=== PATIENT | male | born 1945 | race Caucasian/White ===

== ENCOUNTER → 2016-03-19 | Outpatient (CLI) | payer MEDICARE, OTHER ==
--- NOTE | 2016-03-19 15:35 | CT ---
"EXAMINATION TYPE: CT abdomen pelvis w con DATE OF EXAM: 03/19/2016 2:54 PM REFERENCE: NONE HISTORY: R10.32 abdominal pain HISTORY: Abdominal pain REFERENCE: NONE CT DLP: 1432.40 mGy Automated exposure control for dose reduction was used. TECHNIQUE: Helical acquisition through the abdomen and pelvis was obtained following the oral ingesti on of with Oral Contrast and following intravenous administration of 80 ml mL of Visipaque 320. The d feli was reformatted in axial, coronal and sagittal projections. FINDINGS: There is mild atelectatic change at the lung bases bilaterally. There is no pleural or per icardial fluid. Heart size is upper limits of normal. There is coronary artery calcification as well as other vascular calcifications. Within the abdomen, there is mild hepatomegaly with the liver measuring 18.6 cm. There is mild fatty infiltration of the liver. The gallbladder is not identified. Both adrenal glands appear normal. There is mild atrophy of the pancreas. Both kidneys demonstrate function. There is an 8.9 mm calculus in the midportion of the left ureter c ausing moderate hydronephrosis and hydroureter to this level. The right kidney is unremarkable. There is no significant retroperitoneal, iliac or inguinal adenopathy. There is mild thickening of the bladder wall. There is mild prosthetic enlargement. There is no significant diverticular change and there is no radiographic evidence of diverticulitis. There is annular narrowing of the mid ascending colon extending over a 3.2 cm distance. This is suspi cious for neoplasm. The appendix is not visualized. Small bowel loops are normal. There is no free fluid and no free air. There is been interpedicular fusion extending from L1 through L4. There is hypertrophic spondylosis a nd spondylosis deformans present at L4-5 and L5-S1. There is pain stimulator projecting over the left buttock. IMPRESSION: ANNULAR NARROWING OF THE MID ASCENDING COLON. 2. BORDERLINE CARDIOMEGALY. 3. VASCULAR CALCIFICATIONS INCLUDING THE CORONARY ARTERIES. 4. HEPATOMEGALY AND MILD FATTY INFILTRATION OF THE LIVER. 5. LEFT-SIDED HYDRONEPHROSIS AND HYDROURETER. THERE IS A 0.9 MM CALCULUS IN THE MIDPORTION OF THE LEF T URETER. 6. MILD THICKENING OF BLADDER WALL. 7. POSTSURGICAL CHANGE AND DEGENERATIVE CHANGE WITHIN THE LUMBAR SPINE. A Day message has been communicated to Cuong Rebolledo MD via the [employer] | Critical Result sy stem on 03/19/2016 3:31 PM, Message ID [id number]."
== END | disposition home or self-care (01) ==
LOC: RADCTMAIN 12:43
PROVIDERS: ATTEND Internal Medicine
DX: K56.69 Other intestinal obstruction (principal); R16.0 Hepatomegaly, not elsewhere classified; K76.0 Fatty (change of) liver, not elsewhere classified; N13.30 Unspecified hydronephrosis; N13.4 Hydroureter; N20.1 Calculus of ureter; N32.89 Other specified disorders of bladder
CPT/HCPCS: 74177; Q9967

== ENCOUNTER → 2016-04-28 | Outpatient (CLI) | payer MEDICARE, OTHER ==
--- NOTE | 2016-04-28 16:20 | US ---
EXAMINATION TYPE: US kidneys/renal and bladder DATE OF EXAM: 04/28/2016 2:13 PM COMPARISON: prior ct in pacs CLINICAL HISTORY: Abd Pain R10.9. pt had a left stone surgically removed 4 wks ago and had improved pain, new onset of left flank pain EXAM MEASUREMENTS: Right Kidney: 11.0 x 5.6 x 6.2 cm Left Kidney: 13.0 x 6.5 x 5.8 cm Right Kidney: wnl Left Kidney: heterogeneous sinus, no stone seen, pt is tender over this area Bladder: wnl Bilateral Jets seen: yes There is no evidence for hydronephrosis at this point in time. No nephrolithiasis is seen. No cholo s are identified. The urinary bladder is anechoic. Bilateral ureteral jets are seen. IMPRESSION: Left renal sinus is somewhat heterogenous and this may be related to prior surgical intervention.
== END | disposition home or self-care (01) ==
LOC: RADUSWWP 13:55
PROVIDERS: ATTEND Urology
DX: R10.9 Unspecified abdominal pain (principal)
CPT/HCPCS: 76770

== ENCOUNTER → 2016-10-25 | Outpatient (CLI) | payer MEDICARE, OTHER ==
[2016-10-25 10:55] LABS: Blood Urea Nitrogen 19 mg/dL (9-20); Non-African American GFR(MDRD) >60 (>60 ml/min/1.73 sqM)
--- NOTE | 2016-10-26 07:32 | CT ---
EXAMINATION TYPE: CT abdomen pelvis w con DATE OF EXAM: 10/25/2016 REFERENCE: Previous study dated 03/19/2016. HISTORY: R10.84 generalized abdominal pain HISTORY: Abdominal pain, Pre-MRI CT DLP: 2053 mGy Automated exposure control for dose reduction was used. TECHNIQUE: Helical acquisition through the abdomen and pelvis was obtained following the oral ingesti on of with Oral Contrast and following intravenous administration of 100 ml mL of Omnipaque 300. The data was reformatted in axial, coronal and sagittal projections. FINDINGS: There is mild airspace disease in the right lower lobe and right middle lobe. This may rep resent atelectasis. Early consolidation is not excluded. There is no pleural or pericardial fluid. Th e heart is mildly enlarged. There are coronary artery calcifications as well as other vascular calcif ications throughout the study. Within the abdomen, the liver is mildly prominent measuring 18 cm. The gallbladder is not identified. The spleen is unremarkable. Both adrenal glands are normal. Both kidneys demonstrate function and appear morphologically normal. The pancreas is unremarkable. There is no significant retroperitoneal, iliac or inguinal adenopathy. The prostate is mildly prominent. There is minimal thickening of the bladder wall. There is mucosal thickening within the transverse colon. There is no significant diverticular change. The appendix is not visualized. Small bowel loops appear normal. There is no free fluid and no free air identified. There is been a previous transpedicular fusion extending from L1 through L4. This is unchanged in esperanza earance from previous. There is also some minimal hypertrophic spondylosis in the lower dorsal spine. No bony destructive lesion is seen. There is a pain stimulator in place with the generator overlying the left buttock. IMPRESSION: 1. MILD ATELECTASIS OR EARLY AIRSPACE DISEASE IN THE RIGHT LOWER MIDDLE LOBES. 2. CORONARY ARTERY AND OTHER VASCULAR CALCIFICATIONS. 3. MILD HEPATOMEGALY. 4. DIFFUSE THICKENING OF THE TRANSVERSE COLON. PLEASE CORRELATE FOR COLITIS. 5. POSTSURGICAL AND DEGENERATIVE CHANGE WITHIN THE LUMBAR SPINE.
== END | disposition home or self-care (01) ==
LOC: RADCTMAIN 09:33
PROVIDERS: ATTEND Internal Medicine
DX: K63.89 Other specified diseases of intestine (principal); R16.0 Hepatomegaly, not elsewhere classified; Z01.818 Encounter for other preprocedural examination; Z98.890 Other specified postprocedural states
CPT/HCPCS: 82565; 84520; 74177; 36415; Q9967

== ENCOUNTER 2016-11-17 08:01 | Day surgery (SDC) | payer MEDICARE, OTHER ==
[2016-11-16 09:17] VITALS: BMI 34.2
[~2016-11-17 08:01] MED LIST: LACTATED RINGERS 1,000 ML IV SCH
[2016-11-17 08:31] VITALS: RESP 18; TEMP 97.9
[2016-11-17] MEDS ORDERED: LIDOCAINE 1% 20 ML VIAL (10MG/ML) FOR IV START INTRADERMA ONE (08:31)
[2016-11-17 08:34] LABS: Glucose,Whole Blood 130 mg/dL (75-99)
[2016-11-17] MEDS ORDERED: PROPOFOL 10 MG/ML 20 ML VIAL IV ONE (08:44)
--- NOTE | 2016-11-17 09:10 | P.PCN ---
Date of Procedure: 11/17/16 Procedure(s) Performed: BRIEF HISTORY: Patient is a 70-year-old pleasant white male, scheduled for an elective colonoscopy as a part of abdominal pain, nausea on and off for the last few months duration. Pain is mostly in the lower abdominal area but no significant change in his bowel habits. He denies any rectal bleeding. He had a CT of the abdomen and pelvis done that showed thickening of the transverse colon suspicious for colitis and hence he scheduled for colonoscopy to evaluate further. PROCEDURE PERFORMED: Colonoscopy with snare polypectomy. PREOPERATIVE DIAGNOSIS: Lower abdominal pain and abdominal CAT scan of the abdomen showing thickening of the transverse colon. IV sedation per Anesthesia. PROCEDURE: After informed consent was obtained, the patient, was brought into the endoscopy unit. IV sedation was administered by Anesthesia under continuous monitoring. Digital rectal examination was normal. Initially the Olympus CF- 160 flexible video colonoscope was then inserted in the rectum, gradually advanced into the cecum without any difficulty. Careful examination was performed as the scope was gradually being withdrawn. Ileocecal valve and the appendiceal orifice were visualized and appeared normal. Prep was excellent. In the ascending colon there was a 7-8 mm polyp that was removed by snare polypectomy. Mucosa of the cecum, ascending colon, transverse colon, descending colon, sigmoid colon, and rectum appeared normal. Retroflexion was performed in the rectum and no lesions were seen. The patient tolerated the procedure well. IMPRESSION: 7-8 mm ascending colon polyp status post polypectomy Rest of the colon appeared normal RECOMMENDATIONS: Findings of this examination were discussed with the patient as well as her family. He was advised to follow with the biopsy results. If the biopsy shows a tubular adenoma, he can have a repeat colonoscopy in 5 years.
[2016-11-17 09:11] VITALS: PULSE 56
[2016-11-17 09:30] VITALS: BP 168/68
== END 2016-11-17 09:59 | disposition home or self-care (01) ==
LOC: ORWHC2ENDO 08:01
PROVIDERS: ATTEND Internal Medicine Gastroenterology
DX: R10.30 Lower abdominal pain, unspecified (principal); K63.5 Polyp of colon; Z79.899 Other long term (current) drug therapy; Z88.5 Allergy status to narcotic agent; I25.2 Old myocardial infarction; I10 Essential (primary) hypertension; E78.5 Hyperlipidemia, unspecified; G47.33 Obstructive sleep apnea (adult) (pediatric); E11.9 Type 2 diabetes mellitus without complications; N40.0 Benign prostatic hyperplasia without lower urinary tract symptoms; G20 Parkinson's disease; K21.9 Gastro-esophageal reflux disease without esophagitis; Z95.5 Presence of coronary angioplasty implant and graft; Z79.82 Long term (current) use of aspirin
CPT/HCPCS: 88305; 45385; J2704

== ENCOUNTER 2016-12-11 11:06 | Inpatient (IN) | payer MEDICARE, OTHER ==
[2016-12-11 12:02] LABS: Basophils % (A) 0 %; CH 29.5; CHCM 33.5; Eosinophils # (A) 0.2 k/uL (0-0.7); Eosinophils % (A) 3 %; HCT 46.9 % (39.0-53.0); HDW 2.74; Luc # (Auto) 0.19; Luc % (Auto) 3; Lymphocytes % (A) 29 %; MCH 28.3 pg (25.0-35.0); MCV 88.6 fL (80.0-100.0); Mean Platelet Volume 7.3; Monocytes # (A) 0.5 k/uL (0-1.0); Monocytes % (A) 7 %; Neutrophils # (A) 4.2 k/uL (1.3-7.7); Neutrophils % (A) 59 %; RBC 5.29 m/uL (4.30-5.90); RDW 15.2 % (11.5-15.5); WBC 7.1 k/uL (3.8-10.6); WBC (Perox) 7.11
[2016-12-11 12:12] LABS: ALT 39 U/L (21-72); AST 31 U/L (17-59); Alkaline Phosphatase 94 U/L (38-126); Anion Gap 12 mmol/L; Blood Urea Nitrogen 20 mg/dL (9-20); Calcium 9.5 mg/dL (8.4-10.2); Carbon Dioxide 24 mmol/L (22-30); Chloride 105 mmol/L (98-107); Glucose 153 mg/dL (74-99); Magnesium 1.6 mg/dL (1.6-2.3); Non-African American GFR(MDRD) >60 (>60 ml/min/1.73 sqM); Potassium 4.9 mmol/L (3.5-5.1); Sodium 141 mmol/L (137-145); Total Bilirubin 0.7 mg/dL (0.2-1.3)
[2016-12-11 12:15] LABS: INR 1.1 (<1.2); Partial Thromboplastin Time 23.3 sec (22.0-30.0); Prothrombin Time 11.3 sec (9.0-12.0)
[2016-12-11 12:49] LABS: Troponin I <0.012 ng/mL (0.000-0.034)
[2016-12-11 12:55] LABS: Creatine Kinase MB 2.9 ng/mL (0.0-2.4)
--- NOTE | 2016-12-11 13:08 | ED ---
General Adult HPI - General Chief complaint: Recheck/Abnormal Lab/Rx Stated complaint: HEART MONITOR WENT OFF Time Seen by Provider: 12/11/16 11:54 Source: patient, family, RN notes reviewed Mode of arrival: wheelchair Limitations: no limitations - History of Present Illness Initial comments: Patient is a pleasant 71-year-old male presenting to the emergency department after being called by cardiology. Patient did have a monitor placed yesterday. Patient received a call stating heart rate was in the 30s. Patient has had several episodes of near-syncope over the past several weeks. Patient has lightheadedness and odd sensation associated with this. Currently patient is symptom-free. No chest pains other than his chronic occasional sharp discomfort , none at this time. No dyspnea. - Related Data Home Medications Medication Instructions Recorded Confirmed Aspirin 81 mg PO DAILY 05/21/14 12/11/16 Atorvastatin [Lipitor] 40 mg PO DAILY 05/21/14 12/11/16 Citalopram Hydrobromide 20 mg PO BID 05/21/14 12/11/16 [Citalopram HBr] Esomeprazole Magnesium [NexIUM] 40 mg PO QAM 05/21/14 12/11/16 Losartan Potassium 25 mg PO QAM 05/21/14 12/11/16 Metoprolol Succinate [Toprol XL] 25 mg PO QAM 05/21/14 12/11/16 metFORMIN HCL 1,000 mg PO BID 05/21/14 12/11/16 Cyanocobalamin [Vitamin B-12] 1,000 mcg PO DAILY 09/15/15 12/11/16 HYDROcodone/APAP 5-325MG [[place] 1 tab PO TID PRN 09/15/15 12/11/16 5-325] Carbidopa-Levodopa 25-100 mg 1 each PO TID 09/19/15 12/11/16 [Sinemet 25-100 mg] Folic Acid 0.4 mg PO DAILY 11/16/16 12/11/16 rOPINIRole HCL [Requip] 3 mg PO TID 11/16/16 12/11/16 Allergies Allergy/AdvReac Type Severity Reaction Status Date / Time adhesive AdvReac Itching Verified 12/11/16 12:51 morphine AdvReac Excessive Verified 12/11/16 12:51 Sweating Review of Systems ROS Statement: Those systems with pertinent positive or pertinent negative responses have been documented in the HPI. ROS Other: All systems not noted in ROS Statement are negative. Constitutional: Denies: fever Eyes: Denies: eye pain ENT: Denies: ear pain Respiratory: Denies: cough, dyspnea Cardiovascular: Denies: chest pain Endocrine: Reports: fatigue Gastrointestinal: Denies: abdominal pain Genitourinary: Denies: dysuria Musculoskeletal: Denies: back pain Skin: Denies: rash Neurological: Denies: weakness Past Medical History Past Medical History: Chest Pain / Angina, Diabetes Mellitus, GERD/Reflux, Hyperlipidemia, Hypertension, Myocardial Infarction (PR), Neurologic Disorder, Osteoarthritis (OA), Prostate Disorder, Sleep Apnea/CPAP/BIPAP Additional Past Medical History / Comment(s): PARKINSON'S,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 cystoscopy Past Anesthesia/Blood Transfusion Reactions: Previous Problems w/ Anesthesia Additional Past Anesthesia/Blood Transfusion Reaction / Comment(s): STATES "COULDN'T BREATHE WHEN COMING OUT OF SHOULDER SX AND WAS PUT BACK UNDER", SLIGHT CLAUSTROHOBIA Date of Last Stent Placement:: 2007 Past Psychological History: Depression Smoking Status: Never smoker Past Alcohol Use History: None Reported Past Drug Use History: None Reported - Past Family History Sister(s) Family Medical History: Cancer Father Sister(s) Additional Family Medical History / Comment(s): FATHER, 2 SISTERS AND 1 BROTHER , LUIS ALBERTO'S DX Mother Family Medical History: Deep Vein Thrombosis (DVT) General Exam Limitations: no limitations General appearance: alert, in no apparent distress Head exam: Present: atraumatic, normocephalic Eye exam: Present: normal appearance, PERRL, EOMI. Absent: nystagmus ENT exam: Present: normal oropharynx Neck exam: Present: normal inspection Respiratory exam: Present: normal lung sounds bilaterally Cardiovascular Exam: Present: bradycardia Expanded Peripheral pulses: 2+: Radial (R), Radial (L), Dorsalis Pedis (R), Dorsalis Pedis (L) GI/Abdominal exam: Present: soft. Absent: tenderness Extremities exam: Present: normal inspection Neurological exam: Present: alert Psychiatric exam: Present: normal affect, normal mood Skin exam: Present: normal color Course Vital Signs 12/11/16 12/11/16 11:23 12:57 Temperature 97.5 F L Pulse Rate 44 L 47 L Respiratory 20 18 Rate Blood Pressure 106/58 117/70 O2 Sat by Pulse 97 97 Oximetry EKG Findings - EKG Comments: EKG Findings:: Sinus bradycardia 41. MT 168. QRS 80. QT 528. QTC 435. Normal axis. Normal QRS. No acute ST change. Medical Decision Making - Medical Decision Making Case discussed in detail with Dr. Giles who states patient did have pulses up to 8 seconds. He does recommend admission and hold Toprol. Patient and family have been updated. Dr. Amaury toro. - Lab Data Result diagrams: 12/11/16 11:35 12/11/16 11:35 Lab Results 12/11/16 12/11/16 12/11/16 Range/Units 11:35 11:35 11:35 WBC (3.8-10.6) k/uL RBC (4.30-5.90) m/uL Hgb (13.0-17.5) gm/dL Hct (39.0-53.0) % MCV (80.0-100.0) fL MCH (25.0-35.0) pg MCHC (31.0-37.0) g/dL RDW (11.5-15.5) % Plt Count (150-450) k/uL Neutrophils % % Lymphocytes % % Monocytes % % Eosinophils % % Basophils % % Neutrophils # (1.3-7.7) k/uL Lymphocytes # (1.0-4.8) k/uL Monocytes # (0-1.0) k/uL Eosinophils # (0-0.7) k/uL Basophils # (0-0.2) k/uL PT 11.3 (9.0-12.0) sec INR 1.1 (<1.2) APTT 23.3 (22.0-30.0) sec Sodium 141 (137-145) mmol/L Potassium 4.9 (3.5-5.1) mmol/L Chloride 105 (98-107) mmol/L Carbon Dioxide 24 (22-30) mmol/L Anion Gap 12 mmol/L BUN 20 (9-20) mg/dL Creatinine 1.02 (0.66-1.25) mg/dL Est GFR (MDRD) Af Amer >60 (>60 ml/min/1.73 sqM) Est GFR (MDRD) Non-Af >60 (>60 ml/min/1.73 sqM) Glucose 153 H (74-99) mg/dL Calcium 9.5 (8.4-10.2) mg/dL Magnesium 1.6 (1.6-2.3) mg/dL Total Bilirubin 0.7 (0.2-1.3) mg/dL AST 31 (17-59) U/L ALT 39 (21-72) U/L Alkaline Phosphatase 94 (38-126) U/L CK-MB (CK-2) 2.9 H* (0.0-2.4) ng/mL Troponin I <0.012 (0.000-0.034) ng/mL Total Protein 7.0 (6.3-8.2) g/dL Albumin 4.3 (3.5-5.0) g/dL TSH 1.120 (0.465-4.680) mIU/L 12/11/16 Range/Units 11:35 WBC 7.1 (3.8-10.6) k/uL RBC 5.29 (4.30-5.90) m/uL Hgb 15.0 (13.0-17.5) gm/dL Hct 46.9 (39.0-53.0) % MCV 88.6 (80.0-100.0) fL MCH 28.3 (25.0-35.0) pg MCHC 32.0 (31.0-37.0) g/dL RDW 15.2 (11.5-15.5) % Plt Count 238 (150-450) k/uL Neutrophils % 59 % Lymphocytes % 29 % Monocytes % 7 % Eosinophils % 3 % Basophils % 0 % Neutrophils # 4.2 (1.3-7.7) k/uL Lymphocytes # 2.0 (1.0-4.8) k/uL Monocytes # 0.5 (0-1.0) k/uL Eosinophils # 0.2 (0-0.7) k/uL Basophils # 0.0 (0-0.2) k/uL PT (9.0-12.0) sec INR (<1.2) APTT (22.0-30.0) sec Sodium (137-145) mmol/L Potassium (3.5-5.1) mmol/L Chloride (98-107) mmol/L Carbon Dioxide (22-30) mmol/L Anion Gap mmol/L BUN (9-20) mg/dL Creatinine (0.66-1.25) mg/dL Est GFR (MDRD) Af Amer (>60 ml/min/1.73 sqM) Est GFR (MDRD) Non-Af (>60 ml/min/1.73 sqM) Glucose (74-99) mg/dL Calcium (8.4-10.2) mg/dL Magnesium (1.6-2.3) mg/dL Total Bilirubin (0.2-1.3) mg/dL AST (17-59) U/L ALT (21-72) U/L Alkaline Phosphatase (38-126) U/L CK-MB (CK-2) (0.0-2.4) ng/mL Troponin I (0.000-0.034) ng/mL Total Protein (6.3-8.2) g/dL Albumin (3.5-5.0) g/dL TSH (0.465-4.680) mIU/L Disposition Clinical Impression: Bradycardia, Near syncope Disposition: ADMITTED IP TO THIS [facility] Referrals: Cuong Rebolledo MD [Primary Care Provider] - 1-2 days Decision Time: 14:07
[2016-12-11] MEDS ORDERED: NALOXONE 0.4 MG/ML 1 ML VIAL IV PRN (14:08)
[2016-12-11] MEDS ORDERED: SODIUM CHLORIDE 0.9% 1,000 ML IV SCH (14:15)
[2016-12-11 16:34] VITALS: BMI 33.5
[2016-12-11] MEDS ORDERED: HYDROcodone/APAP 5-325MG 1 EACH TAB PO PRN (16:45)
[2016-12-11] MEDS: metFORMIN 500 MG TAB PO SCH (18:42)
--- NOTE | 2016-12-11 19:39 | HP ---
HISTORY AND PHYSICAL ATTENDING PHYSICIAN: Dr. Rebolledo. CHIEF COMPLAINT: Near fainting. HISTORY OF PRESENT ILLNESS: This is a 71-year-old gentleman who was admitted to the hospital after evaluation on outpatient. The patient has had some bradycardia, some dizzy spells. The patient had been referred to Cardiology for the bradycardia. The patient has a known history of coronary artery disease. He had initial 24 hour Holter monitor scheduled and subsequently a 2 week monitoring manager was placed. Event monitor was placed yesterday. Today he had an episode where he felt near faint. At that time, he had pressed the button and the service called him saying that he was having 8 second pauses and was recommended to come to the emergency room by the equip maint eng. The patient otherwise has no other symptoms. No associated chest pain, shortness of breath. He has spells periodically, very brief. The patient otherwise denies any symptoms as mentioned above. The patient is not taking his metoprolol, which had been discontinued actually because of his bradycardia. PAST MEDICAL HISTORY: Significant for coronary artery disease with a stent placed about 20 years ago. He has had a history of diabetes mellitus, adequately controlled with oral medications, history of gastroesophageal reflux. He has had some chronic a.m. nausea and recent upper endoscopy, colonoscopy was unremarkable except for mild reflux. CT scan of the abdomen was unremarkable. 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 He does have a history of myocardial infarction back in 1996 when he had a stent placed. Previous history of pneumonia with total resolution of symptoms. History of Parkinson's. The patient does follow with a neurologist and has some moderate symptoms off bradykinesia and stiffness. He also has a history of degenerative arthritis especially affecting the lumbosacral spine with major surgeries. History of poliomyelitis as a child with no residual sequelae. PAST SURGICAL HISTORY: Significant for: 1. Tonsillectomy and adenectomy. 2. Appendectomy. 3. Cholecystectomy. 4. Left total knee arthroplasty. 5. Left shoulder surgery x2. 6. Lumbar surgery x2. 7. Right total shoulder arthroplasty. SOCIAL HISTORY: Patient is a retired cardiology nurse practitioner. He is , lives with spouse. Vaccination history, Pneumovax in 2009. ALLERGIES: Sensitive to MORPHINE, which causes him to sweat. MEDICATIONS: At present include Requip 3 mg t.i.d., metformin 1000 mg b.i.d., losartan 25 mg daily, [place] 5/325 one t.i.d., folic acid 0.4 mg daily, Nexium 40 mg daily, vitamin B12 a 1000 mcg daily, Celexa 20 mg daily, Carbidopa levodopa 2500 1 t.i.d., Lipitor 40 mg daily, aspirin 81 mg daily. FAMILY MEDICAL HISTORY: Mother at the age of 56 from [place]'s chorea. Mother at the age of 78 with a history of CHF, diabetes mellitus, and peripheral arterial disease. He had 2 brothers , 1 at the age of 61 of leukemia, a brother at age 66 of [place]'s chorea. Has 1 brother living, age 68, history of diabetes mellitus and splenic carcinoma. Three sisters all . Two sisters aged 63 and 71 had [place]'s chorea. One sister at age of 70. She had CHF, hypertension, diabetes mellitus. The patient has 2 sons and 1 daughter in good health. REVIEW OF SYSTEMS: NEURO: Headaches, some dizziness and near fainting symptoms. No double vision, blurred vision. No symptoms of TIA, syncope, seizures. PSYCH: No anxiety. Chronic depression. CARDIAC: Denies chest pain, angina, palpitations. No shortness of breath, cough, hemoptysis. GI: Every morning nausea. No vomiting. No diarrhea. No heartburn. : No symptoms, dysuria, hematuria. Does have some frequency, nocturia. EXTREMITIES: Denies edema. Does have some chronic back pain and arthritic joint pains. SKIN: No rashes. CONSTITUTIONAL: No fever, chills. No weight gain, weight loss. PHYSICAL EXAMINATION: Pleasant gentleman in no distress. Vital signs reveals temperature 97.1, pulse 51, respirations 16, blood pressure 176/84, pulse ox 99 on 2 L. The patient's blood pressure was 106/58 at the time of admission. The patient blood pressure 176/84 is usual. HEENT: Normocephalic. Neck is decreased range of motion with stiffness. Pupils reactive. Nostrils are clear. Left facial VII nerve weakness. No carotid bruits. CHEST: Examination is clear to auscultation and percussion. CARDIAC: Distant heart sounds S1, S2 with no gallops, murmurs, bradycardic. ABDOMEN: Soft. No palpable masses. Bowel sounds normal. No organomegaly. No abdominal bruits. EXTREMITIES: Reveal good pulses both upper lower extremities. NEUROLOGIC: Awake, alert, oriented, does have generalized bradykinesia and generalized increased muscle tone. No tremors noted at this time. LABORATORY ASSESSMENT: Normal CBC, PT, PTT. Electrolytes, BUN, creatinine are normal. Glucose is 153 random. Normal hepatic function. CPK is normal. Troponin less than 0.12. TSH was normal. Albumin 4.3. ASSESSMENT: 1. Bradycardia with sinus pauses of more than 8 seconds. 2. Near syncope. 3. Diabetes mellitus. 4. History of coronary artery disease, stable. 5. Parkinson's. 6. Previous history of Fontaine's palsy. PLAN: The patient is stable. Continue present medical regimen. Patient is being seen by Cardiology. The patient is going to require a pacemaker. The patient meanwhile is to continue on his medications. Of note the patient has not been taking any beta blockers at home. MMODL / IJN: [id number] /
[2016-12-11] MEDS: CARBIDOPA-LEVODOPA 25-100 MG 1 EACH TAB PO SCH (20:02)
[2016-12-11] MEDS: CITALOPRAM HYDROBROMIDE 20 MG TAB PO SCH (21:13)
[2016-12-12] MEDS: CARBIDOPA-LEVODOPA 25-100 MG 1 EACH TAB PO SCH ×4 (06:44→21:13)
[2016-12-12] MEDS: metFORMIN 500 MG TAB PO SCH ×2 (07:00→17:37)
[2016-12-12] MEDS: PANTOPRAZOLE 40 MG TABLET PO SCH (07:00)
[2016-12-12 07:11] LABS: Glucose,Whole Blood 141 mg/dL (75-99)
--- NOTE | 2016-12-12 08:44 | P.PN ---
Subjective Progress Note Date: 12/12/16 Principal diagnosis: Bradycardia This 71-year-old gentleman was admitted to the hospital yesterday because of bradycardia and sinus pauses of 8 seconds note. There was associated symptoms of near syncope. Patient does have underlying history of coronary artery disease with no symptoms of angina. He has chronic nausea especially in the mornings and subsequently no further problems. Patient denies any other associated symptoms of chest pain shortness of breath cough. Since being admitted he has had no other major symptoms. He still has his laboratory monitor on. He is scheduled for a pacemaker REVIEW OF SYSTEMS: Neuro: Denies any headaches dizziness. Psych: Denies anxiety depression feels oriented. Cardiac: Denies chest pain and angina palpitations. Respiratory: Denies shortness of breath cough. GI: Does have some nausea no vomiting or abdominal pain. No diarrhea or constipation : Denies dysuria hematuria. Extremities: Denies pain. No edema. Skin: Intact. Constitutional: No fever, chills. Objective - Vital Signs Vital signs: Vital Signs Temp 97.3 F L 12/12/16 04:00 Pulse 50 L 12/12/16 04:00 Resp 16 12/12/16 04:00 BP 132/64 12/12/16 04:00 Pulse Ox 92 L 12/12/16 04:00 Intake & Output 12/11/16 12/12/16 12/12/16 18:59 06:59 18:59 Intake Total 400 120 Output Total 300 400 Balance 100 -280 Weight 115.5 kg 117.5 kg Intake: Oral 400 120 Output: Urine 300 400 Other: Voiding Method Urinal Urinal # Voids 1 0 PHYSICAL EXAMINATION: Cooperative, at present in no acute distress. HEENT: Neck supple. No JVD. Chest: Clear to auscultation Cardiac: Normal S1-S2 no gallops no murmur . Abdomen: Soft bowel sounds present. Extremities: No edema no tenderness Neurologically: Awake and alert and oriented. Patient does have some coarse tremors of the right upper extremity. He does have generalized weak and is here and generalized increased muscle tone. Old left seventh peripheral palsy - Labs CBC & Chem 7: 12/11/16 11:35 12/11/16 11:35 Labs: Abnormal Lab Results - Last 24 Hours (Table) 12/11/16 12/11/16 12/12/16 Range/Units 11:35 11:35 06:59 Glucose 153 H (74-99) mg/dL POC Glucose (mg/dL) 141 H (75-99) mg/dL CK-MB (CK-2) 2.9 H* (0.0-2.4) ng/mL Assessment and Plan Plan: ASSESSMENT: 1. Sinus pauses greater than 8 seconds. 2. Bradycardia. 3. Stable coronary artery disease. 4. Parkinson's. 5. Diabetes mellitus with no complications. 6. Chronic back pain. 7. Chronic am nausea. 8. History of left Fontaine's palsy. PLAN: Continue present medical regimen. Awaiting further cardiac evaluation and possible pacemaker today. Patient condition and status discussed with him..
--- NOTE | 2016-12-12 08:49 | P.CRDCN ---
History of Present Illness Consult date: 12/12/16 Requesting physician: Cuong Rebolledo Reason for Consult (text): Pauses Chief complaint: Dizziness and near syncope History of present illness: This is a pleasant 71-year-old gentleman who follows regularly with Dr. Trujillo in the office. He has a known history of coronary artery disease with prior stent placement, hypertension, diabetes, hyperlipidemia, sleep apnea , Parkinson's, who presents to the hospital following a near syncopal episode. According to the patient he's been having episodes of dizziness with near- syncope for quite some time, he initially had a 24-hour Holter monitor put in place which did not reveal any significant findings, subsequent to that patient followed up with Dr. Trujillo in the office and was advised to have an event monitor placed. Yesterday a call was made to Dr. VC Anaya, there was evidence of an 8 second. He did speak with the patient on the phone at home who stated that he had a near syncopal episode. According to the patient he was going to the bathroom on this occasion when this episode happened, he does state that it was similar to his near syncopal episodes in the past. Patient also complains of some mild nausea and left upper quadrant discomfort this morning. EKG on arrival here shows a sinus bradycardia with a heart rate of 40. CBC is normal, sodium 141, potassium 4.9, BUN 20, creatinine 1.0. Magnesium level I.6, troponin 0.012, TSH level is normal. The patient was taking metoprolol tartrate 25 mg 1 tablet daily at home, however he has not been on that for quite some time because Dr. Rebolledo at discontinued in the office secondary to bradycardia. This morning patient continues to be in a sinus bradycardia with a heart rate in the 40s. Blood pressure 132/60, heart rate in the 40s, 92% on room air, patient is afebrile. 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 cystoscopy holter monitor placed 12/10/16 for 30 days Past Anesthesia/Blood Transfusion Reactions: Previous Problems w/ Anesthesia Additional Past Anesthesia/Blood Transfusion Reaction / Comment(s): STATES "COULDN'T BREATHE WHEN COMING OUT OF SHOULDER SX AND WAS PUT BACK UNDER", SLIGHT CLAUSTROHOBIA Date of Last Stent Placement:: 2007 Past Psychological History: Depression Smoking Status: Never smoker Past Alcohol Use History: None Reported Past Drug Use History: None Reported - Past Family History Sister(s) Family Medical History: Cancer Father Sister(s) Additional Family Medical History / Comment(s): FATHER, 2 SISTERS AND 1 BROTHER , LUIS ALBERTO'S DX Mother Family Medical History: Deep Vein Thrombosis (DVT) Medications and Allergies Home Medications Medication Instructions Recorded Confirmed Type Aspirin 81 mg PO DAILY 05/21/14 12/11/16 History Atorvastatin [Lipitor] 40 mg PO DAILY 05/21/14 12/11/16 History Citalopram Hydrobromide 20 mg PO BID 05/21/14 12/11/16 History [Citalopram HBr] Esomeprazole Magnesium [NexIUM] 40 mg PO QAM 05/21/14 12/11/16 History Losartan Potassium 25 mg PO QAM 05/21/14 12/11/16 History Metoprolol Succinate [Toprol XL] 25 mg PO QAM 05/21/14 12/11/16 History metFORMIN HCL 1,000 mg PO BID 05/21/14 12/11/16 History Cyanocobalamin [Vitamin B-12] 1,000 mcg PO DAILY 09/15/15 12/11/16 History HYDROcodone/APAP 5-325MG [[place] 1 tab PO TID PRN 09/15/15 12/11/16 History 5-325] Carbidopa-Levodopa 25-100 mg 1 each PO TID 09/19/15 12/11/16 History [Sinemet 25-100 mg] Folic Acid 0.4 mg PO DAILY 11/16/16 12/11/16 History rOPINIRole HCL [Requip] 3 mg PO TID 11/16/16 12/11/16 History Allergies Allergy/AdvReac Type Severity Reaction Status Date / Time adhesive AdvReac Itching Verified 12/11/16 12:51 morphine AdvReac Excessive Verified 12/11/16 12:51 Sweating Physical Exam Vitals: Vital Signs Temp Pulse Pulse Pulse Resp BP BP 12/12/16 04:00 97.3 F L 50 L 16 132/64 12/12/16 00:00 97.8 F 52 L 16 140/81 12/11/16 20:00 97.1 F L 41 L 18 147/84 12/11/16 16:30 51 L 16 12/11/16 16:09 97.1 F L 51 L 16 176/84 12/11/16 15:15 97.5 F L 50 L 12 149/83 12/11/16 12:57 47 L 18 117/70 12/11/16 11:23 97.5 F L 44 L 20 106/58 Pulse Ox 12/12/16 04:00 92 L 12/12/16 00:00 94 L 12/11/16 20:00 96 12/11/16 16:30 12/11/16 16:09 99 12/11/16 15:15 95 12/11/16 12:57 97 12/11/16 11:23 97 Intake and Output 12/11/16 12/12/16 12/12/16 22:59 06:59 14:59 Intake Total 520 Output Total 400 300 Balance 120 -300 Intake: Oral 520 Output: Urine 400 300 Other: Voiding Method Urinal Urinal # Voids 1 0 Weight 115.5 kg 117.5 kg PHYSICAL EXAMINATION: HEENT: Head is atraumatic, normocephalic. Pupils equal, round. Neck is supple. There is no elevated jugular venous pressure. HEART EXAMINATION: Heart S1, S2 normal. No murmur or gallop heard. CHEST EXAMINATION: Lungs are clear to auscultation and precussion. No chest wall tenderness is noted on palpation or with deep breathing. ABDOMEN: Soft, nontender. Bowel sounds are heard. No organomegaly noted. EXTREMITIES: 2+ peripheral pulses with no evidence of peripheral edema and no calf tenderness noted. NEUROLOGIC patient is awake, alert and oriented -3. . Results 12/11/16 11:35 12/11/16 11:35 Cardiac Enzymes 12/11/16 12/11/16 Range/Units 11:35 11:35 AST 31 (17-59) U/L CK-MB (CK-2) 2.9 H* (0.0-2.4) ng/mL Troponin I <0.012 (0.000-0.034) ng/mL Coagulation 12/11/16 Range/Units 11:35 PT 11.3 (9.0-12.0) sec APTT 23.3 (22.0-30.0) sec CBC 12/11/16 Range/Units 11:35 WBC 7.1 (3.8-10.6) k/uL RBC 5.29 (4.30-5.90) m/uL Hgb 15.0 (13.0-17.5) gm/dL Hct 46.9 (39.0-53.0) % Plt Count 238 (150-450) k/uL Comprehensive Metabolic Panel 12/11/16 Range/Units 11:35 Sodium 141 (137-145) mmol/L Potassium 4.9 (3.5-5.1) mmol/L Chloride 105 (98-107) mmol/L Carbon Dioxide 24 (22-30) mmol/L BUN 20 (9-20) mg/dL Creatinine 1.02 (0.66-1.25) mg/dL Glucose 153 H (74-99) mg/dL Calcium 9.5 (8.4-10.2) mg/dL AST 31 (17-59) U/L ALT 39 (21-72) U/L Alkaline Phosphatase 94 (38-126) U/L Total Protein 7.0 (6.3-8.2) g/dL Albumin 4.3 (3.5-5.0) g/dL Current Medications Generic Name Dose Route Start Last Admin Trade Name Freq PRN Reason Stop Dose Admin Hydrocodone Bitart/Acetaminophen 1 each 12/11/16 16:45 [place] 5-325 PO TID PRN Pain Aspirin 81 mg 12/12/16 09:00 Aspirin PO DAILY NEDRA Atorvastatin Calcium 40 mg 12/12/16 09:00 Lipitor PO DAILY NEDRA Carbidopa/Levodopa 1 each 12/11/16 17:30 12/12/16 06:44 Sinemet 25-100 PO Not Given AC-TID NEDRA Citalopram Hydrobromide 20 mg 12/11/16 21:00 12/11/16 21:13 Celexa PO 20 mg BID NEDRA Administration Cyanocobalamin 1,000 mcg 12/12/16 12:00 Vitamin B-12 PO DAILY@1200 NEDRA Folic Acid 0.5 mg 12/12/16 09:00 Folic Acid PO DAILY NEDRA Sodium Chloride 1,000 mls @ 20 mls/hr 12/11/16 14:15 12/12/16 06:43 Saline 0.9% IV Not Given .Q24H NEDRA Losartan Potassium 25 mg 12/12/16 09:00 Cozaar PO QAM NEDRA Metformin HCl 1,000 mg 12/11/16 17:30 12/12/16 07:00 Glucophage PO 1,000 mg AC-BID NEDRA Administration Naloxone HCl 0.2 mg 12/11/16 14:08 Narcan IV Q2M PRN Opioid Reversal Pantoprazole Sodium 40 mg 12/12/16 06:30 12/12/16 07:00 Protonix PO 40 mg QAM@0630 NEDRA Administration Ropinirole HCl 3 mg 12/11/16 22:00 12/11/16 21:13 Requip PO Not Given TID NEDRA Intake and Output 12/11/16 12/12/16 12/12/16 22:59 06:59 14:59 Intake Total 520 Output Total 400 300 Balance 120 -300 Intake: Oral 520 Output: Urine 400 300 Other: Voiding Method Urinal Urinal # Voids 1 0 Weight 115.5 kg 117.5 kg 12/11/16 11:35 12/11/16 11:35 EKG Interpretations (text) EKG shows a sinus bradycardia Assessment and Plan Plan: Assessment and plan #1 Recurrent symptoms of dizziness with near syncope, evidence of an 8 second pause on an event monitor. Patient continues to be in a sinus bradycardia this morning with a heart rate in the 40s. TSH normal. #2 known history of coronary artery disease with prior stent placement multiple years #3 diabetes #4 hypertension #5 hyperlipidemia #6 Parkinson's #7 history of Fontaine's palsy Plan We will obtain an echocardiogram with Doppler study, patient has been kept nothing by mouth for possible implantation of a permanent pacemaker today. I did speak with Dr. Rebolledo this morning who is inquiring as to whether or not the pacemaker can be implanted today. The risks and the benefits were explained to the patient in detail. Further recommendations to follow. DNP note has been reviewed, I agree with a documented findings and plan of care. Patient was seen and examined.
[2016-12-12] MEDS ORDERED: ceFAZolin 2 GM in SODIUM CHLORIDE 0.9% 100 ML IVPB ONE (09:13)
[2016-12-12] MEDS ORDERED: ceFAZolin 1,000 MG in SODIUM CHLORIDE 0.9% IRRIGATIO 250 ML IRRIGATION ONE (09:13)
[2016-12-12] MEDS ORDERED: SODIUM CHLORIDE 0.9% 1,000 ML IV SCH (09:15)
[2016-12-12] MEDS: ATORVASTATIN 40 MG TAB PO SCH (10:11)
[2016-12-12] MEDS: CITALOPRAM HYDROBROMIDE 20 MG TAB PO SCH ×2 (10:11→21:16)
[2016-12-12] MEDS: LOSARTAN 25 MG TAB PO SCH (10:12)
[2016-12-12] MEDS: FOLIC ACID 1 MG TAB PO SCH (10:13)
[2016-12-12] MEDS ORDERED: IV FLUID CONTINUATION 975 ML IV ONE (10:50)
[2016-12-12] MEDS ORDERED: IODIXANOL 320 MG/ML 100 ML IV ONE (10:54)
[2016-12-12] MEDS ORDERED: fentaNYL (PF) 50 MCG/ML 2 ML AMP ONE (11:10)
[2016-12-12] MEDS ORDERED: MIDAZOLAM 2 MG/2 ML VIAL ONE (11:10)
[2016-12-12] MEDS ORDERED: MIDAZOLAM 2 MG/2 ML VIAL IV ONE (11:14)
[2016-12-12] MEDS ORDERED: fentaNYL (PF) 50 MCG/ML 2 ML AMP IV ONE (11:14)
[2016-12-12] MEDS ORDERED: LIDOCAINE 1% INJ 10MG/ML (20 ML MDV) SQ ONE (11:17)
[2016-12-12] MEDS ORDERED: ACETAMINOPHEN TAB 325 MG TAB PO PRN (12:36)
--- NOTE | 2016-12-12 12:44 | P.PCN ---
Preoperative Diagnosis: Patient underwent EP procedure under conscious sedation/moderate sedation, monitoring of the level of consciousness and physiologic parameters including but not limited to vital signs and oxygenation. Patient tolerated the procedure well without any acute complications. Start time: 1113 Stop time: 1235 82 minutes Anesthesia: local Condition: stable Disposition: floor
[2016-12-12] MEDS ORDERED: ACETAMINOPHEN IV (For NPO) 1,000 MG in EMPTY BAG 1 BAG IVPB ONE (12:45)
--- NOTE | 2016-12-12 13:40 | PCN ---
PROCEDURE NOTE Mr. Jordy Duran was admitted to the hospital with recurrent syncopal and presyncopal spells. His event monitor showed 8 second sinus pauses. He has severe sinus bradycardia. Dr. Rebolledo had stopped his metoprolol a week back and he received an event monitor for these episodes. His TSH is normal. He was brought in for dual-chamber pacemaker implantation in the EP Lab referred by Dr. Dutch Anaya and Dr. Rebolledo. DESCRIPTION OF PROCEDURE: The patient was brought to the EP lab in a fasting state. Written informed consent was obtained prior to the procedure. The left shoulder area was prepped and draped as per protocol. 1% lidocaine was used for local anesthesia. A 4 cm incision was made parallel to the deltopectoral groove, about 1.5 cm medial to it. The incision was carried down to the level of the pectoralis muscle. A subfascial pocket was made. Hemostasis was assured. The left axillary vein was accessed at 2 separate points under fluoroscopy via appropriately-sized introducer sheaths, two leads were positioned in the right heart. The atrial lead was a [employer] 46 cm, model #1944 serial number [id number]. The karla lead was placed and positioned in the right atrial appendage. Positioned in the right atrial appendage. P waves 1.8 mV. Pacing threshold 0.5 V at 0.5 milliseconds. Pacing impedance 530 ohms, 10 V test was negative. The RV lead was positioned in the RV apex. This is a 58 cm [employer], model #1948 serial number [id number]. R-waves greater than 12 mV. Pacing impedance 760 ohms. Pacing threshold 0.5 V at 0.5 milliseconds. 10 V test negative. Both leads were secured to the underlying pectoralis fascia using 2 nonabsorbable sutures. Pocket was irrigated with antibiotic solution. Leads were connected to the generator ([employer] model [id number], serial #[id number]. The leads and generator were then placed in the subfascial pocket. The wound was closed in 3 layers and dressed per protocol. RESULTS: Successful dual-chamber pacemaker implantation ([employer] MRI 2272) pacemaker generator. The patient tolerated the procedure well without any acute complications. PLAN: Resume beta blockers. The patient has history of coronary artery disease and possible history of angina. He will follow up in the Device Clinic in 5 days and follow up with Dr. Trujillo as before. MMODL / IJN: [id number] /
--- NOTE | 2016-12-12 13:40 | LTR ---
DATE OF SERVICE: 12/12/16 Dear Cuong: I had the pleasure of seeing Mr. Jordy Duran in electrophysiologic evaluation. He is brought to the EP lab for dual-chamber pacemaker implantation for severe symptomatic sick sinus syndrome with long sinus pauses without any triggering factors or offending medications. He underwent a successful dual chamber pacemaker implantation without any acute complications. Thank you for entrusting me in the care of your patient. Warm regards, Sincerely, MARY / FREDI: [id number] /
[2016-12-12] MEDS: ASPIRIN 81 MG PO SCH (14:22)
[2016-12-12] MEDS: CYANOCOBALAMIN 500 MCG TAB PO SCH (14:23)
[2016-12-12] MEDS: METOPROLOL SUCCINATE (ER) 50 MG TAB.ER.24H PO SCH (14:25)
[2016-12-12] MEDS: ceFAZolin 2 GM in SODIUM CHLORIDE 0.9% 100 ML IVPB SCH ×2 (17:51→23:33)
[2016-12-13] MEDS: ceFAZolin 2 GM in SODIUM CHLORIDE 0.9% 100 ML IVPB SCH ×2 (05:46→11:06)
[2016-12-13] MEDS: metFORMIN 500 MG TAB PO SCH ×2 (05:46→17:20)
[2016-12-13] MEDS: PANTOPRAZOLE 40 MG TABLET PO SCH (05:47)
--- NOTE | 2016-12-13 08:11 | XR ---
EXAMINATION TYPE: XR chest 2V DATE OF EXAM: 12/13/2016 COMPARISON: 09/15/2015 HISTORY: Lead check placement and chest pain. TECHNIQUE: Frontal and lateral views of the chest are obtained. FINDINGS: Multilead left-sided cardiac device has been placed in the interim with left ventricular a nd right atrial leads in place a new thoracic nerve stimulator also present. No postprocedural pneumo thorax. Heart is stable in size and upper limits of normal. There is no focal air space opacity, ple ural effusion, or pneumothorax seen. The cardiac silhouette size is within normal limits. The osse ous structures are intact. Partial visualization of bilateral humeral arthroplasties and postsurgical changes of the left distal clavicle with resultant acromioclavicular widening. IMPRESSION: No acute cardiopulmonary process. No postprocedural pneumothorax. New left-sided cardiac device appropriately placed.
[2016-12-13] MEDS: ATORVASTATIN 40 MG TAB PO SCH (10:58)
[2016-12-13] MEDS: ASPIRIN 81 MG PO SCH (10:58)
[2016-12-13] MEDS: CITALOPRAM HYDROBROMIDE 20 MG TAB PO SCH ×2 (10:58→22:48)
[2016-12-13] MEDS: FOLIC ACID 1 MG TAB PO SCH (10:58)
[2016-12-13] MEDS: LOSARTAN 25 MG TAB PO SCH (10:59)
[2016-12-13] MEDS: METOPROLOL SUCCINATE (ER) 50 MG TAB.ER.24H PO SCH (10:59)
[2016-12-13] MEDS: CYANOCOBALAMIN 500 MCG TAB PO SCH (11:00)
[2016-12-13] MEDS: CARBIDOPA-LEVODOPA 25-100 MG 1 EACH TAB PO SCH ×2 (11:01→17:20)
[2016-12-13] MEDS ORDERED: ONDANSETRON 4 MG/2 ML VIAL IVP PRN (12:20)
--- NOTE | 2016-12-13 14:09 | P.PN ---
Subjective Progress Note Date: 12/13/16 Principal diagnosis: Bradycardia with sinus pauses. This is a 71-year-old gentleman admitted to the hospital after being noted to have an 8 second pauses on his event monitor. He underwent implantation of a permanent pacemaker yesterday by Dr. Scott. Device was interrogated this morning and is functioning appropriately. Chest x-ray was reviewed and does not reveal any evidence of a pneumothorax. Patient was seen and examined this morning, complaining of persistent left abdominal discomfort, he also was nauseated today. Hemodynamically stable. Objective - Vital Signs Vital signs: Vital Signs Temp 97.8 F 12/13/16 08:00 Pulse 51 L 12/13/16 08:00 Resp 16 12/13/16 08:00 BP 131/73 12/13/16 08:00 Pulse Ox 91 L 12/13/16 08:00 Intake & Output 12/12/16 12/13/16 12/13/16 18:59 06:59 18:59 Intake Total 215 220 Output Total 1000 450 600 Balance -785 -450 -380 Weight 116.5 kg Intake: IV 215 Oral 0 220 Output: Urine 1000 450 600 Other: Voiding Method Urinal Urinal Urinal # Voids 0 1 0 # Bowel Movements 0 1 - Exam PHYSICAL EXAMINATION: HEENT: [Head is atraumatic, normocephalic. Pupils equal, round. Neck is supple. There is no elevated jugular venous pressure.] HEART EXAMINATION: [Heart S1, S2 normal. No murmur or gallop heard.] Site of pacemaker implantation, dressing is dry and intact. CHEST EXAMINATION:[ Lungs are clear to auscultation and precussion. No chest wall tenderness is noted on palpation or with deep breathing.] ABDOMEN: [ Soft, nontender. Bowel sounds are heard. No organomegaly noted]. EXTREMITIES:[ 2+ peripheral pulses with no evidence of peripheral edema and no calf tenderness noted]. NEUROLOGIC [patient is awake, alert and oriented -3.] . - Labs CBC & Chem 7: 12/11/16 11:35 12/11/16 11:35 Assessment and Plan Plan: Assessment and plan #1 Recurrent symptoms of dizziness with near syncope, evidence of an 8 second pause on an event monitor. Status post implantation of permanent pacemaker. #2 known history of coronary artery disease with prior stent placement multiple years #3 diabetes #4 hypertension #5 hyperlipidemia #6 Parkinson's #7 history of Fontaine's palsy Plan From cardiology's perspective, patient is stable for discharge once cleared by the primary. It appears that he will be kept overnight because of his nausea today. We will make him a follow-up appointment in the office with Dr. Trujillo as well as a device clinic. DNP note has been reviewed, I agree with a documented findings and plan of care. Patient was seen and examined.
[2016-12-13 14:11] VITALS: RESP 18
--- NOTE | 2016-12-13 23:38 | PN ---
PROGRESS NOTE CHIEF COMPLAINT: Re-evaluation. HISTORY OF PRESENT ILLNESS: This 71-year-old gentleman was admitted to the hospital with a near-syncopal episode and 8-second pauses. The patient had a home quality assurance monitor final when the symptoms were recorded. The patient was referred to the emergency room and admitted to the hospital. The patient underwent pacemaker placement yesterday. He is doing well regarding his pacemaker. His heart rate is set at 50 and is maintaining that. The patient however this morning complained of some significant nausea and combination of symptoms that occurred mostly when he got out of bed. He has been pretty much immobile for the past couple of days. He got up this morning and had a shower. The patient does have problems with recurrent nausea pretty much every morning. He has been looked at by the store promoter, with no clear etiology to his symptoms. The patient is suspected to have symptoms related to his Parkinson's medication. Today's symptoms may have been postural. The patient is otherwise feeling well. No abdominal pain. REVIEW OF SYSTEMS: NEURO: Denies any headaches, dizziness. PSYCH: No anxiety. CARDIAC: No chest pain, angina, palpitations. RESPIRATORY: Denies shortness of breath, cough. GI: Nausea. No vomiting. Denies any abdominal pain, diarrhea. : No symptoms of dysuria, hematuria. EXTREMITIES: No pain. CONSTITUTIONAL: No fever, chills. PHYSICAL EXAMINATION: Pleasant gentleman in no distress. VITAL SIGNS: Patient is afebrile. Pulse rate 50, respirations 18, blood pressure 139/75, pulse ox 95% on room air. HEENT: Normocephalic. NECK: Supple. No JVD. CHEST: Clear to auscultation. CARDIAC: Normal S1, S2 with no gallops. Regular rhythm. Systolic murmur 2/6, left sternal border. ABDOMEN: Soft. No palpable masses. Bowel sounds normal. No organomegaly. No abdominal bruits. Extremities reveal no edema. NEUROLOGIC: Awake, alert, oriented. Generalized bradykinesia and generalized increased muscle stiffness. LABORATORY ASSESSMENT: None new. ASSESSMENT: 1. Sick sinus syndrome, status post pacemaker. 2. Known coronary artery disease, stable. 3. Nausea, recurrent symptoms with no clear etiology. 4. Parkinson's. 5. Diabetes mellitus. 6. History of Fontaine's palsy, left side. PLAN: The patient is stable. Continue present medical regimen. Patient's condition discussed with the patient and spouse. The patient will be given some IV fluids and see if they will help any of his orthostatic symptoms of nausea and retching when he stood up. If the patient remains stable, the patient will be discharged home tomorrow. Patient's condition discussed with the patient. MARY / FREDI: [id number] /
[2016-12-14] MEDS: CARBIDOPA-LEVODOPA 25-100 MG 1 EACH TAB PO SCH ×2 (06:40→08:40)
[2016-12-14] MEDS: metFORMIN 500 MG TAB PO SCH (06:40)
[2016-12-14] MEDS: PANTOPRAZOLE 40 MG TABLET PO SCH (06:41)
[2016-12-14] MEDS: METOPROLOL SUCCINATE (ER) 50 MG TAB.ER.24H PO SCH (08:37)
[2016-12-14] MEDS: ASPIRIN 81 MG PO SCH (08:37)
[2016-12-14] MEDS: FOLIC ACID 1 MG TAB PO SCH (08:37)
[2016-12-14] MEDS: LOSARTAN 25 MG TAB PO SCH (08:37)
[2016-12-14] MEDS: ATORVASTATIN 40 MG TAB PO SCH (08:37)
[2016-12-14] MEDS: CITALOPRAM HYDROBROMIDE 20 MG TAB PO SCH (08:37)
[2016-12-14 09:08] VITALS: BP 144/82; PULSE 56; TEMP 97.8
--- NOTE | 2016-12-26 12:55 | P.DS ---
Providers Date of admission: 12/11/16 14:08 Attending physician: Cuong Rebolledo Consults: 12/11/16 14:09 Consult Physician Urgent Consulting Provider: Mandy Anaya Consult Reason/Comments: Symptomatically bradycardia, near syncope Do you want consulting provider notified?: Already Contacted Primary care physician: Cuong Rebolledo [place] Hospital Course: Hospital course: This 71-year-old gentleman was admitted to the hospital for a near-syncopal episode. The patient had a monitoring analyst on at the time. Interval evidence of was an 8 second of asystole. Patient also has associated bradycardia. The patient had no associated symptoms of chest pain, palpitations or shortness of breath. Complained of fatigue. Patient is admitted to the hospital in view of that. Patient was seen by cardiology and a permanent pacemaker was placed. Patient tolerated procedure well with no adverse effects. He does have history of Parkinson's. He does complain of chronic nausea in the morning suspected to be secondary to some of his parkinsonian medications. The patient had significant nausea vomiting dated post-pacemaker placement. In view of this discharge was held. Patient's general condition stabilized and patient is discharged home for outpatient. Patient's condition otherwise remains stable. 1. Sick sinus syndrome with bradycardia 2. Coronary artery disease stable 3. Diabetes mellitus with no complications 4. History of left Fontaine's palsy. 5. Parkinson's disease Surgical procedure: Dual-chamber pacemaker placement by Dr. Cohen Plan - Discharge Summary New Discharge Prescriptions: Continue metFORMIN HCL 1,000 mg PO BID Metoprolol Succinate [Toprol XL] 25 mg PO QAM Losartan Potassium 25 mg PO QAM Esomeprazole Magnesium [NexIUM] 40 mg PO QAM Citalopram Hydrobromide [Citalopram HBr] 20 mg PO BID Atorvastatin [Lipitor] 40 mg PO DAILY Aspirin 81 mg PO DAILY HYDROcodone/APAP 5-325MG [[place] 5-325] 1 tab PO TID PRN PRN Reason: Pain Cyanocobalamin [Vitamin B-12] 1,000 mcg PO DAILY Carbidopa-Levodopa 25-100 mg [Sinemet 25-100 mg] 1 each PO TID Folic Acid 0.4 mg PO DAILY rOPINIRole HCL [Requip] 3 mg PO TID Discharge Medication List Aspirin 81 mg PO DAILY 05/21/14 [History] Atorvastatin [Lipitor] 40 mg PO DAILY 05/21/14 [History] Citalopram Hydrobromide [Citalopram HBr] 20 mg PO BID 05/21/14 [History] Esomeprazole Magnesium [NexIUM] 40 mg PO QAM 05/21/14 [History] Losartan Potassium 25 mg PO QAM 05/21/14 [History] Metoprolol Succinate [Toprol XL] 25 mg PO QAM 05/21/14 [History] metFORMIN HCL 1,000 mg PO BID 05/21/14 [History] Cyanocobalamin [Vitamin B-12] 1,000 mcg PO DAILY 09/15/15 [History] HYDROcodone/APAP 5-325MG [[place] 5-325] 1 tab PO TID PRN 09/15/15 [History] Carbidopa-Levodopa 25-100 mg [Sinemet 25-100 mg] 1 each PO TID 09/19/15 [History ] Folic Acid 0.4 mg PO DAILY 11/16/16 [History] rOPINIRole HCL [Requip] 3 mg PO TID 11/16/16 [History] Follow up Appointment(s)/Referral(s): Cuong Rebolledo MD [Primary Care Provider] - 1 Week (OFFICE IS CLOSED. PLEASE CALL TO MAKE FOLLOW UP APPOINTMENT) Ham Trujillo MD [STAFF PHYSICIAN] - 12/20/16 3:30 pm ([facility]. Then follow up appointment with Dr. Trujillo on December 27 at 2:15 PM.) Patient Instructions/Handouts: Pacemaker (DC) Discharge Disposition: HOME SELF-CARE
== END 2016-12-14 10:29 | disposition home or self-care (01) | DRG 244 ==
LOC: EC 11:06 → 6SEL 14:08
PROVIDERS: ADMIT Internal Medicine; ATTEND Internal Medicine
PROC: 02H63JZ Insertion of Pacemaker Lead into Right Atrium, Percutaneous Approach (ICD-10-PCS; 2016-12-12)
PROC: 02HK3JZ Insertion of Pacemaker Lead into Right Ventricle, Percutaneous Approach (ICD-10-PCS; 2016-12-12)
PROC: 0JH606Z Insertion of Pacemaker, Dual Chamber into Chest Subcutaneous Tissue and Fascia, Open Approach (ICD-10-PCS; principal; 2016-12-12 10:30)
DX: I49.5 Sick sinus syndrome (principal); G20 Parkinson's disease; E11.9 Type 2 diabetes mellitus without complications; I10 Essential (primary) hypertension; E78.5 Hyperlipidemia, unspecified; G47.30 Sleep apnea, unspecified; I25.10 Atherosclerotic heart disease of native coronary artery without angina pectoris; K21.9 Gastro-esophageal reflux disease without esophagitis; I25.2 Old myocardial infarction; M19.91 Primary osteoarthritis, unspecified site; G89.29 Other chronic pain; M54.9 Dorsalgia, unspecified; N42.9 Disorder of prostate, unspecified; R11.0 Nausea; Z79.82 Long term (current) use of aspirin; Z79.84 Long term (current) use of oral hypoglycemic drugs; Z79.899 Other long term (current) drug therapy; Z96.652 Presence of left artificial knee joint; Z90.49 Acquired absence of other specified parts of digestive tract; Z87.01 Personal history of pneumonia (recurrent); Z95.5 Presence of coronary angioplasty implant and graft; Z86.69 Personal history of other diseases of the nervous system and sense organs; Z86.12 Personal history of poliomyelitis; Z96.612 Presence of left artificial shoulder joint; Z86.59 Personal history of other mental and behavioral disorders; Z88.5 Allergy status to narcotic agent; Z91.048 Other nonmedicinal substance allergy status; Z82.49 Family history of ischemic heart disease and other diseases of the circulatory system
CPT/HCPCS: 33208; 36415; 71020; 80053; 82553; 83735; 84443; 84484; 85025; 85610; 85730; 93005; 99284

== ENCOUNTER 2017-01-18 13:17 | Emergency (ER) | payer MEDICARE, OTHER ==
[2017-01-18 13:30] VITALS: RESP 18
[2017-01-18 13:57] LABS: Appearance,Urine Clear (Clear); Bilirubin,Urine Negative (Negative); Glucose,Urine (UA) Negative (Negative); Ketones,Urine Negative (Negative); Leukocyte Esterase,Urine Negative (Negative); Nitrite,Urine Negative (Negative); PH, Urine 6.5 (5.0-8.0); Protein,Urine Negative (Negative); Specific Gravity,Urine 1.008 (1.001-1.035); UA Billing (MACRO vs. MICRO) CHEM; Urobilinogen,Urine <2.0 mg/dL (<2.0)
--- NOTE | 2017-01-18 14:10 | ED ---
Abdominal Pain HPI - General Chief Complaint: Abdominal Pain Stated Complaint: male Time Seen by Provider: 01/18/17 13:30 Source: patient, RN notes reviewed Mode of arrival: wheelchair Limitations: no limitations - History of Present Illness Initial Comments: This is a 71-year-old male presents emergency Department chief complaint abdominal pain, constipation, urinary retention. Patient states that over the last few days he's been unable to have bowel movement states his tried stool softeners and laxatives with no relief. He states that he has not urinated since 7 AM this morning. Any states at that time he only urinate a small out. Patient has known enlarged prostate. Patient states that his never had urinary retention to this extent. Patient denies fever, chills, night sweats. Patient states that he's had a prior appendectomy, cholecystectomy and kidney stone removed. Patient denies chest pain, shortness breath, headache or dizziness. - Related Data Home Medications Medication Instructions Recorded Confirmed Aspirin 81 mg PO DAILY 05/21/14 01/18/17 Atorvastatin [Lipitor] 40 mg PO DAILY 05/21/14 01/18/17 Citalopram Hydrobromide 20 mg PO BID 05/21/14 01/18/17 [Citalopram HBr] Esomeprazole Magnesium [NexIUM] 40 mg PO DAILY 05/21/14 01/18/17 Losartan Potassium 25 mg PO DAILY 05/21/14 01/18/17 Metoprolol Succinate [Toprol XL] 25 mg PO DAILY 05/21/14 01/18/17 metFORMIN HCL 1,000 mg PO BID 05/21/14 01/18/17 Cyanocobalamin [Vitamin B-12] 1,000 mcg PO DAILY 09/15/15 01/18/17 HYDROcodone/APAP 5-325MG [[place] 1 tab PO TID PRN 09/15/15 01/18/17 5-325] Folic Acid 0.4 mg PO DAILY 11/16/16 01/18/17 rOPINIRole HCL [Requip] 3 mg PO TID 11/16/16 01/18/17 Allergies Allergy/AdvReac Type Severity Reaction Status Date / Time adhesive AdvReac Itching Verified 01/18/17 13:51 morphine AdvReac Excessive Verified 01/18/17 13:51 Sweating Review of Systems ROS Statement: Those systems with pertinent positive or pertinent negative responses have been documented in the HPI. ROS Other: All systems not noted in ROS Statement are negative. 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 cystoscopy holter monitor placed 12/10/16 for 30 days Past Anesthesia/Blood Transfusion Reactions: Previous Problems w/ Anesthesia Additional Past Anesthesia/Blood Transfusion Reaction / Comment(s): STATES "COULDN'T BREATHE WHEN COMING OUT OF SHOULDER SX AND WAS PUT BACK UNDER", SLIGHT CLAUSTROHOBIA Date of Last Stent Placement:: 2007 Past Psychological History: Depression Smoking Status: Never smoker Past Alcohol Use History: None Reported Past Drug Use History: None Reported - Past Family History Sister(s) Family Medical History: Cancer Father Sister(s) Additional Family Medical History / Comment(s): FATHER, 2 SISTERS AND 1 BROTHER , LUIS ALBERTO'S DX Mother Family Medical History: Deep Vein Thrombosis (DVT) General Exam Limitations: no limitations General appearance: alert, in no apparent distress Head exam: Present: atraumatic, normocephalic, normal inspection Neck exam: Present: normal inspection. Absent: tenderness, meningismus, lymphadenopathy Respiratory exam: Present: normal lung sounds bilaterally. Absent: respiratory distress, wheezes, rales, rhonchi, stridor Cardiovascular Exam: Present: regular rate, normal rhythm, normal heart sounds. Absent: systolic murmur, diastolic murmur, rubs, gallop, clicks GI/Abdominal exam: Present: soft, distended (Distended over the area of the bladder), tenderness (Moderate lower abdominal), normal bowel sounds. Absent: guarding, rebound, rigid Back exam: Absent: CVA tenderness (R), CVA tenderness (L) Neurological exam: Present: alert, oriented X3, CN II-XII intact Skin exam: Present: warm, dry, intact, normal color. Absent: rash Course Vital Signs 01/18/17 13:26 Temperature 98 F Pulse Rate 49 L Respiratory 18 Rate Blood Pressure 174/74 O2 Sat by Pulse 97 Oximetry - Reevaluation(s) Reevaluation #1: 01/18/17 17:04 Patient was updated on the results, patient had relief of the urinary symptoms with [place] had 700 mL of urine out. Patient had digital disimpaction directly by me alleviate some symptoms are still large ball of stool will attempt second enema Medical Decision Making - Medical Decision Making 71-year-old male presents emergency Department with chief complaint of constipation unable to urinate. Patient was retaining urine. Patient had a [place] placed urine came out patient felt better. Patient is requesting have full or removed. Patient had 2 and was in disimpaction by me. Patient had a large bowel movement and feels much better. Patient's labwork is unremarkable. Patient be discharged return parameters were discussed. - Lab Data Result diagrams: 01/18/17 15:10 01/18/17 14:05 Lab Results 01/18/17 01/18/17 01/18/17 Range/Units 13:45 14:05 15:10 WBC 10.0 (3.8-10.6) k/uL RBC 5.15 (4.30-5.90) m/uL Hgb 14.3 (13.0-17.5) gm/dL Hct 44.3 (39.0-53.0) % MCV 86.0 (80.0-100.0) fL MCH 27.8 (25.0-35.0) pg MCHC 32.3 (31.0-37.0) g/dL RDW 15.3 (11.5-15.5) % Plt Count 156 (150-450) k/uL Neutrophils % 74 % Lymphocytes % 17 % Monocytes % 6 % Eosinophils % 2 % Basophils % 0 % Neutrophils # 7.4 (1.3-7.7) k/uL Lymphocytes # 1.7 (1.0-4.8) k/uL Monocytes # 0.6 (0-1.0) k/uL Eosinophils # 0.2 (0-0.7) k/uL Basophils # 0.0 (0-0.2) k/uL Sodium 138 (137-145) mmol/L Potassium 4.8 (3.5-5.1) mmol/L Chloride 105 (98-107) mmol/L Carbon Dioxide 23 (22-30) mmol/L Anion Gap 10 mmol/L BUN 17 (9-20) mg/dL Creatinine 0.88 (0.66-1.25) mg/dL Est GFR (MDRD) Af Amer >60 (>60 ml/min/1.73 sqM) Est GFR (MDRD) Non-Af >60 (>60 ml/min/1.73 sqM) Glucose 141 H (74-99) mg/dL Calcium 10.0 (8.4-10.2) mg/dL Total Bilirubin 1.2 (0.2-1.3) mg/dL AST 34 (17-59) U/L ALT 31 (21-72) U/L Alkaline Phosphatase 88 (38-126) U/L Total Protein 8.1 (6.3-8.2) g/dL Albumin 4.8 (3.5-5.0) g/dL Amylase 67 (30-110) U/L Lipase 157 (23-300) U/L Urine Color Light Yellow Urine Appearance Clear (Clear) Urine pH 6.5 (5.0-8.0) Ur Specific Russell 1.008 (1.001-1.035) Urine Protein Negative (Negative) Urine Glucose (UA) Negative (Negative) Urine Ketones Negative (Negative) Urine Blood Negative (Negative) Urine Nitrite Negative (Negative) Urine Bilirubin Negative (Negative) Urine Urobilinogen <2.0 (<2.0) mg/dL Ur Leukocyte Esterase Negative (Negative) Disposition Clinical Impression: Urinary retention, Constipation Disposition: HOME SELF-CARE Condition: Stable Instructions: Constipation (ED) Additional Instructions: Please return to the Emergency Department if symptoms worsen or any other concerns. Referrals: Cuong Rebolledo MD [Primary Care Provider] - 1-2 days Time of Disposition: 18:19
[2017-01-18 14:25] LABS: ALT 31 U/L (21-72); AST 34 U/L (17-59); Alkaline Phosphatase 88 U/L (38-126); Amylase 67 U/L (30-110); Anion Gap 10 mmol/L; Blood Urea Nitrogen 17 mg/dL (9-20); Carbon Dioxide 23 mmol/L (22-30); Chloride 105 mmol/L (98-107); Glucose 141 mg/dL (74-99); Non-African American GFR(MDRD) >60 (>60 ml/min/1.73 sqM); Sodium 138 mmol/L (137-145); Total Bilirubin 1.2 mg/dL (0.2-1.3); Total Protein 8.1 g/dL (6.3-8.2)
[2017-01-18 14:53] LABS: Potassium 4.8 mmol/L (3.5-5.1)
--- NOTE | 2017-01-18 14:54 | XR ---
EXAMINATION TYPE: XR KUB DATE OF EXAM: 01/18/2017 2:39 PM CLINICAL HISTORY: Nephrolithiasis with inability to urinate. TECHNIQUE: Single supine KUB image of the abdomen is obtained. COMPARISON: 10/25/2016. FINDINGS: There are 5 left pelvic calculi and on the prior CT of 10/25/2016 there are also 5 phlebolit hs. Therefore no urinary bladder or distal ureteral calculi are suspected. No radiopaque calculi are seen overlying the renal shadows. Postsurgical changes of the lumbar spine demonstrated as interverte bral disc spacers, pedicular screws and fixation rods are seen. Additionally there is a nerve stimula tor of the thoracic spine present. Mild degenerative changes of the femoral acetabular joints are not ed. Scattered gas is seen in non-distended small bowel loops. Gas and fecal material is seen in non-d istended colon. IMPRESSION: 1. No radiopaque calculi overlying the renal shadows, along the course of the ureters or in the regio n of the urinary bladder. Five left hemipelvic phleboliths are unchanged from the prior CT of 10/26/19 17.
[2017-01-18 15:13] LABS: Basophils % (A) 0 %; CH 27.9; CHCM 32.6; Eosinophils # (A) 0.2 k/uL (0-0.7); Eosinophils % (A) 2 %; HCT 44.3 % (39.0-53.0); HDW 2.59; HGB 14.3 gm/dL (13.0-17.5); Luc # (Auto) 0.13; Luc % (Auto) 1; Lymphocytes # (A) 1.7 k/uL (1.0-4.8); Lymphocytes % (A) 17 %; MCH 27.8 pg (25.0-35.0); MCHC 32.3 g/dL (31.0-37.0); Mean Platelet Volume 7.1; Monocytes # (A) 0.6 k/uL (0-1.0); Monocytes % (A) 6 %; Neutrophils # (A) 7.4 k/uL (1.3-7.7); Neutrophils % (A) 74 %; RBC 5.15 m/uL (4.30-5.90); RDW 15.3 % (11.5-15.5); WBC (Perox) 10.22
[2017-01-18 18:29] VITALS: BP 135/66; PULSE 63; TEMP 96.9
== END 2017-01-18 18:32 | disposition home or self-care (01) ==
LOC: EC 13:17
DX: K59.00 Constipation, unspecified (principal); R33.9 Retention of urine, unspecified; E11.9 Type 2 diabetes mellitus without complications; K21.9 Gastro-esophageal reflux disease without esophagitis; E78.5 Hyperlipidemia, unspecified; I10 Essential (primary) hypertension; I25.2 Old myocardial infarction; F32.9 Major depressive disorder, single episode, unspecified; G47.30 Sleep apnea, unspecified; Z99.89 Dependence on other enabling machines and devices; Z95.5 Presence of coronary angioplasty implant and graft; Z90.49 Acquired absence of other specified parts of digestive tract; Z79.82 Long term (current) use of aspirin; Z79.84 Long term (current) use of oral hypoglycemic drugs; Z79.899 Other long term (current) drug therapy; Z91.040 Latex allergy status; Z88.5 Allergy status to narcotic agent
CPT/HCPCS: 36415; 51702; 51798; 74000; 80053; 81003; 82150; 83690; 85025; 99284

== ENCOUNTER → 2017-03-01 | Outpatient (CLI) | payer MEDICARE, OTHER ==
[2017-03-01 08:58] LABS: Basophils % (A) 0 %; Eosinophils # (A) 0.3 k/uL (0-0.7); Eosinophils % (A) 4 %; HGB 14.9 gm/dL (13.0-17.5); Lymphocytes # (A) 1.7 k/uL (1.0-4.8); Lymphocytes % (A) 27 %; MCHC 32.4 g/dL (31.0-37.0); MCV 86.2 fL (80.0-100.0); Monocytes # (A) 0.4 k/uL (0-1.0); Monocytes % (A) 6 %; Neutrophils % (A) 61 %; Platelet Count 178 k/uL (150-450); RBC 5.33 m/uL (4.30-5.90); RDW 15.6 % (11.5-15.5); WBC 6.5 k/uL (3.8-10.6)
[2017-03-01 09:27] LABS: Anion Gap 11 mmol/L; Blood Urea Nitrogen 18 mg/dL (9-20); Calcium 10.6 mg/dL (8.4-10.2); Carbon Dioxide 27 mmol/L (22-30); Chloride 102 mmol/L (98-107); Glucose 177 mg/dL (74-99); Potassium 4.7 mmol/L (3.5-5.1); Sodium 140 mmol/L (137-145)
== END | disposition home or self-care (01) ==
LOC: LABWHC1 08:18
PROVIDERS: ATTEND Internal Medicine Clinical Cardiac Electrophysiology
DX: I49.5 Sick sinus syndrome (principal); Z95.0 Presence of cardiac pacemaker
CPT/HCPCS: 36415; 80048; 85025

== ENCOUNTER 2017-03-08 14:08 | Day surgery (SDC) | payer MEDICARE, OTHER ==
[2017-02-25 15:09] VITALS: BMI 34.9
[~2017-03-08 14:08] MED LIST changes: -LACTATED RINGERS 1,000 ML IV SCH; +ceFAZolin 1,000 MG in SODIUM CHLORIDE 0.9% IRRIGATIO 250 ML IRRIGATION ONE; +ceFAZolin IN SWFI 2 GM/20 ML SYRINGE IVP ONE
[2017-03-08] MEDS: SODIUM CHLORIDE 0.9% 1,000 ML IV SCH (14:45)
[2017-03-08 14:50] LABS: Glucose,Whole Blood 129 mg/dL (75-99)
[2017-03-08] MEDS ORDERED: fentaNYL (PF) 50 MCG/ML 2 ML AMP ONE (16:37)
[2017-03-08] MEDS ORDERED: MIDAZOLAM 2 MG/2 ML VIAL ONE (16:37)
[2017-03-08] MEDS ORDERED: hydrALAZINE HCL 20 MG/ML 1 ML VIAL ONE (16:37)
[2017-03-08] MEDS ORDERED: LIDOCAINE 1% INJ 10MG/ML (20 ML MDV) SQ ONE (17:21)
[2017-03-08] MEDS ORDERED: HYDROcodone/APAP 5-325MG 1 EACH TAB PO PRN (18:14)
[2017-03-08] MEDS ORDERED: ACETAMINOPHEN TAB 325 MG TAB PO PRN (18:14)
[2017-03-08] MEDS ORDERED: ACETAMINOPHEN IV (For NPO) 1,000 MG in EMPTY BAG 1 BAG IVPB ONE (18:14)
[2017-03-08] MEDS ORDERED: NAPROXEN 250 MG TAB PO PRN (18:16)
--- NOTE | 2017-03-08 19:23 | CE ---
CARDIAC ELECTROPHYSIOLOGY REPORT Mr. Jordy Duran is an elderly gentleman who has a dual-chamber pacemaker. He has 2- karla passive leads that were implanted in the month of November 2016. At the initial visit in the office, his atrial and ventricular thresholds of sensing were excellent. However, on the followup visit after 3 months, the ventricular threshold was high, sensing was suboptimal. Atrial thresholds are excellent. Fluoroscopy of the leads was performed and it was noted that there was mild dislodgement of the ventricular lead when compared to the original implant images. Therefore, he was brought to the EP lab in the fasting state. Written informed consent was obtained prior to the procedure. Plan was made for either an RV lead revision or repositioning or implantation of a new RV lead, depending upon the intraoperative findings. An incision was made directly over the previous surgical site and carried down to the level of the generator. The generator was explanted. The atrial and ventricular leads were freed. The RV lead sleeve was freed from the pectoralis muscle and using a stylet, the RV lead was freed from its current position and then repositioned in the apex. It is noted that the both leads were well-secured to the pectoralis muscle and the reason for the dislodgement of the lead was an internal dislodgement because of tortuosity in the SVC-innominate junction that resulted in the lead being pulled back into this recess. Adequate heel was given so that this recess in the SVC and innominate junction was completely filled. The 2 pacing threshold in the ventricle was 0.4 V at 0.5 milliseconds. R-waves greater than 12 mV, pacing impedance 510 ohms. The atrial thresholds are excellent at 0.8 V at 0.5 milliseconds, P waves 1.6 mV and pacing impedance 430 ohms. The device was then reprogrammed to DDDR mode, from 50-130 ppm with VIP mode on to minimize RV pacing. The wound was then closed in 3 layers and dressed per protocol. PLAN: IV antibiotics overnight and then discharged home tomorrow after device interrogation. RESULT: Successful repositioning of the internally dislodged RV lead with excellent thresholds and excellent result. MMODL / IJN: [id number] /
--- NOTE | 2017-03-08 19:29 | LTR ---
DearOly Hutchins: I had the pleasure of seeing Mr. Jordy Duran in electrophysiology followup. Mr. Duran had undergone dual chamber pacemaker implantation about 3 months back and in the 1st week followup visit, his RV and atrial thresholds were excellent. However, at the 2-month followup visit, it was noted the ventricular thresholds were elevated and fluoroscopy revealed that it was a slight dislodgement of the RV lead. Today, I brought him in for a lead revision and it was noted that both the atrial and ventricular leads were very well secured to the pectoralis muscle and that the reason for the dislodgement was an internal dislodgement because of the large recess at the SVC-innominate junction resulting in falling back of the lead to fill that space. This ventricular lead was then repositioned in the apex and more than an adequate heel was given to allow for the lead to position itself within this recess to prevent further dislodgement. He tolerated the procedure well without any acute complications. After completion of IV antibiotics overnight, he will be discharged home tomorrow and he will follow up with Dr. Trujillo and yourself as before. Thank you for entrusting me with the care of your patient. Warm regards. Sincerely, [email or web address] / ALISSAN: [id number] /
[2017-03-08] MEDS: CITALOPRAM HYDROBROMIDE 20 MG TAB PO SCH (20:35)
[2017-03-08] MEDS: metFORMIN 500 MG TAB PO SCH (20:35)
[2017-03-08] MEDS ORDERED: ATORVASTATIN 40 MG TAB PO SCH (21:00)
[2017-03-08 21:21] LABS: Glucose,Whole Blood 192 mg/dL (75-99)
[2017-03-08] MEDS: ceFAZolin IN SWFI 2 GM/20 ML SYRINGE IVP SCH (22:15)
[2017-03-09] MEDS: ceFAZolin IN SWFI 2 GM/20 ML SYRINGE IVP SCH ×3 (04:39→15:18)
[2017-03-09] MEDS: SODIUM CHLORIDE 0.9% 1,000 ML IV SCH (04:40)
[2017-03-09 07:07] LABS: Glucose,Whole Blood 181 mg/dL (75-99)
[2017-03-09] MEDS ORDERED: PANTOPRAZOLE 40 MG TABLET PO SCH (07:30)
[2017-03-09 08:21] VITALS: PULSE 52; RESP 18
--- NOTE | 2017-03-09 08:29 | P.DS ---
Providers Attending physician: Ashwin Scott Primary care physician: [facility] Course: Patient is doing well. He sat up at the age of the bed and had breakfast. He denies any pain in the surgical site no chest discomfort no undue shortness of breath no dizziness lightheadedness. He is receiving his IV antibiotics. Semination his blood pressures 128/76 mmHg respirations 16-18 pulse rate in the 50s afebrile 97.5F Heart sounds S1 and S2 are normal Breath sounds are clear no rhonchi no crackles Abdomen soft nontender Extremity is warm no edema Impression Bradycardia says post permanent pacemaker implantation Status post ventricular lead revision yesterday successful Plan discharge home after completion of IV antibiotics and pacemaker interrogation. Patient Condition at Discharge: Stable Plan - Discharge Summary Discharge Rx Participant: Yes New Discharge Prescriptions: Continue RX: metFORMIN HCL 500 mg PO BID RX: Metoprolol Succinate [Toprol XL] 25 mg PO DAILY RX: Losartan Potassium 25 mg PO DAILY RX: Esomeprazole Magnesium [NexIUM] 40 mg PO DAILY RX: Citalopram Hydrobromide [Citalopram HBr] 20 mg PO BID RX: Atorvastatin [Lipitor] 40 mg PO HS RX: Aspirin 81 mg PO DAILY RX: Cyanocobalamin [Vitamin B-12] 1,000 mcg PO DAILY RX: Folic Acid 0.4 mg PO DAILY RX: Naproxen Sodium [Aleve] 440 mg PO DAILY PRN PRN Reason: Pain Fiber Tab 1 tab PO DAILY PRN PRN Reason: Constipation Discharge Medication List RX: Aspirin 81 mg PO DAILY 05/21/14 [History] RX: Atorvastatin [Lipitor] 40 mg PO HS 05/21/14 [History] RX: Citalopram Hydrobromide [Citalopram HBr] 20 mg PO BID 05/21/14 [History] RX: Esomeprazole Magnesium [NexIUM] 40 mg PO DAILY 05/21/14 [History] RX: Losartan Potassium 25 mg PO DAILY 05/21/14 [History] RX: Metoprolol Succinate [Toprol XL] 25 mg PO DAILY 05/21/14 [History] RX: metFORMIN HCL 500 mg PO BID 05/21/14 [History] RX: Cyanocobalamin [Vitamin B-12] 1,000 mcg PO DAILY 09/15/15 [History] RX: Folic Acid 0.4 mg PO DAILY 11/16/16 [History] Fiber Tab 1 tab PO DAILY PRN 01/27/17 [History] RX: Naproxen Sodium [Aleve] 440 mg PO DAILY PRN 01/27/17 [History] Activity/Diet/Wound Care/Special Instructions: PATIENT EDUCATION MATERIAL Instructions following a heart rhythm device implant. 1. Keep dressing DRY for 5 DAYS. You may cover the area with Saran or Cling Wrap, prior to a shower. 2. The dressing will be removed in the Device Clinic @ [facility]. Absorbable sutures were used to close the wound. 3. Avoid raising the [left] arm above the shoulder level. [4 week restriction] 4. Avoid arm movements, like backscratching, rubbing the head, or pulling on a cord. (4 weeks restriction) 5. Gentle range of motion movements of the shoulder, closest to the incision should be performed to avoid a frozen shoulder. (Pendulum exercises of the shoulder) 6. The opposite arm may be used freely. 7. Avoid driving for 7 days. 8. Avoid activities such as golfing, swimming, weed whacking, lifting more than 10 pounds weight, bowling, gymnastics and weight training/lifting. (6 weeks restriction) 9. Activities such as wood chopping with an axe, pull-ups in the gymnasium, power lifting, arc-welding, being close to home induction cooktops will always be a problem. 10. Arm sling is a mere reminder not to raise the arm above the head. However you do not need to keep the arm completely immobilized. Your free to move the arm and use it and for normal activities. In case of any problems, please call [facility], Elvin Hernandez, @ [phone], Attention: Device Clinic No change in home medications Follow-up in the device clinic in 5 days Discharge Disposition: HOME SELF-CARE
[2017-03-09] MEDS: metFORMIN 500 MG TAB PO SCH (08:33)
[2017-03-09] MEDS: CITALOPRAM HYDROBROMIDE 20 MG TAB PO SCH (08:34)
[2017-03-09] MEDS ORDERED: METOPROLOL SUCCINATE (ER) 25 MG TAB.ER.24H PO SCH (09:00)
[2017-03-09] MEDS ORDERED: LOSARTAN 25 MG TAB PO SCH (09:00)
[2017-03-09] MEDS ORDERED: ASPIRIN 81 MG PO SCH (09:00)
[2017-03-09 11:45] VITALS: BP 139/74; TEMP 97.8
[2017-03-09 12:10] LABS: Glucose,Whole Blood 167 mg/dL (75-99)
== END 2017-03-09 15:50 | disposition home or self-care (01) ==
LOC: CATHEP 14:08 → 3OBS 18:00 → CATHEP 03-09 15:50
PROVIDERS: ATTEND Internal Medicine Clinical Cardiac Electrophysiology
DX: I49.5 Sick sinus syndrome (principal); T82.110A Breakdown (mechanical) of cardiac electrode, initial encounter; I86.8 Varicose veins of other specified sites; I25.10 Atherosclerotic heart disease of native coronary artery without angina pectoris; Z95.5 Presence of coronary angioplasty implant and graft; I10 Essential (primary) hypertension; E78.2 Mixed hyperlipidemia; E11.9 Type 2 diabetes mellitus without complications; Z79.84 Long term (current) use of oral hypoglycemic drugs; G51.0 Bell's palsy; Z79.82 Long term (current) use of aspirin; Z79.899 Other long term (current) drug therapy; Z88.5 Allergy status to narcotic agent
CPT/HCPCS: 33215; C1769; J2250; J0360; J0690 ×3; J2001; J3010; J0131

== ENCOUNTER → 2017-05-27 | Outpatient (CLI) | payer MEDICARE, OTHER ==
--- NOTE | 2017-05-27 16:02 | NM ---
EXAMINATION TYPE: NM DatScan Brain SPECT DATE OF EXAM: 05/27/2017 COMPARISON: NONE HISTORY: Parkinson's disease per order. Resting tremor in right hand. TECHNIQUE: 10 drops of Lugol's solution was administered 1 hour prior to injection as a thyroid bloc rolanda agent. After the administration of 4.46 mCi I-123 Ioflupane DaTscan. Images obtained 3 hours p ost injection. SPECT images of the brain were acquired with axial and coronal reconstructions. FINDINGS: The DATscan demonstrates reduced uptake of tracer throughout the striata bilaterally as there is loss of normal comma shape appearance. This appearance is consistent with the bilateral loss of the pre-synaptic dopaminergic terminals. 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
== END | disposition home or self-care (01) ==
LOC: RADNMMAIN 10:53
PROVIDERS: ATTEND Neurological Surgery
DX: R94.02 Abnormal brain scan (principal)
CPT/HCPCS: 78607; A9584

== ENCOUNTER 2017-07-04 12:07 | Emergency (ER) | payer MEDICARE, OTHER ==
[2017-07-04] MEDS ORDERED: SODIUM CHLORIDE 0.9% 500 ML IV STA (12:22)
[2017-07-04 12:23] VITALS: RESP 16
--- NOTE | 2017-07-04 12:26 | ED ---
General Adult HPI - General Stated complaint: Syncope Time Seen by Provider: 07/04/17 12:10 Source: RN notes reviewed - History of Present Illness Initial comments: This is a 71-year-old male with past medical history significant for Parkinson' s multiple cardiac stents diabetes and hypertension. Patient comes in today stating he was at home feeling fine he went ACROSS to watch his do some work when he all of a sudden became dizzy. Patient states the dizziness lasts about an hour. Patient states then he became somewhat short of breath and almost passed out. Patient states she did not pass out. Patient states he had no time had any chest pain or palpitations. Patient states the episode lasted about 15 minutes and he called EMS. Patient states currently he feels at his baseline. Patient denies any difficulty breathing right now patient denies any shortness of breath. Patient denies any recent fever chills per patient denies any nausea vomiting or diarrhea. - Related Data Home Medications Medication Instructions Recorded Confirmed Aspirin 81 mg PO DAILY 05/21/14 07/04/17 Atorvastatin [Lipitor] 40 mg PO HS 05/21/14 07/04/17 Citalopram Hydrobromide 20 mg PO BID 05/21/14 07/04/17 [Citalopram HBr] Esomeprazole Magnesium [NexIUM] 40 mg PO DAILY 05/21/14 07/04/17 Losartan Potassium 25 mg PO DAILY 05/21/14 07/04/17 Metoprolol Succinate [Toprol XL] 25 mg PO DAILY 05/21/14 07/04/17 metFORMIN HCL 500 mg PO BID 05/21/14 07/04/17 Cyanocobalamin [Vitamin B-12] 1,000 mcg PO DAILY 09/15/15 07/04/17 Folic Acid 0.4 mg PO DAILY 11/16/16 07/04/17 Isosorbide Mononitrate ER [Imdur] 30 mg PO DAILY 07/04/17 07/04/17 Allergies Allergy/AdvReac Type Severity Reaction Status Date / Time adhesive AdvReac Itching Verified 07/04/17 14:30 morphine AdvReac Excessive Verified 07/04/17 14:30 Sweating Review of Systems ROS Statement: Those systems with pertinent positive or pertinent negative responses have been documented in the HPI. ROS Other: All systems not noted in ROS Statement are negative. Past Medical History Past Medical History: Chest Pain / Angina, Diabetes Mellitus, GERD/Reflux, Hyperlipidemia, Hypertension, Myocardial Infarction ([place]), Neurologic Disorder, Osteoarthritis (OA), Prostate Disorder, Sleep Apnea/CPAP/BIPAP Additional Past Medical History / Comment(s): PARKINSON'S -HAND TREMORS & SHUFFLING GAIT;BILLS'S PALSY WITH LEFT FACIAL DROOP.SLEEP APNEA (NO MACHINE), ENLARGED PROSTATE., DDD- HAS PAIN STIMULATOR., HX OF ABDOMINAL PAIN & NAUSEA WHICH HAS IMPROVED SINCE HE STOPPED PARKNINSONS MEDICATIONS., HX Kidney Stone; CONSTIPATION- SEEN IN ER 01/18 FOR CONSTIPATION AND WAS STRAIGHT CATHED BECAUSE HE COULD NOT URINATE., [place] (DOES NOT USE HIS HEARING AIDS). SEE [employer]. Last Myocardial Infarction Date:: 1996 History of Any Multi-Drug Resistant Organisms: None Reported Past Surgical History: Appendectomy, Back Surgery, Cholecystectomy, Heart Catheterization With Stent, Joint Replacement, Pacemaker Additional Past Surgical History / Comment(s): TOTAL LEFT KNEE, TOTAL LEFT SHOULDER , CARDIAC STENTS X3, BACK SURGERY X 3 WITH CRISTEL AND PLATES, DECOMPRESSION/LAMINECTOMY T9-T10 AND NEURO STIMULATOR IMPLANTED., CYSTOSCOPY., PACEMAKER (11/2016); Lithotripsy Past Anesthesia/Blood Transfusion Reactions: No Reported Reaction Additional Past Anesthesia/Blood Transfusion Reaction / Comment(s): SLIGHT CLAUSTROHOBIA Date of Last Stent Placement:: 2007 Type of Cardiac Device: Permanent Pacemaker Device Placement Date:: 11/2016 Past Psychological History: Depression Smoking Status: Never smoker Past Alcohol Use History: None Reported Past Drug Use History: None Reported - Past Family History Sister(s) Family Medical History: Cancer Father Sister(s) Additional Family Medical History / Comment(s): FATHER, 2 SISTERS AND 1 BROTHER , LUIS ALBERTO'S DX Mother Family Medical History: Deep Vein Thrombosis (DVT) General Exam - General Exam Comments Initial Comments: GENERAL: Patient is well-developed and well-nourished. Patient is nontoxic and well- hydrated and is in mild distress. ENT: Neck is soft and supple. No significant lymphadenopathy is noted. Oropharynx is clear. Moist mucous membranes. Neck has full range of motion without eliciting any pain. EYES: The sclera were anicteric and conjunctiva were pink and moist. Extraocular movements were intact and pupils were equal round and reactive to light. Eyelids were unremarkable. PULMONARY: Unlabored respirations. Good breath sounds bilaterally. No audible rales rhonchi or wheezing was noted. CARDIOVASCULAR: There is a regular rate and rhythm without any murmurs gallops or rubs. ABDOMEN: Soft and nontender with normal bowel sounds. No palpable organomegaly was noted. There is no palpable pulsatile mass. SKIN: Skin is clear with no lesions or rashes and otherwise unremarkable. NEUROLOGIC: Patient is alert and oriented x3. Cranial nerves II through XII are grossly intact. Motor and sensory are also intact. Normal speech, volume and content. Symmetrical smile. MUSCULOSKELETAL: Normal extremities with adequate strength and full range of motion. 2+ edema bilaterally LYMPHATICS: No significant lymphadenopathy is noted PSYCHIATRIC: Normal psychiatric evaluation. Normal interpersonal interactions appears functionally intact in deals appropriately with others. No signs of depression. No signs of anxiety. Course Vital Signs 07/04/17 07/04/17 07/04/17 12:19 12:23 14:00 Temperature 97.3 F L Pulse Rate 54 L Pulse Rate [ 54 L 50 L Vacuum Bottle Assembler ] Pulse Rate [ 49 L Sitting Vacuum Bottle Assembler] Pulse Rate [ 49 L Standing Vacuum Bottle Assembler ] Respiratory 16 Rate Blood Pressure 107/65 Blood Pressure 141/65 [Right Arm Sitting] Blood Pressure 120/58 [Right Arm Standing] Blood Pressure 134/74 [Right Arm Supine] O2 Sat by Pulse 94 L Oximetry 07/04/17 07/04/17 07/04/17 14:22 15:49 16:26 Temperature 97.6 F Pulse Rate 49 L 51 L 51 L Pulse Rate [ Vacuum Bottle Assembler ] Pulse Rate [ Sitting Vacuum Bottle Assembler] Pulse Rate [ Standing Vacuum Bottle Assembler ] Respiratory 16 16 16 Rate Blood Pressure 157/72 161/74 117/62 Blood Pressure [Right Arm Sitting] Blood Pressure [Right Arm Standing] Blood Pressure [Right Arm Supine] O2 Sat by Pulse 97 96 97 Oximetry Medical Decision Making - Medical Decision Making EKG shows atrial paced rhythm at 50 bpm HI interval 226 QRS is 88 QT interval 492 QTC is 448. Patient's EKG shows no ST segment elevation or depression. Patient has lactic acidosis probably secondary to dehydration and being on metformin. I spoke with Dr. Amaury Rebolledo thought he can follow-up the patient as an outpatient. He wanted the patient to get them mag sulfate as well as some fluid which he has already been receiving. He also told the metformin until he follows up with Dr. Rebolledo this week - Lab Data Result diagrams: 07/04/17 12:55 07/04/17 12:55 Lab Results 07/04/17 07/04/17 07/04/17 Range/Units 12:55 12:55 12:55 WBC 9.0 (3.8-10.6) k/uL RBC 4.66 (4.30-5.90) m/uL Hgb 13.9 (13.0-17.5) gm/dL Hct 39.9 (39.0-53.0) % MCV 85.6 (80.0-100.0) fL MCH 29.7 (25.0-35.0) pg MCHC 34.7 (31.0-37.0) g/dL RDW 13.6 (11.5-15.5) % Plt Count 201 (150-450) k/uL Neutrophils % 68 % Lymphocytes % 22 % Monocytes % 5 % Eosinophils % 3 % Basophils % 0 % Neutrophils # 6.1 (1.3-7.7) k/uL Lymphocytes # 2.0 (1.0-4.8) k/uL Monocytes # 0.4 (0-1.0) k/uL Eosinophils # 0.3 (0-0.7) k/uL Basophils # 0.0 (0-0.2) k/uL PT (9.0-12.0) sec INR (<1.2) APTT (22.0-30.0) sec Sodium 143 (137-145) mmol/L Potassium 4.7 (3.5-5.1) mmol/L Chloride 106 (98-107) mmol/L Carbon Dioxide 19 L (22-30) mmol/L Anion Gap 18 mmol/L BUN 23 H (9-20) mg/dL Creatinine 0.90 (0.66-1.25) mg/dL Est GFR (CKD-EPI)AfAm >90 (>60 ml/min/1.73 sqM) Est GFR (CKD-EPI)NonAf 85 (>60 ml/min/1.73 sqM) Glucose 119 H (74-99) mg/dL Lactic Ac Sepsis Rflx Plasma Lactic Acid Jd (0.7-2.0) mmol/L Calcium 9.1 (8.4-10.2) mg/dL Magnesium 1.3 L (1.6-2.3) mg/dL Total Bilirubin 0.5 (0.2-1.3) mg/dL AST 34 (17-59) U/L ALT 32 (21-72) U/L Alkaline Phosphatase 79 (38-126) U/L Total Creatine Kinase 56 (55-170) U/L CK-MB (CK-2) 1.7 (0.0-2.4) ng/mL CK-MB (CK-2) Rel Index 3.0 Troponin I <0.012 (0.000-0.034) ng/mL Total Protein 6.4 (6.3-8.2) g/dL Albumin 4.1 (3.5-5.0) g/dL Urine Color Urine Appearance (Clear) Urine pH (5.0-8.0) Ur Specific [place] (1.001-1.035) Urine Protein (Negative) Urine Glucose (UA) (Negative) Urine Ketones (Negative) Urine Blood (Negative) Urine Nitrite (Negative) Urine Bilirubin (Negative) Urine Urobilinogen (<2.0) mg/dL Ur Leukocyte Esterase (Negative) Urine RBC (0-5) /hpf Urine WBC (0-5) /hpf Ur Squamous Epith Cells (0-4) /hpf Urine Bacteria (None) /hpf Hyaline Casts (0-2) /lpf Urine Mucus (None) /hpf 07/04/17 07/04/17 07/04/17 Range/Units 12:55 12:55 13:25 WBC (3.8-10.6) k/uL RBC (4.30-5.90) m/uL Hgb (13.0-17.5) gm/dL Hct (39.0-53.0) % MCV (80.0-100.0) fL MCH (25.0-35.0) pg MCHC (31.0-37.0) g/dL RDW (11.5-15.5) % Plt Count (150-450) k/uL Neutrophils % % Lymphocytes % % Monocytes % % Eosinophils % % Basophils % % Neutrophils # (1.3-7.7) k/uL Lymphocytes # (1.0-4.8) k/uL Monocytes # (0-1.0) k/uL Eosinophils # (0-0.7) k/uL Basophils # (0-0.2) k/uL PT 10.9 (9.0-12.0) sec INR 1.1 (<1.2) APTT 22.5 (22.0-30.0) sec Sodium (137-145) mmol/L Potassium (3.5-5.1) mmol/L Chloride (98-107) mmol/L Carbon Dioxide (22-30) mmol/L Anion Gap mmol/L BUN (9-20) mg/dL Creatinine (0.66-1.25) mg/dL Est GFR (CKD-EPI)AfAm (>60 ml/min/1.73 sqM) Est GFR (CKD-EPI)NonAf (>60 ml/min/1.73 sqM) Glucose (74-99) mg/dL Lactic Ac Sepsis Rflx Y Plasma Lactic Acid Jd 2.9 H* (0.7-2.0) mmol/L Calcium (8.4-10.2) mg/dL Magnesium (1.6-2.3) mg/dL Total Bilirubin (0.2-1.3) mg/dL AST (17-59) U/L ALT (21-72) U/L Alkaline Phosphatase (38-126) U/L Total Creatine Kinase (55-170) U/L CK-MB (CK-2) (0.0-2.4) ng/mL CK-MB (CK-2) Rel Index Troponin I (0.000-0.034) ng/mL Total Protein (6.3-8.2) g/dL Albumin (3.5-5.0) g/dL Urine Color Urine Appearance (Clear) Urine pH (5.0-8.0) Ur Specific [place] (1.001-1.035) Urine Protein (Negative) Urine Glucose (UA) (Negative) Urine Ketones (Negative) Urine Blood (Negative) Urine Nitrite (Negative) Urine Bilirubin (Negative) Urine Urobilinogen (<2.0) mg/dL Ur Leukocyte Esterase (Negative) Urine RBC (0-5) /hpf Urine WBC (0-5) /hpf Ur Squamous Epith Cells (0-4) /hpf Urine Bacteria (None) /hpf Hyaline Casts (0-2) /lpf Urine Mucus (None) /hpf 07/04/17 Range/Units 14:00 WBC (3.8-10.6) k/uL RBC (4.30-5.90) m/uL Hgb (13.0-17.5) gm/dL Hct (39.0-53.0) % MCV (80.0-100.0) fL MCH (25.0-35.0) pg MCHC (31.0-37.0) g/dL RDW (11.5-15.5) % Plt Count (150-450) k/uL Neutrophils % % Lymphocytes % % Monocytes % % Eosinophils % % Basophils % % Neutrophils # (1.3-7.7) k/uL Lymphocytes # (1.0-4.8) k/uL Monocytes # (0-1.0) k/uL Eosinophils # (0-0.7) k/uL Basophils # (0-0.2) k/uL PT (9.0-12.0) sec INR (<1.2) APTT (22.0-30.0) sec Sodium (137-145) mmol/L Potassium (3.5-5.1) mmol/L Chloride (98-107) mmol/L Carbon Dioxide (22-30) mmol/L Anion Gap mmol/L BUN (9-20) mg/dL Creatinine (0.66-1.25) mg/dL Est GFR (CKD-EPI)AfAm (>60 ml/min/1.73 sqM) Est GFR (CKD-EPI)NonAf (>60 ml/min/1.73 sqM) Glucose (74-99) mg/dL Lactic Ac Sepsis Rflx Plasma Lactic Acid Jd (0.7-2.0) mmol/L Calcium (8.4-10.2) mg/dL Magnesium (1.6-2.3) mg/dL Total Bilirubin (0.2-1.3) mg/dL AST (17-59) U/L ALT (21-72) U/L Alkaline Phosphatase (38-126) U/L Total Creatine Kinase (55-170) U/L CK-MB (CK-2) (0.0-2.4) ng/mL CK-MB (CK-2) Rel Index Troponin I (0.000-0.034) ng/mL Total Protein (6.3-8.2) g/dL Albumin (3.5-5.0) g/dL Urine Color Yellow Urine Appearance Clear (Clear) Urine pH 5.5 (5.0-8.0) Ur Specific [place] 1.029 (1.001-1.035) Urine Protein 1+ H (Negative) Urine Glucose (UA) Negative (Negative) Urine Ketones Trace H (Negative) Urine Blood Negative (Negative) Urine Nitrite Negative (Negative) Urine Bilirubin Negative (Negative) Urine Urobilinogen 3.0 (<2.0) mg/dL Ur Leukocyte Esterase Small H (Negative) Urine RBC 2 (0-5) /hpf Urine WBC 3 (0-5) /hpf Ur Squamous Epith Cells 1 (0-4) /hpf Urine Bacteria Rare H (None) /hpf Hyaline Casts 11 H (0-2) /lpf Urine Mucus Many H (None) /hpf Disposition Clinical Impression: Dehydration, Hypomagnesemia, Near syncope Disposition: ADMITTED IP TO THIS HOSP Instructions: Dehydration (ED) Additional Instructions: Patient should hold metformin until he follows up this week with Dr. Rebolledo. Patient should keep hydrated. Is patient prescribed a controlled substance at d/c from ED?: No Referrals: Cuong Rebolledo MD [Primary Care Provider] - 1-2 days Time of Disposition: 14:58
[2017-07-04 13:13] LABS: Basophils % (A) 0 %; Eosinophils # (A) 0.3 k/uL (0-0.7); Eosinophils % (A) 3 %; HCT 39.9 % (39.0-53.0); HGB 13.9 gm/dL (13.0-17.5); Lymphocytes % (A) 22 %; MCH 29.7 pg (25.0-35.0); MCHC 34.7 g/dL (31.0-37.0); MCV 85.6 fL (80.0-100.0); Mean Platelet Volume 7.2; Monocytes # (A) 0.4 k/uL (0-1.0); Monocytes % (A) 5 %; Neutrophils # (A) 6.1 k/uL (1.3-7.7); Neutrophils % (A) 68 %; Platelet Count 201 k/uL (150-450); RBC 4.66 m/uL (4.30-5.90); RDW 13.6 % (11.5-15.5)
[2017-07-04 13:22] LABS: INR 1.1 (<1.2); Partial Thromboplastin Time 22.5 sec (22.0-30.0); Prothrombin Time 10.9 sec (9.0-12.0)
[2017-07-04 13:23] LABS: ALT 32 U/L (21-72); AST 34 U/L (17-59); Albumin 4.1 g/dL (3.5-5.0); Alkaline Phosphatase 79 U/L (38-126); Anion Gap 18 mmol/L; Blood Urea Nitrogen 23 mg/dL (9-20); Calcium 9.1 mg/dL (8.4-10.2); Carbon Dioxide 19 mmol/L (22-30); Chloride 106 mmol/L (98-107); Glucose 119 mg/dL (74-99); Magnesium 1.3 mg/dL (1.6-2.3); Potassium 4.7 mmol/L (3.5-5.1); Sodium 143 mmol/L (137-145); Total Bilirubin 0.5 mg/dL (0.2-1.3); Total Protein 6.4 g/dL (6.3-8.2)
[2017-07-04 13:27] LABS: Creatine Kinase 56 U/L (55-170)
--- NOTE | 2017-07-04 13:31 | XR ---
EXAMINATION TYPE: XR chest 2V DATE OF EXAM: 07/04/2017 COMPARISON: Chest x-ray December 13, 2016 HISTORY: Weakness and shortness of breath TECHNIQUE: Frontal and lateral views of the chest are obtained. FINDINGS: There is partial visualization of surgical change in both shoulders. There is thoracic spi nal stimulator redemonstrated. There is persistent cardiomegaly with dual lead pacemaker. There is ch ronic parenchymal change with diminished inspiration and patchy bibasilar atelectasis and/or infiltra te on current study. No pleural effusion or pneumothorax is seen bilaterally. There is partial visual ization of surgical change in the lumbar spine on lateral view. IMPRESSION: Cardiomegaly with diminished inspiration and new patchy bibasilar atelectasis and/or inf iltrate.
[2017-07-04 13:40] LABS: Troponin I <0.012 ng/mL (0.000-0.034)
[2017-07-04 13:48] LABS: Creatine Kinase MB 1.7 ng/mL (0.0-2.4)
[2017-07-04 14:19] LABS: Appearance,Urine Clear (Clear); Bacteria,Urine Rare /hpf; Bilirubin,Urine Negative (Negative); Blood,Urine Negative (Negative); Color,Urine Yellow; Glucose,Urine (UA) Negative (Negative); Hyaline Casts,Urine 11 /lpf (0-2); Ketones,Urine Trace (Negative); Leukocyte Esterase,Urine Small (Negative); Mucus,Urine Many /hpf; Nitrite,Urine Negative (Negative); PH, Urine 5.5 (5.0-8.0); Protein,Urine 1+ (Negative); RBC,Urine 2 /hpf (0-5); Specific Gravity,Urine 1.029 (1.001-1.035); Squamous Epithelial Cell,Urine 1 /hpf (0-4); WBC,Urine 3 /hpf (0-5)
[2017-07-04] MEDS ORDERED: SODIUM CHLORIDE 0.9% 1,000 ML IV ONE (14:31)
[2017-07-04] MEDS ORDERED: SODIUM CHLORIDE 0.9% 500 ML IV ONE (14:46)
[2017-07-04] MEDS ORDERED: MAGNESIUM SULFATE-D5W PMX 1 GM in DEXTROSE/WATER 1 100ML.BAG IVPB ONE (14:47)
[2017-07-04 15:50] VITALS: PULSE 51
[2017-07-04 16:31] VITALS: BP 117/62; TEMP 97.6
== END 2017-07-04 16:35 | disposition other institution (70) ==
LOC: EC 12:07
DX: E83.42 Hypomagnesemia (principal); R55 Syncope and collapse; E86.0 Dehydration; E11.9 Type 2 diabetes mellitus without complications; K21.9 Gastro-esophageal reflux disease without esophagitis; E78.5 Hyperlipidemia, unspecified; I10 Essential (primary) hypertension; I25.2 Old myocardial infarction; F32.9 Major depressive disorder, single episode, unspecified; G47.30 Sleep apnea, unspecified; Z99.89 Dependence on other enabling machines and devices; Z95.5 Presence of coronary angioplasty implant and graft; Z79.82 Long term (current) use of aspirin; Z79.84 Long term (current) use of oral hypoglycemic drugs; Z79.899 Other long term (current) drug therapy; Z91.048 Other nonmedicinal substance allergy status; Z88.5 Allergy status to narcotic agent
CPT/HCPCS: 36415; 93005; 80053; 82550; 82553; 83605; 83735; 84484; 85025; 85610; 85730; 81001; 71046; 99285; 96365; 96361; J3475

== ENCOUNTER 2017-09-11 19:29 | Emergency (ER) | payer MEDICARE, OTHER ==
[2017-09-11 20:01] VITALS: RESP 18
[2017-09-11] MEDS ORDERED: SODIUM CHLORIDE 0.9% 1,000 ML IV ONE (20:22)
[2017-09-11] MEDS ORDERED: KETOROLAC 30 MG/ML 1 ML VIAL IVP STA (20:23)
--- NOTE | 2017-09-11 20:46 | ED ---
Abdominal Pain HPI - General Chief Complaint: Abdominal Pain Stated Complaint: no bowel movement Time Seen by Provider: 09/11/17 20:03 Source: patient Mode of arrival: wheelchair Limitations: no limitations - History of Present Illness Initial Comments: 71-year-old male presenting with generalized abdominal pain. Patient states he had a brain stimulator placed on Tuesday for his Parkinson's. He states he has not had a bowel movement since then. He has tried his his daily Senokot but is not having relief. He denies any new medications or narcotic use. He states he is no longer passing gas denies is not having any nausea or vomiting. A history of a cholecystectomy and appendectomy but denies any history of bowel obstruction. He denies any fevers chills, chest pain, shortness of breath. Denies any history of inflammatory bowel disease. - Related Data Home Medications Medication Instructions Recorded Confirmed Aspirin 81 mg PO DAILY 05/21/14 07/04/17 Atorvastatin [Lipitor] 40 mg PO HS 05/21/14 07/04/17 Citalopram Hydrobromide 20 mg PO BID 05/21/14 07/04/17 [Citalopram HBr] Esomeprazole Magnesium [NexIUM] 40 mg PO DAILY 05/21/14 07/04/17 Losartan Potassium 25 mg PO DAILY 05/21/14 07/04/17 Metoprolol Succinate [Toprol XL] 25 mg PO DAILY 05/21/14 07/04/17 metFORMIN HCL 500 mg PO BID 05/21/14 07/04/17 Cyanocobalamin [Vitamin B-12] 1,000 mcg PO DAILY 09/15/15 07/04/17 Folic Acid 0.4 mg PO DAILY 11/16/16 07/04/17 Isosorbide Mononitrate ER [Imdur] 30 mg PO DAILY 07/04/17 07/04/17 Allergies Allergy/AdvReac Type Severity Reaction Status Date / Time adhesive AdvReac Itching Verified 09/11/17 20:00 morphine AdvReac Excessive Verified 09/11/17 20:00 Sweating Review of Systems ROS Statement: Those systems with pertinent positive or pertinent negative responses have been documented in the HPI. Review of Systems Constitutional: Denies fever, chills Eyes: Denies change in vision, Denies pain Ears, nose, mouth, throat: Denies headaches, Denies sore throat Cardiovascular: Denies chest pain. Denies palpitations Respiratory: Denies shortness of breath, Denies cough Gastrointestinal: Positive abdominal pain. Denies nausea, vomiting, diarrhea. Genitourinary: Denies hematuria, Denies infections Musculoskeletal: Denies pain, Denies swelling Integumentary: Denies rash Neurological: Denies headache, focal weakness, focal numbness Psychiatric: Denies anxiety, Denies depression Hematologic/Lymphatic: Denies easy bleeding or bruising ROS Other: All systems not noted in ROS Statement are negative. Past Medical History Past Medical History: Chest Pain / Angina, Diabetes Mellitus, GERD/Reflux, Hyperlipidemia, Hypertension, Myocardial Infarction ([place]), Neurologic Disorder, Osteoarthritis ([place]), Prostate Disorder, Sleep Apnea/CPAP/BIPAP Additional Past Medical History / Comment(s): PARKINSON'S -HAND TREMORS & SHUFFLING GAIT;BILLS'S PALSY WITH LEFT FACIAL DROOP.SLEEP APNEA (NO MACHINE), ENLARGED PROSTATE., DDD- HAS PAIN STIMULATOR., HX OF ABDOMINAL PAIN & NAUSEA WHICH HAS IMPROVED SINCE HE STOPPED PARKNINSONS MEDICATIONS., HX Kidney Stone; CONSTIPATION- SEEN IN ER 01/18 FOR CONSTIPATION AND WAS STRAIGHT CATHED BECAUSE HE COULD NOT URINATE., [place] (DOES NOT USE HIS HEARING AIDS). SEE [employer]. Last Myocardial Infarction Date:: 1996 History of Any Multi-Drug Resistant Organisms: None Reported Past Surgical History: Appendectomy, Back Surgery, Cholecystectomy, Heart Catheterization With Stent, Joint Replacement, Pacemaker Additional Past Surgical History / Comment(s): TOTAL LEFT KNEE, TOTAL LEFT SHOULDER , CARDIAC STENTS X3, BACK SURGERY X 3 WITH CRISTEL AND PLATES, DECOMPRESSION/LAMINECTOMY T9-T10 AND NEURO STIMULATOR IMPLANTED., CYSTOSCOPY., PACEMAKER (11/2016); Lithotripsy Past Anesthesia/Blood Transfusion Reactions: No Reported Reaction Additional Past Anesthesia/Blood Transfusion Reaction / Comment(s): SLIGHT CLAUSTROHOBIA Date of Last Stent Placement:: 2007 Type of Cardiac Device: Permanent Pacemaker Device Placement Date:: 11/2016 Past Psychological History: Depression Smoking Status: Never smoker Past Alcohol Use History: None Reported Past Drug Use History: None Reported - Past Family History Sister(s) Family Medical History: Cancer Father Sister(s) Additional Family Medical History / Comment(s): FATHER, 2 SISTERS AND 1 BROTHER , LUIS ALBERTO'S DX Mother Family Medical History: Deep Vein Thrombosis (DVT) General Exam - General Exam Comments Initial Comments: General: Awake, alert, No acute Distress HENT: Normocephalic. Atraumatic Eyes: PERRL. EOMI. No scleral icterus. No injected conjunctiva Neck: Full ROM Chest/Lungs: Clear to auscultation bilaterally. No wheezing, rhonchi, or rales Cardiac: Regular rate, rhythm. No murmurs or rubs Abdomen/GI: [Soft, distended, generalized tenderness to palpation. No rebound, guarding, or rigidity. Musculoskeletal: Full ROM Skin: Warm, dry, intact Neurologic: A/Ox3, no weakness, no sensory deficit, no abnormal gait, no coordination deficit Limitations: no limitations Course Vital Signs 09/11/17 09/11/17 19:56 21:59 Temperature 97.8 F 98.2 F Pulse Rate 51 L 50 L Respiratory 18 18 Rate Blood Pressure 146/74 150/73 O2 Sat by Pulse 97 98 Oximetry Medical Decision Making - Medical Decision Making 71-year-old male presenting with constipation and abdominal pain. On initial exam the patient is awake, alert, no acute distress. VSS. Patient states he is not passing gas and therefore CT abdomen and pelvis was done. CT abdomen and pelvis showed no obstruction but was consistent with constipation. A milk of molasses enema was attempted but the patient was unable to tolerate it. He was given magnesium citrate to drink at home and instructed to follow up with his primary doctor in the next 1-2 days. No further emergent workup indicated. The patient was given return to ED instructions. They were instructed to follow up with their primary care provider. Stable for discharge at this time. - Lab Data Result diagrams: 09/11/17 20:45 09/11/17 20:45 Lab Results 09/11/17 09/11/17 Range/Units 20:45 20:45 WBC 9.7 (3.8-10.6) k/uL RBC 5.12 (4.30-5.90) m/uL Hgb 15.2 (13.0-17.5) gm/dL Hct 44.1 (39.0-53.0) % MCV 86.2 (80.0-100.0) fL MCH 29.6 (25.0-35.0) pg MCHC 34.4 (31.0-37.0) g/dL RDW 13.7 (11.5-15.5) % Plt Count 190 (150-450) k/uL Neutrophils % 67 % Lymphocytes % 22 % Monocytes % 6 % Eosinophils % 3 % Basophils % 0 % Neutrophils # 6.5 (1.3-7.7) k/uL Lymphocytes # 2.2 (1.0-4.8) k/uL Monocytes # 0.5 (0-1.0) k/uL Eosinophils # 0.3 (0-0.7) k/uL Basophils # 0.0 (0-0.2) k/uL Sodium 139 (137-145) mmol/L Potassium 4.6 (3.5-5.1) mmol/L Chloride 106 (98-107) mmol/L Carbon Dioxide 20 L (22-30) mmol/L Anion Gap 13 mmol/L BUN 19 (9-20) mg/dL Creatinine 1.00 (0.66-1.25) mg/dL Est GFR (CKD-EPI)AfAm 87 (>60 ml/min/1.73 sqM) Est GFR (CKD-EPI)NonAf 75 (>60 ml/min/1.73 sqM) Glucose 153 H (74-99) mg/dL Calcium 10.0 (8.4-10.2) mg/dL Disposition Clinical Impression: Constipation, Abdominal pain Disposition: HOME SELF-CARE Condition: Good Instructions: Constipation (ED), High Fiber Diet (ED) Is patient prescribed a controlled substance at d/c from ED?: No
[2017-09-11 20:56] LABS: Basophils % (A) 0 %; Eosinophils # (A) 0.3 k/uL (0-0.7); Eosinophils % (A) 3 %; HCT 44.1 % (39.0-53.0); HGB 15.2 gm/dL (13.0-17.5); Lymphocytes # (A) 2.2 k/uL (1.0-4.8); Lymphocytes % (A) 22 %; MCH 29.6 pg (25.0-35.0); MCHC 34.4 g/dL (31.0-37.0); MCV 86.2 fL (80.0-100.0); Mean Platelet Volume 6.8; Monocytes # (A) 0.5 k/uL (0-1.0); Monocytes % (A) 6 %; Neutrophils # (A) 6.5 k/uL (1.3-7.7); Neutrophils % (A) 67 %; Platelet Count 190 k/uL (150-450); RBC 5.12 m/uL (4.30-5.90); RDW 13.7 % (11.5-15.5); WBC 9.7 k/uL (3.8-10.6)
[2017-09-11 21:08] LABS: Potassium 4.6 mmol/L (3.5-5.1)
--- NOTE | 2017-09-11 22:10 | CT ---
ADDENDUM - Added by Carmine Patel MD on 09/11/2017 10:17 PM (-07:00) Addition to report: There is a punctate, 2 mm calcification along the course of the proximal left ureter, likely an adjacent vascular calcification given the lack of any regional inflammatory changes are upstream collecting system distention. EXAM: CT Abdomen and Pelvis Without Intravenous Contrast CLINICAL HISTORY: ITS.REASON CT Reason: Pain TECHNIQUE: Axial computed tomography images of the abdomen and pelvis without intravenous contrast. CTDI is 25.2 mGy and DLP is 1536.5 mGy-cm. This CT exam was performed using one or more of the following dose reduction techniques: automated exposure control, adjustment of the mA and/or kV according to patient size, and/or use of iterative reconstruction technique. Coronal and sagittal reformatted images were created and reviewed. COMPARISON: 10/25/2016 FINDINGS: Lung bases: Mild dependent atelectasis. ABDOMEN: Liver: Unremarkable. Gallbladder and bile ducts: Nonvisualized gallbladder, consistent with previous cholecystectomy. No ductal dilation. Pancreas: Fatty infiltration of the pancreas. No ductal dilation. Spleen: Unremarkable. No splenomegaly. Adrenals: Unremarkable. No mass. Kidneys and ureters: Punctate renal stone or parenchymal calcification measuring 2 mm in the anterior left kidney. No hydronephrosis. Symmetric perinephric stranding/scarring. Stomach and bowel: Moderate colonic stool burden, with prominent focus at the rectosigmoid level. The small bowel demonstrates a normal course and caliber. No obstruction. No mucosal thickening. PELVIS: Appendix: Appendix not definitively visualized. No evidence for appendicitis. Bladder: Unremarkable. No stones. Reproductive: Unremarkable as visualized. ABDOMEN and PELVIS: Intraperitoneal space: Unremarkable. No free air. No significant fluid collection. Bones/joints: Extensive degenerative changes of the spine with posterior fusion at the L1-L4 level. There is a new compression deformity with mild sclerotic changes at the T12 level superior endplate which may be associated with a prominent Schmorl's node. Vacuum disc phenomenon now present at the T11-T12 level. No dislocation. Soft tissues: Small fatty inguinal hernias. Vasculature: Diffuse atherosclerosis. No abdominal aortic aneurysm. Lymph nodes: Unremarkable. No enlarged lymph nodes. Tubes, lines and devices: Neurostimulator noted within the leftward back subcutaneous tissues extending into the spinal canal at the thoracic level. IMPRESSION: 1. Moderate colonic stool burden, prominent focus within the rectosigmoid level consistent with stated constipation. No acute inflammatory changes or evidence for obstruction identified by CT at this time. 2. Compression deformity at the central superior endplate of T12 which may be related to a prominent Schmorl's node, favored to be chronic though age indeterminate and not seen on previous imaging. Correlate for any focal acute symptoms. 3. Nonacute findings as discussed above.
[2017-09-12] MEDS ORDERED: MAGNESIUM CITRATE 296 ML BOTTLE PO ONE (00:18)
[2017-09-12] MEDS ORDERED: KETOROLAC 30 MG/ML 1 ML VIAL IVP STA (00:44)
[2017-09-12 07:31] VITALS: BP 134/85; PULSE 66; TEMP 97
== END 2017-09-12 01:20 | disposition home or self-care (01) ==
LOC: EC 19:29
DX: K59.00 Constipation, unspecified (principal); R10.84 Generalized abdominal pain; E11.9 Type 2 diabetes mellitus without complications; K21.9 Gastro-esophageal reflux disease without esophagitis; E78.5 Hyperlipidemia, unspecified; I10 Essential (primary) hypertension; I25.2 Old myocardial infarction; F32.9 Major depressive disorder, single episode, unspecified; G20 Parkinson's disease; G47.30 Sleep apnea, unspecified; Z87.442 Personal history of urinary calculi; Z96.89 Presence of other specified functional implants; Z90.49 Acquired absence of other specified parts of digestive tract; Z95.5 Presence of coronary angioplasty implant and graft; Z95.0 Presence of cardiac pacemaker; Z79.84 Long term (current) use of oral hypoglycemic drugs; Z79.82 Long term (current) use of aspirin; Z79.899 Other long term (current) drug therapy; Z91.048 Other nonmedicinal substance allergy status; Z88.5 Allergy status to narcotic agent
CPT/HCPCS: 99284; 96374; 96376; 96361; 36415; 80048; 85025; 74176; J1885 ×2

== ENCOUNTER → 2018-01-23 | Outpatient (CLI) | payer MEDICARE, OTHER ==
--- NOTE | 2018-01-23 14:31 | XR ---
EXAMINATION TYPE: XR skull complete DATE OF EXAM: 01/23/2018 COMPARISON: NONE HISTORY: 72-year-old male presents for functional implants, recall on implants. TECHNIQUE: 4 views FINDINGS: Right and left frontal approach deep brain stimulator leads are demonstrated. The extracranial portio ns of the leads extend back towards the right before coursing down the right posterior side of the he ad. IMPRESSION: Right and left frontal deep brain stimulator leads. The extracranial portions of the leads extend cong n the right side of the posterior head.
== END ==
LOC: RADXRMAIN 11:20
PROVIDERS: ATTEND Neurological Surgery
DX: Z09 Encounter for follow-up examination after completed treatment for conditions other than malignant neoplasm (principal); Z96.89 Presence of other specified functional implants
CPT/HCPCS: 70260

== ENCOUNTER 2018-08-27 11:48 | Observation (INO) | payer MEDICARE, OTHER ==
[2018-08-27] MEDS ORDERED: SODIUM CHLORIDE 0.9% 500 ML 500 ML IV STA (12:09)
[2018-08-27 12:34] LABS: Appearance,Urine Cloudy (Clear); Bacteria,Urine Rare /hpf; Bilirubin,Urine Negative (Negative); Blood,Urine Negative (Negative); Cellular Casts,Urine 7 /lpf (0); Color,Urine Yellow; Glucose,Urine (UA) Negative (Negative); Hyaline Casts,Urine 13 /lpf (0-2); Ketones,Urine Negative (Negative); Leukocyte Esterase,Urine Negative (Negative); Mucus,Urine Rare /hpf; Nitrite,Urine Negative (Negative); Protein,Urine Trace (Negative); RBC,Urine 1 /hpf (0-5); Specific Gravity,Urine 1.024 (1.001-1.035); Squamous Epithelial Cell,Urine <1 /hpf (0-4); Urobilinogen,Urine <2.0 mg/dL (<2.0); WBC,Urine 2 /hpf (0-5)
[2018-08-27 12:39] LABS: Glucose,Whole Blood 109 mg/dL (75-99)
[2018-08-27 12:40] LABS: Basophils % (A) 0 %; Eosinophils # (A) 0.2 k/uL (0-0.7); Eosinophils % (A) 3 %; HCT 41.8 % (39.0-53.0); HGB 13.9 gm/dL (13.0-17.5); Lymphocytes # (A) 1.9 k/uL (1.0-4.8); Lymphocytes % (A) 23 %; MCH 29.2 pg (25.0-35.0); MCHC 33.3 g/dL (31.0-37.0); MCV 87.7 fL (80.0-100.0); Mean Platelet Volume 6.8; Monocytes # (A) 0.5 k/uL (0-1.0); Monocytes % (A) 6 %; Neutrophils # (A) 5.6 k/uL (1.3-7.7); Neutrophils % (A) 66 %; Platelet Count 173 k/uL (150-450); RBC 4.77 m/uL (4.30-5.90); RDW 13.8 % (11.5-15.5); WBC 8.5 k/uL (3.8-10.6)
[2018-08-27 12:51] LABS: INR 1.1 (<1.2); Prothrombin Time 11.2 sec (9.0-12.0)
[2018-08-27 12:57] LABS: Albumin 4.1 g/dL (3.5-5.0); Magnesium 1.3 mg/dL (1.6-2.3); Potassium 4.6 mmol/L (3.5-5.1); Total Bilirubin 0.6 mg/dL (0.2-1.3); Total Protein 6.5 g/dL (6.3-8.2)
[2018-08-27] MEDS ORDERED: SODIUM CHLORIDE 0.9% 500 ML 500 ML IV ONE (14:25)
[2018-08-27] MEDS ORDERED: MAGNESIUM SULFATE-D5W PMX 1 GM in DEXTROSE/WATER 1 100ML.BAG IVPB ONE (14:25)
--- NOTE | 2018-08-27 14:32 | XR ---
EXAMINATION TYPE: XR chest 2V DATE OF EXAM: 08/27/2018 COMPARISON: 11/03/2017 HISTORY: 72-year-old male syncope TECHNIQUE: PA and lateral views FINDINGS: Resurfacing right shoulder arthroplasty. Partially visualized left total shoulder heart plasty. Left anterior chest wall pacemaker generator with right atrial and right ventricular leads. Spinal stimula tor ray centered along the mid thoracic spinal canal. Heart upper limits of normal in size. Mild hype rinflation. Patchy left basilar opacity is unchanged. No pleural effusion. IMPRESSION: COPD and borderline heart size with patchy left basilar atelectasis and/or infiltrate. Clinically cor relate.
[2018-08-27] MEDS ORDERED: NALOXONE 0.4 MG/ML 1 ML VIAL IV PRN (14:43)
[2018-08-27] MEDS ORDERED: ACETAMINOPHEN TAB 325 MG TAB PO PRN (14:43)
--- NOTE | 2018-08-27 14:48 | ED ---
General Adult HPI - General Chief complaint: Syncope Stated complaint: Pacemaker issues,Syncope Time Seen by Provider: 08/27/18 11:58 Source: patient, RN notes reviewed, old records reviewed Mode of arrival: wheelchair Limitations: no limitations - History of Present Illness Initial comments: 72-year-old male presents for evaluation lightheadedness or dizziness, near syncope. Patient does have a fall approximately 2 days ago. He has been eating well but states he is not certain if he's been drinking enough. No vomiting or diarrhea. He had some brief intermittent episodes of chest pain, only lasting seconds. Nonradiating. Patient denies abdominal pain. Denies focal numbness or weakness. Denies headache. - Related Data Home Medications Medication Instructions Recorded Confirmed Aspirin 81 mg PO DAILY 05/21/14 08/27/18 Atorvastatin [Lipitor] 40 mg PO HS 05/21/14 08/27/18 Citalopram Hydrobromide 20 mg PO BID 05/21/14 08/27/18 [Citalopram HBr] Esomeprazole Magnesium [NexIUM] 40 mg PO DAILY 05/21/14 08/27/18 Losartan Potassium 25 mg PO DAILY 05/21/14 08/27/18 Metoprolol Succinate [Toprol XL] 25 mg PO DAILY 05/21/14 08/27/18 metFORMIN HCL 1,000 mg PO BID 05/21/14 08/27/18 Cyanocobalamin [Vitamin B-12] 1,000 mcg PO DAILY 09/15/15 08/27/18 Folic Acid 0.4 mg PO DAILY 11/16/16 08/27/18 Isosorbide Mononitrate ER [Imdur] 30 mg PO DAILY 07/04/17 08/27/18 Carbidopa-Levodopa 25-100 mg 1 tab PO TID 08/27/18 08/27/18 [Sinemet 25-100 mg] Allergies Allergy/AdvReac Type Severity Reaction Status Date / Time adhesive AdvReac Itching Verified 08/27/18 12:20 morphine AdvReac Excessive Verified 08/27/18 12:20 Sweating Review of Systems ROS Statement: Those systems with pertinent positive or pertinent negative responses have been documented in the HPI. ROS Other: All systems not noted in ROS Statement are negative. Past Medical History Past Medical History: Chest Pain / Angina, Diabetes Mellitus, GERD/Reflux, Hyperlipidemia, Hypertension, Myocardial Infarction ([place]), Neurologic Disorder, Osteoarthritis (OA), Prostate Disorder, Sleep Apnea/CPAP/BIPAP Additional Past Medical History / Comment(s): PARKINSON'S -HAND TREMORS & SHUFFLING GAIT;BILLS'S PALSY WITH LEFT FACIAL DROOP.SLEEP APNEA (NO MACHINE), ENLARGED PROSTATE., DDD- HAS PAIN STIMULATOR., HX OF ABDOMINAL PAIN & NAUSEA WHICH HAS IMPROVED SINCE HE STOPPED PARKNINSONS MEDICATIONS., HX Kidney Stone; CONSTIPATION [place]I (DOES NOT USE HIS HEARING AIDS). Last Myocardial Infarction Date:: 1996 History of Any Multi-Drug Resistant Organisms: None Reported Past Surgical History: Appendectomy, Back Surgery, Cholecystectomy, Heart Catheterization With Stent, Joint Replacement, Pacemaker Additional Past Surgical History / Comment(s): TOTAL LEFT KNEE, TOTAL LEFT SHOULDER , CARDIAC STENTS X3, BACK SURGERY X 3 WITH CRISTEL AND PLATES, DECOMPRESSION/LAMINECTOMY T9-T10 AND NEURO STIMULATOR IMPLANTED., CYSTOSCOPY., PACEMAKER (11/2016); Lithotripsy Past Anesthesia/Blood Transfusion Reactions: No Reported Reaction Additional Past Anesthesia/Blood Transfusion Reaction / Comment(s): SLIGHT CLAUSTROHOBIA Date of Last Stent Placement:: 2007 Type of Cardiac Device: Permanent Pacemaker Device Placement Date:: 11/2016 Past Psychological History: Depression Smoking Status: Never smoker Past Alcohol Use History: None Reported Past Drug Use History: None Reported - Past Family History Sister(s) Family Medical History: Cancer Father Sister(s) Additional Family Medical History / Comment(s): FATHER, 2 SISTERS AND 1 BROTHER, LUIS ALBERTO'S DX Mother Family Medical History: Deep Vein Thrombosis (DVT) General Exam Limitations: no limitations General appearance: alert, in no apparent distress Head exam: Present: atraumatic, normocephalic Eye exam: Present: normal appearance, PERRL ENT exam: Present: mucous membranes dry Neck exam: Present: normal inspection. Absent: tenderness, meningismus Respiratory exam: Present: normal lung sounds bilaterally. Absent: respiratory distress Cardiovascular Exam: Present: normal rhythm, bradycardia GI/Abdominal exam: Present: soft. Absent: distended, tenderness Extremities exam: Present: normal inspection, normal capillary refill. Absent: pedal edema, calf tenderness Neurological exam: Present: alert, oriented X3, CN II-XII intact. Absent: motor sensory deficit Psychiatric exam: Present: normal affect, normal mood Skin exam: Present: warm, dry, intact. 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 Medical Decision Making - Medical Decision Making 72-year-old male with syncope, dehydration and acute kidney injury. Creatinine is elevated 1.89. Clinically appears dehydrated. Magnesium 1.3 this is replaced. Chest x-ray consistent with COPD. Patient has a normal CBC. He will be admitted for telemetry, IV hydration. Case discussed with admitting physician Dr. Ellsworth. - Lab Data Result diagrams: 08/27/18 12:18 08/27/18 12:18 Lab Results 08/27/18 08/27/18 08/27/18 Range/Units 12:18 12:18 12:18 WBC 8.5 (3.8-10.6) k/uL RBC 4.77 (4.30-5.90) m/uL Hgb 13.9 (13.0-17.5) gm/dL Hct 41.8 (39.0-53.0) % MCV 87.7 (80.0-100.0) fL MCH 29.2 (25.0-35.0) pg MCHC 33.3 (31.0-37.0) g/dL RDW 13.8 (11.5-15.5) % Plt Count 173 (150-450) k/uL Neutrophils % 66 % Lymphocytes % 23 % Monocytes % 6 % Eosinophils % 3 % Basophils % 0 % Neutrophils # 5.6 (1.3-7.7) k/uL Lymphocytes # 1.9 (1.0-4.8) k/uL Monocytes # 0.5 (0-1.0) k/uL Eosinophils # 0.2 (0-0.7) k/uL Basophils # 0.0 (0-0.2) k/uL PT 11.2 (9.0-12.0) sec INR 1.1 (<1.2) APTT 26.0 (22.0-30.0) sec Sodium 140 (137-145) mmol/L Potassium 4.6 (3.5-5.1) mmol/L Chloride 106 (98-107) mmol/L Carbon Dioxide 18 L (22-30) mmol/L Anion Gap 16 mmol/L BUN 39 H (9-20) mg/dL Creatinine 1.89 H (0.66-1.25) mg/dL Est GFR (CKD-EPI)AfAm 40 (>60 ml/min/1.73 sqM) Est GFR (CKD-EPI)NonAf 34 (>60 ml/min/1.73 sqM) Glucose 127 H (74-99) mg/dL POC Glucose (mg/dL) (75-99) mg/dL POC Glu Air Hammer Operator ID Calcium 9.0 (8.4-10.2) mg/dL Magnesium 1.3 L (1.6-2.3) mg/dL Total Bilirubin 0.6 (0.2-1.3) mg/dL AST 35 (17-59) U/L ALT 26 (21-72) U/L Alkaline Phosphatase 86 (38-126) U/L Troponin I (0.000-0.034) ng/mL Total Protein 6.5 (6.3-8.2) g/dL Albumin 4.1 (3.5-5.0) g/dL Urine Color Urine Appearance (Clear) Urine pH (5.0-8.0) Ur Specific [place] (1.001-1.035) Urine Protein (Negative) Urine Glucose (UA) (Negative) Urine Ketones (Negative) Urine Blood (Negative) Urine Nitrite (Negative) Urine Bilirubin (Negative) Urine Urobilinogen (<2.0) mg/dL Ur Leukocyte Esterase (Negative) Urine RBC (0-5) /hpf Urine WBC (0-5) /hpf Ur Squamous Epith Cells (0-4) /hpf Urine Bacteria (None) /hpf Cellular Casts (0) /lpf Hyaline Casts (0-2) /lpf Urine Mucus (None) /hpf 08/27/18 08/27/18 08/27/18 Range/Units 12:18 12:20 12:38 WBC (3.8-10.6) k/uL RBC (4.30-5.90) m/uL Hgb (13.0-17.5) gm/dL Hct (39.0-53.0) % MCV (80.0-100.0) fL MCH (25.0-35.0) pg MCHC (31.0-37.0) g/dL RDW (11.5-15.5) % Plt Count (150-450) k/uL Neutrophils % % Lymphocytes % % Monocytes % % Eosinophils % % Basophils % % Neutrophils # (1.3-7.7) k/uL Lymphocytes # (1.0-4.8) k/uL Monocytes # (0-1.0) k/uL Eosinophils # (0-0.7) k/uL Basophils # (0-0.2) k/uL PT (9.0-12.0) sec INR (<1.2) APTT (22.0-30.0) sec Sodium (137-145) mmol/L Potassium (3.5-5.1) mmol/L Chloride (98-107) mmol/L Carbon Dioxide (22-30) mmol/L Anion Gap mmol/L BUN (9-20) mg/dL Creatinine (0.66-1.25) mg/dL Est GFR (CKD-EPI)AfAm (>60 ml/min/1.73 sqM) Est GFR (CKD-EPI)NonAf (>60 ml/min/1.73 sqM) Glucose (74-99) mg/dL POC Glucose (mg/dL) 109 H (75-99) mg/dL POC Glu Air Hammer Operator ID Roberta Aguayo Calcium (8.4-10.2) mg/dL Magnesium (1.6-2.3) mg/dL Total Bilirubin (0.2-1.3) mg/dL AST (17-59) U/L ALT (21-72) U/L Alkaline Phosphatase (38-126) U/L Troponin I <0.012 (0.000-0.034) ng/mL Total Protein (6.3-8.2) g/dL Albumin (3.5-5.0) g/dL Urine Color Yellow Urine Appearance Cloudy (Clear) Urine pH 5.0 (5.0-8.0) Ur Specific [place] 1.024 (1.001-1.035) Urine Protein Trace H (Negative) Urine Glucose (UA) Negative (Negative) Urine Ketones Negative (Negative) Urine Blood Negative (Negative) Urine Nitrite Negative (Negative) Urine Bilirubin Negative (Negative) Urine Urobilinogen <2.0 (<2.0) mg/dL Ur Leukocyte Esterase Negative (Negative) Urine RBC 1 (0-5) /hpf Urine WBC 2 (0-5) /hpf Ur Squamous Epith Cells <1 (0-4) /hpf Urine Bacteria Rare H (None) /hpf Cellular Casts 7 (0) /lpf Hyaline Casts 13 H (0-2) /lpf Urine Mucus Rare H (None) /hpf Disposition Clinical Impression: Dehydration, Bradycardia, Near syncope, MARÍA (acute kidney injury) Disposition: ADMITTED IP TO THIS [facility] Condition: Stable Is patient prescribed a controlled substance at d/c from ED?: No Referrals: Cuong Rebolledo MD [Primary Care Provider] - 1-2 days Decision to Admit Reason: Admit from EC Decision Date: 08/27/18 Decision Time: 14:48
[2018-08-27] MEDS ORDERED: NITROGLYCERIN SL TABS 0.4 MG TAB SUBLINGUAL PRN (16:50)
--- NOTE | 2018-08-27 17:03 | P.HPIM ---
History of Present Illness H&P Date: 08/27/18 Chief Complaint: Feeling lightheaded and chest pain The patient is a 72-year-old male the past focal history of coronary artery disease with stenting 2, history of pacemaker placement, essential hypertension, hyperlipidemia type 2 diabetes, Parkinson's disease currently on deep brain stimulation who presents to the ER via private vehicle with chief complaint of lightheadedness. Apparently the patient having episodes of lightheadedness over the last 2 days, he reports it's worse when getting up and walking and relieved by rest. The patient has felt like he was close to passing out and actually fell this past Tuesday and hit the left side of his chest. Dur ing this time the patient also noted right sternal sharp severe and nonradiating chest discomfort with his symptoms, he denies any significant shortness of breath, denies any diaphoresis, denies nausea vomiting or skin subjective fevers chills or night sweats. 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 He denies any recent medication changes. The patient reports a chronic cough Patient reports that he's followed by Dr. Trujillo and states that the patien t might need to have his pacemaker adjusted In the ER the patient had a comprehensive workup his CBC was normal, BMP serum bicarb of 18 creatinine of 1.9, serum magnesium level I.3, blood sugar 127. EKG shows sinus bradycardia with a rate of 50. Chest x-ray shows COPD and borderline heart size and left patchy basilar atelectasis and/or infiltrate. He was given IV mag replacement and 2 L of fluids recommended for admission Review of Systems Pertinent positives per HPI other review of systems otherwise negative Past Medical History Past Medical History: Chest Pain / Angina, Diabetes Mellitus, GERD/Reflux, Hyperlipidemia, Hypertension, Myocardial Infarction ([place]), Neurologic Disorder, Osteoarthritis (OA), Prostate Disorder, Sleep Apnea/CPAP/BIPAP Additional Past Medical History / Comment(s): PARKINSON'S -HAND TREMORS & SHUFFLING GAIT;BILLS'S PALSY WITH LEFT FACIAL DROOP.SLEEP APNEA (NO MACHINE), ENLARGED PROSTATE., DDD- HAS PAIN STIMULATOR., HX OF ABDOMINAL PAIN & NAUSEA WHICH HAS IMPROVED SINCE HE STOPPED PARKNINSONS MEDICATIONS., HX Kidney Stone; CONSTIPATION PALA (DOES NOT USE HIS HEARING AIDS). Last Myocardial Infarction Date:: 1996 History of Any Multi-Drug Resistant Organisms: None Reported Past Surgical History: Appendectomy, Back Surgery, Cholecystectomy, Heart Catheterization With Stent, Joint Replacement, Pacemaker Additional Past Surgical History / Comment(s): TOTAL LEFT KNEE, TOTAL LEFT SHOULDER , CARDIAC STENTS X3, BACK SURGERY X 3 WITH CRISTEL AND PLATES, DECOMPRESSION/LAMINECTOMY T9-T10 AND NEURO STIMULATOR IMPLANTED., CYSTOSCOPY., PACEMAKER (11/2016); Lithotripsy Past Anesthesia/Blood Transfusion Reactions: No Reported Reaction Additional Past Anesthesia/Blood Transfusion Reaction / Comment(s): SLIGHT CLAUSTROHOBIA Date of Last Stent Placement:: 2007 Type of Cardiac Device: Permanent Pacemaker Device Placement Date:: 11/2016 Past Psychological History: Depression Smoking Status: Never smoker Past Alcohol Use History: None Reported Past Drug Use History: None Reported - Past Family History Sister(s) Family Medical History: Cancer Father Sister(s) Additional Family Medical History / Comment(s): FATHER, 2 SISTERS AND 1 BROTHER, LUIS ALBERTO'S DX Mother Family Medical History: Deep Vein Thrombosis (DVT) Medications and Allergies Home Medications Medication Instructions Recorded Confirmed Type Aspirin 81 mg PO DAILY 05/21/14 08/27/18 History Atorvastatin [Lipitor] 40 mg PO HS 05/21/14 08/27/18 History Citalopram Hydrobromide 20 mg PO BID 05/21/14 08/27/18 History [Citalopram HBr] Esomeprazole Magnesium [NexIUM] 40 mg PO DAILY 05/21/14 08/27/18 History Losartan Potassium 25 mg PO DAILY 05/21/14 08/27/18 History Metoprolol Succinate [Toprol XL] 25 mg PO DAILY 05/21/14 08/27/18 History metFORMIN HCL 1,000 mg PO BID 05/21/14 08/27/18 History Cyanocobalamin [Vitamin B-12] 1,000 mcg PO DAILY 09/15/15 08/27/18 History Folic Acid 0.4 mg PO DAILY 11/16/16 08/27/18 History Isosorbide Mononitrate ER [Imdur] 30 mg PO DAILY 07/04/17 08/27/18 History Carbidopa-Levodopa 25-100 mg 1 tab PO TID 06/30/19 06/30/19 History [Sinemet 25-100 mg] Allergies Allergy/AdvReac Type Severity Reaction Status Date / Time adhesive AdvReac Itching Verified 08/27/18 12:20 morphine AdvReac Excessive Verified 08/27/18 12:20 Sweating Physical Exam Vitals: Vital Signs Temp Pulse Pulse Resp BP Pulse Ox 08/27/18 14:38 49 L 16 156/94 97 08/27/18 12:23 49 L 18 117/73 97 08/27/18 12:04 49 L 08/27/18 11:51 97.6 F 51 L 18 94/59 95 Intake and Output 08/27/18 08/27/18 08/27/18 06:59 14:59 22:59 Other: Weight 113.398 kg Constitutional: No acute distress, conversant, pleasant Eyes: Anicteric sclerae, moist conjunctiva, no lid-lag, PERRLA ENMT: NC/AT,Oropharynx clear, no erythema, exudates Neck:Supple, FROM, no masses, or JVD, No carotid bruits; No thyromegaly Lungs: Clear to auscultation, Clear to percussion, Normal respiratory effort, no accessory muscle use Cardiovascular: Heart regular in rate and rhythm, No murmurs, gallops, or rubs no peripheral edema Abdominal: Soft Nontender, nom distended, no guarding, no rebound or rigidity, Normoactive bowel sounds No hepatomegaly, No splenomegaly, No palpable mass No abdominal wall hernia noted Skin: Normal temperature, tone, texture, turgor, No induration No subcutaneous nodules, No rash, lesions, No ulcers Extremities:No digital cyanosis No clubbing, Pedal pulses intact and symmetrical Radial pulses intact and symmetrical Normal gait and station, No calf tenderness Psychiatric: Alert and oriented to person, place and time, Appropriate affect Intact judgement Neuro: Muscles Strength 5/5 in all 4 extremities, Sensation to light touch grossly present throughout, Cranial nerves II-XII grossly intact. No focal sensory deficits Results CBC & Chem 7: 08/27/18 12:18 08/27/18 12:18 Labs: Abnormal Lab Results - Last 24 Hours (Table) 08/27/18 08/27/18 08/27/18 Range/Units 12:18 12:20 12:38 Carbon Dioxide 18 L (22-30) mmol/L BUN 39 H (9-20) mg/dL Creatinine 1.89 H (0.66-1.25) mg/dL Glucose 127 H (74-99) mg/dL POC Glucose (mg/dL) 109 H (75-99) mg/dL Magnesium 1.3 L (1.6-2.3) mg/dL Urine Protein Trace H (Negative) Urine Bacteria Rare H (None) /hpf Hyaline Casts 13 H (0-2) /lpf Urine Mucus Rare H (None) /hpf Assessment and Plan (1) Near syncope Current Visit: Yes Status: Acute Code(s): R55 - SYNCOPE AND COLLAPSE SNOMED Code(s): 172441602 (2) Lightheadedness Current Visit: Yes Status: Acute Code(s): R42 - DIZZINESS AND GIDDINESS SNOMED Code(s): 392057310 (3) Chest pain Current Visit: Yes Status: Acute Code(s): R07.9 - CHEST PAIN, UNSPECIFIED SNOMED Code(s): 57859862 (4) Type 2 diabetes mellitus Current Visit: Yes Status: Acute Code(s): E11.9 - TYPE 2 DIABETES MELLITUS WITHOUT COMPLICATIONS SNOMED Code(s): 46951445 (5) MARÍA (acute kidney injury) Current Visit: Yes Status: Acute Code(s): N17.9 - ACUTE KIDNEY FAILURE, UNSPECIFIED SNOMED Code(s): 60122583 (6) Bradycardia Current Visit: Yes Status: Acute Code(s): R00.1 - BRADYCARDIA, UNSPECIFIED SNOMED Code(s): 38845254 (7) Fall Current Visit: Yes Status: Acute Code(s): W19.XXXA - UNSPECIFIED FALL, INITIAL ENCOUNTER SNOMED Code(s): 5289712 (8) Hypomagnesemia Current Visit: Yes Status: Acute Code(s): E83.42 - HYPOMAGNESEMIA SNOMED Code(s): 425117663 Plan: The patient is placed in observation anticipated less than 2 midnight stay with presyncope and acute kidney injury in the setting of bradycardia in a patient with pacemaker. He received IV boluses in the ER is continued on normal saline at 120 mL an hour, strict I's and O's, renal ultrasound ordered. Suspect prerenal due to dehydration versus cardiorenal etiology, nephrology is consulted for further recommendations and all nephrotoxic agents are held. We'll order echocardiogram, carotid Dopplers and renal ultrasound, A1c Accu-Cheks with correctional scale insulin coverage, lipid panel, trend his troponins Cardiology is also consulted as a patient did mention chest pain and is noted to be bradycardic presenting with lightheadedness and presyncope. Continue to monitor patient's clinical course CODE STATUS: DO NOT INTUBATE/Limited code with medications and defibrillation allowed Anticipated discharge: 1-2 days Discussed plan of care with: FESTUS Henley () and the patient Prophylaxis : SCDs and heparin Time with Patient: Greater than 30
[2018-08-27] MEDS: SODIUM CHLORIDE 0.9% 1,000 ML IV SCH (18:01)
[2018-08-27 18:06] LABS: Glucose,Whole Blood 119 mg/dL (75-99)
[2018-08-27] MEDS: INSULIN ASPART (NovoLOG) 100 UNIT/ML VIAL SQ SCH ×2 (18:06→20:58)
[2018-08-27 20:53] LABS: Glucose,Whole Blood 184 mg/dL (75-99)
[2018-08-27] MEDS: CITALOPRAM HYDROBROMIDE 20 MG TAB PO SCH (20:58)
[2018-08-27] MEDS: CARBIDOPA-LEVODOPA 25-100 MG 1 EACH TAB PO SCH (20:58)
[2018-08-27] MEDS: ATORVASTATIN 40 MG TAB PO SCH (20:58)
[2018-08-27] MEDS: HEPARIN SODIUM,PORCINE 5,000 UNIT/ML 1 ML VIAL SQ SCH (23:16)
[2018-08-28 05:44] LABS: Glucose,Whole Blood 116 mg/dL (75-99)
[2018-08-28] MEDS: INSULIN ASPART (NovoLOG) 100 UNIT/ML VIAL SQ SCH ×4 (06:25→20:48)
[2018-08-28] MEDS: PANTOPRAZOLE 40 MG TABLET PO SCH (06:29)
[2018-08-28] MEDS: SODIUM CHLORIDE 0.9% 1,000 ML IV SCH ×3 (06:30→20:49)
[2018-08-28] MEDS: FOLIC ACID 1 MG TAB PO SCH (09:25)
[2018-08-28] MEDS: CITALOPRAM HYDROBROMIDE 20 MG TAB PO SCH ×2 (09:25→20:48)
[2018-08-28] MEDS: CARBIDOPA-LEVODOPA 25-100 MG 1 EACH TAB PO SCH ×3 (09:25→20:48)
[2018-08-28] MEDS: CYANOCOBALAMIN 500 MCG TAB PO SCH (09:25)
[2018-08-28] MEDS: HEPARIN SODIUM,PORCINE 5,000 UNIT/ML 1 ML VIAL SQ SCH ×3 (09:25→23:06)
[2018-08-28] MEDS: ASPIRIN 81 MG PO SCH (09:25)
--- NOTE | 2018-08-28 09:40 | US ---
EXAMINATION TYPE: US carotid duplex BILAT DATE OF EXAM: 08/28/2018 COMPARISON: CLINICAL HISTORY: Presyncope. No hx of TIA/stroke, dizzy EXAM MEASUREMENTS: RIGHT: Peak Systolic Velocity (PSV) cm/sec ----- Right CCA: 79.4 ----- Right ICA: 63.6 ----- Right ECA: 64.5 ICA/CCA ratio: 0.8 RIGHT: End Diastole cm/sec ----- Right CCA: 12.9 ----- Right ICA: 18.2 ----- Right ECA: 4.3 LEFT: Peak Systolic Velocity (PSV) cm/sec ----- Left CCA: 78.7 ----- Left ICA: 89.7 ----- Left ECA: 73.2 ICA/CCA ratio: 1.1 LEFT: End Diastole cm/sec ----- Left CCA: 12.8 ----- Left ICA: 27.0 ----- Left ECA: 0.0 VERTEBRALS (direction of flow): Right Vertebral: Antegrade Left Vertebral: Antegrade Rhythm: Normal Bilateral wall thickening. Plaque seen in right proximal ICA and left bulb. No elevated velocities or significant stenosis. IMPRESSION: Mild degree of grayscale atheromatous plaquing with no sonographically evident hemodynami taylor significant stenosis within either visualized carotid arterial system. Criteria for Assigning % of Stenosis / Diameter reduction (Estimation based on the indirect measurements of the internal carotid artery velocities (ICA PSV). 1. Normal (no stenosis)=ICA PSV < 125 cm/s: ratio < 2.0: ICA EDV<40 cm/s. 2. Less than 50% stenosis=ICA PSV < 125 cm/s: ratio < 2.0: ICA EDV<40 cm/s. 3. 50 to 69% stenosis=ICA PSV of 125 to 230 cm/s: ration 2.0 ? 4.0: ICA EDV 40-100 cm/s. 4. Greater than 70% stenosis to near occlusion= ICA PSV > 230 cm/s: ratio > 4.0: ICA EDV > 100 cm/s. 5. Near occlusion= ICA PSV velocities may be low or undetectable: variable ratio and ICA EDV. 6. Total occlusion=unable to detect flow.
[2018-08-28] MEDS ORDERED: ISOSORBIDE MONONITRATE ER 30 MG TAB.ER.24H PO SCH (10:00)
[2018-08-28] MEDS ORDERED: LOSARTAN 25 MG TAB PO SCH (10:00)
[2018-08-28 11:08] LABS: Calcium 9.1 mg/dL (8.4-10.2); Magnesium 1.4 mg/dL (1.6-2.3); Potassium 4.9 mmol/L (3.5-5.1)
--- NOTE | 2018-08-28 11:11 | US ---
EXAMINATION TYPE: US renals and bladder DATE OF EXAM: 08/28/2018 COMPARISON: CT 09/11/2017 CLINICAL HISTORY: arnaud. EXAM MEASUREMENTS: Right Kidney: 12.2 x 5.6 x 4.9 cm Left Kidney: 10.9 x 5.2 x 5.0 cm Patient of large body habitus Right Kidney: No hydronephrosis or masses seen Left Kidney: anechoic tubular structure midline, does not appear to be vessel Bladder: irregular wall contour vs diverticulum Bilateral Jets seen: Normal Post Void Residual: IMPRESSION: 1. Bladder wall has irregular contour with thickened wall. Underlying mucosal lesion or mass not excl uded.
[2018-08-28 11:21] LABS: Basophils % (A) 0 %; Eosinophils # (A) 0.2 k/uL (0-0.7); Eosinophils % (A) 4 %; HCT 43.3 % (39.0-53.0); HGB 14.5 gm/dL (13.0-17.5); Lymphocytes # (A) 1.6 k/uL (1.0-4.8); Lymphocytes % (A) 24 %; MCH 29.8 pg (25.0-35.0); MCHC 33.5 g/dL (31.0-37.0); MCV 88.9 fL (80.0-100.0); Mean Platelet Volume 7.6; Monocytes # (A) 0.6 k/uL (0-1.0); Monocytes % (A) 9 %; Neutrophils # (A) 4.1 k/uL (1.3-7.7); Neutrophils % (A) 61 %; Platelet Count 151 k/uL (150-450); RBC 4.88 m/uL (4.30-5.90); WBC 6.6 k/uL (3.8-10.6)
[2018-08-28] MEDS ORDERED: METOPROLOL SUCCINATE (ER) 25 MG TAB.ER.24H PO SCH (11:30)
[2018-08-28 11:37] LABS: Glucose,Whole Blood 150 mg/dL (75-99)
[2018-08-28] MEDS: MAGNESIUM SULFATE-D5W PMX 1 GM in DEXTROSE/WATER 1 100ML.BAG IVPB SCH ×3 (12:15→15:02)
[2018-08-28 12:30] LABS: Hemoglobin A1C 8.3 % (4.0-6.0)
--- NOTE | 2018-08-28 13:49 | ECHOF ---
Referral Reason:Chest pain and pre- syncope MEASUREMENTS -------- HEIGHT: 185.4 cm WEIGHT: 113.9 kg BP: 171/80 RVIDd: 3.0 cm (< 3.3) IVSd: 1.5 cm (0.6 - 1.1) LVIDd: 4.7 cm (3.9 - 5.3) LVPWd: 1.5 cm (0.6 - 1.1) IVSs: 1.8 cm LVIDs: 2.9 cm LVPWs: 1.8 cm LA Diam: 3.7 cm (2.7 - 3.8) LAESV Index (A-L): 19.47 ml/m Ao Diam: 4.4 cm (2.0 - 3.7) AV Cusp: 2.3 cm (1.5 - 2.6) MV EXCURSION: 19.544 mm (> 18.000) MV EF SLOPE: 53 mm/s (70 - 150) EPSS: 0.3 cm MV E José Miguel: 0.68 m/s MV DecT: 335 ms MV A José Miguel: 0.62 m/s MV E/A Ratio: 1.09 RAP: 5.00 mmHg RVSP: 20.45 mmHg FINDINGS -------- Sinus rhythm. This was a technically adequate study. The left ventricular size is normal. There is moderate concentric left ventricular hypertrophy. O verall left ventricular systolic function is normal with, an EF between 60 - 65 %. The right ventricle is normal in size. Normal LA size by volume 22+/-6 ml/m2. The right atrium is normal in size. Interatrial and interventricular septum intact. There is mild aortic valve sclerosis. The mitral valve leaflets are mildly thickened. Mild mitral annular calcification present. Mild tricuspid regurgitation present. Right ventricular systolic pressure is normal at < 35 mmHg. Trace/mild (physiologic) pulmonic regurgitation. 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 IVC Not well visulized. There is no pericardial effusion. CONCLUSIONS -------- 1. Sinus rhythm. 2. This was a technically adequate study. 3. The left ventricular size is normal. 4. There is moderate concentric left ventricular hypertrophy. 5. Overall left ventricular systolic function is normal with, an EF between 60 - 65 %. 6. The right ventricle is normal in size. 7. Normal LA size by volume 22+/-6 ml/m2. 8. The right atrium is normal in size. 9. Interatrial and interventricular septum intact. 10. There is mild aortic valve sclerosis. 11. The mitral valve leaflets are mildly thickened. 12. Mild mitral annular calcification present. 13. Mild tricuspid regurgitation present. 14. Right ventricular systolic pressure is normal at < 35 mmHg. 15. Trace/mild (physiologic) pulmonic regurgitation. 16. 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 17. IVC Not well visulized. 18. There is no pericardial effusion. [employer]: Christine Thompson RDCS
[2018-08-28 16:51] LABS: Glucose,Whole Blood 151 mg/dL (75-99)
--- NOTE | 2018-08-28 18:46 | P.PN ---
Subjective Progress Note Date: 08/28/18 Patient seen and examined at bedside, was sleeping resting comfortably. Denies any recurrence of those symptoms of lightheadedness. Doing well no major complaints, acute kidney injury has resolved with hydration. The patient continues to be bradycardic, blood pressure is elevated. No acute events over night Objective - Vital Signs Vital signs: Vital Signs Temp 98 F 08/28/18 12:30 Pulse 54 L 08/28/18 12:30 Resp 19 08/28/18 12:30 BP 169/91 08/28/18 12:30 Pulse Ox 97 08/28/18 12:30 Intake & Output 08/27/18 08/28/18 08/28/18 18:59 06:59 18:59 Intake Total 1920 460 Output Total 1550 Balance 370 460 Weight 113.398 kg 113.9 kg Intake: Intake, IV Titration 1200 Amount Sodium Chloride 0.9% 1, 1200 000 ml @ 120 mls/hr IV . Q8H20M [facility] Rx#:[id number] Oral 720 460 Output: Urine 1550 Other: Voiding Method Urinal # Voids 5 4 - Exam Constitutional: No acute distress, conversant, pleasant Eyes: Anicteric sclerae, moist conjunctiva, no lid-lag, PERRLA ENMT: NC/AT,Oropharynx clear, no erythema, exudates Neck:Supple, FROM, no masses, or JVD, No carotid bruits; No thyromegaly Lungs: Clear to auscultation, Clear to percussion, Normal respiratory effort, no accessory muscle use Cardiovascular: Bradycardia regular rhythm, No murmurs, gallops, or rubs no peripheral edema Abdominal: Soft Nontender, nom distended, no guarding, no rebound or rigidity, Normoactive bowel sounds No hepatomegaly, No splenomegaly, No palpable mass No abdominal wall hernia noted Skin: Normal temperature, tone, texture, turgor, No induration No subcutaneous nodules, No rash, lesions, No ulcers Extremities:No digital cyanosis No clubbing, Pedal pulses intact and symmetrical Radial pulses intact and symmetrical Normal gait and station, No calf tenderness Psychiatric: Alert and oriented to person, place and time, Appropriate affect Intact judgement Neuro: Muscles Strength 5/5 in all 4 extremities, Sensation to light touch grossly present throughout, Cranial nerves II-XII grossly intact. No focal sensory deficits - Labs CBC & Chem 7: 07/01/19 09:45 08/28/18 09:45 Labs: Abnormal Lab Results - Last 24 Hours (Table) 08/27/18 08/27/18 08/28/18 Range/Units 12:18 20:51 05:43 BUN (9-20) mg/dL Glucose (74-99) mg/dL POC Glucose (mg/dL) 184 H 116 H (75-99) mg/dL Hemoglobin A1c 8.3 H (4.0-6.0) % Magnesium (1.6-2.3) mg/dL Triglycerides (<150) mg/dL HDL Cholesterol (40-60) mg/dL 08/28/18 08/28/18 08/28/18 Range/Units 09:45 11:36 16:49 BUN 27 H (9-20) mg/dL Glucose 204 H (74-99) mg/dL POC Glucose (mg/dL) 150 H 151 H (75-99) mg/dL Hemoglobin A1c (4.0-6.0) % Magnesium 1.4 L (1.6-2.3) mg/dL Triglycerides 180 H (<150) mg/dL HDL Cholesterol 30 L (40-60) mg/dL Assessment and Plan (1) Near syncope Narrative/Plan: * Likely secondary to dehydration and acute kidney injury * Patient does however continue to be bradycardic will likely have his pacemaker interrogated today to rule out malfunction * Echocardiogram revealing preserved LVEF of 60-65% with moderate concentric left ventricular hypertrophy * Carotid Dopplers revealing no clinically significant coronary disease Current Visit: Yes Status: Acute Code(s): R55 - SYNCOPE AND COLLAPSE SNOMED Code(s): 918768050 (2) Lightheadedness Current Visit: Yes Status: Acute Code(s): R42 - DIZZINESS AND GIDDINESS SNOMED Code(s): 893725401 (3) MARÍA (acute kidney injury) Narrative/Plan: * Likely prerenal due to dehydration * Resolved post IV fluids Current Visit: Yes Status: Resolved Code(s): N17.9 - ACUTE KIDNEY FAILURE, UNSPECIFIED SNOMED Code(s): 41506107 (4) Chest pain Narrative/Plan: * Atypical cardiac enzymes have been negative KG not showing any signs of acute ischemia * Awaiting cardiology recommendations Current Visit: Yes Status: Acute Code(s): R07.9 - CHEST PAIN, UNSPECIFIED SNOMED Code(s): 25077201 (5) Bradycardia Narrative/Plan: * Pacemaker to be interrogated today we'll follow-up results Current Visit: Yes Status: Acute Code(s): R00.1 - BRADYCARDIA, UNSPECIFIED SNOMED Code(s): 20814194 (6) Type 2 diabetes mellitus Current Visit: Yes Status: Acute Code(s): E11.9 - TYPE 2 DIABETES MELLITUS WITHOUT COMPLICATIONS SNOMED Code(s): 23904601 (7) Fall Current Visit: Yes Status: Acute Code(s): W19.XXXA - UNSPECIFIED FALL, INITIAL ENCOUNTER SNOMED Code(s): 5837057 (8) Hypomagnesemia Narrative/Plan: * Replaced and started on daily replacement Current Visit: Yes Status: Acute Code(s): E83.42 - HYPOMAGNESEMIA SNOMED Code(s): 259974866 Plan: Disposition anticipated discharge * Tomorrow will follow-up pacemaker interrogation results
--- NOTE | 2018-08-28 19:08 | P.CRDCN ---
History of Present Illness Consult date: 08/28/18 Reason for Consult (text): near syncope/lightheadedness Chief complaint: near syncope/lightheadedness History of present illness: HISTORY OF PRESENT ILLNESS AND PLAN: This is a [72]-year-old [male] with history of CAD status post multivessel PCI, PAS, hypertension, hyperlipidemia, pacemaker, diabetes, Parkinson's with deep brain stimulator, Bills's palsy, GERD, apnea with CPAP use, BPH and recent chest pain. Patient presents in the emergency department with complaints of [lightheadedness/dizziness/near syncope with fall approximately 2 days ago. Patient also had episodes of chest pressure lasting only a few moments. Patient currently lying in bed in no acute distress. No current complaints of chest pain, chest pressure, shortness of breath or palpitations. Patient does complain of recurrent hiccups which he has often. Patient had pacemaker inserted November 2016, follows remotely. 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 Patient also has had productive cough with wheeze. He should states he has just been feeling groggy. Sinus bradycardia on tele, heart rate 50. Troponins negative 2. VSS. Afebrile. Patient follows with Dr. Trujillo in office.]. SIGNIFICANT PAST MEDICAL HISTORY: [ CAD status post multivessel PCI, PAS, hypertension, hyperlipidemia, pacemaker, diabetes, Parkinson's with deep brain stimulator, Bills's palsy, GERD, apnea with CPAP use, BPH and recent chest pain. Patient presents in the emergency department with compaints of [lightheadedness/dizziness/near syncope with fall approximately 2 days ago. ] PAST SURGICAL HISTORY: See list. EKG shows [sinus bradycardia], heart rate [50] bpm. Troponins negative x [2]. Patient had pacemaker inserted November 2016 [employer] model PM [id number]. Pacemaker to be interrogated. SIGNIFICANT LABORATORY VALUES: [U/A WNL. CBC, WNL. BUN 39, CR 1.89. CO2 18. Mag 1.3. K4.6]. Chest x-ray [COPD. eft atelectasis versus infiltrate.]. Stress test 07/28/2017 EF within normal limits, negative for ischemia. apical 08/28/2018 EF 60-65%, moderate LVH. mild aortic valve sclerosis. Mild TR. REVIEW OF SYSTEMS: CONSTITUTIONAL: [Denies fever. Denies chills.] EYES: Denies blurred vision. [Denies blurred vision or vision changes. Denies eye pain.] EARS, NOSE, MOUTH & THROAT: [Denies headache. Denies sore throat. Denies ear pain Denies hemoptysis.] CARDIOVASCULAR: [Complains of chest pain. c/o shortness of breath. Denies orthopnea. Denies PND. Denies palpitations.] RESPIRATORY: [Complains of productive cough. Complains of shortness of breath. ] GASTROINTESTINAL: [Denies abdominal pain or distention. Denies diarrhea. Denies constipation. Denies nausea. Denies vomiting.] MUSCULOSKELETAL: [Complains of malaise. Complains of back pain] INTEGUMENTARY: [Denies pruitis. Denies rash.] ENDOCRINE: [Denies fatigue. Denies weight change. Denies polydipsia. Denies polyurina Denies heat/cold intolerance.] GENITOURINARY:[ Denies burning, hematuria or urgency with micturation.] HEMATOLOGIC: [Denies history of anemia. Denies bleeding.] NEUROLOGIC: [Denies numbness. Denies tingling. Complains of weakness. Complains of dizziness/lightheadedness/near syncope. Complains of being forgetful] PSYCHIATRIC: [Denies anxiety. Denies depression.] PHYSICAL EXAM: VITAL SIGNS: WNL GENERAL: Well developed, in no acute distress. HEENT: Head is atraumatic, normocephalic. Pupils are equal, round. Extra ocular movements intact. Mucous membranes moist. Neck supple. No JVD. No carotid bruit. No thyromegaly. LUNGS: Clear to auscultation no wheezes, rales or rhonchi. No chest wall tenderness on palpation or with deep breathing. HEART: Regular rate and rhythm, no rubs or gallops. S1 and S2 heard. No murmur. ABDOMEN: Abdominal exam, WNL. Bowel sounds x4 quads. Soft, non-tender, without masses, organomegaly, or abdominal aorta enlargement. EXTREMITIES/VASCULAR: Extremities have easily palpable radial, femoral, dorsalis pedis and posterior tibial pulses. No cyanosis, calf tenderness. No BLE edema. NEUROLOGIC: Patient is awake, alert and oriented x3. No focal neurologic abnormalities. FINAL IMPRESSION: 1. [light headedness/pre-syncope]. 2. [CAD status post Multi-vessel PCI]. 3. [paroxysmal atrial fibrillation - no anticoagulation due to fall risk]. 4. [pacemaker -to be interrogated]. 5. [Parkinson's disease with deep brain stimulator]. PLAN: [Pacemaker interrogation ordered. Discontinue metoprolol succinate. Okay for discharge if pacemaker interrogation is within normal limits. Patient to follow-up with scheduled appointment with Dr. Trujillo on September 04. Thank you anali reid for this consult.] Nurse Practitioner note has been reviewed by the Physician. Signing provider agrees with the documented findings, assessment and plan of care. Past Medical History Past Medical History: Coronary Artery Disease (CAD), Chest Pain / Angina, Diabetes Mellitus, GERD/Reflux, Hyperlipidemia, Hypertension, Myocardial Infarction (ID), Neurologic Disorder, Osteoarthritis (OA), Prostate Disorder, Sleep Apnea/CPAP/BIPAP, Syncope Additional Past Medical History / Comment(s): PARKINSON'S -HAND TREMORS & SHUFFLING GAIT;BILLS'S PALSY WITH LEFT FACIAL DROOP.SLEEP APNEA (NO MACHINE), ENLARGED PROSTATE., DDD- HAS PAIN STIMULATOR., HX OF ABDOMINAL PAIN & NAUSEA WHICH HAS IMPROVED SINCE HE STOPPED PARKNINSONS MEDICATIONS., HX Kidney Stone; CONSTIPATION Last Myocardial Infarction Date:: 1996 History of Any Multi-Drug Resistant Organisms: None Reported Past Surgical History: Appendectomy, Back Surgery, Cholecystectomy, Heart Catheterization With Stent, Joint Replacement, Pacemaker Additional Past Surgical History / Comment(s): TOTAL LEFT KNEE, TOTAL LEFT SHOULDER , CARDIAC STENTS X3, BACK SURGERY X 3 WITH CRISTEL AND PLATES, DECOMPRESSION/LAMINECTOMY T9-T10 AND NEURO STIMULATOR IMPLANTED., CYSTOSCOPY., PACEMAKER (11/2016); Lithotripsy, neuro transmitter implanted at [facility] to help with his parkinsons Past Anesthesia/Blood Transfusion Reactions: No Reported Reaction Additional Past Anesthesia/Blood Transfusion Reaction / Comment(s): SLIGHT CLAUSTROHOBIA Date of Last Stent Placement:: 2007 Type of Cardiac Device: Permanent Pacemaker Device Placement Date:: 11/2016 Smoking Status: Never smoker - Past Family History Sister(s) Family Medical History: Cancer Father Sister(s) Additional Family Medical History / Comment(s): FATHER, 2 SISTERS AND 1 BROTHER, LUIS ALBERTO'S DX Mother Family Medical History: Deep Vein Thrombosis (DVT) Medications and Allergies Home Medications Medication Instructions Recorded Confirmed Type Aspirin 81 mg PO DAILY 05/21/14 08/27/18 History Atorvastatin [Lipitor] 40 mg PO HS 05/21/14 08/27/18 History Citalopram Hydrobromide 20 mg PO BID 05/21/14 08/27/18 History [Citalopram HBr] Esomeprazole Magnesium [NexIUM] 40 mg PO DAILY 05/21/14 08/27/18 History Losartan Potassium 25 mg PO DAILY 05/21/14 08/27/18 History Metoprolol Succinate [Toprol XL] 25 mg PO DAILY 05/21/14 08/27/18 History metFORMIN HCL 1,000 mg PO BID 05/21/14 08/27/18 History Cyanocobalamin [Vitamin B-12] 1,000 mcg PO DAILY 09/15/15 08/27/18 History Folic Acid 0.4 mg PO DAILY 11/16/16 08/27/18 History Isosorbide Mononitrate ER [Imdur] 30 mg PO DAILY 07/04/17 08/27/18 History Carbidopa-Levodopa 25-100 mg 1 tab PO TID 08/27/18 08/27/18 History [Sinemet 25-100 mg] Allergies Allergy/AdvReac Type Severity Reaction Status Date / Time adhesive AdvReac Itching Verified 08/27/18 12:20 morphine AdvReac Excessive Verified 08/27/18 12:20 Sweating Physical Exam Vitals: Vital Signs Temp Pulse Pulse Resp BP Pulse Ox 08/28/18 12:30 98 F 54 L 19 169/91 97 08/28/18 08:30 97.9 F 50 L 18 159/84 97 08/28/18 04:10 97.8 F 51 L 17 171/80 98 08/28/18 04:00 51 L 16 08/28/18 00:15 98.1 F 51 L 16 152/66 97 08/27/18 20:00 97.9 F 50 L 16 161/74 98 Intake and Output 08/28/18 08/28/18 08/28/18 06:59 14:59 22:59 Intake Total 1680 460 Output Total 1250 Balance 430 460 Intake: Intake, IV Titration 1200 Amount Sodium Chloride 0.9% 1, 1200 000 ml @ 120 mls/hr IV . Q8H20M [facility] Rx#:[id number] Oral 480 460 Output: Urine 1250 Other: Voiding Method Urinal # Voids 5 4 Weight 113.9 kg Results 08/28/18 09:45 08/28/18 09:45 Cardiac Enzymes 08/27/18 08/28/18 Range/Units 17:46 00:35 Troponin I <0.012 <0.012 (0.000-0.034) ng/mL Lipids 08/28/18 Range/Units 09:45 Triglycerides 180 H (<150) mg/dL Cholesterol 102 (<200) mg/dL HDL Cholesterol 30 L (40-60) mg/dL CBC 08/28/18 Range/Units 09:45 WBC 6.6 (3.8-10.6) k/uL RBC 4.88 (4.30-5.90) m/uL Hgb 14.5 (13.0-17.5) gm/dL Hct 43.3 (39.0-53.0) % Plt Count 151 (150-450) k/uL Comprehensive Metabolic Panel 08/28/18 Range/Units 09:45 Sodium 141 (137-145) mmol/L Potassium 4.9 (3.5-5.1) mmol/L Chloride 105 (98-107) mmol/L Carbon Dioxide 26 (22-30) mmol/L BUN 27 H (9-20) mg/dL Creatinine 1.06 (0.66-1.25) mg/dL Glucose 204 H (74-99) mg/dL Calcium 9.1 (8.4-10.2) mg/dL Current Medications Generic Name Dose Route Start Last Admin Trade Name Freq PRN Reason Stop Dose Admin Acetaminophen 650 mg 08/27/18 14:43 Tylenol Tab PO Q6HR PRN Mild Pain or Fever > 100.5 Aspirin 81 mg 08/28/18 09:00 08/28/18 09:25 Aspirin PO 81 mg DAILY NEDRA Administration Atorvastatin Calcium 40 mg 08/27/18 21:00 08/27/18 20:58 Lipitor PO 40 mg HS NEDRA Administration Carbidopa/Levodopa 1 each 08/27/18 22:00 08/28/18 17:57 Sinemet 25-100 PO 1 each TID NEDRA Administration Citalopram Hydrobromide 20 mg 08/27/18 21:00 08/28/18 09:25 Celexa PO 20 mg BID NEDRA Administration Cyanocobalamin 1,000 mcg 08/28/18 09:00 08/28/18 09:25 Vitamin B-12 PO 1,000 mcg DAILY NEDRA Administration Folic Acid 1 mg 08/28/18 09:00 08/28/18 09:25 Folic Acid PO 1 mg DAILY NEDRA Administration Heparin Sodium (Porcine) 5,000 unit 08/28/18 00:00 08/28/18 17:58 Heparin SQ 5,000 unit Q8HR NEDRA Administration Sodium Chloride 1,000 mls @ 60 mls/hr 08/27/18 14:45 08/28/18 12:16 Saline 0.9% IV 120 mls/hr .[id number] NEDRA Administration Insulin Aspart 0 unit 08/27/18 17:30 08/28/18 17:58 Novolog SQ 1 unit ACHS NEDRA Administration Protocol Isosorbide Mononitrate 30 mg 08/28/18 10:00 08/28/18 11:35 Imdur PO 30 mg DAILY NEDRA Administration Losartan Potassium 25 mg 08/28/18 10:00 08/28/18 11:35 Cozaar PO 25 mg DAILY [facility] Administration Magnesium Oxide 400 mg 08/29/18 09:00 Mag-Ox PO DAILY [facility] Naloxone HCl 0.2 mg 08/27/18 14:43 Narcan IV Q2M PRN Opioid Reversal Nitroglycerin 0.4 mg 08/27/18 16:50 Nitrostat SUBLINGUAL Q5M PRN Chest Pain Pantoprazole Sodium 40 mg 08/28/18 07:30 08/28/18 06:29 Protonix PO 40 mg [id number] NEDRA Administration Intake and Output 08/28/18 08/28/18 08/28/18 06:59 14:59 22:59 Intake Total 1680 460 Output Total 1250 Balance 430 460 Intake: Intake, IV Titration 1200 Amount Sodium Chloride 0.9% 1, 1200 000 ml @ 120 mls/hr IV . Q8H20M [facility] Rx#:[id number] Oral 480 460 Output: Urine 1250 Other: Voiding Method Urinal # Voids 5 4 Weight 113.9 kg 08/28/18 09:45 08/28/18 09:45
[2018-08-28 20:38] LABS: Glucose,Whole Blood 231 mg/dL (75-99)
[2018-08-28] MEDS: ATORVASTATIN 40 MG TAB PO SCH (20:48)
--- NOTE | 2018-08-28 23:42 | CONS ---
CONSULTATION REASON FOR CONSULT: Renal failure. HISTORY OF PRESENT ILLNESS: Patient is a 72-year-old male who was admitted to the hospital yesterday with complaints of weakness, feeling lightheaded and dizzy. The patient also had chest pain prior to admission. His creatinine was noted to be 1.89 mg/dL yesterday. This morning it is down to 1.06. Review of previous labs show serum creatinine 1.1 on 08/18/2018. The patient's blood pressure was not low at the time of admission. In fact, it is on the higher side. He denies use of any nonsteroidal anti-inflammatory agents prior to admission. The patient was maintained on angiotensin receptor blockers. The patient is also maintained on IV fluids at about 120 mL an hour. PAST MEDICAL HISTORY: Significant for coronary artery disease, type 2 diabetes, gastroesophageal reflux disease, hyperlipidemia, osteoarthritis, BPH, history of Fontaine's palsy. PAST SURGICAL HISTORY: Past surgical history of appendectomy, cholecystectomy, cardiac catheterization, coronary stent placement, pacemaker placement, left knee arthroplasty, left shoulder arthroplasty, laminectomy, lithotripsy. SOCIAL HISTORY: Negative for smoking, drug abuse or alcohol abuse. MEDICATIONS: Medications at home prior to admission included: Aspirin, Lipitor, Celexa, Nexium, losartan, metformin, metoprolol, vitamin B12, folic acid, Imdur, Sinemet. ALLERGIES: Include MORPHINE and ADHESIVE TAPE. PHYSICAL EXAMINATION: On examination, patient is comfortable, awake, alert, oriented x3, not in any acute distress. Blood pressure this morning was 159/84, heart rate 50 per minute. He is afebrile. Examination of the heart S1, S2. Examination of the lungs, bilateral breath sounds are heard. Abdomen is soft, nontender. Exam of lower extremities shows no significant edema. CASINO ACCOUNTANT exam is grossly intact. LABS SHOW: Sodium 141, potassium 4.9, BUN 27, serum creatinine 1.06, hemoglobin 14.5 g/dL. UA shows trace protein and rare bacteria. Hyaline casts 13. ASSESSMENT: 1. Acute kidney injury prerenal currently improved with IV hydration. Decrease IV fluids. 2. Hypomagnesemia status post replacement. 3. Hypertension. May continue with the angiotensin receptor blockers. Decrease normal saline. If the blood pressure remains elevated, we will need to increase the Cozaar. 4. Parkinson disease status post deep brain stimulation, maintained on Sinemet. 5. Type 2 diabetes. PLAN: Decrease normal saline. May continue with the Cozaar for now. Increase dose if blood pressure remains elevated. Repeat magnesium and repeat labs in a.m. Thank you for this consultation. We will continue to follow the patient with you during his hospitalization. MARY / ALISSAN: [id number] /
[2018-08-29 06:11] LABS: Glucose,Whole Blood 145 mg/dL (75-99)
[2018-08-29] MEDS: INSULIN ASPART (NovoLOG) 100 UNIT/ML VIAL SQ SCH (06:39)
[2018-08-29] MEDS: PANTOPRAZOLE 40 MG TABLET PO SCH (06:39)
[2018-08-29] MEDS: CYANOCOBALAMIN 500 MCG TAB PO SCH (08:23)
[2018-08-29] MEDS: ASPIRIN 81 MG PO SCH (08:24)
[2018-08-29] MEDS: CITALOPRAM HYDROBROMIDE 20 MG TAB PO SCH (08:24)
[2018-08-29] MEDS: CARBIDOPA-LEVODOPA 25-100 MG 1 EACH TAB PO SCH (08:24)
[2018-08-29] MEDS: HEPARIN SODIUM,PORCINE 5,000 UNIT/ML 1 ML VIAL SQ SCH (08:24)
[2018-08-29] MEDS: FOLIC ACID 1 MG TAB PO SCH (08:24)
[2018-08-29] MEDS ORDERED: MAGNESIUM OXIDE 400 MG TAB PO SCH (09:00)
[2018-08-29] MEDS ORDERED: ISOSORBIDE MONONITRATE ER 60 MG TAB.ER.24H PO SCH (09:00)
[2018-08-29] MEDS ORDERED: amLODIPine 5 MG TAB PO SCH (09:00)
[2018-08-29] MEDS ORDERED: LOSARTAN 50 MG TAB PO SCH (09:00)
[2018-08-29 09:04] VITALS: BP 145/72; PULSE 50; RESP 20; TEMP 97.9
--- NOTE | 2018-08-29 09:42 | P.DS ---
Providers Date of admission: 08/27/18 14:43 Expected date of discharge: 08/29/18 Attending physician: Jim Ellsworth MD Consults: 08/27/18 15:45 Consult Physician Routine Consulting Provider: Emily Knight Consult Reason/Comments: Pacemaker Do you want consulting provider notified?: Yes 08/27/18 16:56 Consult Physician Routine Consulting Provider: Dawood Mchugh Consult Reason/Comments: arnaud Do you want consulting provider notified?: Yes, Notify in am Primary care physician: Cuong Rebolledo - Discharge Diagnosis(es) (1) Near syncope Current Visit: Yes Status: Acute (2) Lightheadedness Current Visit: Yes Status: Acute (3) ARNAUD (acute kidney injury) Current Visit: Yes Status: Resolved (4) Chest pain Current Visit: Yes Status: Acute (5) Bradycardia Current Visit: Yes Status: Acute (6) Type 2 diabetes mellitus Current Visit: Yes Status: Acute (7) Fall Current Visit: Yes Status: Acute (8) Hypomagnesemia Current Visit: Yes Status: Acute Hospital Course: The patient is a 72-year-old male the past medical history of coronary artery disease with stenting 2, history of pacemaker placement, essential hypertension, hyperlipidemia type 2 diabetes, Parkinson's disease currently on deep brain stimulation who is admitted for lightheadedness and presyncope secondary to acute dehydration after presenting with acute kidney injury hypomagnesemia and bradycardia. The patient was started on IV fluids resolved his injury, echocardiogram performed showed a preserved LVEF of 60-65% with moderate left ventricular concentric hypertrophy, carotid Dopplers was negative for any clinically significant obstructive carotid disease, patient was worked up for chest pain and EKG and cardiac enzymes are negative for suggestion of any acute ischemia. The patient was noted to be bradycardic in the setting of previous pacemaker placement and was on beta blockers which was discontinued. The pacemaker was interrogated without any concerning findings. Patient is much lesser also corrected and he was seen by cardiology and subsequently cleared for discharge to follow-up with his primary auto dismantler Dr. Trujillo in clinic next week. His antihypertensive regimen was adjusted and he was discharged home in s table condition. This discharge process took approximately 30 minutes. Focused exam: Cardiovascular: Bradycardic with regular rhythm, no Murmurs rubs or gallops Patient Condition at Discharge: Stable Plan - Discharge Summary Discharge Rx Participant: No New Discharge Prescriptions: New Losartan [Cozaar] 50 mg PO DAILY #30 tab Isosorbide Mononitrate ER [Imdur] 60 mg PO DAILY #30 tab.er.24h Magnesium Oxide [Mag-Ox] 400 mg PO DAILY #30 tab Continue metFORMIN HCL 1,000 mg PO BID Esomeprazole Magnesium [NexIUM] 40 mg PO DAILY Citalopram Hydrobromide [Citalopram HBr] 20 mg PO BID Atorvastatin [Lipitor] 40 mg PO HS Aspirin 81 mg PO DAILY Cyanocobalamin [Vitamin B-12] 1,000 mcg PO DAILY Folic Acid 0.4 mg PO DAILY Isosorbide Mononitrate ER [Imdur] 30 mg PO DAILY Carbidopa-Levodopa 25-100 mg [Sinemet 25-100 mg] 1 tab PO TID Discontinued Metoprolol Succinate [Toprol XL] 25 mg PO DAILY Losartan Potassium 25 mg PO DAILY Discharge Medication List Aspirin 81 mg PO DAILY 05/21/14 [History] Atorvastatin [Lipitor] 40 mg PO HS 05/21/14 [History] Citalopram Hydrobromide [Citalopram HBr] 20 mg PO BID 05/21/14 [History] Esomeprazole Magnesium [NexIUM] 40 mg PO DAILY 05/21/14 [History] metFORMIN HCL 1,000 mg PO BID 05/21/14 [History] Cyanocobalamin [Vitamin B-12] 1,000 mcg PO DAILY 09/15/15 [History] Folic Acid 0.4 mg PO DAILY 11/16/16 [History] Isosorbide Mononitrate ER [Imdur] 30 mg PO DAILY 07/04/17 [History] Carbidopa-Levodopa 25-100 mg [Sinemet 25-100 mg] 1 tab PO TID 08/27/18 [History] Isosorbide Mononitrate ER [Imdur] 60 mg PO DAILY #30 tab.er.24h 08/29/18 [Rx] Losartan [Cozaar] 50 mg PO DAILY #30 tab 08/29/18 [Rx] Magnesium Oxide [Mag-Ox] 400 mg PO DAILY #30 tab 08/29/18 [Rx] Follow up Appointment(s)/Referral(s): Cuong Rebolledo MD [Primary Care Provider] - 09/04/18 7:45 am Francisca Haro MD [STAFF PHYSICIAN] - 1 Week Ham Trujillo MD [STAFF PHYSICIAN] - 09/11/18 10:15 am (With Kailey CULLEN) Patient Instructions/Handouts: Dehydration (DC), Syncope (DC)
== END 2018-08-29 10:37 | disposition home or self-care (01) ==
LOC: EC 11:48 → 4SSUR 14:43 → 3SCARD 15:50
PROVIDERS: ADMIT Family Medicine; ATTEND Family Medicine
DX: N17.9 Acute kidney failure, unspecified (principal); E86.0 Dehydration; R55 Syncope and collapse; E83.42 Hypomagnesemia; R42 Dizziness and giddiness; E11.9 Type 2 diabetes mellitus without complications; K21.9 Gastro-esophageal reflux disease without esophagitis; E78.5 Hyperlipidemia, unspecified; I10 Essential (primary) hypertension; M19.90 Unspecified osteoarthritis, unspecified site; F40.240 Claustrophobia; F32.9 Major depressive disorder, single episode, unspecified; G20 Parkinson's disease; R00.1 Bradycardia, unspecified; G47.30 Sleep apnea, unspecified; I25.10 Atherosclerotic heart disease of native coronary artery without angina pectoris; I35.8 Other nonrheumatic aortic valve disorders; G51.0 Bell's palsy; I48.0 Paroxysmal atrial fibrillation; J44.9 Chronic obstructive pulmonary disease, unspecified; N40.0 Benign prostatic hyperplasia without lower urinary tract symptoms; W19.XXXA Unspecified fall, initial encounter; I25.2 Old myocardial infarction; Z79.82 Long term (current) use of aspirin; Z79.899 Other long term (current) drug therapy; Z79.84 Long term (current) use of oral hypoglycemic drugs; Z88.5 Allergy status to narcotic agent; Z91.048 Other nonmedicinal substance allergy status; H91.90 Unspecified hearing loss, unspecified ear; Z90.49 Acquired absence of other specified parts of digestive tract; Z96.652 Presence of left artificial knee joint; Z96.612 Presence of left artificial shoulder joint; Z95.0 Presence of cardiac pacemaker; Z95.5 Presence of coronary angioplasty implant and graft; Z87.442 Personal history of urinary calculi
CPT/HCPCS: 96361 ×3; 96366 ×3; 96372 ×3; 96365; 99285; 36415; 93005; 93306; 80061; 80053; 80048; 83735 ×2; 84484 ×2; 85025 ×2; 85610; 85730; 81001; 83036; 71046; 76770; 93880; G0378 ×4; J1644 ×3; J3475 ×2

== ENCOUNTER 2019-02-15 23:39 | Emergency (ER) | payer MEDICARE ==
[2019-02-15 23:51] VITALS: TEMP 97.7
[2019-02-16] MEDS ORDERED: DIPH,PERTUS(ACELL)TETVAC-LF 0.5 ML VIAL IM ONE (00:13)
--- NOTE | 2019-02-16 00:30 | ED ---
General Adult HPI - General Chief complaint: Fall Stated complaint: Fall, Head Lac Time Seen by Provider: 02/16/19 00:01 Source: patient, RN notes reviewed, old records reviewed Mode of arrival: wheelchair Limitations: no limitations - History of Present Illness Initial comments: 73-year-old male presents status post fall with head injury and scalp lace ration. Patient has Parkinson's, baseline gait instability. He was sitting down to use restroom fell forward striking his scalp. No loss consciousness. He does have a laceration. He is uncertain of his tetanus status. He denies focal numbness or weakness. Denies neck pain. No loss consciousness. No other injuries. No anticoagulation, he is on 81 mg aspirin daily. - Related Data Home Medications Medication Instructions Recorded Confirmed Aspirin 81 mg PO DAILY 05/21/14 08/27/18 Atorvastatin [Lipitor] 40 mg PO HS 05/21/14 08/27/18 Citalopram Hydrobromide 20 mg PO BID 05/21/14 08/27/18 [Citalopram HBr] Esomeprazole Magnesium [NexIUM] 40 mg PO DAILY 05/21/14 08/27/18 metFORMIN HCL 1,000 mg PO BID 05/21/14 08/27/18 Cyanocobalamin [Vitamin B-12] 1,000 mcg PO DAILY 09/15/15 08/27/18 Folic Acid 0.4 mg PO DAILY 11/16/16 08/27/18 Carbidopa-Levodopa 25-100 mg 1 tab PO TID 08/27/18 08/27/18 [Sinemet 25-100 mg] Previous Rx's Medication Instructions Recorded Isosorbide Mononitrate ER [Imdur] 60 mg PO DAILY #30 tab.er.24h 08/29/18 Losartan [Cozaar] 50 mg PO DAILY #30 tab 08/29/18 Magnesium Oxide [Mag-Ox] 400 mg PO DAILY #30 tab 08/29/18 Allergies Allergy/AdvReac Type Severity Reaction Status Date / Time adhesive AdvReac Itching Verified 02/15/19 23:51 morphine AdvReac Excessive Verified 02/15/19 23:51 Sweating Review of Systems ROS Statement: Those systems with pertinent positive or pertinent negative responses have been documented in the HPI. ROS Other: All systems not noted in ROS Statement are negative. Past Medical History Past Medical History: Coronary Artery Disease (CAD), Chest Pain / Angina, Diabetes Mellitus, GERD/Reflux, Hyperlipidemia, Hypertension, Myocardial Infarction ([place]), Neurologic Disorder, Osteoarthritis (OA), Prostate Disorder, Sleep Apnea/CPAP/BIPAP, Syncope Additional Past Medical History / Comment(s): PARKINSON'S -HAND TREMORS & SHUFFLING GAIT;BILLS'S PALSY WITH LEFT FACIAL DROOP.SLEEP APNEA (NO MACHINE), ENLARGED PROSTATE., DDD- HAS PAIN STIMULATOR., HX OF ABDOMINAL PAIN & NAUSEA WHICH HAS IMPROVED SINCE HE STOPPED PARKNINSONS MEDICATIONS., HX Kidney Stone; CONSTIPATION Last Myocardial Infarction Date:: 1996 History of Any Multi-Drug Resistant Organisms: None Reported Past Surgical History: Appendectomy, Back Surgery, Cholecystectomy, Heart Catheterization With Stent, Joint Replacement, Pacemaker Additional Past Surgical History / Comment(s): TOTAL LEFT KNEE, TOTAL LEFT SHOULDER , CARDIAC STENTS X3, BACK SURGERY X 3 WITH CRISTEL AND PLATES, DECOMPRESSION/LAMINECTOMY T9-T10 AND NEURO STIMULATOR IMPLANTED., CYSTOSCOPY., PACEMAKER (11/2016); Lithotripsy, neuro transmitter implanted at [place] to help with his parkinsons Past Anesthesia/Blood Transfusion Reactions: No Reported Reaction Additional Past Anesthesia/Blood Transfusion Reaction / Comment(s): SLIGHT CLAUSTROHOBIA Date of Last Stent Placement:: 2007 Type of Cardiac Device: Permanent Pacemaker Device Placement Date:: 11/2016 Past Psychological History: Depression Smoking Status: Never smoker Past Alcohol Use History: None Reported Past Drug Use History: None Reported - Past Family History Sister(s) Family Medical History: Cancer Father Sister(s) Additional Family Medical History / Comment(s): FATHER, 2 SISTERS AND 1 BROTHER, LUIS ALBERTO'S DX Mother Family Medical History: Deep Vein Thrombosis (DVT) General Exam Limitations: no limitations General appearance: alert, in no apparent distress Head exam: Present: normocephalic. Absent: atraumatic (left parietal scalp laceration approximately 4 cm no active hemorrhage) Eye exam: Present: normal appearance, PERRL, EOMI ENT exam: Present: normal exam Neck exam: Present: normal inspection. Absent: tenderness, meningismus Respiratory exam: Present: normal lung sounds bilaterally. Absent: respiratory distress, wheezes, rales Cardiovascular Exam: Present: regular rate, normal rhythm GI/Abdominal exam: Present: soft. Absent: distended, tenderness, guarding Neurological exam: Present: alert, oriented X3, CN II-XII intact. Absent: motor sensory deficit Psychiatric exam: Present: normal affect, normal mood Skin exam: Present: warm, dry Course Vital Signs 02/15/19 23:45 Temperature 97.7 F Pulse Rate 61 Respiratory 20 Rate Blood Pressure 155/79 O2 Sat by Pulse 97 Oximetry Procedures - Laceration Laceration #1 Consent Obtained: verbal consent Indication: laceration Site: scalp Description: linear Depth: simple, single layer Pre-repair: wound explored, irrigated extensively, deep structures intact Size of Sutures: other (rahul x 5) Technique: simple, interrupted Patient Tolerated Procedure: well Medical Decision Making - Medical Decision Making 73-year-old male status post fall with head injury, scalp laceration. Head CT is obtained, negative for intracranial hemorrhage or mass effect. Cervical spine negative for fracture subluxation. Laceration which is approximately 4 cm in length is irrigated, cleansed, and repaired with 5 rahul. Patient will return for staple removal in 10-14 days. Disposition Clinical Impression: Concussion, Scalp laceration Disposition: HOME SELF-CARE Condition: Fair Instructions (If sedation given, give patient instructions): Fall Prevention for Older Adults (ED), Laceration (ED), Care For Your Stitches (ED), Concussion (ED) Additional Instructions: Please return for staple removal in 10-14 days. Is patient prescribed a controlled substance at d/c from ED?: No Referrals: Cuong Rebolledo MD [Primary Care Provider] - 1-2 days Time of Disposition: 01:23
--- NOTE | 2019-02-16 00:52 | CT ---
EXAM: CT Head Without Intravenous Contrast CLINICAL HISTORY: Fall TECHNIQUE: Axial computed tomography images of the head/brain without intravenous contrast. CTDI is 0.085, 0.085, 45.2, 20.8 mGy and DLP is 1542.3 mGy-cm. This CT exam was performed using one or more of the following dose reduction techniques: automated exposure control, adjustment of the mA and/or kV according to patient size, and/or use of iterative reconstruction technique. COMPARISON: No relevant prior studies available. FINDINGS: Brain: No acute infarct, hemorrhage, mass or edema. Chronic small vessel ischemic disease and senescent changes. Ventricles: Unremarkable. No ventriculomegaly. Bones/joints: Unremarkable. No acute fracture. Soft tissues: Unremarkable. Sinuses: Mild mucosal thickening in the paranasal sinuses. Mastoid air cells: Unremarkable as visualized. No mastoid effusion. Tubes, lines and devices: Bilateral deep brainstem and devices are noted. These appear to be in appropriate position. IMPRESSION: No acute findings in the head/brain. EXAM: CT Cervical Spine Without Intravenous Contrast CLINICAL HISTORY: Fall TECHNIQUE: Axial computed tomography images of the cervical spine without intravenous contrast. CTDI is 0.085, 0.085, 45.2, 20.8 mGy and DLP is 1542.3 mGy-cm. This CT exam was performed using one or more of the following dose reduction techniques: automated exposure control, adjustment of the mA and/or kV according to patient size, and/or use of iterative reconstruction technique. COMPARISON: No relevant prior studies available. FINDINGS: Vertebrae: Straightening of the normal cervical lordosis, likely positional. No acute fracture. Discs/spinal canal/neural foramina: Multilevel degenerative changes without evidence of acute fracture or traumatic malalignment. No spinal canal stenosis. Soft tissues: Unremarkable. IMPRESSION: Multilevel degenerative changes without evidence of acute fracture or traumatic malalignment.
[2019-02-16 02:02] VITALS: BP 140/83; PULSE 63; RESP 18
== END 2019-02-16 02:01 | disposition home or self-care (01) ==
LOC: EC 23:39
DX: S01.01XA Laceration without foreign body of scalp, initial encounter (principal); S06.0X0A Concussion without loss of consciousness, initial encounter; I25.119 Atherosclerotic heart disease of native coronary artery with unspecified angina pectoris; E11.9 Type 2 diabetes mellitus without complications; K21.9 Gastro-esophageal reflux disease without esophagitis; E78.5 Hyperlipidemia, unspecified; I10 Essential (primary) hypertension; I25.2 Old myocardial infarction; M19.90 Unspecified osteoarthritis, unspecified site; G20 Parkinson's disease; G51.0 Bell's palsy; F32.9 Major depressive disorder, single episode, unspecified; Z88.5 Allergy status to narcotic agent; Z91.048 Other nonmedicinal substance allergy status; Z79.82 Long term (current) use of aspirin; Z79.84 Long term (current) use of oral hypoglycemic drugs; Z79.899 Other long term (current) drug therapy; Z96.89 Presence of other specified functional implants; Z96.612 Presence of left artificial shoulder joint; Z96.652 Presence of left artificial knee joint; Z23 Encounter for immunization; W01.198A Fall on same level from slipping, tripping and stumbling with subsequent striking against other object, initial encounter; Y93.89 Activity, other specified; Y92.009 Unspecified place in unspecified non-institutional (private) residence as the place of occurrence of the external cause
CPT/HCPCS: 12002; 70450; 72125; 90471; 90715; 99284

== ENCOUNTER 2019-07-08 10:11 | Emergency (ER) | payer MEDICARE ==
--- NOTE | 2019-07-08 10:45 | XR ---
EXAMINATION TYPE: XR KUB , 2 VIEWS DATE OF EXAM ORDERED: 07/08/2019 HISTORY: Constipation constipation. COMPARISON: Previous study dated 01/18/2017. FINDINGS: There is a pacemaker in place. There is a pain stimulator projecting over the lower dorsal spine. There is been an interpedicular fusion at L2, L3, L4 and L5. There is been a laminectomy at t hese levels. There is spacing material placed. Pain stimulator battery pack projects over the left il iac crest. The lung bases are clear. Within the abdomen, the abdominal gas pattern is normal. There is no evidence of obstruction or free air. There are phleboliths within the pelvis. IMPRESSION: 1. NO ACUTE INTRA-ABDOMINAL ABNORMALITY. 2. EXTENSIVE POSTSURGICAL CHANGE.
--- NOTE | 2019-07-08 11:08 | ED ---
General Adult HPI - General Chief complaint: Abdominal Pain Stated complaint: constipation Time Seen by Provider: 07/08/19 10:15 Source: patient, RN notes reviewed, old records reviewed Mode of arrival: ambulatory Limitations: no limitations - History of Present Illness Initial comments: This is a 73-year-old male who presents emergency Department complaining that he is constipated. Patient states he's not been able to go for 4 days. And now he feels extremely full and feels like he has to go but just can't go. Patient denies any fever chills per patient denies any vomiting or diarrhea. Patient denies any other symptoms. Patient states it's not anyone areas whole abdomen feels full. - Related Data Home Medications Medication Instructions Recorded Confirmed Aspirin 81 mg PO DAILY 05/21/14 08/27/18 Atorvastatin [Lipitor] 40 mg PO HS 05/21/14 08/27/18 Citalopram Hydrobromide 20 mg PO BID 05/21/14 08/27/18 [Citalopram HBr] Esomeprazole Magnesium [NexIUM] 40 mg PO DAILY 05/21/14 08/27/18 metFORMIN HCL 1,000 mg PO BID 05/21/14 08/27/18 Cyanocobalamin [Vitamin B-12] 1,000 mcg PO DAILY 09/15/15 08/27/18 Folic Acid 0.4 mg PO DAILY 11/16/16 08/27/18 Carbidopa-Levodopa 25-100 mg 1 tab PO TID 08/27/18 08/27/18 [Sinemet 25-100 mg] Previous Rx's Medication Instructions Recorded Isosorbide Mononitrate ER [Imdur] 60 mg PO DAILY #30 tab.er.24h 08/29/18 Losartan [Cozaar] 50 mg PO DAILY #30 tab 08/29/18 Magnesium Oxide [Mag-Ox] 400 mg PO DAILY #30 tab 08/29/18 Allergies Allergy/AdvReac Type Severity Reaction Status Date / Time adhesive AdvReac Itching Verified 07/08/19 10:15 morphine AdvReac Excessive Verified 07/08/19 10:15 Sweating Review of Systems ROS Statement: Those systems with pertinent positive or pertinent negative responses have been documented in the HPI. ROS Other: All systems not noted in ROS Statement are negative. Past Medical History Past Medical History: Coronary Artery Disease (CAD), Chest Pain / Angina, Diabetes Mellitus, GERD/Reflux, Hyperlipidemia, Hypertension, Myocardial Infarction ([place]), Neurologic Disorder, Osteoarthritis (OA), Prostate Disorder, Sleep Apnea/CPAP/BIPAP, Syncope Additional Past Medical History / Comment(s): PARKINSON'S -HAND TREMORS & SHUFFLING GAIT;BILLS'S PALSY WITH LEFT FACIAL DROOP.SLEEP APNEA (NO MACHINE), ENLARGED PROSTATE., DDD- HAS PAIN STIMULATOR., HX OF ABDOMINAL PAIN & NAUSEA WHICH HAS IMPROVED SINCE HE STOPPED PARKNINSONS MEDICATIONS., HX Kidney Stone; CONSTIPATION Last Myocardial Infarction Date:: 1996 History of Any Multi-Drug Resistant Organisms: None Reported Past Surgical History: Appendectomy, Back Surgery, Cholecystectomy, Heart Catheterization With Stent, Joint Replacement, Pacemaker Additional Past Surgical History / Comment(s): TOTAL LEFT KNEE, TOTAL LEFT SHOULDER , CARDIAC STENTS X3, BACK SURGERY X 3 WITH CRISTEL AND PLATES, DECOMPRESSION/LAMINECTOMY T9-T10 AND NEURO STIMULATOR IMPLANTED., CYSTOSCOPY., PACEMAKER (11/2016); Lithotripsy, neuro transmitter implanted at [place] to [facility] with his parkinsons Past Anesthesia/Blood Transfusion Reactions: No Reported Reaction Additional Past Anesthesia/Blood Transfusion Reaction / Comment(s): SLIGHT CLAUSTROHOBIA Date of Last Stent Placement:: 2007 Type of Cardiac Device: Permanent Pacemaker Device Placement Date:: 11/2016 Past Psychological History: Depression Smoking Status: Never smoker Past Alcohol Use History: None Reported Past Drug Use History: None Reported - Past Family History Sister(s) Family Medical History: Cancer Father Sister(s) Additional Family Medical History / Comment(s): FATHER, 2 SISTERS AND 1 BROTHER, LUIS ALBERTO'S DX Mother Family Medical History: Deep Vein Thrombosis (DVT) General Exam - General Exam Comments Initial Comments: GENERAL: Patient is well-developed and well-nourished. Patient is nontoxic and well- hydrated and is in mild distress. ENT: Neck is soft and supple. Neck has full range of motion without eliciting any pain. EYES: The sclera were anicteric and conjunctiva were pink and moist. Extraocular movements were intact and pupils were equal round and reactive to light. Eyelids were unremarkable. PULMONARY: Unlabored respirations. Good breath sounds bilaterally. No audible rales rhonchi or wheezing was noted. CARDIOVASCULAR: There is a regular rate and rhythm without any murmurs gallops or rubs. ABDOMEN: Soft and nontender with normal bowel sounds. SKIN: Skin is clear with no lesions or rashes and otherwise unremarkable. NEUROLOGIC: Patient is alert and oriented x3. Cranial nerves II through XII are grossly intact. Motor and sensory are also intact. Normal speech, volume and content. Symmetrical smile. MUSCULOSKELETAL: Normal extremities with adequate strength and full range of motion. PSYCHIATRIC: Normal psychiatric evaluation. Limitations: no limitations Course Vital Signs 07/08/19 07/08/19 07/08/19 10:15 11:12 12:00 Temperature 98.1 F Pulse Rate 52 L 59 L Respiratory 18 20 20 Rate Blood Pressure 139/81 123/65 O2 Sat by Pulse 98 99 Oximetry Medical Decision Making - Medical Decision Making KUB showed a moderate amount of constipation. Patient had a milk and molasses enema and had a very large bowel movement. Patient states she feels considerably better and all the pressure is relieved he has no complaints currently. Disposition Clinical Impression: Constipation Disposition: HOME SELF-CARE Instructions (If sedation given, give patient instructions): Constipation (ED), High Fiber Diet (ED) Is patient prescribed a controlled substance at d/c from ED?: No Referrals: Cuong Rebolledo MD [Primary Care Provider] - 1-2 days Time of Disposition: 12:08
[2019-07-08 11:13] VITALS: RESP 20
[2019-07-08 12:04] VITALS: BP 123/65; PULSE 59
[2019-07-08 12:14] VITALS: TEMP 98.2
== END 2019-07-08 12:10 | disposition home or self-care (01) ==
LOC: EC 10:11
DX: K59.00 Constipation, unspecified (principal); I25.10 Atherosclerotic heart disease of native coronary artery without angina pectoris; E11.9 Type 2 diabetes mellitus without complications; K21.9 Gastro-esophageal reflux disease without esophagitis; E78.5 Hyperlipidemia, unspecified; I10 Essential (primary) hypertension; I25.2 Old myocardial infarction; G20 Parkinson's disease; M19.90 Unspecified osteoarthritis, unspecified site; F32.9 Major depressive disorder, single episode, unspecified; G47.30 Sleep apnea, unspecified; Z87.442 Personal history of urinary calculi; Z90.49 Acquired absence of other specified parts of digestive tract; Z95.5 Presence of coronary angioplasty implant and graft; Z95.0 Presence of cardiac pacemaker; Z96.698 Presence of other orthopedic joint implants; Z79.82 Long term (current) use of aspirin; Z79.84 Long term (current) use of oral hypoglycemic drugs; Z79.899 Other long term (current) drug therapy; Z91.048 Other nonmedicinal substance allergy status; Z88.5 Allergy status to narcotic agent
CPT/HCPCS: 74018; 99284

== ENCOUNTER 2019-08-21 14:38 | Emergency (ER) | payer MEDICARE ==
[2019-08-21 14:52] VITALS: RESP 18
[2019-08-21] MEDS ORDERED: HYDROcodone/APAP 5-325MG 1 EACH TAB PO STA (15:08)
[2019-08-21] MEDS ORDERED: LIDOCAINE 5% PATCH TOPICAL STA (15:09)
--- NOTE | 2019-08-21 15:31 | XR ---
EXAMINATION TYPE: XR shoulder complete RT DATE OF EXAM: 08/21/2019 CLINICAL HISTORY: pain TECHNIQUE: Three views of the right shoulder are obtained. COMPARISON: None FINDINGS: There is no acute fracture/dislocation evident. Humeral head prosthesis noted. Chronic esperanza earing bony fragmentation. Degenerative narrowing glenohumeral joint. AC joint arthropathy. IMPRESSION: 1. There is no acute fracture or dislocation. ICD 10 NO FRACTURE, INITIAL EVALUATION
--- NOTE | 2019-08-21 15:33 | XR ---
EXAMINATION TYPE: XR ribs RT w pa chest xray DATE OF EXAM: 08/21/2019 COMPARISON: 08/27/2018 TECHNIQUE: PA and lateral views submitted. HISTORY: Right upper rib pain FINDINGS: The lungs are clear and there is no pneumothorax, pleural effusion, or focal pneumonia. There is a stimulator device extending cranially. Cardiac device is seen. There is a metallic device also overly ing the thoracic spine. Bilateral shoulder surgery noted. No pneumothorax. Lungs are clear. Heart siz e stable. Vertebral surgery seen. No overt failure. Arthropathy of the shoulders. Visualized rib cage demonstrates a mildly displaced fracture involving the lateral eighth, ninth and 10th ribs. Hypertrophic and degenerative change of the spine. IMPRESSION: 1. Mildly displaced fractures involving the right lateral eighth, ninth and 10th ribs..
[2019-08-21] MEDS ORDERED: SODIUM CHLORIDE 0.9% 500 ML 500 ML IV STA (15:41)
[2019-08-21 16:08] LABS: Basophils % (A) 0 %; Eosinophils # (A) 0.4 k/uL (0-0.7); Eosinophils % (A) 4 %; HCT 44.9 % (39.0-53.0); HGB 14.3 gm/dL (13.0-17.5); Lymphocytes # (A) 2.4 k/uL (1.0-4.8); Lymphocytes % (A) 24 %; MCH 28.6 pg (25.0-35.0); MCHC 31.9 g/dL (31.0-37.0); MCV 89.8 fL (80.0-100.0); Mean Platelet Volume 7.2; Monocytes # (A) 0.5 k/uL (0-1.0); Monocytes % (A) 5 %; Neutrophils # (A) 6.4 k/uL (1.3-7.7); Neutrophils % (A) 65 %; Platelet Count 180 k/uL (150-450); RDW 13.8 % (11.5-15.5); WBC 9.9 k/uL (3.8-10.6)
[2019-08-21 16:18] LABS: ALT 26 U/L (4-49); AST 28 U/L (17-59); African American GFR (CKD) >90 (>60 ml/min/1.73 sqM); Albumin 4.2 g/dL (3.5-5.0); Alkaline Phosphatase 86 U/L (38-126); Anion Gap 7 mmol/L; Blood Urea Nitrogen 17 mg/dL (9-20); Calcium 9.3 mg/dL (8.4-10.2); Carbon Dioxide 26 mmol/L (22-30); Chloride 106 mmol/L (98-107); Glucose 106 mg/dL (74-99); Non-African American GFR(CKD) 89 (>60 ml/min/1.73 sqM); Potassium 4.2 mmol/L (3.5-5.1); Sodium 139 mmol/L (137-145); Total Bilirubin 0.4 mg/dL (0.2-1.3); Total Protein 6.8 g/dL (6.3-8.2)
--- NOTE | 2019-08-21 16:46 | ED ---
General Adult HPI - General Chief complaint: Fall Stated complaint: Fall Time Seen by Provider: 08/21/19 14:56 Source: patient, RN notes reviewed Mode of arrival: ambulatory Limitations: no limitations - History of Present Illness Initial comments: 73-year-old male with a past medical history of CAD, chest pain, diabetes mellitus, GERD, hyperlipidemia, hypertension presents to the emergency room for a chief complaint of fall. Patient states he was out for a walk to get out of the house yesterday when he lost his balance and fell onto his right side. He did not hit his head. He denies blood thinners. He denies any lightheadedness or dizziness or chest pain preceding this fall. Patient states the right side of his chest hurts as well as his right shoulder. However patient feels that he moves his right shoulder causes more pain in his chest.Patient has no other complaints at this time including shortness of breath, chest pain, abdominal p ain, nausea or vomiting, headache, or visual changes. - Related Data Home Medications Medication Instructions Recorded Confirmed Aspirin 81 mg PO DAILY 05/21/14 07/08/19 Atorvastatin [Lipitor] 40 mg PO HS 05/21/14 07/08/19 Citalopram Hydrobromide 20 mg PO BID 05/21/14 07/08/19 [Citalopram HBr] Esomeprazole Magnesium [NexIUM] 40 mg PO DAILY 05/21/14 07/08/19 metFORMIN HCL 1,000 mg PO BID 05/21/14 07/08/19 Cyanocobalamin [Vitamin B-12] 1,000 mcg PO DAILY 09/15/15 07/08/19 Folic Acid 0.4 mg PO DAILY 11/16/16 07/08/19 Carbidopa-Levodopa 25-100 mg 1 tab PO TID 08/27/18 07/08/19 [Sinemet 25-100 mg] Previous Rx's Medication Instructions Recorded Isosorbide Mononitrate ER [Imdur] 60 mg PO DAILY #30 tab.er.24h 08/29/18 Losartan [Cozaar] 50 mg PO DAILY #30 tab 08/29/18 Magnesium Oxide [Mag-Ox] 400 mg PO DAILY #30 tab 08/29/18 HYDROcodone/APAP 5-325MG [[place] 1 tab PO Q6HR PRN #10 tab 08/21/19 5-325] Allergies Allergy/AdvReac Type Severity Reaction Status Date / Time adhesive AdvReac Itching Verified 08/21/19 14:52 morphine AdvReac Excessive Verified 08/21/19 14:52 Sweating Review of Systems ROS Statement: Those systems with pertinent positive or pertinent negative responses have been documented in the HPI. ROS Other: All systems not noted in ROS Statement are negative. Past Medical History Past Medical History: Coronary Artery Disease (CAD), Chest Pain / Angina, Diabetes Mellitus, GERD/Reflux, Hyperlipidemia, Hypertension, Myocardial Infarction ([place]), Neurologic Disorder, Osteoarthritis (OA), Prostate Disorder, Sleep Apnea/CPAP/BIPAP, Syncope Additional Past Medical History / Comment(s): PARKINSON'S -HAND TREMORS & SHUFFLING GAIT;BILLS'S PALSY WITH LEFT FACIAL DROOP.SLEEP APNEA (NO MACHINE), ENLARGED PROSTATE., DDD- HAS PAIN STIMULATOR., HX OF ABDOMINAL PAIN & NAUSEA WHICH HAS IMPROVED SINCE HE STOPPED PARKNINSONS MEDICATIONS., HX Kidney Stone Last Myocardial Infarction Date:: 1996 History of Any Multi-Drug Resistant Organisms: None Reported Past Surgical History: Appendectomy, Back Surgery, Cholecystectomy, Heart Haritha terization With Stent, Joint Replacement, Pacemaker Additional Past Surgical History / Comment(s): TOTAL LEFT KNEE, TOTAL LEFT SHOULDER , CARDIAC STENTS X3, BACK SURGERY X 3 WITH CRISTEL AND PLATES, DECOMPRESSION/LAMINECTOMY T9-T10 AND NEURO STIMULATOR IMPLANTED., CYSTOSCOPY., Lizzy NICKERSON (11/2016); Lithotripsy, neuro transmitter implanted at [place] to help with his parkinsons Past Anesthesia/Blood Transfusion Reactions: No Reported Reaction Additional Past Anesthesia/Blood Transfusion Reaction / Comment(s): SLIGHT CLAUSTROHOBIA Date of Last Stent Placement:: 2007 Type of Cardiac Device: Permanent Pacemaker Device Placement Date:: 11/2016 Past Psychological History: Depression Smoking Status: Never smoker Past Alcohol Use History: None Reported Past Drug Use History: None Reported - Past Family History Sister(s) Family Medical History: Cancer Father Sister(s) Additional Family Medical History / Comment(s): FATHER, 2 SISTERS AND 1 BROTHER, LUIS ALBERTO'S DX Mother Family Medical History: Deep Vein Thrombosis (DVT) General Exam Limitations: no limitations General appearance: alert, in no apparent distress Head exam: Present: atraumatic, normocephalic, normal inspection Eye exam: Present: normal appearance, PERRL, EOMI. Absent: scleral icterus, conjunctival injection, periorbital swelling ENT exam: Present: normal exam Neck exam: Present: normal inspection, full ROM. Absent: tenderness, meningismus, lymphadenopathy Respiratory exam: Present: normal lung sounds bilaterally, chest wall tenderness (Patient has right-sided chest wall tenderness without ecchymosis or contusion. No step-offs.). Absent: respiratory distress, wheezes, rales, rhonchi, stridor Cardiovascular Exam: Present: regular rate, normal rhythm, normal heart sounds. Absent: systolic murmur, diastolic murmur, rubs, gallop, clicks GI/Abdominal exam: Present: soft, normal bowel sounds. Absent: distended, tenderness, guarding, rebound, rigid Neurological exam: Present: alert Course Vital Signs 08/21/19 08/21/19 14:47 17:24 Temperature 98.2 F 98.0 F Pulse Rate 50 L 52 L Respiratory 18 18 Rate Blood Pressure 150/86 189/92 O2 Sat by Pulse 98 98 Oximetry Medical Decision Making - Medical Decision Making X-ray of the right shoulder shows no acute fracture or dislocation. X-ray of the ribs shows mildly displaced fractures involving the right lateral eighth ninth and 10th ribs. CT chest abdomen and pelvis shows mild right pleural effusion with no evidence of rheumatic injury. However upon review of the computed tomography scan with myself and Dr. Dorado this does show rib fractures however they are not significantly displaced. There is no si gnificant effusion of the right pleural space. I did offer admission to patient for pain management and monitoring however he refuses and wishes to go home. Therefore he was be giving [place] which significantly helped him during his stay. He will also be given an incentive extremity. I discussed risk of pneumonia. Discussed strict return parameters such as worsening pain or shortness of breath or any other worsening symptoms. Discussed follow-up with his doctor in the next 1-2 days. - Lab Data Result diagrams: 08/21/19 15:54 08/21/19 15:55 Lab Results 08/21/19 08/21/19 Range/Units 15:54 15:55 WBC 9.9 (3.8-10.6) k/uL RBC 5.00 (4.30-5.90) m/uL Hgb 14.3 (13.0-17.5) gm/dL Hct 44.9 (39.0-53.0) % MCV 89.8 (80.0-100.0) fL MCH 28.6 (25.0-35.0) pg MCHC 31.9 (31.0-37.0) g/dL RDW 13.8 (11.5-15.5) % Plt Count 180 (150-450) k/uL Neutrophils % 65 % Lymphocytes % 24 % Monocytes % 5 % Eosinophils % 4 % Basophils % 0 % Neutrophils # 6.4 (1.3-7.7) k/uL Lymphocytes # 2.4 (1.0-4.8) k/uL Monocytes # 0.5 (0-1.0) k/uL Eosinophils # 0.4 (0-0.7) k/uL Basophils # 0.0 (0-0.2) k/uL Sodium 139 (137-145) mmol/L Potassium 4.2 (3.5-5.1) mmol/L Chloride 106 (98-107) mmol/L Carbon Dioxide 26 (22-30) mmol/L Anion Gap 7 mmol/L BUN 17 (9-20) mg/dL Creatinine 0.78 (0.66-1.25) mg/dL Est GFR (CKD-EPI)AfAm >90 (>60 ml/min/1.73 sqM) Est GFR (CKD-EPI)NonAf 89 (>60 ml/min/1.73 sqM) Glucose 106 H (74-99) mg/dL Calcium 9.3 (8.4-10.2) mg/dL Total Bilirubin 0.4 (0.2-1.3) mg/dL AST 28 (17-59) U/L ALT 26 (4-49) U/L Alkaline Phosphatase 86 (38-126) U/L Total Protein 6.8 (6.3-8.2) g/dL Albumin 4.2 (3.5-5.0) g/dL Disposition Clinical Impression: Rib fractures Disposition: HOME SELF-CARE Condition: Good Instructions (If sedation given, give patient instructions): Rib Fracture (ED) Additional Instructions: Take [place] for pain. Be careful when taking this as this could increase risk of falls. This was prescribed electronically to [facility] P[facility]. Make sure to do incentive spirometry 10 times per hour while awake. You may use a pillow to splint the right side of the chest to help with pain as well. If you have fevers or cough over the next few weeks it could be pneumonia and he should return to the emergency room for evaluation. If symptoms worsen in any way we do want to do return to the emergency room. Otherwise follow-up with primary care in 1-2 days. Prescriptions: HYDROcodone/APAP 5-325MG [[place] 5-325] 1 tab PO Q6HR PRN #10 tab PRN Reason: Pain Is patient prescribed a controlled substance at d/c from ED?: Yes When asked, does pt state using other controlled substances?: No If prescribed controlled substance>3 days was MAPS reviewed?: Prescribed <3 Days If opioid is for acute pain is fill amount 7 days or less?: Yes If Rx opioid, was Start Talking consent form obtained?: Yes Referrals: Cuong Rebolledo MD [Primary Care Provider] - 1-2 days Time of Disposition: 17:39
--- NOTE | 2019-08-21 16:59 | CT ---
EXAMINATION TYPE: CT ChestAbdPelvis w con DATE OF EXAM: 08/21/2019 COMPARISON: Chest CT scan 11/04/2017. Abdomen CT scan 09/11/2017. HISTORY: Chest pain. fall injury CT DLP: 2253 mGycm Automated exposure control for dose reduction was used. CONTRAST: Performed with IV Contrast, patient injected with 100 mL of Isovue 300. There is mild right pleural effusion. There is some patchy atelectasis and linear infiltrate the lung bases. Heart appears slightly enlarged. There is no pericardial effusion. There are no hilar masses. There is no mediastinal adenopathy. Thoracic aorta is atheromatous. There is no aneurysm or dissecti on. Liver and spleen appear normal. Stomach is intact. There is no evidence of pancreatic mass. The bile ducts are not dilated. Gallbladder appears absent. There is no adrenal mass. Kidneys show satisfactory contrast opacification. There is no hydronephrosi s. Ureters are not dilated. Delayed images show normal renal excretion. There is no retroperitoneal a denopathy. Bladder distends smoothly. There is no inguinal hernia. There is no evidence of pelvic mas s. There is neural stimulator implant posteriorly over the left iliac bone. Abdominal aorta is athero matous. There is no mesenteric edema. There is no ascites or free air. There is no sign of a bowel obstructio n. Appendix is not seen. There is no sign of thickened appendix. Prostate is enlarged and measures 5. 8 cm. The bony pelvis is intact. Hip joints are intact. There is no evidence of hip fracture. The sac roiliac joints appear intact. There is posterior fusion surgery from L1 to L4. There is multilevel spondylotic changes. There is no compression fracture. There is slight depression of the superior endplate of T12 centrally consisten t with old injury. Unchanged. The sternum is intact. There is bilateral shoulder prosthesis. The ribs appear intact. There is no evidence of pelvic fracture. IMPRESSION: There is mild right pleural effusion with basilar linear mild infiltrates and atelectasis that could relate to mild congestive heart failure. Pleural fluid is new compared to old exam. No fracture seen. No acute abnormality within the abdomen pelvis. I do not see evidence of traumatic injury of the chest abdomen pelvis.
[2019-08-21 17:25] VITALS: BP 189/92; PULSE 52; TEMP 98
== END 2019-08-21 17:53 | disposition home or self-care (01) ==
LOC: EC 14:38
DX: S22.41XA Multiple fractures of ribs, right side, initial encounter for closed fracture (principal); I25.110 Atherosclerotic heart disease of native coronary artery with unstable angina pectoris; E11.9 Type 2 diabetes mellitus without complications; E78.5 Hyperlipidemia, unspecified; I10 Essential (primary) hypertension; I25.2 Old myocardial infarction; G47.30 Sleep apnea, unspecified; F32.9 Major depressive disorder, single episode, unspecified; G20 Parkinson's disease; Z79.84 Long term (current) use of oral hypoglycemic drugs; Z79.82 Long term (current) use of aspirin; Z79.899 Other long term (current) drug therapy; Z88.5 Allergy status to narcotic agent; Z91.040 Latex allergy status; W01.0XXA Fall on same level from slipping, tripping and stumbling without subsequent striking against object, initial encounter; Z95.5 Presence of coronary angioplasty implant and graft; Z95.0 Presence of cardiac pacemaker; Z96.652 Presence of left artificial knee joint; Z96.612 Presence of left artificial shoulder joint; Y93.01 Activity, walking, marching and hiking; Y92.89 Other specified places as the place of occurrence of the external cause
CPT/HCPCS: 36415; 80053; 85025; 71101; 73030; 71260; 74177; 99284; 96360; 96361; Q9967

== ENCOUNTER 2020-11-13 12:51 | Emergency (ER) | payer MEDICARE ==
[2020-11-13 12:57] VITALS: TEMP 98
[2020-11-13] MEDS ORDERED: HYDROmorphone 1 MG/ML 1 ML SYRINGE IM STA (13:19)
--- NOTE | 2020-11-13 13:38 | ED ---
Fall HPI - General Chief Complaint: Fall Stated Complaint: Fall/Chest Pain Time Seen by Provider: 11/13/20 13:05 Source: patient, RN notes reviewed Mode of arrival: wheelchair Limitations: physical limitation - History of Present Illness Initial Comments: 74-year-old male presented to emergency department with chief complaint of left- sided rib pain. Patient states that he has Parkinson's disease and states he loses balance today felt the nightstand complains of left-sided chest wall pain no head injury no loss conscious. Patient takes aspirin denies any other acute platelets or blood thinners. Patient denies any fevers or chills no abdominal complaints. - Related Data Home Medications Medication Instructions Recorded Confirmed Aspirin 81 mg PO DAILY 05/21/14 11/13/20 Atorvastatin [Lipitor] 40 mg PO HS 05/21/14 11/13/20 Esomeprazole Magnesium [NexIUM] 40 mg PO DAILY 05/21/14 11/13/20 metFORMIN HCL 1,000 mg PO BID 05/21/14 11/13/20 Cyanocobalamin [Vitamin B-12] 500 mcg PO DAILY 09/15/15 11/13/20 Folic Acid 0.4 mg PO DAILY 11/16/16 11/13/20 Carbidopa-Levodopa 25-100 mg 1 tab PO BID 08/27/18 11/13/20 [Sinemet 25-100 mg] Citalopram Hydrobromide 40 mg PO DAILY 11/13/20 11/13/20 [Citalopram HBr] Dapagliflozin Propanediol [Farxiga] 5 mg PO DAILY 11/13/20 11/13/20 Docusate [Colace] 100 mg PO DAILY 11/13/20 11/13/20 Allergies Allergy/AdvReac Type Severity Reaction Status Date / Time adhesive AdvReac Itching Verified 11/13/20 13:29 morphine AdvReac Excessive Verified 11/13/20 13:29 Sweating Review of Systems ROS Statement: Those systems with pertinent positive or pertinent negative responses have been documented in the HPI. ROS Other: All systems not noted in ROS Statement are negative. Past Medical History Past Medical History: Coronary Artery Disease (CAD), Chest Pain / Angina, Diabetes Mellitus, GERD/Reflux, Hyperlipidemia, Hypertension, Myocardial Infarction ([place]), Neurologic Disorder, Osteoarthritis (OA), Prostate Disorder, Sleep Apnea/CPAP/BIPAP, Syncope Additional Past Medical History / Comment(s): PARKINSON'S -HAND TREMORS & SHUFFLING GAIT;BILLS'S PALSY WITH LEFT FACIAL DROOP.SLEEP APNEA (NO MACHINE), ENLARGED PROSTATE., DDD- HAS PAIN STIMULATOR., HX OF ABDOMINAL PAIN & NAUSEA WHICH HAS IMPROVED SINCE HE STOPPED PARKNINSONS MEDICATIONS., HX Kidney Stone Last Myocardial Infarction Date:: 1996 History of Any Multi-Drug Resistant Organisms: None Reported Past Surgical History: Appendectomy, Back Surgery, Cholecystectomy, Heart Catheterization With Stent, Joint Replacement, Pacemaker Additional Past Surgical History / Comment(s): TOTAL LEFT KNEE, TOTAL LEFT SHOULDER , CARDIAC STENTS X3, BACK SURGERY X 3 WITH CRISTEL AND PLATES, DECOMPRESSION/LAMINECTOMY T9-T10 AND NEURO STIMULATOR IMPLANTED., CYSTOSCOPY., PACEMAKER (11/2016); Lithotripsy, neuro transmitter implanted at [place] to help with his parkinsons Past Anesthesia/Blood Transfusion Reactions: No Reported Reaction Additional Past Anesthesia/Blood Transfusion Reaction / Comment(s): SLIGHT CLAUSTROHOBIA Date of Last Stent Placement:: 2007 Type of Cardiac Device: Permanent Pacemaker Device Placement Date:: 11/2016 Past Psychological History: Depression Past Alcohol Use History: None Reported Past Drug Use History: None Reported - Past Family History Sister(s) Family Medical History: Cancer Father Sister(s) Additional Family Medical History / Comment(s): FATHER, 2 SISTERS AND 1 BROTHER, LUIS ALBERTO'S DX Mother Family Medical History: Deep Vein Thrombosis (DVT) General Exam Limitations: no limitations General appearance: alert, in no apparent distress Head exam: Present: atraumatic, normocephalic, normal inspection Neck exam: Present: normal inspection, full ROM. Absent: tenderness, meningismus, lymphadenopathy Respiratory exam: Present: normal lung sounds bilaterally, chest wall tenderness (Left-sided rib tenderness, abrasion noted). Absent: respiratory distress, wheezes, rales, rhonchi, stridor Cardiovascular Exam: Present: regular rate, normal rhythm, normal heart sounds. Absent: systolic murmur, diastolic murmur, rubs, gallop, clicks GI/Abdominal exam: Present: soft, normal bowel sounds. Absent: distended, tenderness, guarding, rebound, rigid Back exam: Absent: CVA tenderness (R), CVA tenderness (L) Neurological exam: Present: alert Skin exam: Present: warm, dry, intact, normal color. Absent: rash Course Vital Signs 11/13/20 11/13/20 12:52 14:09 Temperature 98.0 F Pulse Rate 58 L 50 L Respiratory 16 18 Rate Blood Pressure 106/68 128/88 O2 Sat by Pulse 97 98 Oximetry Medical Decision Making - Medical Decision Making X-rays do not show any acute fracture no pneumothorax. Patient patient will be discharged in stable condition return parameters were discussed. Disposition Clinical Impression: Fall, Contusion of rib on left side Disposition: HOME SELF-CARE Condition: Stable Instructions (If sedation given, give patient instructions): Rib Contusion (ED) Additional Instructions: Please return to the Emergency Department if symptoms worsen or any other concerns. Is patient prescribed a controlled substance at d/c from ED?: No Referrals: Ham Santiago MD [Primary Care Provider] - 1-2 days Time of Disposition: 14:12
--- NOTE | 2020-11-13 14:06 | XR ---
EXAMINATION TYPE: XR ribs LT w pa chest xray DATE OF EXAM: 11/13/2020 CLINICAL HISTORY: Fall injury with chest and left-sided rib pain. TECHNIQUE: Single frontal view of the chest is obtained. A frontal and oblique images of the left-jess ed ribs. COMPARISON: Chest x-ray and CT August 21, 2019 FINDINGS: There is chronic parenchymal change with new left basilar opacity. Stable mild cardiomegal y with dual lead pacemaker. Surgical changes bilateral shoulders redemonstrated. Thoracic spinal stim ulator device redemonstrated. Anterior right neck stimulator device redemonstrated. Surgical change l umbar spine partially imaged. Dedicated images of left-sided ribs show no acute displaced fractures. Evaluation is suboptimal due t o overlying pacemaker and left upper extremity due to prior left shoulder surgery especially the supe rior ribs. Overlying soft tissue is unremarkable. [place] osseous structures are demineralized. IMPRESSION: 1. Mild cardiomegaly and chronic parenchymal change with new patchy left basilar acute atelectasis an d/or infiltrate. 2. Slightly suboptimal study without acute displaced left-sided rib fracture identified.
--- NOTE | 2020-11-13 14:09 | XR ---
EXAMINATION TYPE: XR cervical spine comp DATE OF EXAM: 11/13/2020 TECHNIQUE: Frontal, lateral, oblique, and open mouth view of the cervical spine are obtained. HISTORY: pain fall injury. COMPARISON: CT cervical spine February 16, 2019. FINDINGS: The cervical spine is redemonstrated in its entirety from C1 thru the top of T1 level, los s of normal cervical curvature is again seen without evidence of acute fracture or dislocation. The pre-vertebral soft tissue remains within normal limits. The C1-C2 articulation is within normal limi ts on the open mouth view. Vertebral body heights are maintained. Moderate disc space narrowing C3-C4 through C6-C7 levels redemonstrated. Moderate to severe anterior spurring C4-C5 through C6-C7 levels again seen. Left oblique image suboptimal in positioning. Right oblique image appears within normal limits. Overlying soft tissue shows partial visualization of pacemaker, thoracic spinal stimulator, a nd right neck intracranial stimulator device. IMPRESSION: As above.
[2020-11-13 14:10] VITALS: BP 128/88; PULSE 50; RESP 18
[2020-11-13] MEDS ORDERED: ACET/COD 300 MG/30 MG STARTER PACK 6 TAB BTL PO STA (14:12)
== END 2020-11-13 14:30 | disposition home or self-care (01) ==
LOC: EC 12:51
DX: S20.212A Contusion of left front wall of thorax, initial encounter (principal); I10 Essential (primary) hypertension; I25.2 Old myocardial infarction; I25.10 Atherosclerotic heart disease of native coronary artery without angina pectoris; E11.9 Type 2 diabetes mellitus without complications; K21.9 Gastro-esophageal reflux disease without esophagitis; E78.5 Hyperlipidemia, unspecified; G20 Parkinson's disease; M19.90 Unspecified osteoarthritis, unspecified site; F32.9 Major depressive disorder, single episode, unspecified; Z79.82 Long term (current) use of aspirin; Z79.84 Long term (current) use of oral hypoglycemic drugs; Z88.5 Allergy status to narcotic agent; Z87.442 Personal history of urinary calculi; Z90.49 Acquired absence of other specified parts of digestive tract; Z96.652 Presence of left artificial knee joint; Z95.0 Presence of cardiac pacemaker; W01.0XXA Fall on same level from slipping, tripping and stumbling without subsequent striking against object, initial encounter
CPT/HCPCS: 99284; 96372; 71101; 72050; J1170

== ENCOUNTER → 2021-07-07 | Outpatient (CLI) | payer MEDICARE ==
--- NOTE | 2021-07-08 08:35 | XR ---
EXAMINATION TYPE: XR lumbar spine 2 or 3V DATE OF EXAM: 07/08/2021 COMPARISON: CT dated 08/21/2019 INDICATION: Spinal stenosis TECHNIQUE: 3 views of the lumbar spine FINDINGS: Osteopenia. Previous transpedicular fixation of L1 down to L4 using 2 roads and 8 screws. No gross pr osthesis break or displacement. L1-2, L2-3 and L3-4 disc prosthesis. Anterior wedging of T12 vertebra l body, appreciated previously. Multilevel lumbar disc calcification is noted. Marked degenerative changes at L4-5 and L5-S1 levels w ith opposing endplate osteophytosis and markedly degenerated discs. Suspected mild retrolisthesis of L4 over L5 and L5 over S1. Extensive arterial atherosclerotic calcifications. IMPRESSION: Postsurgical changes and degenerative changes as detailed above. Further MRI assessment can be consid ered.
== END | disposition home or self-care (01) ==
LOC: RADXRMAIN 11:43
PROVIDERS: ATTEND Internal Medicine
DX: M47.816 Spondylosis without myelopathy or radiculopathy, lumbar region (principal); M85.88 Other specified disorders of bone density and structure, other site
CPT/HCPCS: 72100

== ENCOUNTER 2021-12-05 18:56 | Emergency (ER) | payer MEDICARE ==
[2021-12-05 19:08] VITALS: TEMP 98.1
[2021-12-05] MEDS ORDERED: SODIUM CHLORIDE 0.9% 500 ML 500 ML IV STA (19:20)
--- NOTE | 2021-12-05 19:59 | ED ---
General Adult HPI - General Chief complaint: Syncope Stated complaint: Cardiac issues Time Seen by Provider: 12/05/21 19:01 Source: EMS Mode of arrival: EMS Limitations: no limitations - History of Present Illness Initial comments: This patient is a 76-year-old man with history of Parkinson's disease who presents to have evaluation after he became very weak and felt like he was going to pass out. The patient states she has been feeling this way intermittently going back about one week. Symptoms were worse tonight just before he arrived. Patient states that his family had prompted him to get up and go from the table to where he likes to sit. He noticed that he was getting very weak and felt like he was going to pass out. Patient states that his son's help him to sit down. He notes he also has had some intermittent pressure on his chest. He states that it felt like someone was sitting on his chest. This sensation has also been present intermittently going back 1 week. He states that he didn't tell his family because his had recently been in the hospital. No other anginal type symptoms. No dyspnea, diaphoresis, nausea or vomiting. Onset/Timin -: week(s) Location: chest Radiation: non-radiation Quality: other (Heaviness) Consistency: now resolved Improves with: none Worsens with: none Associated Symptoms: other (Lightheadedness) Treatments Prior to Arrival: none - Related Data Home Medications Medication Instructions Recorded Confirmed Aspirin 81 mg PO DAILY 05/21/14 12/13/21 Atorvastatin [Lipitor] 40 mg PO HS 05/21/14 12/13/21 Esomeprazole Magnesium [NexIUM] 40 mg PO DAILY 05/21/14 12/13/21 metFORMIN HCL 1,000 mg PO BID 05/21/14 12/13/21 Cyanocobalamin [Vitamin B-12] 500 mcg PO DAILY 09/15/15 12/13/21 Folic Acid 0.4 mg PO DAILY 11/16/16 12/13/21 Citalopram Hydrobromide 40 mg PO DAILY 11/13/20 12/13/21 [Citalopram HBr] Dapagliflozin Propanediol [Farxiga] 5 mg PO DAILY 11/13/20 12/13/21 Docusate [Colace] 100 mg PO DAILY PRN 11/13/20 12/13/21 Carbidopa/Levodopa [Rytary ER 1 cap PO BID 12/13/21 12/13/21 36.25 mg-145 mg Cap] Donepezil [Aricept] 10 mg PO DAILY 12/13/21 12/13/21 Mirabegron [Myrbetriq] 50 mg PO DAILY 12/13/21 12/13/21 Tamsulosin [Flomax] 0.4 mg PO BID 12/13/21 12/13/21 Allergies Allergy/AdvReac Type Severity Reaction Status Date / Time adhesive AdvReac Itching Verified 12/13/21 11:58 morphine AdvReac Excessive Verified 12/13/21 11:58 Sweating Review of Systems ROS Statement: Those systems with pertinent positive or pertinent negative responses have been documented in the HPI. ROS Other: All systems not noted in ROS Statement are negative. Constitutional: Reports: weakness. Denies: fever, chills Respiratory: Denies: cough, dyspnea, wheezes Cardiovascular: Reports: chest pain, syncope (Near syncope). Denies: palpitations, edema Gastrointestinal: Denies: abdominal pain, nausea, vomiting, diarrhea Genitourinary: Denies: dysuria, hematuria Musculoskeletal: Denies: back pain Skin: Denies: rash Neurological: Denies: headache, weakness Past Medical History Past Medical History: Coronary Artery Disease (CAD), Chest Pain / Angina, Diabetes Mellitus, GERD/Reflux, Hyperlipidemia, Hypertension, Myocardial Infar ction (PR), Neurologic Disorder, Osteoarthritis (OA), Prostate Disorder, Sleep Apnea/CPAP/BIPAP, Syncope Additional Past Medical History / Comment(s): PARKINSON'S -HAND TREMORS & SHUFFLING GAIT;BILLS'S PALSY WITH LEFT FACIAL DROOP.SLEEP APNEA (NO MACHINE), ENLARGED PROSTATE., DDD- HAS PAIN STIMULATOR., HX OF ABDOMINAL PAIN & NAUSEA WHICH HAS IMPROVED SINCE HE STOPPED PARKNINSONS MEDICATIONS., HX Kidney Stone Last Myocardial Infarction Date:: 1996 History of Any Multi-Drug Resistant Organisms: None Reported Past Surgical History: Appendectomy, Back Surgery, Cholecystectomy, Heart Catheterization With Stent, Joint Replacement, Pacemaker Additional Past Surgical History / Comment(s): TOTAL LEFT KNEE, TOTAL LEFT SHOULDER , CARDIAC STENTS X3, BACK SURGERY X 3 WITH CRISTEL AND PLATES, DECOMPRESSION/LAMINECTOMY T9-T10 AND NEURO STIMULATOR IMPLANTED., CYSTOSCOPY., PACEMAKER (11/2016); Lithotripsy, neuro transmitter implanted at [place] to help with his parkinsons Past Anesthesia/Blood Transfusion Reactions: No Reported Reaction Additional Past Anesthesia/Blood Transfusion Reaction / Comment(s): SLIGHT CLAUSTROHOBIA Date of Last Stent Placement:: 2007 Type of Cardiac Device: Permanent Pacemaker Device Placement Date:: 11/2016 Past Psychological History: Depression Smoking Status: Never smoker Past Alcohol Use History: None Reported Past Drug Use History: None Reported - Past Family History Sister(s) Family Medical History: Cancer Father Sister(s) Additional Family Medical History / Comment(s): FATHER, 2 SISTERS AND 1 BROTHER, LUIS ALBERTO'S DX Mother Family Medical History: Deep Vein Thrombosis (DVT) General Exam Limitations: no limitations General appearance: alert, in no apparent distress Head exam: Present: atraumatic, normocephalic Eye exam: Present: normal appearance. Absent: scleral icterus, conjunctival injection ENT exam: Present: normal oropharynx Neck exam: Present: normal inspection Respiratory exam: Present: normal lung sounds bilaterally. Absent: respiratory distress, wheezes, rales, rhonchi, stridor, chest wall tenderness Cardiovascular Exam: Present: normal rhythm, bradycardia (Heart rate 52 at my exam), normal heart sounds. Absent: systolic murmur, diastolic murmur, rubs, g allop GI/Abdominal exam: Present: soft. Absent: distended, tenderness, guarding, rebound, rigid, mass Extremities exam: Present: normal inspection, normal capillary refill. Absent: pedal edema, calf tenderness Back exam: Present: normal inspection Neurological exam: Present: alert, oriented X3. Absent: motor sensory deficit Skin exam: Present: warm, dry, intact, normal color. Absent: rash Course Vital Signs 12/05/21 12/05/21 12/05/21 19:05 19:42 20:02 Temperature 98.1 F Pulse Rate 54 L 52 L Pulse Rate [ 52 L Apical] Respiratory 18 12 Rate Blood Pressure 110/65 110/65 O2 Sat by Pulse 98 95 Oximetry 12/05/21 12/06/21 22:15 00:11 Temperature Pulse Rate 51 L 52 L Pulse Rate [ Apical] Respiratory 20 18 Rate Blood Pressure 144/81 144/80 O2 Sat by Pulse 98 95 Oximetry EKG Findings - EKG Comments: EKG Findings:: Patient's 12-lead ECG interpretation is limited by artifact, there does appear to be nerve stimulator causing a lot of baseline artifact. The rhythm does appear to be sinus bradycardia. - EKG Results: EKG: interpreted by ERMD EKG shows: bradycardia (Rate 53 bpm) Medical Decision Making - Medical Decision Making Patient is 76-year-old man here for evaluation. After the labs were back a reevaluated patient and he is feeling a bit better. We discussed admission for observation, and at this point patient's are holding and he would rather not stay in the ER bed. He states she will go home and return if there is any worsening otherwise follow with his physician. We discussed return parameters as well as appropriate further care and follow-up. - Lab Data Result diagrams: 12/05/21 19:53 12/05/21 19:53 Lab Results 12/05/21 12/05/21 12/05/21 Range/Units 19:53 19:53 19:53 WBC 8.3 (3.8-10.6) k/uL RBC 4.75 (4.30-5.90) m/uL Hgb 14.5 (13.0-17.5) gm/dL Hct 43.1 (39.0-53.0) % MCV 90.7 (80.0-100.0) fL MCH 30.6 (25.0-35.0) pg MCHC 33.8 (31.0-37.0) g/dL RDW 13.2 (11.5-15.5) % Plt Count 180 (150-450) k/uL MPV 7.6 Neutrophils % 64 % Lymphocytes % 25 % Monocytes % 6 % Eosinophils % 3 % Basophils % 1 % Neutrophils # 5.3 (1.3-7.7) k/uL Lymphocytes # 2.1 (1.0-4.8) k/uL Monocytes # 0.5 (0-1.0) k/uL Eosinophils # 0.2 (0-0.7) k/uL Basophils # 0.1 (0-0.2) k/uL PT 12.0 (9.0-12.0) sec INR 1.1 (<1.2) APTT 26.4 (22.0-30.0) sec Sodium 138 (137-145) mmol/L Potassium 4.3 (3.5-5.1) mmol/L Chloride 105 (98-107) mmol/L Carbon Dioxide 21 L (22-30) mmol/L Anion Gap 12 mmol/L BUN 20 (9-20) mg/dL Creatinine 1.29 H (0.66-1.25) mg/dL Est GFR (CKD-EPI)AfAm 62 (>60 ml/min/1.73 sqM) Est GFR (CKD-EPI)NonAf 53 (>60 ml/min/1.73 sqM) Glucose 138 H (74-99) mg/dL Calcium 9.0 (8.4-10.2) mg/dL Total Bilirubin 0.5 (0.2-1.3) mg/dL AST 28 (17-59) U/L ALT 24 (4-49) U/L Alkaline Phosphatase 74 (38-126) U/L Troponin I (0.000-0.034) ng/mL Total Protein 5.9 L (6.3-8.2) g/dL Albumin 3.8 (3.5-5.0) g/dL Urine Color Urine Appearance (Clear) Urine pH (5.0-8.0) Ur Specific Colman (1.001-1.035) Urine Protein (Negative) Urine Glucose (UA) (Negative) Urine Ketones (Negative) Urine Blood (Negative) Urine Nitrite (Negative) Urine Bilirubin (Negative) Urine Urobilinogen (<2.0) mg/dL Ur Leukocyte Esterase (Negative) 12/05/21 12/05/21 Range/Units 19:53 22:36 WBC (3.8-10.6) k/uL RBC (4.30-5.90) m/uL Hgb (13.0-17.5) gm/dL Hct (39.0-53.0) % MCV (80.0-100.0) fL MCH (25.0-35.0) pg MCHC (31.0-37.0) g/dL RDW (11.5-15.5) % Plt Count (150-450) k/uL MPV Neutrophils % % Lymphocytes % % Monocytes % % Eosinophils % % Basophils % % Neutrophils # (1.3-7.7) k/uL Lymphocytes # (1.0-4.8) k/uL Monocytes # (0-1.0) k/uL Eosinophils # (0-0.7) k/uL Basophils # (0-0.2) k/uL PT (9.0-12.0) sec INR (<1.2) APTT (22.0-30.0) sec Sodium (137-145) mmol/L Potassium (3.5-5.1) mmol/L Chloride (98-107) mmol/L Carbon Dioxide (22-30) mmol/L Anion Gap mmol/L BUN (9-20) mg/dL Creatinine (0.66-1.25) mg/dL Est GFR (CKD-EPI)AfAm (>60 ml/min/1.73 sqM) Est GFR (CKD-EPI)NonAf (>60 ml/min/1.73 sqM) Glucose (74-99) mg/dL Calcium (8.4-10.2) mg/dL Total Bilirubin (0.2-1.3) mg/dL AST (17-59) U/L ALT (4-49) U/L Alkaline Phosphatase (38-126) U/L Troponin I 0.014 (0.000-0.034) ng/mL Total Protein (6.3-8.2) g/dL Albumin (3.5-5.0) g/dL Urine Color Yellow Urine Appearance Clear (Clear) Urine pH 5.0 (5.0-8.0) Ur Specific [place] 1.023 (1.001-1.035) Urine Protein Negative (Negative) Urine Glucose (UA) 4+ H (Negative) Urine Ketones Negative (Negative) Urine Blood Negative (Negative) Urine Nitrite Negative (Negative) Urine Bilirubin Negative (Negative) Urine Urobilinogen <2.0 (<2.0) mg/dL Ur Leukocyte Esterase Negative (Negative) Disposition Clinical Impression: Pre-syncope, Dehydration Disposition: HOME SELF-CARE Condition: Good Instructions (If sedation given, give patient instructions): Dehydration (ED) Is patient prescribed a controlled substance at d/c from ED?: No Referrals: None,Stated [Primary Care Provider] - 1-2 days
[2021-12-05 20:03] LABS: Basophils # (A) 0.1 k/uL (0-0.2); Basophils % (A) 1 %; Eosinophils # (A) 0.2 k/uL (0-0.7); Eosinophils % (A) 3 %; HCT 43.1 % (39.0-53.0); HGB 14.5 gm/dL (13.0-17.5); Lymphocytes # (A) 2.1 k/uL (1.0-4.8); Lymphocytes % (A) 25 %; MCH 30.6 pg (25.0-35.0); MCHC 33.8 g/dL (31.0-37.0); MCV 90.7 fL (80.0-100.0); Mean Platelet Volume 7.6; Monocytes # (A) 0.5 k/uL (0-1.0); Monocytes % (A) 6 %; Neutrophils # (A) 5.3 k/uL (1.3-7.7); Neutrophils % (A) 64 %; Platelet Count 180 k/uL (150-450); RBC 4.75 m/uL (4.30-5.90); RDW 13.2 % (11.5-15.5); WBC 8.3 k/uL (3.8-10.6)
[2021-12-05 20:12] LABS: INR 1.1 (<1.2); Partial Thromboplastin Time 26.4 sec (22.0-30.0)
[2021-12-05 20:23] LABS: Albumin 3.8 g/dL (3.5-5.0); Potassium 4.3 mmol/L (3.5-5.1); Total Bilirubin 0.5 mg/dL (0.2-1.3); Total Protein 5.9 g/dL (6.3-8.2)
--- NOTE | 2021-12-05 20:41 | XR ---
EXAMINATION TYPE: XR chest 2V DATE OF EXAM: 12/05/2021 COMPARISON: 08/21/2019 HISTORY: Chest pain TECHNIQUE: FINDINGS: Heart and mediastinum are within normal limits. Lungs are clear of infiltrate. There is rig ht axillary neurostimulator. There is left axillary pacemaker. There is left shoulder prosthesis. No pleural effusion. IMPRESSION: No active cardiopulmonary disease. No change.
--- NOTE | 2021-12-05 20:51 | CT ---
EXAMINATION TYPE: CT brain wo con DATE OF EXAM: 12/05/2021 COMPARISON: 02/16/2019 HISTORY: syncope CT DLP: 1178.4 mGycm Automated exposure control for dose reduction was used. Images of the brain obtained without contrast. There is bilateral neural stimulators in the thalamus. Ventricles have normal size. There is no mass effect or midline shift. No sign of intracranial hemorrhage. There is cerebral cortical atrophy. The calvarium is intact. IMPRESSION: Cerebral atrophy. No acute intracranial abnormality. Previous surgery. No change.
[2021-12-05 23:06] LABS: Appearance,Urine Clear (Clear); Bilirubin,Urine Negative (Negative); Blood,Urine Negative (Negative); Color,Urine Yellow; Glucose,Urine (UA) 4+ (Negative); Ketones,Urine Negative (Negative); Leukocyte Esterase,Urine Negative (Negative); Nitrite,Urine Negative (Negative); Protein,Urine Negative (Negative); Specific Gravity,Urine 1.023 (1.001-1.035); Urobilinogen,Urine <2.0 mg/dL (<2.0)
[2021-12-06 00:12] VITALS: BP 144/80; PULSE 52; RESP 18
== END 2021-12-06 01:05 | disposition home or self-care (01) ==
LOC: EC 18:56
DX: R55 Syncope and collapse (principal); E86.0 Dehydration; I25.10 Atherosclerotic heart disease of native coronary artery without angina pectoris; I25.2 Old myocardial infarction; Z79.82 Long term (current) use of aspirin; E11.9 Type 2 diabetes mellitus without complications; K21.9 Gastro-esophageal reflux disease without esophagitis; Z79.899 Other long term (current) drug therapy; E78.5 Hyperlipidemia, unspecified; I10 Essential (primary) hypertension; Z91.040 Latex allergy status; Z88.5 Allergy status to narcotic agent
CPT/HCPCS: 36415; 70450; 71046; 80053; 81003; 84484; 85025; 85610; 85730; 93005; 99285

== ENCOUNTER 2021-12-12 19:31 | Inpatient (IN) | payer MEDICARE ==
[2021-12-12] MEDS ORDERED: SODIUM CHLORIDE 0.9% 500 ML 500 ML IV STA (20:22)
[2021-12-12] MEDS ORDERED: ACETAMINOPHEN IV (For NPO) 1,000 MG in SALINE 100 100ML.BAG IVPB STA (20:23)
--- NOTE | 2021-12-12 20:25 | ED ---
General Adult HPI - General Chief complaint: Chest Pain Stated complaint: chest pain, low bp Time Seen by Provider: 12/12/21 20:14 Source: patient, RN notes reviewed Mode of arrival: ambulatory Limitations: no limitations - History of Present Illness Initial comments: This is a pleasant 76-year-old male who arrives via the waiting room with multiple complaints. Patient states he's been feeling lightheaded for about 1 week. His also had obscure intermittent headaches which she states are fleeting and behind his eyes. Patient also getting some pain in his neck which is exacerbated by movement. Patient states he's been getting intermittent chest pains for quite some time. Patient did fall out of bed last night. Although he is unsure whether he sustained an injury. There is no loss of consciousness. As stated, patient does have neck pain and intermittent headaches which were actually present prior to the fall. Patient did not seek care last night. He is not on blood thinners. Patient was seen here on December 06 for similar symptomology and diagnosed with dehydration. Patient was eventually sent home. Patient has degenerative disc disease, patient also has an implanted pacemaker and pain stimulator. Patient also complaining of problems with urination. Patient feels like he has to go frequently. no fever or chills, no changes in vision or hearing, no sore throat or difficulty with speech, no neck pain, no shortness of breath, no abdominal pain, no nausea or vomiting, no changes in urination or bowel movements, no numbness or tingling, no extremity pain, no skin rashes or lesions. Past medical, surgical, social, and family history reviewed. - Related Data Home Medications Medication Instructions Recorded Confirmed Aspirin 81 mg PO DAILY 05/21/14 11/13/20 Atorvastatin [Lipitor] 40 mg PO HS 05/21/14 11/13/20 Esomeprazole Magnesium [NexIUM] 40 mg PO DAILY 05/21/14 11/13/20 metFORMIN HCL 1,000 mg PO BID 05/21/14 11/13/20 Cyanocobalamin [Vitamin B-12] 500 mcg PO DAILY 09/15/15 11/13/20 Folic Acid 0.4 mg PO DAILY 11/16/16 11/13/20 Carbidopa-Levodopa 25-100 mg 1 tab PO BID 08/27/18 11/13/20 [Sinemet 25-100 mg] Citalopram Hydrobromide 40 mg PO DAILY 11/13/20 11/13/20 [Citalopram HBr] Dapagliflozin Propanediol [Farxiga] 5 mg PO DAILY 11/13/20 11/13/20 Docusate [Colace] 100 mg PO DAILY 11/13/20 11/13/20 Allergies Allergy/AdvReac Type Severity Reaction Status Date / Time adhesive AdvReac Itching Verified 12/05/21 19:08 morphine AdvReac Excessive Verified 12/05/21 19:08 Sweating Review of Systems ROS Statement: Those systems with pertinent positive or pertinent negative responses have been documented in the HPI. ROS Other: All systems not noted in ROS Statement are negative. Past Medical History Past Medical History: Coronary Artery Disease (CAD), Chest Pain / Angina, Diabetes Mellitus, GERD/Reflux, Hyperlipidemia, Hypertension, Myocardial Infarction ([place]), Neurologic Disorder, Osteoarthritis (OA), Prostate Disorder, Sleep Apnea/CPAP/BIPAP, Syncope Additional Past Medical History / Comment(s): PARKINSON'S -HAND TREMORS & SHUFFLING GAIT;BILLS'S PALSY WITH LEFT FACIAL DROOP.SLEEP APNEA (NO MACHINE), ENLARGED PROSTATE., DDD- HAS PAIN STIMULATOR., HX OF ABDOMINAL PAIN & NAUSEA WHICH HAS IMPROVED SINCE HE STOPPED PARKNINSONS MEDICATIONS., HX Kidney Stone Last Myocardial Infarction Date:: 1996 History of Any Multi-Drug Resistant Organisms: None Reported Past Surgical History: Appendectomy, Back Surgery, Cholecystectomy, Heart Catheterization With Stent, Joint Replacement, Pacemaker Additional Past Surgical History / Comment(s): TOTAL LEFT KNEE, TOTAL LEFT SH OULDER , CARDIAC STENTS X3, BACK SURGERY X 3 WITH CRISTEL AND PLATES, DECOMPRESSION/LAMINECTOMY T9-T10 AND NEURO STIMULATOR IMPLANTED., CYSTOSCOPY., PACEMAKER (11/2016); Lithotripsy, neuro transmitter implanted at [facility] to help with his parkinsons Past Anesthesia/Blood Transfusion Reactions: No Reported Reaction Additional Past Anesthesia/Blood Transfusion Reaction / Comment(s): SLIGHT CLAUSTROHOBIA Date of Last Stent Placement:: 2007 Type of Cardiac Device: Permanent Pacemaker Device Placement Date:: 11/2016 Past Psychological History: Depression Smoking Status: Never smoker Past Alcohol Use History: None Reported Past Drug Use History: None Reported - Past Family History Sister(s) Family Medical History: Cancer Father Sister(s) Additional Family Medical History / Comment(s): FATHER, 2 SISTERS AND 1 BROTHER, LUIS ALBERTO'S DX Mother Family Medical History: Deep Vein Thrombosis (DVT) General Exam - General Exam Comments Initial Comments: Patient's blood pressure noted below 84/55. Patient is alert and oriented 4. Cranial nerves II through XII are intact. Patient does not appear to have any focal deficits. Capillary refill is less than 2 seconds. Patient has no mottling. Slightly pale appearance. Limitations: no limitations General appearance: alert, in no apparent distress Head exam: Present: atraumatic, normocephalic, normal inspection Eye exam: Present: normal appearance, PERRL, EOMI. Absent: scleral icterus, conjunctival injection, periorbital swelling ENT exam: Present: normal exam, normal oropharynx, mucous membranes moist, joon l external ear exam. Absent: mucous membranes dry Neck exam: Present: normal inspection, full ROM. Absent: tenderness, meningismus, lymphadenopathy Respiratory exam: Present: normal lung sounds bilaterally. Absent: respiratory distress, wheezes, rales, rhonchi, stridor Cardiovascular Exam: Present: regular rate, normal rhythm, normal heart sounds. Absent: systolic murmur, diastolic murmur, rubs, gallop, clicks GI/Abdominal exam: Present: soft, normal bowel sounds. Absent: distended, tenderness, guarding, rebound, rigid Extremities exam: Present: normal inspection, full ROM, normal capillary refill. Absent: tenderness, pedal edema, joint swelling, calf tenderness Back exam: Present: normal inspection Neurological exam: Present: alert, oriented X3, CN II-XII intact Psychiatric exam: Present: normal affect, normal mood Skin exam: Present: warm, dry, intact, normal color. Absent: rash Course Vital Signs 12/12/21 12/12/21 12/12/21 19:51 21:35 22:54 Temperature 97.8 F Pulse Rate 64 64 Pulse Rate [ 68 Apical] Respiratory 18 12 Rate Blood Pressure 84/55 137/82 O2 Sat by Pulse 98 98 Oximetry 12/12/21 12/13/21 23:49 02:40 Temperature Pulse Rate 64 60 Pulse Rate [ Apical] Respiratory 10 L 16 Rate Blood Pressure 129/86 147/92 O2 Sat by Pulse 94 L 98 Oximetry - Reevaluation(s) Reevaluation #1: 12/13/21 02:56 Medical record is reviewed Symptoms are improved here in the emergency department Patient is informed of results and questions answered Patient in no distress Reevaluation #2: 12/13/21 02:56 Patient was reevaluated several times at the course of stay. Neurological examination was essentially unremarkable. Patient's blood pressure normalized. Course the patient states that most of symptomology occurs when he stands up to walk. - Consultations Consultation #1: Case discussed in detail with Ольга the APC from . Patient admitted to the service with consult to cardiology. EKG Findings - EKG Comments: EKG Findings:: EKG shows extensive artifact due to patient's neurostimulator. rhythm noted with pacer spikes noted for every QRS complex. When compared to the previous EKG from 12/05/2021 patient does appear to have a wider QRS complex. also the change in polarity. With the patient's extensive artifact it is difficult to discern whether these acute changes are significant or not. Also this could be the patient's pain is rhythm and the previous EKG could be the [place] rhythm. Medical Decision Making - Medical Decision Making Patient does not appear to be definitively ill or toxic however does have a low blood pressure. Remainder of the vital signs are stable. Patient appears to be a bit pale but denies any melena or hematochezia. Hydration issues could be problematic here. Although the patient has been drinking fluids. Patient did take a mechanical fall last night of his bed but did not seek care. Patient states that his symptomatology was actually present prior to this fall. Patient states he can only walk a few feet without getting lightheaded. It does not sound like the patient is experiencing any vertigo-type symptoms. Patient's CT of the brain and computed tomography scan reveals no acute pathology. There is point sinusitis without change. Degenerative changes with cerebral atrophy. Chest x-ray shows bibasilar atelectasis with no other acute change. Lactic acid is 2.5, possibly indicative of dehydration. Patient does have renal insufficiency which is chronic. CO2 level is 18. Sodium minimally low at 136. - Lab Data Result diagrams: 12/12/21 21:00 12/12/21 21:00 Lab Results 12/12/21 12/12/21 12/12/21 Range/Units 21:00 21:00 21:00 WBC 9.1 (3.8-10.6) k/uL RBC 4.95 (4.30-5.90) m/uL Hgb 15.4 (13.0-17.5) gm/dL Hct 43.9 (39.0-53.0) % MCV 88.7 (80.0-100.0) fL MCH 31.1 (25.0-35.0) pg MCHC 35.1 (31.0-37.0) g/dL RDW 13.5 (11.5-15.5) % Plt Count 155 (150-450) k/uL MPV 8.2 Neutrophils % 53 % Lymphocytes % 36 % Monocytes % 6 % Eosinophils % 3 % Basophils % 1 % Neutrophils # 4.8 (1.3-7.7) k/uL Lymphocytes # 3.2 (1.0-4.8) k/uL Monocytes # 0.5 (0-1.0) k/uL Eosinophils # 0.2 (0-0.7) k/uL Basophils # 0.0 (0-0.2) k/uL Sodium 136 L (137-145) mmol/L Potassium 4.0 (3.5-5.1) mmol/L Chloride 105 (98-107) mmol/L Carbon Dioxide 18 L (22-30) mmol/L Anion Gap 13 mmol/L BUN 27 H (9-20) mg/dL Creatinine 1.31 H (0.66-1.25) mg/dL Est GFR (CKD-EPI)AfAm 61 (>60 ml/min/1.73 sqM) Est GFR (CKD-EPI)NonAf 52 (>60 ml/min/1.73 sqM) Glucose 98 (74-99) mg/dL Lactic Ac Sepsis Rflx Plasma Lactic Acid Jd (0.7-2.0) mmol/L Calcium 9.0 (8.4-10.2) mg/dL Phosphorus 3.9 (2.5-4.5) mg/dL Magnesium 1.5 L (1.6-2.3) mg/dL Total Bilirubin 0.5 (0.2-1.3) mg/dL AST 24 (17-59) U/L ALT 16 (4-49) U/L Alkaline Phosphatase 85 (38-126) U/L Creatine Kinase 44 L (55-170) U/L Troponin I 0.022 (0.000-0.034) ng/mL NT-Pro-B Natriuret Pep pg/mL Total Protein 6.4 (6.3-8.2) g/dL Albumin 4.1 (3.5-5.0) g/dL Urine Color Urine Appearance (Clear) Urine pH (5.0-8.0) Ur Specific [place] (1.001-1.035) Urine Protein (Negative) Urine Glucose (UA) (Negative) Urine Ketones (Negative) Urine Blood (Negative) Urine Nitrite (Negative) Urine Bilirubin (Negative) Urine Urobilinogen (<2.0) mg/dL Ur Leukocyte Esterase (Negative) 12/12/21 12/12/21 12/12/21 Range/Units 21:00 21:00 22:06 WBC (3.8-10.6) k/uL RBC (4.30-5.90) m/uL Hgb (13.0-17.5) gm/dL Hct (39.0-53.0) % MCV (80.0-100.0) fL MCH (25.0-35.0) pg MCHC (31.0-37.0) g/dL RDW (11.5-15.5) % Plt Count (150-450) k/uL MPV Neutrophils % % Lymphocytes % % Monocytes % % Eosinophils % % Basophils % % Neutrophils # (1.3-7.7) k/uL Lymphocytes # (1.0-4.8) k/uL Monocytes # (0-1.0) k/uL Eosinophils # (0-0.7) k/uL Basophils # (0-0.2) k/uL Sodium (137-145) mmol/L Potassium (3.5-5.1) mmol/L Chloride (98-107) mmol/L Carbon Dioxide (22-30) mmol/L Anion Gap mmol/L BUN (9-20) mg/dL Creatinine (0.66-1.25) mg/dL Est GFR (CKD-EPI)AfAm (>60 ml/min/1.73 sqM) Est GFR (CKD-EPI)NonAf (>60 ml/min/1.73 sqM) Glucose (74-99) mg/dL Lactic Ac Sepsis Rflx Y Plasma Lactic Acid Jd 2.5 H* (0.7-2.0) mmol/L Calcium (8.4-10.2) mg/dL Phosphorus (2.5-4.5) mg/dL Magnesium (1.6-2.3) mg/dL Total Bilirubin (0.2-1.3) mg/dL AST (17-59) U/L ALT (4-49) U/L Alkaline Phosphatase (38-126) U/L Creatine Kinase (55-170) U/L Troponin I (0.000-0.034) ng/mL NT-Pro-B Natriuret Pep 1720 pg/mL Total Protein (6.3-8.2) g/dL Albumin (3.5-5.0) g/dL Urine Color Urine Appearance (Clear) Urine pH (5.0-8.0) Ur Specific [place] (1.001-1.035) Urine Protein (Negative) Urine Glucose (UA) (Negative) Urine Ketones (Negative) Urine Blood (Negative) Urine Nitrite (Negative) Urine Bilirubin (Negative) Urine Urobilinogen (<2.0) mg/dL Ur Leukocyte Esterase (Negative) 12/12/21 12/13/21 Range/Units 22:51 00:41 WBC (3.8-10.6) k/uL RBC (4.30-5.90) m/uL Hgb (13.0-17.5) gm/dL Hct (39.0-53.0) % MCV (80.0-100.0) fL MCH (25.0-35.0) pg MCHC (31.0-37.0) g/dL RDW (11.5-15.5) % Plt Count (150-450) k/uL MPV Neutrophils % % Lymphocytes % % Monocytes % % Eosinophils % % Basophils % % Neutrophils # (1.3-7.7) k/uL Lymphocytes # (1.0-4.8) k/uL Monocytes # (0-1.0) k/uL Eosinophils # (0-0.7) k/uL Basophils # (0-0.2) k/uL Sodium (137-145) mmol/L Potassium (3.5-5.1) mmol/L Chloride (98-107) mmol/L Carbon Dioxide (22-30) mmol/L Anion Gap mmol/L BUN (9-20) mg/dL Creatinine (0.66-1.25) mg/dL Est GFR (CKD-EPI)AfAm (>60 ml/min/1.73 sqM) Est GFR (CKD-EPI)NonAf (>60 ml/min/1.73 sqM) Glucose (74-99) mg/dL Lactic Ac Sepsis Rflx Plasma Lactic Acid Jd 1.3 (0.7-2.0) mmol/L Calcium (8.4-10.2) mg/dL Phosphorus (2.5-4.5) mg/dL Magnesium (1.6-2.3) mg/dL Total Bilirubin (0.2-1.3) mg/dL AST (17-59) U/L ALT (4-49) U/L Alkaline Phosphatase (38-126) U/L Creatine Kinase (55-170) U/L Troponin I (0.000-0.034) ng/mL NT-Pro-B Natriuret Pep pg/mL Total Protein (6.3-8.2) g/dL Albumin (3.5-5.0) g/dL Urine Color Yellow Urine Appearance Clear (Clear) Urine pH 5.0 (5.0-8.0) Ur Specific [place] 1.013 (1.001-1.035) Urine Protein Negative (Negative) Urine Glucose (UA) 3+ H (Negative) Urine Ketones Negative (Negative) Urine Blood Negative (Negative) Urine Nitrite Negative (Negative) Urine Bilirubin Negative (Negative) Urine Urobilinogen <2.0 (<2.0) mg/dL Ur Leukocyte Esterase Negative (Negative) - Radiology Data Radiology results: report reviewed, image reviewed Disposition Clinical Impression: Hypotension, Dehydration, Hypomagnesemia, Chest pain, Headache Disposition: ADMITTED IP TO THIS HOSP Condition: Fair Is patient prescribed a controlled substance at d/c from ED?: No Time of Disposition: 22:41
--- NOTE | 2021-12-12 20:43 | XR ---
EXAMINATION TYPE: XR chest 1V portable DATE OF EXAM: 12/12/2021 8:30 PM COMPARISON: Chest x-ray 12/05/2021 TECHNIQUE: XR chest 1V portable . CLINICAL INDICATION:Male, 76 years old with history of chest pain; FINDINGS: Lungs/Pleura: Bibasilar atelectasis. No evidence for pneumothorax pleural effusion or focal consolida tion. Pulmonary vascularity: Unremarkable. Heart/mediastinum: Cardiomediastinal silhouette is unremarkable. Two lead cardiac conduction device o verlying the left hemithorax with lead tips projecting over the right ventricle and right atrium. Musculoskeletal: Multiple level degenerative disc disease changes seen throughout the spine. Bilatera l shoulder arthroplasties. Other findings: There are spinal stimulator projects over the thoracic spinal canal. IMPRESSION: Bibasilar atelectasis. No acute cardiopulmonary process.
[2021-12-12 21:13] LABS: Basophils % (A) 1 %; Eosinophils # (A) 0.2 k/uL (0-0.7); Eosinophils % (A) 3 %; HCT 43.9 % (39.0-53.0); HGB 15.4 gm/dL (13.0-17.5); Lymphocytes # (A) 3.2 k/uL (1.0-4.8); Lymphocytes % (A) 36 %; MCH 31.1 pg (25.0-35.0); MCHC 35.1 g/dL (31.0-37.0); MCV 88.7 fL (80.0-100.0); Mean Platelet Volume 8.2; Monocytes # (A) 0.5 k/uL (0-1.0); Monocytes % (A) 6 %; Neutrophils # (A) 4.8 k/uL (1.3-7.7); Neutrophils % (A) 53 %; Platelet Count 155 k/uL (150-450); RBC 4.95 m/uL (4.30-5.90); RDW 13.5 % (11.5-15.5); WBC 9.1 k/uL (3.8-10.6)
[2021-12-12 21:20] LABS: Albumin 4.1 g/dL (3.5-5.0); Magnesium 1.5 mg/dL (1.6-2.3); Phosphorus 3.9 mg/dL (2.5-4.5); Total Bilirubin 0.5 mg/dL (0.2-1.3); Total Protein 6.4 g/dL (6.3-8.2)
--- NOTE | 2021-12-12 22:31 | CT ---
EXAMINATION TYPE: CT brain oluine wo con DATE OF EXAM: 12/12/2021 COMPARISON: CT brain 12/05/2021 HISTORY: BACK OF HEAD PAIN,PT HAS BRAIN AND BACK STIMULATOR. FALL CT DLP: 1600.6 mGycm Automated exposure control for dose reduction was used. Images of the brain and cervical spine obtained with no contrast. There is cerebral cortical atrophy. There is bilateral thalamic neural stimulators. There is no mass effect or midline shift. No sign of intracranial hemorrhage. The calvarium is intact. There is normal aeration of the mastoid sinuses. T here is some mucosal thickening in the ethmoid sinuses. The cervical vertebra have normal alignment. There is degenerative disc space narrowing from C3 to C7 with spurring of the endplates. Facet joints are intact. No compression fracture. IMPRESSION: Multilevel cervical spondylotic changes. No fracture. No acute intracranial abnormality. Cerebral atrophy. Brain not changed compared to old exam. Ethmoid sinusitis without change.
[2021-12-12] MEDS ORDERED: Magnesium Replacement Protocol 1 EACH MISC MISCELLANE PRN (22:36)
[2021-12-12 23:34] LABS: Appearance,Urine Clear (Clear); Bilirubin,Urine Negative (Negative); Blood,Urine Negative (Negative); Color,Urine Yellow; Glucose,Urine (UA) 3+ (Negative); Ketones,Urine Negative (Negative); Leukocyte Esterase,Urine Negative (Negative); Nitrite,Urine Negative (Negative); Protein,Urine Negative (Negative); Specific Gravity,Urine 1.013 (1.001-1.035); Urobilinogen,Urine <2.0 mg/dL (<2.0)
[2021-12-12] MEDS: MAGNESIUM SULFATE-D5W PMX 1 GM in DEXTROSE/WATER 1 100ML.BAG IVPB SCH (23:46)
[2021-12-13] MEDS: MAGNESIUM SULFATE-D5W PMX 1 GM in DEXTROSE/WATER 1 100ML.BAG IVPB SCH ×3 (00:34→12:12)
[2021-12-13] MEDS ORDERED: ACETAMINOPHEN TAB 325 MG TAB PO PRN (00:35)
[2021-12-13] MEDS ORDERED: NALOXONE 0.4 MG/ML 1 ML VIAL IV PRN (00:35)
[2021-12-13] MEDS ORDERED: ONDANSETRON 4 MG/2 ML VIAL IVP PRN (00:35)
[2021-12-13] MEDS ORDERED: DEXTROSE 50% SYRINGE 50 ML IVP PRN ×2 (00:42)
[2021-12-13] MEDS: 0.9% NACL WITH KCL 20 MEQ/L 1,000 ML IV SCH ×2 (02:25→20:41)
[2021-12-13 05:52] LABS: Glucose,Whole Blood 115 mg/dL (70-110)
[2021-12-13] MEDS: INSULIN ASPART (NovoLOG) 100 UNIT/ML VIAL SQ SCH ×4 (06:19→20:41)
[2021-12-13] MEDS ORDERED: Magnesium Replacement Protocol 1 EACH MISC MISCELLANE PRN ×2 (06:50→10:42)
[2021-12-13] MEDS: ASPIRIN 81 MG PO SCH (08:44)
[2021-12-13] MEDS: HEPARIN SODIUM,PORCINE/PF 5,000 UNIT/0.5 ML SYRINGE SQ SCH ×2 (08:44→20:44)
[2021-12-13 11:34] LABS: Glucose,Whole Blood 122 mg/dL (70-110)
--- NOTE | 2021-12-13 11:34 | P.HPIM ---
History of Present Illness This is a pleasant 76 years old male with past medical history of Coronary Artery Disease status post stent, Diabetes Mellitus, GERD, Hyperlipidemia, Hypertension, Osteoarthritis, benign prostatic hypertrophy, Sleep Apnea/CPAP/BIPAP, Syncope, PARKINSON'S -HAND TREMORS & SHUFFLING GAIT;BILLS'S PALSY WITH LEFT FACIAL DROOP., DDD- HAS PAIN STIMULATOR., Kidney stone, status post lithotripsy, chronic back pain status post decompressive laminectomy T9-T10 with neuro stimulator implanted. At this post permanent pacemaker Patient presents because of chest pain and the back of the head, blood pressure was low 84/54 on admission. Associated with headache and lightheadedness Patient fell out of the bed last night. He checked his blood pressure at home at 477/50. Patient denies diarrhea over the last 2 days however this morning he has one large loose bowel movement but no abdominal pain or vomiting. He is complaining also from urgency with urination but no dysuria. Patient has some memory problems.. He follow-up with the neurologist at [facility], last visit was about a month ago for his advanced Parkinson disease, he has seen later for his back pain and another one with wires into the head. Currently patient is awake and alert, no weakness or numbness, no slurred speech. No smoking alcohol or illicit drugs. Currently blood pressure improved to 153/92. Patient is afebrile. Labs reviewed with normal CBC, hemoglobin is normal. Sodium 136, creatinine 1.3, last month was 1.2, baseline 1.0-1.2 Magnesium low been placed per protocol, liver enzymes not elevated. Troponin is -0.0-2, proBNP is only mildly elevated 1720. EKG showing atrial paced rhythm Chest x-ray: CT of the head and cervical spine:Multilevel cervical spondylitic changes with no fracture there is no acute intracranial abnormality Chest x-ray: No acute process. Patient in the emergency room is a started on normal saline (patient was not on blood pressure medication at home) Review of Systems Review of systems CONSTITUTIONAL: No fever, no malaise, no fatigue. HEENT: No recent visual problems or hearing problems. Denied any sore throat. CARDIOVASCULAR: No orthopnea, PND, no palpitations, no syncope. PULMONARY: No shortness of breath, no cough, no hemoptysis. GASTROINTESTINAL: No diarrhea, no nausea, no vomiting, no abdominal pain. Normoactive bowel sounds. NEUROLOGICAL: No headaches, no weakness, no numbness. HEMATOLOGICAL: Denies any bleeding or petechiae. GENITOURINARY: Denies any burning micturition, frequency, or urgency. MUSCULOSKELETAL/RHEUMATOLOGICAL: Denies any joint pain, swelling, or any muscle pain. ENDOCRINE: Denies any polyuria or polydipsia. Past Medical History Past Medical History: Coronary Artery Disease (CAD), Chest Pain / Angina, Diabetes Mellitus, GERD/Reflux, Hyperlipidemia, Hypertension, Myocardial Infarction (ME), Neurologic Disorder, Osteoarthritis (OA), Prostate Disorder, Sleep Apnea/CPAP/BIPAP, Syncope Additional Past Medical History / Comment(s): PARKINSON'S -HAND TREMORS & SHUFFLING GAIT;BILLS'S PALSY WITH LEFT FACIAL DROOP.SLEEP APNEA (NO MACHINE), ENLARGED PROSTATE., DDD- HAS PAIN STIMULATOR., HX OF ABDOMINAL PAIN & NAUSEA WHICH HAS IMPROVED SINCE HE STOPPED PARKNINSONS MEDICATIONS., HX Kidney Stone Last Myocardial Infarction Date:: 1996 History of Any Multi-Drug Resistant Organisms: None Reported Past Surgical History: Appendectomy, Back Surgery, Cholecystectomy, Heart Catheterization With Stent, Joint Replacement, Pacemaker Additional Past Surgical History / Comment(s): TOTAL LEFT KNEE, TOTAL LEFT SHOULDER , CARDIAC STENTS X3, BACK SURGERY X 3 WITH CRISTEL AND PLATES, DECOMPRESSION/LAMINECTOMY T9-T10 AND NEURO STIMULATOR IMPLANTED., CYSTOSCOPY., PACEMAKER (11/2016); Lithotripsy, neuro transmitter implanted at [place] to help with his parkinsons Past Anesthesia/Blood Transfusion Reactions: No Reported Reaction Additional Past Anesthesia/Blood Transfusion Reaction / Comment(s): SLIGHT CLAUSTROHOBIA Date of Last Stent Placement:: 2007 Type of Cardiac Device: Permanent Pacemaker Device Placement Date:: 11/2016 Past Psychological History: Depression Smoking Status: Never smoker Past Alcohol Use History: None Reported Past Drug Use History: None Reported - Past Family History Sister(s) Family Medical History: Cancer Additional Family Medical History / Comment(s): [place] Father Sister(s) Additional Family Medical History / Comment(s): FATHER, 2 SISTERS AND 1 BROTHER, LUIS ALBERTO'S DX Mother Family Medical History: Deep Vein Thrombosis (DVT) Brother(s) Family Medical History: Cancer Additional Family Medical History / Comment(s): leukemia Medications and Allergies Home Medications Medication Instructions Recorded Confirmed Type Aspirin 81 mg PO DAILY 03/24/15 09/16/21 History Atorvastatin [Lipitor] 40 mg PO HS 05/21/14 11/13/20 History Esomeprazole Magnesium [NexIUM] 40 mg PO DAILY 05/21/14 11/13/20 History metFORMIN HCL 1,000 mg PO BID 05/21/14 11/13/20 History Cyanocobalamin [Vitamin B-12] 500 mcg PO DAILY 09/15/15 11/13/20 History Folic Acid 0.4 mg PO DAILY 11/16/16 11/13/20 History Carbidopa-Levodopa 25-100 mg 1 tab PO BID 08/27/18 11/13/20 History [Sinemet 25-100 mg] Citalopram Hydrobromide 40 mg PO DAILY 11/13/20 11/13/20 History [Citalopram HBr] Dapagliflozin Propanediol [Farxiga] 5 mg PO DAILY 11/13/20 11/13/20 History Docusate [Colace] 100 mg PO DAILY 11/13/20 11/13/20 History Allergies Allergy/AdvReac Type Severity Reaction Status Date / Time adhesive AdvReac Itching Verified 12/05/21 19:08 morphine AdvReac Excessive Verified 12/05/21 19:08 Sweating Physical Exam Vitals: Vital Signs Temp Pulse Pulse Pulse Resp BP BP 12/13/21 08:42 97.8 F 60 16 153/92 12/13/21 08:00 16 12/13/21 04:00 97.9 F 61 18 123/72 12/13/21 03:38 97.9 F 61 18 123/72 12/13/21 03:36 97.9 F 61 18 123/72 12/13/21 02:40 60 16 147/92 12/13/21 02:00 61 18 12/12/21 23:49 64 10 L 129/86 12/12/21 22:54 64 12 137/82 12/12/21 21:35 68 12/12/21 19:51 97.8 F 64 18 84/55 Pulse Ox 12/13/21 08:42 12/13/21 08:00 12/13/21 04:00 96 12/13/21 03:38 96 12/13/21 03:36 96 12/13/21 02:40 98 12/13/21 02:00 12/12/21 23:49 94 L 12/12/21 22:54 98 12/12/21 21:35 12/12/21 19:51 98 Intake and Output 12/12/21 12/13/21 12/13/21 22:59 06:59 14:59 Other: Voiding Method Urinal Urinal # Voids 1 Weight 102.058 kg 102.058 kg GENERAL: The patient is alert and oriented x3, not in any acute distress. Well developed, well nourished. HEENT: Pupils are round and equally reacting to light. EOMI. No scleral icterus. No conjunctival pallor. Normocephalic, atraumatic. No pharyngeal erythema. No thyromegaly. CARDIOVASCULAR: S1 and S2 present. No murmurs, rubs, or gallops. PULMONARY: Chest is clear to auscultation, no wheezing or crackles. ABDOMEN: Soft, nontender, nondistended, normoactive bowel sounds. No palpable organomegaly. MUSCULOSKELETAL: No joint swelling or deformity. EXTREMITIES: No cyanosis, clubbing, or pedal edema. NEUROLOGICAL: Gross neurological examination did not reveal any focal deficits. SKIN: No rashes. no petechiae. Results CBC & Chem 7: 12/12/21 21:00 12/12/21 21:00 Labs: Abnormal Lab Results - Last 24 Hours (Table) 12/12/21 12/12/21 12/12/21 Range/Units 21:00 21:00 22:51 Sodium 136 L (137-145) mmol/L Carbon Dioxide 18 L (22-30) mmol/L BUN 27 H (9-20) mg/dL Creatinine 1.31 H (0.66-1.25) mg/dL POC Glucose (mg/dL) (70-110) mg/dL Hemoglobin A1c (0.0-6.0) % Plasma Lactic Acid Jd 2.5 H* (0.7-2.0) mmol/L Magnesium 1.5 L (1.6-2.3) mg/dL Creatine Kinase 44 L (55-170) U/L Urine Glucose (UA) 3+ H (Negative) 12/13/21 12/13/21 Range/Units 05:51 05:57 Sodium (137-145) mmol/L Carbon Dioxide (22-30) mmol/L BUN (9-20) mg/dL Creatinine (0.66-1.25) mg/dL POC Glucose (mg/dL) 115 H (70-110) mg/dL Hemoglobin A1c 6.5 H (0.0-6.0) % Plasma Lactic Acid Jd (0.7-2.0) mmol/L Magnesium (1.6-2.3) mg/dL Creatine Kinase (55-170) U/L Urine Glucose (UA) (Negative) Thrombosis Risk Factor Assmnt - Choose All That Apply Any of the Below Risk Factors Present?: Yes Each Factor Represents 1 point: Obesity (BMI >25), Swollen legs (current) Other Risk Factors: Yes Each Risk Factor Represents 3 Points: Age 75 years or older Thrombosis Risk Factor Assessment Total Risk Factor Score: 5 Thrombosis Risk Factor Assessment Level: High Risk Assessment and Plan Assessment: Chest pain, rule out cardiac causes Hypotension, present on admission improved Chronic kidney disease stage III with possible mild element of acute kidney injury diabetes mellitus Hyperlipidemia History of Parkinson's disease History of sleep apnea History of benign prostatic hypertrophy History of kidney stones status post lithotripsy History of coronary artery disease status post stenting History of chronic back pain status post decompressive surgery on laminectomy on T10-T9 status post nerve stimulator. Plan: This is a pleasant 76 years old male presents with chest pain and hypertension with headache/lightheadedness Blood pressure improved Continue with gentle hydration Continue with aspirin 81 mg at home dose check echocardiogram Check urinalysis and bladder scan Labs and medication were reviewed.. Continue same treatment. Continue with symptomatic treatment. Resume home medication. Monitor lytes and vitals. DVT and GI prophylaxis. Further recommendations as per clinical course of the patient DVT prophylaxis: Subcutaneous heparin GI Prophylaxis: Pepcid PT/OT: Pending Prognosis is guarded
--- NOTE | 2021-12-13 11:43 | P.CRDCN ---
History of Present Illness Consult date: 12/13/21 Consult reason: hypotension History of present illness: The patient is a 76-year-old male with multiple comorbid conditions who follows with Dr. Trujillo in the office. He presented to the emergency room with progressive dizziness. ER notes also state that the patient had fallen out of bed overnight. He believes that the symptoms have been going on for at least the last 2 weeks. On arrival he was noted to be hypotensive and dehydrated. He states he is compliant with his medication regimen. No new medications. DIAGNOSTICS: EKG shows paced rhythm Chest x-ray shows bibasilar atelectasis. No acute cardiopulmonary process. CT of head and neck shows no acute abnormality Lab data: WBC 9.1, hemoglobin 15.4, hematocrit 43.9, platelet 155, sodium 136, potassium 4.0, BUN 27, creatinine 1.3, hemoglobin A1c 6.5, phosphorus 3.9, magnesium 1.5, AST 24, ALT 16, ALP 85, troponin 0.02, 0.02, BNP 1720 PAST MEDICAL HISTORY: Coronary artery disease, cardiac stenting, permanent pacemaker, dyslipidemia, diabetes, advanced Parkinson's disease REVIEW OF SYSTEMS: No fever or chills. No cough or expectoration. No diaphoresis. Patient denies any stomach discomfort. No nausea, vomiting. No hematochezia. No hematemesis. Denies any black stools or blood in his stools. Denies dysuria or hematuria. No muscle weakness or numbness. No chest pain or chest pressure. No dyspnea. Positive for dizziness. PHYSICAL EXAMINATION: This is a 76-year-old male in no apparent distress at the time of my examination. HEENT: Head is atraumatic, normocephalic. Pupils are equal, round. Sclerae anicteric. Conjunctivae are clear. Mucous membranes of the mouth are moist. Neck is supple. There is no jugular venous distention. No carotid bruit is heard. CHEST EXAMINATION: Lungs are clear to auscultation. No chest wall tenderness is noted on palpation or with deep breathing. HEART EXAMINATION: Heart regular rate and rhythm. S1, S2 heard. No murmurs, gallops or rub. ABDOMEN: Soft, nontender. Bowel sounds are heard. No organomegaly noted. EXTREMITIES: 2+ peripheral pulses with no evidence of peripheral edema and no calf tenderness noted. NEUROLOGIC EXAMINATION: Patient is awake, alert and oriented x3. FINAL ASSESSMENT AND PLAN: Dizziness, secondary to hypotension and dehydration Likely dysautonmia with history of Parkinsons disease History of pacemaker History of CAD History of dyslipidemia History of diabetes PLAN: Check orthostatic blood pressure readings Start low-dose Florinef Consider droxidopa Discussed the importance of adequate hydration and slow positional changes Further recommendations based on clinical course I am dictating on behalf of Dr Ashwin Scott's history/physical and assessment/plan. Past Medical History Past Medical History: Coronary Artery Disease (CAD), Chest Pain / Angina, Diabetes Mellitus, GERD/Reflux, Hyperlipidemia, Hypertension, Myocardial Infarction (AL), Neurologic Disorder, Osteoarthritis (OA), Prostate Disorder, Sleep Apnea/CPAP/BIPAP, Syncope Additional Past Medical History / Comment(s): PARKINSON'S -HAND TREMORS & SHUFFLING GAIT;BILLS'S PALSY WITH LEFT FACIAL DROOP.SLEEP APNEA (NO MACHINE), ENLARGED PROSTATE., DDD- HAS PAIN STIMULATOR., HX OF ABDOMINAL PAIN & NAUSEA WHICH HAS IMPROVED SINCE HE STOPPED PARKNINSONS MEDICATIONS., HX Kidney Stone Last Myocardial Infarction Date:: 1996 History of Any Multi-Drug Resistant Organisms: None Reported Past Surgical History: Appendectomy, Back Surgery, Cholecystectomy, Heart Catheterization With Stent, Joint Replacement, Pacemaker Additional Past Surgical History / Comment(s): TOTAL LEFT KNEE, TOTAL LEFT SHOULDER , CARDIAC STENTS X3, BACK SURGERY X 3 WITH CRISTEL AND PLATES, DECOMPR ESSION/LAMINECTOMY T9-T10 AND NEURO STIMULATOR IMPLANTED., CYSTOSCOPY., PACEMAKER (11/2016); Lithotripsy, neuro transmitter implanted at [place] to help with his parkinsons Past Anesthesia/Blood Transfusion Reactions: No Reported Reaction Additional Past Anesthesia/Blood Transfusion Reaction / Comment(s): SLIGHT CLAUSTROHOBIA Date of Last Stent Placement:: 2007 Type of Cardiac Device: Permanent Pacemaker Device Placement Date:: 11/2016 Past Psychological History: Depression Smoking Status: Never smoker Past Alcohol Use History: None Reported Past Drug Use History: None Reported - Past Family History Sister(s) Family Medical History: Cancer Additional Family Medical History / Comment(s): [place] Father Sister(s) Additional Family Medical History / Comment(s): FATHER, 2 SISTERS AND 1 BROTHER, LUIS ALBERTO'S DX Mother Family Medical History: Deep Vein Thrombosis (DVT) Brother(s) Family Medical History: Cancer Additional Family Medical History / Comment(s): leukemia Medications and Allergies Home Medications Medication Instructions Recorded Confirmed Type Aspirin 81 mg PO DAILY 05/21/14 11/13/20 History Atorvastatin [Lipitor] 40 mg PO HS 05/21/14 11/13/20 History Esomeprazole Magnesium [NexIUM] 40 mg PO DAILY 05/21/14 11/13/20 History metFORMIN HCL 1,000 mg PO BID 05/21/14 11/13/20 History Cyanocobalamin [Vitamin B-12] 500 mcg PO DAILY 09/15/15 11/13/20 History Folic Acid 0.4 mg PO DAILY 11/16/16 11/13/20 History Carbidopa-Levodopa 25-100 mg 1 tab PO BID 08/27/18 11/13/20 History [Sinemet 25-100 mg] Citalopram Hydrobromide 40 mg PO DAILY 11/13/20 11/13/20 History [Citalopram HBr] Dapagliflozin Propanediol [Farxiga] 5 mg PO DAILY 11/13/20 11/13/20 History Docusate [Colace] 100 mg PO DAILY 11/13/20 11/13/20 History Allergies Allergy/AdvReac Type Severity Reaction Status Date / Time adhesive AdvReac Itching Verified 12/05/21 19:08 morphine AdvReac Excessive Verified 12/05/21 19:08 Sweating Physical Exam Vitals: Vital Signs Temp Pulse Pulse Pulse Resp BP BP 12/13/21 08:42 97.8 F 60 16 153/92 12/13/21 08:00 16 12/13/21 04:00 97.9 F 61 18 123/72 12/13/21 03:38 97.9 F 61 18 123/72 12/13/21 03:36 97.9 F 61 18 123/72 12/13/21 02:40 60 16 147/92 12/13/21 02:00 61 18 12/12/21 23:49 64 10 L 129/86 12/12/21 22:54 64 12 137/82 12/12/21 21:35 68 12/12/21 19:51 97.8 F 64 18 84/55 Pulse Ox 12/13/21 08:42 12/13/21 08:00 12/13/21 04:00 96 12/13/21 03:38 96 12/13/21 03:36 96 12/13/21 02:40 98 12/13/21 02:00 12/12/21 23:49 94 L 12/12/21 22:54 98 12/12/21 21:35 12/12/21 19:51 98 Intake and Output 12/12/21 12/13/21 12/13/21 22:59 06:59 14:59 Output Total 150 Balance -150 Output: Urine 150 Other: Voiding Method Urinal Urinal # Voids 1 Weight 102.058 kg 102.058 kg Results 12/12/21 21:00 12/12/21 21:00 Cardiac Enzymes 12/12/21 12/12/21 12/13/21 Range/Units 21:00 21:00 03:07 AST 24 (17-59) U/L Troponin I 0.022 0.023 (0.000-0.034) ng/mL 12/13/21 Range/Units 05:57 AST (17-59) U/L Troponin I 0.023 (0.000-0.034) ng/mL CBC 12/12/21 Range/Units 21:00 WBC 9.1 (3.8-10.6) k/uL RBC 4.95 (4.30-5.90) m/uL Hgb 15.4 (13.0-17.5) gm/dL Hct 43.9 (39.0-53.0) % Plt Count 155 (150-450) k/uL Comprehensive Metabolic Panel 12/12/21 Range/Units 21:00 Sodium 136 L (137-145) mmol/L Potassium 4.0 (3.5-5.1) mmol/L Chloride 105 (98-107) mmol/L Carbon Dioxide 18 L (22-30) mmol/L BUN 27 H (9-20) mg/dL Creatinine 1.31 H (0.66-1.25) mg/dL Glucose 98 (74-99) mg/dL Calcium 9.0 (8.4-10.2) mg/dL AST 24 (17-59) U/L ALT 16 (4-49) U/L Alkaline Phosphatase 85 (38-126) U/L Total Protein 6.4 (6.3-8.2) g/dL Albumin 4.1 (3.5-5.0) g/dL Current Medications Generic Name Dose Route Start Last Admin Trade Name Freq PRN Reason Stop Dose Admin Acetaminophen 650 mg 12/13/21 00:35 Acetaminophen Tab 325 Mg Tab PO Q6HR PRN Mild Pain or Fever > 100.5 Aspirin 81 mg 12/13/21 09:00 12/13/21 08:44 Aspirin 81 Mg PO 81 mg DAILY NEDRA Administration Dextrose/Water 25 ml 12/13/21 00:42 Dextrose 50% Syringe 50 Ml IVP PER PROTOCOL PRN Hypoglycemia Protocol Dextrose/Water 50 ml 12/13/21 00:42 Dextrose 50% Syringe 50 Ml IVP PER PROTOCOL PRN Hypoglycemia Protocol Famotidine 20 mg 12/13/21 21:00 Famotidine 20 Mg/2 Ml Vial IV Q12HR NEDRA Heparin Sodium (Porcine) 5,000 unit 12/13/21 09:00 12/13/21 08:44 Heparin Sodium,Porcine/Pf 5,000 Unit/0.5 Ml Syringe SQ 5,000 unit Q12HR NEDRA Administration Potassium Chloride/Sodium Chloride 1,000 mls @ 75 mls/hr 12/13/21 01:00 02:25 Ns-Kcl 20 Meq/L Iv Solution IV 75 mls/hr .[id number] NEDRA Administration Insulin Aspart 0 unit 12/13/21 07:30 12/13/21 06:19 Insulin Aspart (Novolog) 100 Unit/Ml Vial SQ Not Given ACHS [facility] Protocol Miscellaneous Information 1 each 12/12/21 22:36 Magnesium Replacement Protocol 1 Each Misc MISCELLANE DAILY PRN Per Protocol Protocol Miscellaneous Information 1 each 12/13/21 06:50 Magnesium Replacement Protocol 1 Each Misc MISCELLANE DAILY PRN Per Protocol Protocol Miscellaneous Information 1 each 12/13/21 10:42 Magnesium Replacement Protocol 1 Each Misc MISCELLANE DAILY PRN Per Protocol Protocol Naloxone HCl 0.2 mg 12/13/21 00:35 Naloxone 0.4 Mg/Ml 1 Ml Vial IV Q2M PRN Opioid Reversal Ondansetron HCl 4 mg 12/13/21 00:35 Ondansetron 4 Mg/2 Ml Vial IVP Q8HR PRN Nausea And Vomiting Intake and Output 12/12/21 12/13/21 12/13/21 22:59 06:59 14:59 Output Total 150 Balance -150 Output: Urine 150 Other: Voiding Method Urinal Urinal # Voids 1 Weight 102.058 kg 102.058 kg 12/12/21 21:00 12/12/21 21:00
[2021-12-13] MEDS ORDERED: FLUDROCORTISONE 0.1 MG TAB PO SCH (11:45)
[2021-12-13 12:26] LABS: Appearance,Urine Clear (Clear); Bilirubin,Urine Negative (Negative); Blood,Urine Negative (Negative); Color,Urine Colorless; Glucose,Urine (UA) 4+ (Negative); Ketones,Urine Negative (Negative); Leukocyte Esterase,Urine Negative (Negative); Nitrite,Urine Negative (Negative); Protein,Urine Negative (Negative); Specific Gravity,Urine 1.008 (1.001-1.035); Urobilinogen,Urine <2.0 mg/dL (<2.0)
[2021-12-13 16:35] LABS: Glucose,Whole Blood 131 mg/dL (70-110)
[2021-12-13 20:25] LABS: Glucose,Whole Blood 141 mg/dL (70-110)
[2021-12-13] MEDS ORDERED: FAMOTIDINE 20 MG/2 ML VIAL IV SCH (21:00)
[2021-12-13] MEDS ORDERED: DEXTROSE 5% IN WATER 100 ML with AMIODARONE 150 MG IV ONE (22:15)
[2021-12-13] MEDS ORDERED: AMIODARONE 360 MG in DEXTROSE 5% IN WATER 200 ML IV ONE ×2 (23:30)
[2021-12-14] MEDS: 0.9% NACL WITH KCL 20 MEQ/L 1,000 ML IV SCH ×3 (05:12→21:52)
[2021-12-14] MEDS ORDERED: AMIODARONE 450 MG in DEXTROSE 5% IN WATER 250 ML IV SCH ×2 (05:30)
[2021-12-14 06:22] LABS: Glucose,Whole Blood 109 mg/dL (70-110)
[2021-12-14] MEDS: INSULIN ASPART (NovoLOG) 100 UNIT/ML VIAL SQ SCH ×4 (06:26→20:15)
[2021-12-14] MEDS: HEPARIN SODIUM,PORCINE/PF 5,000 UNIT/0.5 ML SYRINGE SQ SCH ×2 (08:24→21:46)
[2021-12-14] MEDS: FAMOTIDINE 20 MG TAB PO SCH ×2 (08:24→21:47)
[2021-12-14] MEDS: ASPIRIN 81 MG PO SCH (08:24)
--- NOTE | 2021-12-14 09:09 | P.PN ---
Subjective Progress Note Date: 12/14/21 HISTORY OF PRESENT ILLNESS: This is 76-year-old male who follows in the office with Dr. Trujillo. Patient is admitted to the hospital secondary to dizziness which was thought to be seco ndary to hypotension and dehydration. Patient had a BP of 80/50s on admission. He was started on Florinef. Blood pressures this morning are running in the 200s. Orthostatic blood pressures obtained on 12/13/2021 were negative. Telemetry reveals sinus mechanism with a heart rate in the 50s. Patient was started on IV amio yesterday due to VT. However, upon review of telemetry this is not clear cut VT. Patient denies chest pain or pressure. Denies SOB. Denies dizziness, however he states he has not been out of bed. PHYSICAL EXAM: VITAL SIGNS: Reviewed. GENERAL: Well-developed in no acute distress. NECK: Supple. No JVD or thyromegaly LUNGS: Respirations even and unlabored. Lungs essentially clear to auscultation bilaterally. HEART: Regular rate and rhythm. S1 and S2 heard. EXTREMITIES: Normal range of motion. No clubbing or cyanosis. Peripheral pulses intact. No lower extremity edema ASSESSMENT: Dizziness, thought secondary to hypotension and dehydration, resolved Hypotension, resolved, now hypertensive History of PPM implantation Coronary artery disease Hyperlipidemia Diabetes PLAN: Await results of echocardiogram Discontinue IV amio Begin Metoprolol succinate 25mg daily Interrogate pacemaker Discontinue Florinef Increase activity today to assess for dizziness Further recommendations pending patient course Nurse practitioner note has been reviewed by physician. Signing provider agrees with the documented findings, assessment, and plan of care. Objective - Vital Signs Vital signs: Vital Signs Temp 97.8 F 12/14/21 08:11 Pulse 50 L 12/14/21 08:11 Resp 18 12/14/21 08:11 BP 204/100 12/14/21 08:17 Pulse Ox 96 12/14/21 08:11 FiO2 Intake & Output 12/13/21 12/14/21 12/14/21 18:59 06:59 18:59 Intake Total 476 Output Total 150 450 Balance 326 -450 Intake: Oral 476 Output: Urine 150 450 Other: Voiding Method Urinal Urinal Urinal # Voids 1 - Labs CBC & Chem 7: 12/12/21 21:00 12/12/21 21:00 Labs: Abnormal Lab Results - Last 24 Hours (Table) 12/13/21 12/13/21 12/13/21 Range/Units 05:57 11:12 11:33 POC Glucose (mg/dL) 122 H (70-110) mg/dL Hemoglobin A1c 6.5 H (0.0-6.0) % Urine Glucose (UA) 4+ H (Negative) 12/13/21 12/13/21 Range/Units 16:33 20:23 POC Glucose (mg/dL) 131 H 141 H (70-110) mg/dL Hemoglobin A1c (0.0-6.0) % Urine Glucose (UA) (Negative)
[2021-12-14 09:35] LABS: Basophils % (A) 0 %; Eosinophils # (A) 0.3 k/uL (0-0.7); Eosinophils % (A) 4 %; HCT 45.1 % (39.0-53.0); HGB 15.2 gm/dL (13.0-17.5); Lymphocytes # (A) 2.1 k/uL (1.0-4.8); Lymphocytes % (A) 29 %; MCH 30.7 pg (25.0-35.0); MCHC 33.7 g/dL (31.0-37.0); Mean Platelet Volume 8.3; Monocytes # (A) 0.4 k/uL (0-1.0); Monocytes % (A) 5 %; Neutrophils # (A) 4.2 k/uL (1.3-7.7); Neutrophils % (A) 58 %; Platelet Count 152 k/uL (150-450); RBC 4.95 m/uL (4.30-5.90); RDW 13.5 % (11.5-15.5); WBC 7.2 k/uL (3.8-10.6)
[2021-12-14] MEDS: METOPROLOL SUCCINATE (ER) 25 MG TAB.ER.24H PO SCH (09:38)
[2021-12-14 09:48] LABS: ALT 28 U/L (4-49); AST 25 U/L (17-59); African American GFR (CKD) >90 (>60 ml/min/1.73 sqM); Albumin 4.1 g/dL (3.5-5.0); Alkaline Phosphatase 83 U/L (38-126); Anion Gap 10 mmol/L; Blood Urea Nitrogen 16 mg/dL (9-20); Calcium 8.6 mg/dL (8.4-10.2); Carbon Dioxide 24 mmol/L (22-30); Chloride 105 mmol/L (98-107); Glucose 112 mg/dL (74-99); Magnesium 1.8 mg/dL (1.6-2.3); Non-African American GFR(CKD) 81 (>60 ml/min/1.73 sqM); Potassium 4.4 mmol/L (3.5-5.1); Sodium 139 mmol/L (137-145); Total Bilirubin 0.7 mg/dL (0.2-1.3); Total Protein 6.3 g/dL (6.3-8.2)
[2021-12-14 11:30] LABS: Glucose,Whole Blood 116 mg/dL (70-110)
--- NOTE | 2021-12-14 11:45 | CA ---
Transthoracic Echo Report Name: Jordy Duran Age: 76 Gender: M : 1945 Exam Date: 12/14/2021 10:09 Exam Location: [place] [facility] Ht (in): 73 Wt (lb): 225 Ordering Physician: Amirah Hackett Attending/Referring Phys: [id number], Lew Stitcher Feeder Christine Thompson, RDCS Procedure CPT: Indications: elevated bnp Cardiac Hx: Hyperlipidemia. Hypertension. Parkinsons, CAD, Pacemaker Technical Quality: Good Contrast 1: Total Dose (mL): Contrast 2: Total Dose (mL): MEASUREMENTS (Male / Female) Normal Values 2D ECHO LV Diastolic Diameter PLAX 4.9 cm 4.2 - 5.9 / 3.9 - 5.3 cm LV Systolic Diameter PLAX 3.5 cm IVS Diastolic Thickness 1.3 cm 0.6 - 1.0 / 0.6 - 0.9 cm LVPW Diastolic Thickness 1.4 cm 0.6 - 1.0 / 0.6 - 0.9 cm LV Relative Wall Thickness 0.6 RV Internal Dim ED PLAX 3.5 cm LA Systolic Diameter LX 4.2 cm 3.0 - 4.0 / 2.7 - 3.8 cm LA Volume 63.7 cm??? 18 - 58 / 22 - 52 cm??? M-MODE Aortic Root Diameter MM 4.4 cm MV E Point Septal Separation 1.0 cm AV Cusp Separation MM 2.0 cm DOPPLER AV Peak Velocity 127.1 cm/s AV Peak Gradient 6.5 mmHg MV Area PHT 3.6 cm??? Mitral E Point Velocity 105.2 cm/s Mitral A Point Velocity 75.3 cm/s Mitral E to A Ratio 1.4 MV Deceleration Time 211.4 ms MV E' Velocity 5.8 cm/s Mitral E to MV E' Ratio 18.2 TR Peak Velocity 208.6 cm/s TR Peak Gradient 17.4 mmHg Right Ventricular Systolic Press 22.4 mmHg FINDINGS Left Ventricle Left ventricular ejection fraction is estimated at 55-60 %. Left ventricular cavity size normal. Moderate concentric left ventricular hypertrophy. Right Ventricle Mild right ventricular dilatation. Right ventricular systolic pressure within normal limits. Right Atrium Normal right atrial size. Left Atrium Mildly increased left atrial diameter. Mildly increased left atrial volume. No evidence for an atrial septal defect. Mitral Valve Mitral valve thickened. Mild mitral annular calcification. Trace to mild mitral regurgitation. Aortic Valve Trileaflet aortic valve. No aortic valve stenosis or regurgitation. Tricuspid Valve Structurally normal tricuspid valve. Mild tricuspid regurgitation. Pulmonic Valve Mild pulmonic regurgitation. Pericardium Normal pericardium. No pericardial effusion. Aorta Severe aortic dilatation at the level of the sinuses of valsalva 44 mm. CONCLUSIONS Normal LV size and systolic function with moderate concentric LVH. Prominent right ventricle mildly enlarged left atrium. Mitral annular calcification and aortic sclerosis. Enlarged aortic root/ascending aorta just above the room. No pericardial effusion Previewed by: Dr. Emily Knight MD (Electronically Signed) Final Date: 14 December 2021 11:45
[2021-12-14 16:48] LABS: Glucose,Whole Blood 107 mg/dL (70-110)
[2021-12-14 20:15] LABS: Glucose,Whole Blood 126 mg/dL (70-110)
[2021-12-15 06:45] LABS: Glucose,Whole Blood 93 mg/dL (70-110)
[2021-12-15] MEDS: INSULIN ASPART (NovoLOG) 100 UNIT/ML VIAL SQ SCH ×2 (06:46→12:11)
[2021-12-15 08:57] VITALS: PULSE 50; RESP 18
[2021-12-15] MEDS: HEPARIN SODIUM,PORCINE/PF 5,000 UNIT/0.5 ML SYRINGE SQ SCH (08:57)
[2021-12-15] MEDS: ASPIRIN 81 MG PO SCH (08:57)
[2021-12-15] MEDS: METOPROLOL SUCCINATE (ER) 25 MG TAB.ER.24H PO SCH (08:57)
[2021-12-15] MEDS: FAMOTIDINE 20 MG TAB PO SCH (08:57)
[2021-12-15] MEDS ORDERED: TAMSULOSIN 0.4 MG CAP.ER.24H PO SCH (09:00)
[2021-12-15 09:10] LABS: Calcium 8.9 mg/dL (8.4-10.2); Potassium 4.5 mmol/L (3.5-5.1)
--- NOTE | 2021-12-15 11:16 | P.PN ---
Subjective Progress Note Date: 12/15/21 HISTORY OF PRESENT ILLNESS: This is 76-year-old male who follows in the office with Dr. Trujillo. Patient is admitted to the hospital secondary to dizziness which was thought to be seco ndary to hypotension and dehydration. Patient had a BP of 80/50s on admission. He was started on Florinef. Blood pressures this morning are running in the 200s. Orthostatic blood pressures obtained on 12/13/2021 were negative. Telemetry reveals sinus mechanism with a heart rate in the 50s. Patient was started on IV amio yesterday due to VT. However, upon review of telemetry this is not clear cut VT. Patient denies chest pain or pressure. Denies SOB. Denies dizziness, however he states he has not been out of bed. 12/15/2021 Patient examined this morning at the bedside. Patient denies chest pain or pressure. Denies SOB. Echo reveals EF 55-60%. Pacemaker interrogation does not reveal episodes of ventricular tachycardia. Blood pressure stable with a recent reading of 136/76. PHYSICAL EXAM: VITAL SIGNS: Reviewed. GENERAL: Well-developed in no acute distress. NECK: Supple. No JVD or thyromegaly LUNGS: Respirations even and unlabored. Lungs essentially clear to auscultation bilaterally. HEART: Regular rate and rhythm. S1 and S2 heard. EXTREMITIES: Normal range of motion. No clubbing or cyanosis. Peripheral pulses intact. No lower extremity edema ASSESSMENT: Dizziness, thought secondary to hypotension and dehydration, resolved Hypotension, resolved, now hypertensive History of PPM implantation Coronary artery disease Hyperlipidemia Diabetes PLAN: Continue current cardiac medications Patient is currently stable for discharge home today from a cardiac standpoint Nurse practitioner note has been reviewed by physician. Signing provider agrees with the documented findings, assessment, and plan of care. Objective - Vital Signs Vital signs: Vital Signs Temp 97.8 F 12/15/21 08:56 Pulse 50 L 12/15/21 08:56 Resp 18 12/15/21 08:56 BP 136/76 12/15/21 08:56 Pulse Ox 97 12/15/21 08:56 FiO2 Intake & Output 12/14/21 12/15/21 12/15/21 18:59 06:59 18:59 Intake Total 1331.835 118 Output Total 1050 580 225 Balance 281.835 -580 -107 Intake: Intake, IV Titration 75.835 Amount Amiodarone 450 mg In 75.835 Dextrose 5% in Water 250 ml @ 0.5 MG/MIN 16.667 mls/hr IV .Q15H [facility] Rx#: [id number] Oral 1256 118 Output: Urine 1050 580 225 Other: Voiding Method Urinal Urinal Urinal # Voids 2 1 - Labs CBC & Chem 7: 12/14/21 08:21 12/15/21 07:24 Labs: Abnormal Lab Results - Last 24 Hours (Table) 12/14/21 12/14/21 Range/Units 11:29 20:12 POC Glucose (mg/dL) 116 H 126 H (70-110) mg/dL
[2021-12-15 11:43] LABS: Glucose,Whole Blood 87 mg/dL (70-110)
[2021-12-15 11:50] VITALS: BP 158/88; TEMP 97.9
--- NOTE | 2021-12-15 23:31 | P.PN ---
Subjective This is a pleasant 76 years old male with past medical history of Coronary Artery Disease status post stent, Diabetes Mellitus, GERD, Hyperlipidemia, Hypertension, Osteoarthritis, benign prostatic hypertrophy, Sleep Apnea/CPAP/BIPAP, Syncope, PARKINSON'S -HAND TREMORS & SHUFFLING GAIT;BILLS'S PALSY WITH LEFT FACIAL DROOP., DDD- HAS PAIN STIMULATOR., Kidney stone, status post lithotripsy, chronic back pain status post decompressive laminectomy T9-T10 with neuro stimulator implanted. At this post permanent pacemaker Patient presents because of chest pain and the back of the head, blood pressure was low 84/54 on admission. Associated with headache and lightheadedness Patient fell out of the bed last night. He checked his blood pressure at home at 477/50. Patient denies diarrhea over the last 2 days however this morning he has one large loose bowel movement but no abdominal pain or vomiting. He is complaining also from urgency with urination but no dysuria. Patient has some memory problems.. He follow-up with the neurologist at [place], last visit was about a month ago for his advanced Parkinson disease, he has seen later for his back pain and another one with wires into the head. Currently patient is awake and alert, no weakness or numbness, no slurred speech. No smoking alcohol or illicit drugs. Currently blood pressure improved to 153/92. Patient is afebrile. Labs reviewed with normal CBC, hemoglobin is normal. Sodium 136, creatinine 1.3, last month was 1.2, baseline 1.0-1.2 Magnesium low been placed per protocol, liver enzymes not elevated. Troponin is -0.0-2, proBNP is only mildly elevated 1720. EKG showing atrial paced rhythm Chest x-ray: CT of the head and cervical spine:Multilevel cervical spondylitic changes with no fracture there is no acute intracranial abnormality Chest x-ray: No acute process. Patient in the emergency room is a started on normal saline (patient was not on blood pressure medication at home) 12/14/2021 Patient was still having symptoms in the morning with some dizziness, headache and lightheadedness. Also he was still complaining of from chest pain 6/10. His blood pressure 1:30/78 EF is 55-60%. Labs look stable and creatinine normal. Amiodarone drip in the morning was stopped and patient was started on metoprolol Pacemaker interrogation We will continue close monitoring Objective - Vital Signs Vital signs: Vital Signs Temp 98.0 F 12/14/21 12:22 Pulse 50 L 12/14/21 12:22 Resp 18 12/14/21 12:22 BP 161/79 12/14/21 12:22 Pulse Ox 97 12/14/21 12:22 FiO2 Intake & Output 12/13/21 12/14/21 12/14/21 18:59 06:59 18:59 Intake Total 476 315.835 Output Total 150 450 450 Balance 326 -450 -134.165 Intake: Intake, IV Titration 75.835 Amount Amiodarone 450 mg In 75.835 Dextrose 5% in Water 250 ml @ 0.5 MG/MIN 16.667 mls/hr IV .Q15H [facility] Rx#: [id number] Oral 476 240 Output: Urine 150 450 450 Other: Voiding Method Urinal Urinal Urinal # Voids 1 - Exam GENERAL: The patient is alert and oriented x3, not in any acute distress. Well developed, well nourished. HEENT: Pupils are round and equally reacting to light. EOMI. No scleral icterus. No conjunctival pallor. Normocephalic, atraumatic. No pharyngeal erythema. No thyromegaly. CARDIOVASCULAR: S1 and S2 present. No murmurs, rubs, or gallops. PULMONARY: Chest is clear to auscultation, no wheezing or crackles. ABDOMEN: Soft, nontender, nondistended, normoactive bowel sounds. No palpable organomegaly. MUSCULOSKELETAL: No joint swelling or deformity. EXTREMITIES: No cyanosis, clubbing, or pedal edema. NEUROLOGICAL: Gross neurological examination did not reveal any focal deficits. SKIN: No rashes. no petechiae. - Labs CBC & Chem 7: 12/14/21 08:21 12/14/21 08:21 Labs: Abnormal Lab Results - Last 24 Hours (Table) 12/13/21 12/13/21 12/14/21 Range/Units 16:33 20:23 08:21 Glucose 112 H (74-99) mg/dL POC Glucose (mg/dL) 131 H 141 H (70-110) mg/dL 12/14/21 Range/Units 11:29 Glucose (74-99) mg/dL POC Glucose (mg/dL) 116 H (70-110) mg/dL Assessment and Plan Assessment: Chest pain, rule out cardiac causes Hypotension, present on admission improved Chronic kidney disease stage III with possible mild element of acute kidney injury diabetes mellitus Hyperlipidemia History of Parkinson's disease History of sleep apnea History of benign prostatic hypertrophy History of kidney stones status post lithotripsy History of coronary artery disease status post stenting History of chronic back pain status post decompressive surgery on laminectomy on T10-T9 status post nerve stimulator. Plan: This is a pleasant 76 years old male presents with chest pain and hypertension with headache/lightheadedness Blood pressure improved Pacemaker interrogation Continue with metoprolol Creative Writing Teacher on the case Labs and medication were reviewed.. Continue same treatment. Continue with symptomatic treatment. Resume home medication. Monitor lytes and vitals. DVT and GI prophylaxis. Further recommendations as per clinical course of the patient DVT prophylaxis: Subcutaneous heparin GI Prophylaxis: Pepcid PT/OT: Pending Prognosis is guarded
--- NOTE | 2021-12-15 23:38 | P.DS ---
Providers Date of admission: 12/14/21 08:55 Attending physician: Candice Whitlock Consults: 12/13/21 00:35 Consult Physician Urgent Consulting Provider: Ham Trujillo Consult Reason/Comments: Chest pain, hypotension Do you want consulting provider notified?: Yes, Notify in am Primary care physician: Stated None Hospital Course: Diagnoses: Dizziness, significantly improved, multifactorial secondary to Parkinson disease, hypotension on admission and possible hypoglycemia, versus aging and mild deconditioning Chest pain, rule out cardiac causes Hypotension, present on admission improved Chronic kidney disease stage III with possible mild element of acute kidney injury diabetes mellitus Hyperlipidemia Chronic Parkinson's disease History of sleep apnea History of benign prostatic hypertrophy History of kidney stones status post lithotripsy History of coronary artery disease status post stenting History of chronic back pain status post decompressive surgery on laminectomy on T10-T9 status post nerve stimulator. Hospital course: This is a pleasant 76 years old male with past medical history of Coronary Artery Disease status post stent, Diabetes Mellitus, GERD, Hyperlipidemia, Hypertension, Osteoarthritis, benign prostatic hypertrophy, Sleep Apnea/CPAP/BIPAP, Syncope, PARKINSON'S -HAND TREMORS & SHUFFLING GAIT;BILLS'S PALSY WITH LEFT FACIAL DROOP., DDD- HAS PAIN STIMULATOR., Kidney stone, status post lithotripsy, chronic back pain status post decompressive laminectomy T9-T10 with neuro stimulator implanted. At this post permanent pacemaker Patient presents because of chest pain and the back of the head, associated with some dizziness, headache lightheadedness. After 2 days from hospitalization his chest pain significantly improved and treated as 0/10 by the patient says yesterday he was chest pain free. Also his headache lightheadedness are all improving he only still have very mild postural dizziness when he stands up, patient was advised to use cautious maneuver from sitting to standing position. Echocardiogram showed ejection fraction of 55-60% Also patient evaluated by [employer] and workup was unremarkable, [employer] cleared him for discharge today. Patient denies chest pain or dyspnea or abdominal pain or headache, weakness or numbness on discharge no change in urine or bowel habits. Problems and management plan were discussed with the patient and he verbalized understanding and acceptance Patient was found stable and can be discharged home in guarded progress however he needs follow-up as an outpatient. Patient was instructed to follow up with PCP within one week and patient agrees Patient was instructed to follow up with PCP Dr. Hernandez in 1 week as well as his [employer] Dr. Kearns in 1-2 weeks and he verbalized understanding and acceptance together with his who was at bedside. All their questions were answered to their satisfaction Physical exam Gen: patient is a AAOx3, no distress CVS: S1-S2, RRR, no murmur Lungs: B/L CTA, no wheezing Abdomen: soft, no distention, no tenderness, positive bowel sounds Extremity: no leg edema or induration Time spent more than 35 minutes Patient Condition at Discharge: Fair Plan - Discharge Summary Discharge Rx Participant: No New Discharge Prescriptions: New Metoprolol Succinate (ER) [Toprol XL] 25 mg PO DAILY #30 tab Acetaminophen Tab [Tylenol] 650 mg PO Q6HR PRN tab PRN Reason: Mild Pain Or Fever > 100.5 Continue Esomeprazole Magnesium [NexIUM] 40 mg PO DAILY Atorvastatin [Lipitor] 40 mg PO HS Aspirin 81 mg PO DAILY Cyanocobalamin [Vitamin B-12] 500 mcg PO DAILY Folic Acid 0.4 mg PO DAILY Docusate [Colace] 100 mg PO DAILY PRN PRN Reason: Constipation Citalopram Hydrobromide [Citalopram HBr] 40 mg PO DAILY Donepezil [Aricept] 10 mg PO DAILY Carbidopa/Levodopa [Rytary ER 36.25 mg-145 mg Cap] 1 cap PO BID Tamsulosin [Flomax] 0.4 mg PO BID Mirabegron [Myrbetriq] 50 mg PO DAILY Discontinued metFORMIN HCL 1,000 mg PO BID Dapagliflozin Propanediol [Farxiga] 5 mg PO DAILY Discharge Medication List Aspirin 81 mg PO DAILY 05/21/14 [History] Atorvastatin [Lipitor] 40 mg PO HS 05/21/14 [History] Esomeprazole Magnesium [NexIUM] 40 mg PO DAILY 05/21/14 [History] Cyanocobalamin [Vitamin B-12] 500 mcg PO DAILY 09/15/15 [History] Folic Acid 0.4 mg PO DAILY 11/16/16 [History] Citalopram Hydrobromide [Citalopram HBr] 40 mg PO DAILY 11/13/20 [History] Docusate [Colace] 100 mg PO DAILY PRN 11/13/20 [History] Carbidopa/Levodopa [Rytary ER 36.25 mg-145 mg Cap] 1 cap PO BID 12/13/21 [History] Donepezil [Aricept] 10 mg PO DAILY 12/13/21 [History] Mirabegron [Myrbetriq] 50 mg PO DAILY 12/13/21 [History] Tamsulosin [Flomax] 0.4 mg PO BID 12/13/21 [History] Acetaminophen Tab [Tylenol] 650 mg PO Q6HR PRN tab 12/15/21 [Rx] Metoprolol Succinate (ER) [Toprol XL] 25 mg PO DAILY #30 tab 12/15/21 [Rx] Follow up Appointment(s)/Referral(s): Ham Trujillo MD [STAFF PHYSICIAN] - 12/24/21 3:00 pm João Hernandez MD [REFERRING] - 12/17/21 9:00 am Patient Instructions/Handouts: Metoprolol (By mouth), Vertigo (DC), Hypotension (DC) Activity/Diet/Wound Care/Special Instructions: heart healthy diet , low carbohydrate diet activity is restricted till you see your doctor Discharge Disposition: HOME WITH HOME HEALTH SERVICES
== END 2021-12-15 15:04 | disposition home health service (06) | DRG 313 ==
LOC: EC 19:31 → 3SCARD 12-13 01:22 → OBSVTOIN 12-14 08:55 → UNDODISIN 12-15 10:51
PROVIDERS: ADMIT Hospitalist; ATTEND Hospitalist
PROC: 05HF33Z Insertion of Infusion Device into Left Cephalic Vein, Percutaneous Approach (ICD-10-PCS; principal; 2021-12-14 09:30)
DX: R07.89 Other chest pain (principal); J98.11 Atelectasis; E11.649 Type 2 diabetes mellitus with hypoglycemia without coma; I95.9 Hypotension, unspecified; E11.22 Type 2 diabetes mellitus with diabetic chronic kidney disease; E78.5 Hyperlipidemia, unspecified; E83.42 Hypomagnesemia; E86.0 Dehydration; G51.0 Bell's palsy; F32.A Depression, unspecified; G31.89 Other specified degenerative diseases of nervous system; R42 Dizziness and giddiness; G20 Parkinson's disease; K21.9 Gastro-esophageal reflux disease without esophagitis; R39.15 Urgency of urination; M19.90 Unspecified osteoarthritis, unspecified site; I08.1 Rheumatic disorders of both mitral and tricuspid valves; I37.1 Nonrheumatic pulmonary valve insufficiency; M47.892 Other spondylosis, cervical region; G83.9 Paralytic syndrome, unspecified; I12.9 Hypertensive chronic kidney disease with stage 1 through stage 4 chronic kidney disease, or unspecified chronic kidney disease; I25.10 Atherosclerotic heart disease of native coronary artery without angina pectoris; I25.2 Old myocardial infarction; M47.812 Spondylosis without myelopathy or radiculopathy, cervical region; N18.30 Chronic kidney disease, stage 3 unspecified; N40.0 Benign prostatic hyperplasia without lower urinary tract symptoms; W06.XXXA Fall from bed, initial encounter; Z79.82 Long term (current) use of aspirin; Z79.84 Long term (current) use of oral hypoglycemic drugs; Z79.899 Other long term (current) drug therapy; Z80.6 Family history of leukemia; Z87.442 Personal history of urinary calculi; Z95.0 Presence of cardiac pacemaker; Z95.5 Presence of coronary angioplasty implant and graft; Z88.5 Allergy status to narcotic agent; Z91.048 Other nonmedicinal substance allergy status
CPT/HCPCS: 36410; 36415; 70450; 71045; 72125; 76937; 80048; 80053; 81003; 82550; 83036; 83605; 83735; 83880; 84100; 84443; 84484; 85025; 93005; 93306; 96365; 96366; 96367; 99285

== ENCOUNTER 2022-01-31 16:58 | Inpatient (IN) | payer MEDICARE ==
[2022-01-31 17:41] LABS: Basophils % (A) 0 %; Eosinophils # (A) 0.3 k/uL (0-0.7); Eosinophils % (A) 2 %; HCT 46.3 % (39.0-53.0); HGB 15.8 gm/dL (13.0-17.5); Lymphocytes # (A) 2.2 k/uL (1.0-4.8); Lymphocytes % (A) 19 %; MCH 30.7 pg (25.0-35.0); MCHC 34.2 g/dL (31.0-37.0); MCV 89.7 fL (80.0-100.0); Mean Platelet Volume 8.2; Monocytes # (A) 0.6 k/uL (0-1.0); Monocytes % (A) 6 %; Neutrophils # (A) 7.9 k/uL (1.3-7.7); Neutrophils % (A) 70 %; Platelet Count 173 k/uL (150-450); RBC 5.15 m/uL (4.30-5.90); RDW 13.5 % (11.5-15.5); WBC 11.3 k/uL (3.8-10.6)
--- NOTE | 2022-01-31 17:50 | XR ---
EXAMINATION TYPE: XR shoulder limited LT DATE OF EXAM: 01/31/2022 COMPARISON: NONE HISTORY: Fall. Pain TECHNIQUE: Single view FINDINGS: There is left shoulder prosthesis. Detail limited by overlying artifact. Components appear in anatomic position. There is left axillary pacemaker. IMPRESSION: Limited exam shows no fracture.
--- NOTE | 2022-01-31 17:51 | XR ---
EXAMINATION TYPE: XR chest 1V portable DATE OF EXAM: 01/31/2022 COMPARISON: 12/12/2021 HISTORY: Trauma. Fall. TECHNIQUE: Single view FINDINGS: There is some minimal infiltrate and atelectasis left lung base. Heart size is normal. No h eart failure. There is right axillary pacemaker. There is right shoulder prosthesis. No pneumothorax. IMPRESSION: There is some minimal infiltrate and atelectasis left lung base that appears new compared to old exam.
[2022-01-31 17:55] LABS: AST 40 U/L (17-59); African American GFR (CKD) 75 (>60 ml/min/1.73 sqM); Albumin 4.2 g/dL (3.5-5.0); Alcohol <10 mg/dL; Alkaline Phosphatase 97 U/L (38-126); Anion Gap 8 mmol/L; Blood Urea Nitrogen 22 mg/dL (9-20); Calcium 8.7 mg/dL (8.4-10.2); Carbon Dioxide 22 mmol/L (22-30); Chloride 108 mmol/L (98-107); Glucose 150 mg/dL (74-99); Non-African American GFR(CKD) 65 (>60 ml/min/1.73 sqM); Sodium 138 mmol/L (137-145); Total Protein 6.9 g/dL (6.3-8.2)
[2022-01-31 18:02] LABS: Potassium 4.8 mmol/L (3.5-5.1)
--- NOTE | 2022-01-31 18:07 | CT ---
EXAMINATION TYPE: CT brain cspine wo con DATE OF EXAM: 01/31/2022 COMPARISON: 12/12/2021 HISTORY: syncope CT DLP: 1563.9 mGycm Automated exposure control for dose reduction was used. Ventricles have normal size. There is no mass effect nor midline shift. There is some subtle hypodens ity in the left posterior temporal lobe measuring 4 cm. There is some linear mild increased density w ithin the area. There are bilateral thalamic electrodes noted. The calvarium is intact. There is norm al aeration of the mastoid sinuses. The cervical vertebra have normal alignment. There is degenerative disc space narrowing in the mid an d lower cervical spine with spur formation. Facet joints are intact. No compression fracture. IMPRESSION: There is hypodensity left posterior temporal lobe that could be subacute or acute hemorrhagic infarct . Traumatic hemorrhage with edema not excluded. Multilevel cervical spondylotic changes. No fracture. Left temporal lobe abnormality appears new compared to old exam. Exam was discussed with attending staff at 6:00 PM.
[2022-01-31 18:40] LABS: ALT 16 U/L (4-49)
--- NOTE | 2022-01-31 21:37 | ED ---
General Adult HPI - General Chief complaint: Fall Stated complaint: Syncope Time Seen by Provider: 01/31/22 17:02 Source: patient Mode of arrival: EMS Limitations: no limitations - History of Present Illness Initial comments: This is a 76-year-old male with a past medical history including previous CVA and Parkinson's disease presented to the emergency department via EMS after a fall with syncope. The patient was able to answer all questions and stated that he was in the bathroom when he stood up from the toilet and had a syncopal episode, falling and hitting his head on the ground. The patient stated that he did have loss of consciousness. The patient reported that he only had low dose aspirin and did not have any blood thinners. He does have Parkinson's and does have intermittent weakness and multiple extremities. The patient denied any acute weakness today. The patient on evaluation stated that he only had pain on the left side of his head where he fell but denied any other acute pain or complaints at this time. The patient denied any nausea, vomiting, fevers and chills. The patient also denied any lightheadedness or dizziness at this time. - Related Data Home Medications Medication Instructions Recorded Confirmed Aspirin 81 mg PO DAILY 05/21/14 01/31/22 Atorvastatin [Lipitor] 40 mg PO HS 05/21/14 01/31/22 Esomeprazole Magnesium [NexIUM] 40 mg PO DAILY 05/21/14 01/31/22 Cyanocobalamin [Vitamin B-12] 500 mcg PO DAILY 09/15/15 01/31/22 Folic Acid 0.4 mg PO DAILY 11/16/16 01/31/22 Citalopram Hydrobromide 40 mg PO HS 11/13/20 01/31/22 [Citalopram HBr] Carbidopa/Levodopa [Rytary ER 1 cap PO BID@0900,1600 12/13/21 01/31/22 36.25 mg-145 mg Cap] Donepezil [Aricept] 10 mg PO HS 12/13/21 01/31/22 Mirabegron [Myrbetriq] 50 mg PO HS 12/13/21 01/31/22 Tamsulosin [Flomax] 0.4 mg PO BID 12/13/21 01/31/22 Allergies Allergy/AdvReac Type Severity Reaction Status Date / Time adhesive AdvReac Itching Verified 01/31/22 19:06 morphine AdvReac Excessive Verified 01/31/22 19:06 Sweating Review of Systems ROS Statement: Those systems with pertinent positive or pertinent negative responses have been documented in the HPI. ROS Other: All systems not noted in ROS Statement are negative. Past Medical History Past Medical History: Coronary Artery Disease (CAD), Chest Pain / Angina, Diabetes Mellitus, GERD/Reflux, Hyperlipidemia, Hypertension, Myocardial Infarction ([place]), Neurologic Disorder, Osteoarthritis (OA), Prostate Disorder, Sleep Apnea/CPAP/BIPAP, Syncope Additional Past Medical History / Comment(s): PARKINSON'S -HAND TREMORS & SHUFFLING GAIT;BILLS'S PALSY WITH LEFT FACIAL DROOP.SLEEP APNEA (NO MACHINE), ENLARGED PROSTATE., DDD- HAS PAIN STIMULATOR., HX OF ABDOMINAL PAIN & NAUSEA WHICH HAS IMPROVED SINCE HE STOPPED PARKNINSONS MEDICATIONS., HX Kidney Stone Last Myocardial Infarction Date:: 1996 History of Any Multi-Drug Resistant Organisms: None Reported Past Surgical History: Appendectomy, Back Surgery, Cholecystectomy, Heart Catheterization With Stent, Joint Replacement, Pacemaker Additional Past Surgical History / Comment(s): TOTAL LEFT KNEE, TOTAL LEFT SHOULDER , CARDIAC STENTS X3, BACK SURGERY X 3 WITH CRISTEL AND PLATES, DECOMPRESSION/LAMINECTOMY T9-T10 AND NEURO STIMULATOR IMPLANTED., CYSTOSCOPY., PACEMAKER (11/2016); Lithotripsy, neuro transmitter implanted at [place] to help with his parkinsons Past Anesthesia/Blood Transfusion Reactions: No Reported Reaction Additional Past Anesthesia/Blood Transfusion Reaction / Comment(s): SLIGHT CLAUSTROHOBIA Date of Last Stent Placement:: 2007 Type of Cardiac Device: Permanent Pacemaker Device Placement Date:: 11/2016 Past Psychological History: Depression Smoking Status: Never smoker Past Alcohol Use History: None Reported Past Drug Use History: None Reported - Past Family History Sister(s) Family Medical History: Cancer Additional Family Medical History / Comment(s): [place] Father Sister(s) Additional Family Medical History / Comment(s): FATHER, 2 SISTERS AND 1 BROTHER, LUIS ALBERTO'S DX Mother Family Medical History: Deep Vein Thrombosis (DVT) Brother(s) Family Medical History: Cancer Additional Family Medical History / Comment(s): leukemia General Exam Limitations: no limitations General appearance: alert, in no apparent distress Head exam: Present: normocephalic, other (2 superficial abrasions noted to the left) Eye exam: Present: normal appearance, PERRL Pupils: Present: normal accommodation ENT exam: Present: normal exam, normal oropharynx, mucous membranes moist Neck exam: Present: normal inspection, other (In C collar) Respiratory exam: Present: normal lung sounds bilaterally Cardiovascular Exam: Present: regular rate, normal rhythm, normal heart sounds GI/Abdominal exam: Present: soft, normal bowel sounds Extremities exam: Present: normal inspection, full ROM, normal capillary refill Back exam: Present: normal inspection, full ROM Neurological exam: Present: alert, oriented X3, CN II-XII intact Psychiatric exam: Present: normal affect, normal mood Skin exam: Present: warm, dry Course Vital Signs 01/31/22 01/31/22 01/31/22 17:00 19:30 20:00 Temperature 97.5 F L Pulse Rate 65 78 64 Respiratory 18 16 16 Rate Blood Pressure 95/71 113/72 112/71 O2 Sat by Pulse 97 98 98 Oximetry EKG Findings - EKG Comments: EKG Findings:: An EKG was obtained and was read by myself. EKG showed significant artifact secondary to a nerve stimulator present for his Parkinson's disease. There was no obvious ST segment elevations or depressions noted however the only thing that could be discerned was the rate at 72 2/2 to the artifact. Medical Decision Making - Medical Decision Making The patient was seen and evaluated in the emergency department. Physical exam, the patient was resting in bed without any acute distress. The patient was in c-collar on arrival. Due to the nature the patient's complaints, initially it was reported that the patient had blood thinners and due to the patient's loss of consciousness, a level II trauma was activated. I spoke with the trauma surgeon, Dr. Polanco at 1716. As soon as the patient's family did present at 1750, was determined that the patient had only aspirin and was not any other blood thinners at this time. I attempted to downgrade the trauma at this time however was told at that was not possible. The patient continued his workup however. Laboratory workup was obtained and was within normal limits. Chest x-ray and left shoulder x-ray was obtained as the patient did complain of left shoulder pain. Chest x-ray and left shoulder x-ray were interpreted by myself and left shoulder x-ray showed no acute fracture or pathology noted. Chest x-ray showed some minimal infiltrate atelectasis in the left lung base it appears new however the patient did not complain of any cough or congestion. CT head was also obtained and was interpreted by myself. CT head showed a hypodensity in the left posterior temporal lobe that could be subacute or an acute hemorrhagic infarct. There was traumatic hemorrhage with edema that wasn' t excluded at this time. There was no fractures noted in the C-spine. The left temporal lobe abnormality appeared new compared to the old exam and the radiologist did confirm this finding. On reevaluation, the patient stated that he did not have any acute neurologic findings including weakness, numbness or tingling. The neuro interventional list, Dr. Rao, was contacted regarding this finding at [phone]. He did recommend that the patient should have an MRI and neurology follow-up and evaluation emergency department however he did not recommend transfer at this time. The patient continued to remain stable or several hours observation in the emergency department and did not have any acute changes in his symptoms. Due to the no change in symptoms over several hours, the patient will continue to be admitted here. The patient will be placed in the stepdown unit. Sandra Varela was covering for [facility] who was covering for his PCP. She was contacted at [phone] and accepted the patient for admission. I did place neurology and consult however did not order an MRI as the patient does have a nerds stimulator and pacemaker in place. The patient was told this plan and was agreeable. The patient was admitted in stable condition. - Lab Data Result diagrams: 01/31/22 17:30 01/31/22 17:30 Lab Results 01/31/22 01/31/22 01/31/22 Range/Units 17:30 17:30 17:30 WBC 11.3 H (3.8-10.6) k/uL RBC 5.15 (4.30-5.90) m/uL Hgb 15.8 (13.0-17.5) gm/dL Hct 46.3 (39.0-53.0) % MCV 89.7 (80.0-100.0) fL MCH 30.7 (25.0-35.0) pg MCHC 34.2 (31.0-37.0) g/dL RDW 13.5 (11.5-15.5) % Plt Count 173 (150-450) k/uL MPV 8.2 Neutrophils % 70 % Lymphocytes % 19 % Monocytes % 6 % Eosinophils % 2 % Basophils % 0 % Neutrophils # 7.9 H (1.3-7.7) k/uL Lymphocytes # 2.2 (1.0-4.8) k/uL Monocytes # 0.6 (0-1.0) k/uL Eosinophils # 0.3 (0-0.7) k/uL Basophils # 0.0 (0-0.2) k/uL Sodium 138 (137-145) mmol/L Potassium 4.8 (3.5-5.1) mmol/L Chloride 108 H (98-107) mmol/L Carbon Dioxide 22 (22-30) mmol/L Anion Gap 8 mmol/L BUN 22 H (9-20) mg/dL Creatinine 1.10 (0.66-1.25) mg/dL Est GFR (CKD-EPI)AfAm 75 (>60 ml/min/1.73 sqM) Est GFR (CKD-EPI)NonAf 65 (>60 ml/min/1.73 sqM) Glucose 150 H (74-99) mg/dL Calcium 8.7 (8.4-10.2) mg/dL Total Bilirubin 1.0 (0.2-1.3) mg/dL AST 40 (17-59) U/L ALT 16 (4-49) U/L Alkaline Phosphatase 97 (38-126) U/L Troponin I <0.012 (0.000-0.034) ng/mL Total Protein 6.9 (6.3-8.2) g/dL Albumin 4.2 (3.5-5.0) g/dL Serum Alcohol <10 mg/dL Critical Care Time Critical Care Time: Yes Total Critical Care Time: 38 Disposition Clinical Impression: Syncope, Brain edema, Cerebral brain hemorrhage Disposition: ADMITTED IP TO THIS [facility] Condition: Stable Is patient prescribed a controlled substance at d/c from ED?: No Referrals: João Hernandez MD [Primary Care Provider] - 1-2 days Time of Disposition: 21:45 Decision to Admit Reason: Admit from EC Decision Date: 01/31/22 Decision Time: 21:45
[2022-01-31] MEDS ORDERED: NALOXONE 0.4 MG/ML 1 ML VIAL IV PRN (22:24)
[2022-02-01] MEDS ORDERED: ACETAMINOPHEN TAB 325 MG TAB PO PRN (00:20)
[2022-02-01] MEDS ORDERED: BUTALB/APAP/CAFF 50-325-40MG TAB PO PRN (01:13)
[2022-02-01 06:02] LABS: Appearance,Urine Clear (Clear); Bilirubin,Urine Negative (Negative); Blood,Urine Negative (Negative); Color,Urine Yellow; Glucose,Urine (UA) Negative (Negative); Ketones,Urine Negative (Negative); Leukocyte Esterase,Urine Negative (Negative); Nitrite,Urine Negative (Negative); PH, Urine 5.5 (5.0-8.0); Protein,Urine Trace (Negative); Specific Gravity,Urine 1.028 (1.001-1.035); Urobilinogen,Urine <2.0 mg/dL (<2.0)
[2022-02-01 06:34] LABS: Glucose,Whole Blood 122 mg/dL (70-110)
--- NOTE | 2022-02-01 10:30 | CT ---
EXAMINATION TYPE: CT brain wo con CT DLP: 1158.06 mGycm, Automated exposure control for dose reduction was used. DATE OF EXAM: 02/01/2022 10:04 AM COMPARISON: 01/31/2022. CLINICAL INDICATION:Male, 76 years old with history of ?hemorrhage occipital, ? Hemorrhage Occipital TECHNIQUE: Brain: Axial CT images of the brain were obtained with coronal and sagittal reformats created and rev iewed. Contrast used: None. Oral contrast used: None. FINDINGS: Brain: Extra-axial spaces: No abnormal extra-axial fluid collections. Ventricular system: Within normal limits Cerebral parenchyma: Similar appearing left occipital lobe region of hypodense white matter extending into the cortex. Gyriform hyperdensity is seen within this region there is unchanged from prior. Skip ateral deep nerve stimulator device is present terminating near the thalami. No acute intraparenchyma l hemorrhage or mass effect. The remainder of the hunter-white junctions are well differentiated. Cerebellum: Unremarkable. Mass effect: No evidence of midline shift. Intracranial vasculature: Atherosclerotic calcifications of the intracranial vessels. Soft tissues: Normal. Calvarium/osseous structures: No depressed skull fracture. Paranasal sinuses and mastoid air cells: Mild scattered paranasal sinus disease. Visualized orbits: Bilateral aphakia IMPRESSION: Similar appearing left occipital lobe with hyperdense gyriform attenuation in the region. Findings co uld represent cortical laminar necrosis in the setting of CVA with hemorrhage also remaining in the d ifferential. Attention on MRI imaging.
--- NOTE | 2022-02-01 10:52 | P.CNNES ---
History of Present Illness Consult date: 02/01/22 Requesting physician: Garth Alatorre Reason for Consult: brain edema, possible hemorrhage History of Present Illness: This is a 76-year-old gentleman with history of stroke, Parkinson's disease status post deep brain stimulator, coronary artery disease status post stent, pacemaker, decompression/laminectomy of T9 to T10, diabetes mellitus, hypertension who presented to the emergency department after a fall. Some of t he history is obtained from medical records. It seems the patient was in the bathroom and was on the toilet and he had a fall episode hitting his head on the ground upon standing up from the toilet and it seems that he did have loss of consciousness according to the ED note. Patient denies of any focal weakness. He stated he has been feeling dizzy for at least a week. He stated he was dizzy even before going to bathroom yesterday and feels dizzy is with moving head or moving around but alleviated with rest. Denies diplopia. Denies any seizure episodes in the past. Denies urinary or bowel incontinence with episode. Patient is on home dose of aspirin and is not on any anticoagulation. Some of the workup during his hospital visit consisted of: On initial presentation his initial vital signs is blood pressure of 95/71, heart rate is 65, respiratory of 18, temperature of 97.5 Fahrenheit oral and pulse ox of 97% at room air Patient orthostatic vitals were positive going from sitting to standing. Supine his blood pressure of 111/69 with a heart rate of 65, sitting is 100/64 with a heart rate is 65 and standing is a 85/50 with a heart rate of 65. Initial serum glucose is 150. CT of the head is reported as there is hypodensity in the left posterior temporal lobe that could be subacute or acute hemorrhage infarct traumatic hemorrhage with edema not excluded. Left temporal lobe abnormality appears new compared to old exam. I personally reviewed the CT of the head I didn't ap preciate the hypodensity over the left temporal region which is suspicious for acute ischemic infarct I did find it difficult to state this was a hemorrhage but cannot be excluded in the left occipital region which is questionable. CT cervical spine was reported as multilevel cervical spondylitic changes. No fracture. EKG report is reviewed. ED team spoike with Dr. Arriola (stroke/interventionalist team) and per the ED note the stroke attending and recommended MRI and neurology follow-up evaluation and did not recommend transfer at this time Review of Systems Review of system: The 12 point system was reviewed and apparent positive and negative per HPI. Past Medical History Past Medical History: Coronary Artery Disease (CAD), Chest Pain / Angina, Diabetes Mellitus, GERD/Reflux, Hyperlipidemia, Hypertension, Myocardial Infarction ([place]), Neurologic Disorder, Osteoarthritis (OA), Prostate Disorder, Sl eep Apnea/CPAP/BIPAP, Syncope Additional Past Medical History / Comment(s): PARKINSON'S -HAND TREMORS & SHUFFLING GAIT;BILLS'S PALSY WITH LEFT FACIAL DROOP.SLEEP APNEA (NO MACHINE), ENLARGED PROSTATE., DDD- HAS PAIN STIMULATOR., HX OF ABDOMINAL PAIN & NAUSEA WHICH HAS IMPROVED SINCE HE STOPPED PARKNINSONS MEDICATIONS., HX Kidney Stone Last Myocardial Infarction Date:: 1996 History of Any Multi-Drug Resistant Organisms: None Reported Past Surgical History: Appendectomy, Back Surgery, Cholecystectomy, Heart Catheterization With Stent, Joint Replacement, Pacemaker Additional Past Surgical History / Comment(s): TOTAL LEFT KNEE, TOTAL LEFT SHOULDER , CARDIAC STENTS X3, BACK SURGERY X 3 WITH CRISTEL AND PLATES, DECOMPRESSION/LAMINECTOMY T9-T10 AND NEURO STIMULATOR IMPLANTED., CYSTOSCOPY., PACEMAKER (11/2016); Lithotripsy, neuro transmitter implanted at [place] to help with his parkinsons Past Anesthesia/Blood Transfusion Reactions: No Reported Reaction Additional Past Anesthesia/Blood Transfusion Reaction / Comment(s): SLIGHT CLAUSTROHOBIA Date of Last Stent Placement:: 2007 Type of Cardiac Device: Permanent Pacemaker Device Placement Date:: 11/2016 Smoking Status: Never smoker - Past Family History Sister(s) Family Medical History: Cancer Additional Family Medical History / Comment(s): Luis Alberto Father Sister(s) Additional Family Medical History / Comment(s): FATHER, 2 SISTERS AND 1 BROTHER, LUIS ALBERTO'S DX Mother Family Medical History: Deep Vein Thrombosis (DVT) Brother(s) Family Medical History: Cancer Additional Family Medical History / Comment(s): leukemia Medications and Allergies Home Medications Medication Instructions Recorded Confirmed Type Aspirin 81 mg PO DAILY 05/21/14 01/31/22 History Atorvastatin [Lipitor] 40 mg PO HS 05/21/14 01/31/22 History Esomeprazole Magnesium [NexIUM] 40 mg PO DAILY 05/21/14 01/31/22 History Cyanocobalamin [Vitamin B-12] 500 mcg PO DAILY 09/15/15 01/31/22 History Folic Acid 0.4 mg PO DAILY 11/16/16 01/31/22 History Citalopram Hydrobromide 40 mg PO HS 11/13/20 01/31/22 History [Citalopram HBr] Carbidopa/Levodopa [Rytary ER 1 cap PO BID@0900,1600 12/13/21 01/31/22 History 36.25 mg-145 mg Cap] Donepezil [Aricept] 10 mg PO HS 12/13/21 01/31/22 History Mirabegron [Myrbetriq] 50 mg PO HS 12/13/21 01/31/22 History Tamsulosin [Flomax] 0.4 mg PO BID 12/13/21 01/31/22 History Allergies Allergy/AdvReac Type Severity Reaction Status Date / Time adhesive AdvReac Itching Verified 01/31/22 19:06 morphine AdvReac Excessive Verified 01/31/22 19:06 Sweating Physical Examination - Vital Signs Vital Signs: Vital Signs Temp Pulse Pulse Pulse Pulse Pulse Resp 02/01/22 08:15 98 F 65 65 65 18 02/01/22 04:00 97.9 F 63 18 01/31/22 23:18 97.8 F 63 18 01/31/22 22:30 98.1 F 62 16 01/31/22 21:30 74 16 01/31/22 21:00 73 16 01/31/22 20:30 72 16 01/31/22 20:00 64 16 01/31/22 19:30 78 16 01/31/22 17:00 97.5 F L 65 18 BP BP BP BP BP Pulse Ox 02/01/22 08:15 100/64 85/50 111/69 95 02/01/22 04:00 119/77 95 01/31/22 23:18 125/80 98 01/31/22 22:30 109/74 98 01/31/22 21:30 104/73 98 01/31/22 21:00 104/71 98 01/31/22 20:30 107/73 98 01/31/22 20:00 112/71 98 01/31/22 19:30 113/72 98 01/31/22 17:00 95/71 97 Intake and Output 01/31/22 02/01/22 02/01/22 22:59 06:59 14:59 Intake Total 118 Output Total 300 Balance -300 118 Intake: Oral 118 Output: Urine 300 Other: Voiding Method Urinal Weight 104.326 kg 104.326 kg GENERAL: The patient is lying in bed and is not in acute distress. HENT: Has bruise over the left frontal region from fall. CHEST: The heart rate is regular rate rhythm. No murmurs to auscultation. LUNG: Clear to auscultation bilaterally no wheezing noted throughout. Not labored breathing. ABDOMEN/GI: Bowel sounds present in all 4 quadrants. No tenderness to palpation throughout. NEUROLOGICAL: Higher mental function: The patient is awake, alert, oriented to self, place and time. Somewhat slow to respond but responding appropriately. Patient is following simple commands. No aphasia and no neglect. Cranial nerves: The pupils are round, equal and reactive to light and accommodation. Visual rey are full to confrontation throughout. Extraocular movement is intact no nystagmus is noted. Facial sensation is normal to touch throughout. The facial strength is normal throughout. Hearing is normal bilaterally to hand rub. Tongue is midline and moved [id number] without any difficulty. No dysarthria is noted. Shoulder shrug is normal bilaterally. Motor: The strength is 5 over 5 throughout. Normal tone and bulk. No resting tremor. Cerebellum: Normal finger to nose bilaterally. Sensation: Sensation is normal to touch throughout. Reflexes (right/left): 1+ throughout. Plantars are mute bilaterally. Results - Laboratory Findings CBC and BMP: 01/31/22 17:30 01/31/22 17:30 Abnormal Lab Findings: Abnormal Labs 01/31/22 01/31/22 02/01/22 17:30 17:30 05:45 WBC 11.3 H Neutrophils # 7.9 H Chloride 108 H BUN 22 H Glucose 150 H POC Glucose (mg/dL) Urine Protein Trace H 02/01/22 06:32 WBC Neutrophils # Chloride BUN Glucose POC Glucose (mg/dL) 122 H Urine Protein Assessment and Plan Assessment: Syncopal episode seems due to multifactorial: seesm due to Positive orthostatic. Possible questionable component of vasovagal. Acute Hypodensity in left temporal seems suspicious for acute ischemic stroke. ?reported heomorrhage infarct that is traumatic with edema not excluded on CT head. Parkinson's disease status post deep brain stimulator History of coronary artery disease status post stent Pacemaker History of decompression/laminectomy of T9 to T10 DM Hypertension but on presentation was hypotensive Plan: I ordered repeat CT head STAT. Ordered MRI Brain w/ and w/o but unlikely will be performed since likely not MRI compatible since has Deep brain stimulation and has pacemaker Ordered carotid duplex, 2D echo for stroke work-up. EEG for syncope to rule out seizure. ASA is held for now because of questionable bleeding. Started on Lipitor 10mg qhs for his hx of stroke. Regarding his positive orthostatic: Recommend compression stocking and if ineffective consider salt tab or Midodrine. will defer management to Primary team. Ordered Lipid panel Q4 hour neuro checks Cardiac monitoring Consulted PT and OT Will defer the rest of medical management to primary team. For DVT prophylaxis: Recommend SCD. Hold anticoagulation since has questionable bleed. UPDATE: Repeat CT head is reported as similar appearing left occipital lobe with hyperdense gyriform attenuation in the regions. Findings could represent cortical laminar necrosis in the setting of CVA with hemorrhage also remaining in the differential. The plan is discussed with the patient's nurse. Thank you for the consultation Time with Patient: Greater than 30
[2022-02-01 11:48] LABS: Glucose,Whole Blood 154 mg/dL (70-110)
[2022-02-01 15:29] LABS: Chol/HDL Ratio 3.42 Ratio; LDL Cholesterol,Calculated 56.8 mg/dL (0.0-131.0)
--- NOTE | 2022-02-01 15:55 | US ---
EXAMINATION TYPE: US carotid duplex BILAT DATE OF EXAM: 02/01/2022 COMPARISON: NONE CLINICAL HISTORY: stroke. stroke TECHNIQUE: Carotid duplex ultrasound examination. Indirect Doppler criteria was utilized. FINDINGS: EXAM MEASUREMENTS: RIGHT: Peak Systolic Velocity (PSV) cm/sec ----- Right CCA: 82.5 ----- Right ICA: 55.3 ----- Right ECA: 94.0 ICA/CCA ratio: 0.7 RIGHT: End Diastole cm/sec ----- Right CCA: 9.1 ----- Right ICA: 5.9 ----- Right ECA: 0.0 LEFT: Peak Systolic Velocity (PSV) cm/sec ----- Left CCA: 82.1 ----- Left ICA: 61.9 ----- Left ECA: 90.1 ICA/CCA ratio: 0.8 LEFT: End Diastole cm/sec ----- Left CCA: 12.6 ----- Left ICA: 17.2 ----- Left ECA: 0.0 VERTEBRALS (direction of flow): Right Vertebral: Antegrade Left Vertebral: Antegrade Rhythm: Normal PRIME MINISTER NOTES: Mild homogeneous plaque with no stenosis seen IMPRESSION: Less than 50% stenosis of the bilateral carotid bifurcations. Criteria for Assigning % of Stenosis / Diameter reduction (Estimation based on the indirect measurements of the internal carotid artery velocities (ICA PSV). 1. Normal (no stenosis)=ICA PSV < 125 cm/s: ratio < 2.0: ICA EDV<40 cm/s. 2. Less than 50% stenosis=ICA PSV < 125 cm/s: ratio < 2.0: ICA EDV<40 cm/s. 3. 50 to 69% stenosis=ICA PSV of 125 to 230 cm/s: ration 2.0 ? 4.0: ICA EDV 40-100 cm/s. 4. Greater than 70% stenosis to near occlusion= ICA PSV > 230 cm/s: ratio > 4.0: ICA EDV > 100 cm/s. 5. Near occlusion= ICA PSV velocities may be low or undetectable: variable ratio and ICA EDV. 6. Total occlusion=unable to detect flow.
[2022-02-01] MEDS ORDERED: SODIUM CHLORIDE 0.9% 1,000 ML IV SCH (16:15)
[2022-02-01] MEDS: PANTOPRAZOLE 40 MG TABLET PO SCH (16:30)
[2022-02-01 16:48] LABS: Glucose,Whole Blood 165 mg/dL (70-110)
[2022-02-01 20:07] LABS: Glucose,Whole Blood 164 mg/dL (70-110)
[2022-02-01] MEDS: ATORVASTATIN 10 MG TAB PO SCH (20:46)
[2022-02-01] MEDS: Mirabegron [Myrbetriq] 50 MG Tab.Er.24h PO SCH (20:48)
--- NOTE | 2022-02-01 21:57 | EEG ---
ELECTROENCEPHALOGRAM REPORT CLINICAL HISTORY: This is a 76-year-old gentleman with history of Parkinson disease, who had deep brain stimulation, who presented to the hospital because of syncopal episode. The video EEG is obtained to evaluate for seizure epileptiform activity. RELEVANT MEDICATION: The patient is not on any antiepileptic drug. EEG TYPE: A routine 21-channel EEG is performed with video using the 10/20 electrode placement system. DESCRIPTION: Wakefulness is only obtained. During awake state, it is hard to assess the background because of diffuse significant artifact from the deep brain stimulation. Unable to comment on stage 2 sleep architecture. Again, it is hard to assess. Unable to appreciate any focal slowing from this limited study. There is a significant diffuse artifact from the deep brain stimulation. Interictal and ictal is none. There is no clear discharges or seizure from the study. ACTIVATION PROCEDURE: Photic stimulation did not evoke a posterior driving response, that is clear. There is no abnormality appreciated during the study. Hyperventilation is not performed. CLINICAL INTERPRETATION: This study is obscured by artifact from the deep brain stimulation. Unable to comment on the patient's background because of the artifact. Otherwise, no clear discharges or seizures during the study. Clinical correlation is recommended. MMODL / IJN: [id number] /
--- NOTE | 2022-02-01 23:50 | P.HPIM ---
History of Present Illness H&P Date: 02/01/22 Chief Complaint: Fall Patient is a 76-year-old male with a known history of hypertension, hyperlipidemia, diabetes type 2 diet controlled, obstructive sleep apnea not on CPAP at home coronary artery disease with history of stent placement, history of pulm and pacemaker placement, status post decompression laminectomy T9-T10 and neurostimulator implantation, Parkinson's tremors, left sided Bills's palsy, BPH, nephrolithiasis and other multiple medical problems was brought to the hospital by his family status post fall. Apparently he was on the toilet and had a fall hitting his head. Patient could not recollect when he fell and by the time his arrived home his walker was thrown to the side and patient was sitting on the couch. She notices that he had a bump on his left side forehead. No focal weakness was noted. No blurry vision or slurred speech. No weakness or seizures. No bladder or bowel incontinence. Patient states that he has been feeling dizzy when he was getting out of bed for the past few days. He was also complaining of chest tightness mainly in the left retrosternal. Denied any radiation of the pain. No nausea vomiting abdominal pain or diarrhea. Denied any recent illnesses. On admission patient was hypotensive with blood pressure 95/71 pulse 65 respiration 18 pulse ox 97% on room air. Chest x-ray showed there is some minimal infiltrate and atelectasis left lung base that appears new compared to oral exam. CT head and cervical spine showed there is hypodensity left posterior temporal lobe that could be subacute acute hemorrhagic infarct. Traumatic hemorrhage with the edema not excluded. Multilevel cervical spondylitic changes. No fracture. Left temporal lobe abnormality appears new compared to old exam. Laboratory data showed WBC 11.3 hemoglobin 15.8 and platelets 173 Sodium 138 potassium 4.8 chloride 108 bicarb is 22 BUN 22 and creatinine 1.1 and blood sugar is 150 Calcium 8.7 troponin x1 negative Urinalysis negative for infection EKG showed electronic ventricular paced rhythm. Patient states that he was seen by his tennis professional about 3 weeks ago. Review of Systems Constitutional: Patient denies any fever or chills . Generalized weakness. Dizziness. Abdomen: Patient denied nausea vomiting and diarrhea and abdominal pain. Cardiovascular: Patient denies any chest pain or short of breath no palpitations. Respiratory: patient denied any cough or sputum production. No shortness of breath Neurologic: Patient denied any numbness or tingling headache. Dizziness. Musculoskeletal: Patient denies any complaints of joint swelling or deformity. Skin: Negative Psychiatric: Negative Endocrine: No heat or cold intolerance. No recent weight gain. Genitourinary: No dysuria or hematuria. All other 14 point ROS negative except the above Past Medical History Past Medical History: Coronary Artery Disease (CAD), Chest Pain / Angina, Diabetes Mellitus, GERD/Reflux, Hyperlipidemia, Hypertension, Myocardial Infarction ([place]), Neurologic Disorder, Osteoarthritis (OA), Prostate Disorder, Sleep Apnea/CPAP/BIPAP, Syncope Additional Past Medical History / Comment(s): PARKINSON'S -HAND TREMORS & SHUFFLING GAIT;BILLS'S PALSY WITH LEFT FACIAL DROOP.SLEEP APNEA (NO MACHINE), ENLARGED PROSTATE., DDD- HAS PAIN STIMULATOR., HX OF ABDOMINAL PAIN & NAUSEA WHICH HAS IMPROVED SINCE HE STOPPED PARKNINSONS MEDICATIONS., HX Kidney Stone Last Myocardial Infarction Date:: 1996 History of Any Multi-Drug Resistant Organisms: None Reported Past Surgical History: Appendectomy, Back Surgery, Cholecystectomy, Heart Catheterization With Stent, Joint Replacement, Pacemaker Additional Past Surgical History / Comment(s): TOTAL LEFT KNEE, TOTAL LEFT SHOULDER , CARDIAC STENTS X3, BACK SURGERY X 3 WITH CRISTEL AND PLATES, DECOMPRESSION/LAMINECTOMY T9-T10 AND NEURO STIMULATOR IMPLANTED., CYSTOSCOPY., PACEMAKER (11/2016); Lithotripsy, neuro transmitter implanted at [facility] to help with his parkinsons Past Anesthesia/Blood Transfusion Reactions: No Reported Reaction Additional Past Anesthesia/Blood Transfusion Reaction / Comment(s): SLIGHT CLAUSTROHOBIA Date of Last Stent Placement:: 2007 Type of Cardiac Device: Permanent Pacemaker Device Placement Date:: 11/2016 Smoking Status: Never smoker - Past Family History Sister(s) Family Medical History: Cancer Additional Family Medical History / Comment(s): [place] Father Sister(s) Additional Family Medical History / Comment(s): FATHER, 2 SISTERS AND 1 BROTHER, LUIS ALBERTO'S DX Mother Family Medical History: Deep Vein Thrombosis (DVT) Brother(s) Family Medical History: Cancer Additional Family Medical History / Comment(s): leukemia Medications and Allergies Home Medications Medication Instructions Recorded Confirmed Type Aspirin 81 mg PO DAILY 05/21/14 01/31/22 History Atorvastatin [Lipitor] 40 mg PO HS 05/21/14 01/31/22 History Esomeprazole Magnesium [NexIUM] 40 mg PO DAILY 05/21/14 01/31/22 History Cyanocobalamin [Vitamin B-12] 500 mcg PO DAILY 09/15/15 01/31/22 History Folic Acid 0.4 mg PO DAILY 11/16/16 01/31/22 History Citalopram Hydrobromide 40 mg PO HS 11/13/20 01/31/22 History [Citalopram HBr] Carbidopa/Levodopa [Rytary ER 1 cap PO BID@0900,1600 12/13/21 01/31/22 History 36.25 mg-145 mg Cap] Donepezil [Aricept] 10 mg PO HS 12/13/21 01/31/22 History Mirabegron [Myrbetriq] 50 mg PO HS 12/13/21 01/31/22 History Tamsulosin [Flomax] 0.4 mg PO BID 12/13/21 01/31/22 History Allergies Allergy/AdvReac Type Severity Reaction Status Date / Time adhesive AdvReac Itching Verified 01/31/22 19:06 morphine AdvReac Excessive Verified 01/31/22 19:06 Sweating Physical Exam Vitals: Vital Signs Temp Pulse Pulse Pulse Pulse Pulse Pulse 02/01/22 12:50 97.9 F 62 02/01/22 08:15 98 F 63 65 65 65 02/01/22 04:00 97.9 F 63 01/31/22 23:18 97.8 F 63 01/31/22 22:30 98.1 F 62 01/31/22 21:30 74 01/31/22 21:00 73 01/31/22 20:30 72 01/31/22 20:00 64 01/31/22 19:30 78 01/31/22 17:00 97.5 F L 65 Resp BP BP BP BP BP Pulse Ox 02/01/22 12:50 18 116/69 100 02/01/22 08:15 18 100/64 85/50 111/69 95 02/01/22 04:00 18 119/77 95 01/31/22 23:18 18 125/80 98 01/31/22 22:30 16 109/74 98 01/31/22 21:30 16 104/73 98 01/31/22 21:00 16 104/71 98 01/31/22 20:30 16 107/73 98 01/31/22 20:00 16 112/71 98 01/31/22 19:30 16 113/72 98 01/31/22 17:00 18 95/71 97 Intake and Output 01/31/22 02/01/22 02/01/22 22:59 06:59 14:59 Intake Total 118 Output Total 300 Balance -300 118 Intake: Oral 118 Output: Urine 300 Other: Voiding Method Urinal Urinal Weight 104.326 kg 104.326 kg PHYSICAL EXAMINATION: Patient is lying in the bed comfortably, no acute distress, awake alert and oriented.. HEENT: Normocephalic. Bruise on the left forehead. Neck is supple. Pupils reactive. Nostrils clear. Oral cavity is moist. Neck reveals no JVD, carotid bruits, or thyromegaly. CHEST EXAMINATION: Trachea is central. Symmetrical expansion. Lung rey clear to auscultation and percussion. CARDIAC: Normal S1, S2 with no gallops. No murmurs ABDOMEN: Soft. Bowel sounds normal. No organomegaly. No abdominal bruits. Extremities: reveal no edema. No clubbing or cyanosis Neurologically awake, alert, oriented x3 with well-coordinated movements. Left facial droop., tremors. Skin: No rash or skin lesions. Psychiatric: Cooperative. Nonsuicidal Musculoskeletal: No joint swelling or deformity. Normal range of motion. Results CBC & Chem 7: 01/31/22 17:30 01/31/22 17:30 Labs: Abnormal Lab Results - Last 24 Hours (Table) 01/31/22 01/31/22 02/01/22 Range/Units 17:30 17:30 05:45 WBC 11.3 H (3.8-10.6) k/uL Neutrophils # 7.9 H (1.3-7.7) k/uL Chloride 108 H (98-107) mmol/L BUN 22 H (9-20) mg/dL Glucose 150 H (74-99) mg/dL POC Glucose (mg/dL) (70-110) mg/dL Urine Protein Trace H (Negative) 02/01/22 02/01/22 Range/Units 06:32 11:47 WBC (3.8-10.6) k/uL Neutrophils # (1.3-7.7) k/uL Chloride (98-107) mmol/L BUN (9-20) mg/dL Glucose (74-99) mg/dL POC Glucose (mg/dL) 122 H 154 H (70-110) mg/dL Urine Protein (Negative) Thrombosis Risk Factor Assmnt - DVT/VTE Prophylaxis DVT/VTE Prophylaxis: Pharmacologic Prophylaxis ordered - Choose All That Apply Any of the Below Risk Factors Present?: Yes Each Factor Represents 1 point: Acute VA, Hx of IBD, Obesity (BMI >25) Other Risk Factors: Yes Each Risk Factor Represents 2 Points: Patient confined to bed Each Risk Factor Represents 3 Points: Age 75 years or older Other congenital or acquired thrombophilia - If yes, enter type in comment: No Thrombosis Risk Factor Assessment Total Risk Factor Score: 8 Thrombosis Risk Factor Assessment Level: High Risk Assessment and Plan Assessment: Acute syncopal episode with complaints of dizziness and fall, hitting his left Forehead. Likely due to orthostatic hypotension. Acute hypodensity in the left posterior temporal lobe. Suspected hemorrhagic stroke. MRI of the brain could not be done due to neurostimulator in place. Atypical chest pain. Rule out ACS. History of coronary disease status post stent placement History of permanent pacemaker placement History of decompression laminectomy T9-T10 with Neurostimulator in place Diabetes type 2 diet controlled Hypertension Hyperlipidemia History of VA Obstructive sleep apnea not using CPAP at home History of nephrolithiasis and BPH Depression DVT prophylaxis. On hold due to suspected hemorrhagic CVA. Plan: Patient will be continued on telemetry monitoring. Gentle IV hydration Stroke work-up including CT head, 2D echocardiogram and EEG was ordered. MRI of the brain could not be done due to deep brain stimulator.. Anticoagulation is on hold. Follow-up orthostatic vitals. Continue with neurochecks every 4 hourly and neurology is on board. Cardiology was consulted to complaints of chest pain and dizziness. PT OT will be consulted and follow-up closely. Time with Patient: Greater than 30
[2022-02-02 06:04] LABS: Glucose,Whole Blood 131 mg/dL (70-110)
[2022-02-02] MEDS: PANTOPRAZOLE 40 MG TABLET PO SCH (06:33)
[2022-02-02] MEDS: CYANOCOBALAMIN 500 MCG TAB PO SCH (08:56)
[2022-02-02] MEDS: FOLIC ACID 1 MG TAB PO SCH (08:56)
[2022-02-02 09:12] LABS: African American GFR (CKD) >90 (>60 ml/min/1.73 sqM); Anion Gap 8 mmol/L; Blood Urea Nitrogen 18 mg/dL (9-20); Calcium 8.4 mg/dL (8.4-10.2); Carbon Dioxide 19 mmol/L (22-30); Chloride 110 mmol/L (98-107); Glucose 174 mg/dL (74-99); Non-African American GFR(CKD) 80 (>60 ml/min/1.73 sqM); Potassium 4.3 mmol/L (3.5-5.1); Sodium 137 mmol/L (137-145)
[2022-02-02 09:34] LABS: Basophils % (A) 0 %; Eosinophils # (A) 0.3 k/uL (0-0.7); Eosinophils % (A) 3 %; HCT 46.3 % (39.0-53.0); HGB 15.8 gm/dL (13.0-17.5); Lymphocytes # (A) 2.3 k/uL (1.0-4.8); Lymphocytes % (A) 28 %; MCH 31.5 pg (25.0-35.0); MCHC 34.1 g/dL (31.0-37.0); MCV 92.3 fL (80.0-100.0); Mean Platelet Volume 8.1; Monocytes # (A) 0.5 k/uL (0-1.0); Monocytes % (A) 5 %; Neutrophils # (A) 5.1 k/uL (1.3-7.7); Neutrophils % (A) 61 %; RBC 5.02 m/uL (4.30-5.90); RDW 13.5 % (11.5-15.5); WBC 8.4 k/uL (3.8-10.6)
--- NOTE | 2022-02-02 10:19 | P.CRDCN ---
History of Present Illness History of present illness: HISTORY OF PRESENTING ILLNESS This is a pleasant 76-year-old male past medical history significant for coronary artery disease status post PCI to the mid PLB in 2007, proximal LAD in 1996, mid PDA in 2012, dyslipidemia, hypertension, type 2 diabetes, paroxysmal atrial fibrillation not on anticoagulation secondary to increased falls Coumadin was discontinued in the past, obstructive sleep apnea, sick sinus syndrome status post dual-chamber pacemaker implantation in 2017, Parkinson's disease, deep brain stimulator implantation, Bills's palsy,decompression/laminectomy of T9 to T10, orthostatic hypotension. He follows in the office with Dr. Trujillo. We have been asked to see in consultation for chest pain and dizziness. Patient presents to the emergency department with complaints of possible syncopal episode. He states he went to the bathroom at home, while he was walking out of the bathroom he felt as if he may pass out. He had increased dizziness, lightheadedness, he is not sure if he passed out or not but does not remember what happened after this. Per the ER note patient did lose consciousness and fell and hit his head. He denies any shortness of breath, palpitations, nausea, vomiting. He denied any urinary or bowel incontinence. Denied any changes in his vision. Denies any focal weakness. He has been having some intermittent discomfort across his bilateral arms and across his chest. It occurs with activity and at rest. No specific aggravating or alleviating factors. No specific associated symptoms. No current chest pain this morning. He underwent workup in the ER and CT head hypodensity in the left posterior temporal lobe that could be subacute or acute hemorrhage infarct traumatic hemorrhage with edema not excluded. Left temporal lobe abnormality appears new compared to old exam. DIAGNOSTICS * EKG reveals AV paced rhythm. * Last Cardiac Catheterization 2012 revealed normal ejection fraction, 40% stenosis in the mid LAD, 95% since stenosis in the proximal OM 3, 99% mid PDA stenosis. Patient underwent PCI to mid PDA * Echocardiogram in the office 12/14/2021 revealed a normal ejection fraction, mild tricuspid regurgitation, aortic root is 4.4 cm. * Telemetry tracings indicate AV paced some intermittent atrial fibrillation episodes that are controlled * Repeat brain CT reported similar appearing left occipital lobe hypodense attenuation the region, findings could represent cortical laminar necrosis CVA with hemorrhage also remained in differential * Chest xray no acute cardiopulmonary process, some minimal infiltrate and atelectasis of left lung base * Laboratory reviewed, troponin negative, WBC 8.4, hemoglobin 15.8, sodium 137, potassium 4.3, BUN 18, serum grams or 0.9, d-dimer negative * Current home cardiac medications include aspirin 80 mg daily, atorvastatin 40 mg nightly REVIEW OF SYSTEMS At the time of my exam: CONSTITUTIONAL: Denies fever or chills. CARDIOVASCULAR: +chest pain, Denies shortness of breath, orthopnea, PND or palp itations. RESPIRATORY: Denies cough. GASTROINTESTINAL: Denies abdominal pain, diarrhea, constipation, nausea or vomiting. MUSCULOSKELETAL: Denies myalgias. NEUROLOGIC: +dizziness, +syncope Denies numbness, tingling, headache or weakness. ENDOCRINE: Denies fatigue, weight change, polydipsia or polyurina. GENITOURINARY: Denies burning, hematuria or urgency with micturation. HEMATOLOGIC: Denies history of anemia or bleeding. PHYSICAL EXAMINATION Blood pressure 122/76, heart rate 71, afebrile, saturations 96% on room air CONSTITUTIONAL: No apparent distress. HEENT: Head is normocephalic. Pupils are equal, round. Sclerae anicteric. Mucous membranes of the mouth are moist. No JVD. No carotid bruit. CHEST EXAMINATION: Lungs are clear to auscultation. No chest wall tenderness is noted on palpation or with deep breathing. HEART EXAMINATION: Regular rate and rhythm. S1, S2 heard. No murmurs, gallops or rub. ABDOMEN: Soft, nontender. Positive bowel sounds. EXTREMITIES: 2+ peripheral pulses, no lower extremity edema and no calf tenderness. SKIN: warm, dry NEUROLOGIC EXAMINATION: Patient is awake, alert and oriented x2, somewhat confused about medical history ASSESSMENT Dizziness Syncopal episode CT brain reported left posterior temporal lobe subacute or acute hemorrhagic infarct, traumatic hemorrhage with edema not excluded, Neurology following Orthostatic hypotension Chest pain, acute coronary syndrome has ruled out Coronary artery disease status post PCI to the mid PLB in 2007, proximal LAD in 1996, mid PDA in 2012 Dyslipidemia Hypertension Type 2 diabetes Paroxysmal atrial fibrillation not on anticoagulation secondary to increased falls Coumadin was discontinued in the past Obstructive sleep apnea Sick sinus syndrome status post dual-chamber pacemaker implantation in 2017 Parkinson's disease, deep brain stimulator implantation History of Bills's palsy History of decompression/laminectomy of T9 to T10 PLAN An acute coronary event has been ruled out with no EKG evidence of ischemia and negative cardiac enzymes. Obtain 2D echocardiogram and doppler study to assess cardiac structure and function. Neurology following Dizziness likely related to CVA Antiplatelets on hold Hold antihypertensive medications Further recommendations based on clinical course Thank you kindly for this consultation. Nurse practitioner note has been reviewed by physician. Signing provider agrees with the documented findings, assessment, and plan of care. Past Medical History Past Medical History: Coronary Artery Disease (CAD), Chest Pain / Angina, Diabetes Mellitus, GERD/Reflux, Hyperlipidemia, Hypertension, Myocardial Infarction ([place]), Neurologic Disorder, Osteoarthritis (OA), Prostate Disorder, Sleep Apnea/CPAP/BIPAP, Syncope Additional Past Medical History / Comment(s): PARKINSON'S -HAND TREMORS & SHUFFLING GAIT;BILLS'S PALSY WITH LEFT FACIAL DROOP.SLEEP APNEA (NO MACHINE), ENLARGED PROSTATE., DDD- HAS PAIN STIMULATOR., HX OF ABDOMINAL PAIN & NAUSEA WHICH HAS IMPROVED SINCE HE STOPPED PARKNINSONS MEDICATIONS., HX Kidney Stone Last Myocardial Infarction Date:: 1996 History of Any Multi-Drug Resistant Organisms: None Reported Past Surgical History: Appendectomy, Back Surgery, Cholecystectomy, Heart Catheterization With Stent, Joint Replacement, Pacemaker Additional Past Surgical History / Comment(s): TOTAL LEFT KNEE, TOTAL LEFT SHOULDER , CARDIAC STENTS X3, BACK SURGERY X 3 WITH CRISTEL AND PLATES, DE COMPRESSION/LAMINECTOMY T9-T10 AND NEURO STIMULATOR IMPLANTED., CYSTOSCOPY., PACEMAKER (11/2016); Lithotripsy, neuro transmitter implanted at [place] to help with his parkinsons Past Anesthesia/Blood Transfusion Reactions: No Reported Reaction Additional Past Anesthesia/Blood Transfusion Reaction / Comment(s): SLIGHT CLAUSTROHOBIA Date of Last Stent Placement:: 2007 Type of Cardiac Device: Permanent Pacemaker Device Placement Date:: 11/2016 Smoking Status: Never smoker - Past Family History Sister(s) Family Medical History: Cancer Additional Family Medical History / Comment(s): [place] Father Sister(s) Additional Family Medical History / Comment(s): FATHER, 2 SISTERS AND 1 BROTHER, LUIS ALBERTO'S DX Mother Family Medical History: Deep Vein Thrombosis (DVT) Brother(s) Family Medical History: Cancer Additional Family Medical History / Comment(s): leukemia Medications and Allergies Home Medications Medication Instructions Recorded Confirmed Type Aspirin 81 mg PO DAILY 05/21/14 01/31/22 History Atorvastatin [Lipitor] 40 mg PO HS 05/21/14 01/31/22 History Esomeprazole Magnesium [NexIUM] 40 mg PO DAILY 05/21/14 01/31/22 History Cyanocobalamin [Vitamin B-12] 500 mcg PO DAILY 09/15/15 01/31/22 History Folic Acid 0.4 mg PO DAILY 11/16/16 01/31/22 History Citalopram Hydrobromide 40 mg PO HS 11/13/20 01/31/22 History [Citalopram HBr] Carbidopa/Levodopa [Rytary ER 1 cap PO BID@0900,1600 12/13/21 01/31/22 History 36.25 mg-145 mg Cap] Donepezil [Aricept] 10 mg PO HS 12/13/21 01/31/22 History Mirabegron [Myrbetriq] 50 mg PO HS 12/13/21 01/31/22 History Tamsulosin [Flomax] 0.4 mg PO BID 12/13/21 01/31/22 History Allergies Allergy/AdvReac Type Severity Reaction Status Date / Time adhesive AdvReac Itching Verified 01/31/22 19:06 morphine AdvReac Excessive Verified 01/31/22 19:06 Sweating Physical Exam Vitals: Vital Signs Temp Pulse Pulse Resp BP BP Pulse Ox 02/02/22 03:05 97.3 F L 65 16 124/74 95 02/01/22 23:27 98.2 F 64 16 163/95 96 02/01/22 20:00 98.2 F 59 L 16 115/70 96 02/01/22 16:30 58 L 16 123/82 96 02/01/22 12:50 97.9 F 62 18 116/69 100 Intake and Output 02/01/22 02/02/22 02/02/22 22:59 06:59 14:59 Intake Total 1110 1350 Output Total 250 Balance 860 1350 Intake: Intake, IV Titration 150 750 Amount Sodium Chloride 0.9% 1, 150 750 000 ml @ 75 mls/hr IV . [id number] [facility] Rx#:[id number] Oral 960 600 Output: Urine 250 Other: Voiding Method Urinal Urinal # Voids 1 2 Results 02/02/22 08:25 02/02/22 08:25 Lipids 02/01/22 Range/Units 10:09 Triglycerides 158.00 H (0.00-149.00) mg/dL Cholesterol 125.00 (0.00-200.00) mg/dL HDL Cholesterol 36.60 L (40.00-60.00) mg/dL Cholesterol/HDL Ratio 3.42 Ratio Current Medications Generic Name Dose Route Start Last Admin Trade Name Freq PRN Reason Stop Dose Admin Acetaminophen 650 mg 02/01/22 00:20 02/01/22 20:46 Acetaminophen Tab 325 Mg Tab PO 650 mg Q4HR PRN Administration Fever and/ or Pain Acetaminophen/Butalbital/Caffeine 1 each 02/01/22 01:13 02/01/22 05:13 Butalb/Apap/Caff 50-325-40mg Tab PO 1 each Q4HR PRN Administration Headache Atorvastatin Calcium 10 mg 02/01/22 21:00 02/01/22 20:46 Atorvastatin 10 Mg Tab PO 10 mg HS [facility] Administration Cyanocobalamin 500 mcg 02/02/22 09:00 Cyanocobalamin 500 Mcg Tab PO DAILY [facility] Folic Acid 0.5 mg 02/02/22 09:00 Folic Acid 1 Mg Tab PO DAILY [facility] Naloxone HCl 0.2 mg 01/31/22 22:24 Naloxone 0.4 Mg/Ml 1 Ml Vial IV Q2M PRN Opioid Reversal Carbidopa/Levodopa [ 1 cap 02/02/22 09:00 Rytary Er 36.25 Mg- PO 145 Mg Cap] 1 Each BID@0900,1600 [facility] Capsule.Er) Mirabegron [ 50 mg 02/01/22 21:00 02/01/22 20:48 Myrbetriq] 50 Mg Tab PO Not Given .Er.24h HS [facility] Pantoprazole Sodium 40 mg 02/01/22 16:30 02/02/22 06:33 Pantoprazole 40 Mg Tablet PO 40 mg [id number] [facility] Administration Intake and Output 02/01/22 02/02/22 02/02/22 22:59 06:59 14:59 Intake Total 1110 1350 Output Total 250 Balance 860 1350 Intake: Intake, IV Titration 150 750 Amount Sodium Chloride 0.9% 1, 150 750 000 ml @ 75 mls/hr IV . [id number] [facility] Rx#:[id number] Oral 960 600 Output: Urine 250 Other: Voiding Method Urinal Urinal # Voids 1 2 01/31/22 17:30 01/31/22 17:30
[2022-02-02 10:53] LABS: Platelet Count 163 k/uL (150-450)
[2022-02-02 11:52] LABS: Glucose,Whole Blood 125 mg/dL (70-110)
--- NOTE | 2022-02-02 13:13 | P.PN ---
Subjective Progress Note Date: 02/02/22 The patient is seen at bedside and states he is doing about the same. States has intermittent headache over the right temporal region. Denies nausea, vomiting, visual disturbance. Unable to obtain MRI since has DBS and packemaker. Objective - Vital Signs Vital signs: Vital Signs Temp 97.8 F 02/02/22 11:30 Pulse 61 02/02/22 11:30 Resp 18 02/02/22 11:30 BP 156/94 02/02/22 11:30 Pulse Ox 97 02/02/22 11:30 FiO2 Intake & Output 02/01/22 02/02/22 02/02/22 18:59 06:59 18:59 Intake Total 1408 1350 118 Output Total 250 375 Balance 1158 1350 -257 Intake: Intake, IV Titration 150 750 Amount Sodium Chloride 0.9% 1, 150 750 000 ml @ 75 mls/hr IV . [id number] [facility] Rx#:[id number] Oral 1258 600 118 Output: Urine 250 375 Other: Voiding Method Urinal Urinal Urinal # Voids 2 - Exam GENERAL: The patient is lying in bed and is not in acute distress. HENT: Has bruise over the left frontal region from fall. NEUROLOGICAL: Higher mental function: The patient is awake, alert, oriented to self, place and time. Somewhat slow to respond but responding appropriately. Patient is following simple commands. No aphasia and no neglect. Cranial nerves: The pupils are round, equal and reactive to light and accommodation. Visual rey are full to confrontation throughout. Extraocular movement is intact no nystagmus is noted. Facial sensation is normal to touch throughout. The facial strength is normal throughout. Hearing is normal bilaterally to hand rub. Tongue is midline and moved [id number] without any difficulty. No dysarthria is noted. Shoulder shrug is normal bilaterally. Motor: The strength is 5 over 5 throughout. Normal tone and bulk. No resting tremor. Cerebellum: Normal finger to nose bilaterally. Sensation: Sensation is normal to touch throughout. Reflexes (right/left): 1+ throughout. Plantars are mute bilaterally. Some of the workup during his hospital visit consisted of: Patient orthostatic vitals were positive going from sitting to standing. Supine his blood pressure of 111/69 with a heart rate of 65, sitting is 100/64 with a heart rate is 65 and standing is a 85/50 with a heart rate of 65. Lipid panel: Triglyceride is 158, cholesterol is 125, LDL 56 and HDL is 36. Serum alcohol level was less than 10. CT of the head is reported as there is hypodensity in the left posterior temporal lobe that could be subacute or acute hemorrhage infarct traumatic hemorrhage with edema not excluded. Left temporal lobe abnormality appears new compared to old exam. I personally reviewed the CT of the head I didn't appreciate the hypodensity over the left temporal region which is suspicious for acute ischemic infarct I did find it difficult to state this was a hemorrhage but cannot be excluded in the left occipital region which is questionable. CT cervical spine was reported as multilevel cervical spondylitic changes. No fracture. Repeat CT head: Similar-appearing left occipital lobe with hyperdense gyriform attenuation in the region. Findings could represent cortical laminar necrosis in the setting of stroke with hemorrhagic also remaining in the differential. Routine EEG: This study is obscured by artifact from the deep brain stimulation. Unable to comment on the patient's background because of the artifact. Otherwise no clear discharges or seizure during the study. Clinical correlation is recommended. Carotid duplex is reported as less than 50% stenosis in bilateral carotid bifurcation. - Labs CBC & Chem 7: 02/02/22 08:25 02/02/22 08:25 Labs: Abnormal Lab Results - Last 24 Hours (Table) 02/01/22 02/01/22 02/01/22 Range/Units 10:09 16:47 20:05 Chloride (98-107) mmol/L Carbon Dioxide (22-30) mmol/L Glucose (74-99) mg/dL POC Glucose (mg/dL) 165 H 164 H (70-110) mg/dL Triglycerides 158.00 H (0.00-149.00) mg/dL HDL Cholesterol 36.60 L (40.00-60.00) mg/dL 02/02/22 02/02/22 02/02/22 Range/Units 06:03 08:25 11:51 Chloride 110 H (98-107) mmol/L Carbon Dioxide 19 L (22-30) mmol/L Glucose 174 H (74-99) mg/dL POC Glucose (mg/dL) 131 H 125 H (70-110) mg/dL Triglycerides (0.00-149.00) mg/dL HDL Cholesterol (40.00-60.00) mg/dL Assessment and Plan Assessment: Syncopal episode seems due to multifactorial: seesm due to Positive orthostatic. Possible questionable component of vasovagal. Left occipital lobe with hyperdense gyriform attenuation in the region. Findings could represent cortical laminar necrosis in the setting of stroke with hemorrhagic on CT head. I feel possible acute to subacute stroke with ?possible hemorrhage conversion. Parkinson's disease status post deep brain stimulator History of coronary artery disease status post stent Pacemaker History of decompression/laminectomy of T9 to T10 DM Hypertension but on presentation was hypotensive Plan: I ordered CTA head to rule out any AV malformation. Unable to obtain MRI since has DBS and pacemaker. Recommend MRI as outpatient. Pending 2D echo. ASA is held for now because of questionable bleeding. Started on Lipitor 10mg qhs for his hx of stroke. Regarding his positive orthostatic: Recommend compression stocking and if ineffective consider salt tab or Midodrine. will defer management to Primary team. Q4 hour neuro checks Cardiac monitoring Consulted PT and OT Will defer the rest of medical management to primary team. For DVT prophylaxis: Recommend SCD. Hold anticoagulation since has questionable bleed. The plan is discussed with the patient and his nurse. Time with Patient: Less than 30
--- NOTE | 2022-02-02 13:38 | CA ---
Transthoracic Echo Report Name: Jordy Duran Age: 76 Gender: M : 1945 Exam Date: 02/02/2022 09:32 Exam Location: [place] [facility] Ht (in): 72 Wt (lb): 230 Ordering Physician: Mil Aparicio MD Attending/Referring Phys: Jointer Operator Barbie Garcia RDCS Procedure CPT: Indications: stroke Cardiac Hx: Echo done 12/14/21: Repeat no changes. Technical Quality: Contrast 1: Lumason Total Dose (mL): 4 Contrast 2: Total Dose (mL): MEASUREMENTS (Male / Female) Normal Values 2D ECHO LV Diastolic Diameter PLAX 5.5 cm 4.2 - 5.9 / 3.9 - 5.3 cm LV Systolic Diameter PLAX 3.8 cm IVS Diastolic Thickness 1.0 cm 0.6 - 1.0 / 0.6 - 0.9 cm LVPW Diastolic Thickness 1.7 cm 0.6 - 1.0 / 0.6 - 0.9 cm LV Relative Wall Thickness 0.5 RV Internal Dim ED PLAX 3.1 cm LA Systolic Diameter LX 3.9 cm 3.0 - 4.0 / 2.7 - 3.8 cm M-MODE Aortic Root Diameter MM 4.0 cm LA Systolic Diameter MM 4.5 cm LA Ao Ratio MM 1.1 MV E Point Septal Separation 0.5 cm AV Cusp Separation MM 1.5 cm DOPPLER MV Area PHT 6.2 cm??? Mitral E Point Velocity 91.2 cm/s Mitral A Point Velocity 19.4 cm/s Mitral E to A Ratio 4.7 MV Deceleration Time 122.8 ms FINDINGS Left Ventricle Left ventricular ejection fraction is estimated at 55 %. Left ventricular cavity size normal. Mildly increased left ventricular wall thickness. Right Ventricle Normal right ventricular size and function. Right ventricular systolic pressure within normal limits. Right Atrium Normal right atrial size. Left Atrium Normal left atrial size. Mitral Valve Structurally normal mitral valve. Mild mitral regurgitation. Aortic Valve Trileaflet aortic valve. Tricuspid Valve Structurally normal tricuspid valve. Mild tricuspid regurgitation. Pulmonic Valve Structurally normal pulmonic valve. Pericardium Echo free space anterior to the right ventricle likely represents a fat pad. Aorta Normal size aortic root and proximal ascending aorta. CONCLUSIONS Normal LV size and systolic function with mild LVH Previewed by: Dr. Ashwin Scott MD (Electronically Signed) Final Date: 02 February 2022 13:37
--- NOTE | 2022-02-02 14:57 | CT ---
EXAMINATION TYPE: CT angio head DATE OF EXAM: 02/02/2022 COMPARISON: CT brain 02/01/2022 HISTORY: 76-year-old male brain bleed, rule out AVM. TECHNIQUE: Contiguous axial scanning of the head performed with IV Contrast, patient injected with 10 0 mL of Isovue 370. Coronal/sagittal MIP reconstructions performed. 3-D reconstructions generated on a dedicated independent workstation. CT DLP: 971 mGycm Automated exposure control for dose reduction was used. FINDINGS: Bifrontal deep brain stimulator leads are demonstrated. Dural venous sinuses are patent. Moderate atherosclerotic narrowing before segment left vertebral artery Scattered mild to moderate scattered calcifications bilateral carotid siphons. Area of hypodensity remains at the posterior left parietal lobe and parieto-occipital junction. Some gyral enhancement in this region may relate to subacute infarct. Otherwise, no enhancing intracranial lesion is seen. No midline shift, mass effect, hydrocephalus, or effacement of basal subarachnoid cisterns. No extra-axial fluid collection is seen. IMPRESSION: 1. HYPODENSITY INVOLVING THE LEFT POSTERIOR PARIETAL LOBE AND PARIETO-OCCIPITAL JUNCTION SHOWS SOME G YRIFORM ENHANCEMENT. THIS MAY REFLECT CHANGES OF A SUBACUTE INFARCT. 2. OTHERWISE, NO ENHANCING INTRACRANIAL LESIONS OR DISCRETE VASCULAR MALFORMATION IDENTIFIED.
[2022-02-02 17:00] LABS: Glucose,Whole Blood 178 mg/dL (70-110)
[2022-02-02] MEDS: Mirabegron [Myrbetriq] 50 MG Tab.Er.24h PO SCH (20:14)
[2022-02-02] MEDS: ATORVASTATIN 10 MG TAB PO SCH (20:15)
[2022-02-02] MEDS: HEPARIN SODIUM,PORCINE/PF 5,000 UNIT/0.5 ML SYRINGE SQ SCH (20:15)
[2022-02-02 20:26] LABS: Glucose,Whole Blood 133 mg/dL (70-110)
[2022-02-03 06:03] LABS: Glucose,Whole Blood 132 mg/dL (70-110)
[2022-02-03] MEDS: PANTOPRAZOLE 40 MG TABLET PO SCH (06:17)
[2022-02-03] MEDS: CYANOCOBALAMIN 500 MCG TAB PO SCH (08:48)
[2022-02-03] MEDS: FOLIC ACID 1 MG TAB PO SCH (08:48)
[2022-02-03] MEDS: HEPARIN SODIUM,PORCINE/PF 5,000 UNIT/0.5 ML SYRINGE SQ SCH ×2 (08:48→20:35)
--- NOTE | 2022-02-03 11:15 | CT ---
EXAMINATION TYPE: CT brain wo con DATE OF EXAM: 02/03/2022 HISTORY: Stroke rule out bleed. Hx Parkinsons CT DLP: 1200.4 mGycm. Automated Exposure Control for Dose Reduction was Utilized. TECHNIQUE: CT scan of the head is performed without contrast. COMPARISON: CT brain 2 days earlier. FINDINGS: There is no acute intracranial hemorrhage or midline shift identified. Persistent bilater al frontal stimulator leads terminating near the level of the anterior-inferior bilateral thalami. Th ere is mild diffuse ventricular and sulcal prominence consistent with diffuse age-related cerebral at rophy. There is mild low-attenuation in the periventricular white matter consistent with chronic sma ll vessel ischemic change. Persistent vague area of heterogeneity and sulcal effacement left occipita l level axial image 29 corresponding to coronal image 60 having areas of hyperdense gyriform. The sandhya bes are intact and the visualized sinuses are clear. Vascular calcification of the distal internal carotid artery and vertebral arteries is redemonstrated. IMPRESSION: No acute intracranial hemorrhage or midline shift. No significant change from most recen t CT. Suspect evolving acute hemorrhagic infarct left parieto-occipital region posterior watershed le goran.
--- NOTE | 2022-02-03 11:22 | P.PN ---
Subjective This is a pleasant 76-year-old male past medical history significant for coronary artery disease status post PCI to the mid PLB in 2007, proximal LAD in 1996, mid PDA in 2012, dyslipidemia, hypertension, type 2 diabetes, paroxysmal atrial fibrillation not on anticoagulation secondary to increased falls Coumadin was discontinued in the past, obstructive sleep apnea, sick sinus syndrome status post dual-chamber pacemaker implantation in 2017, Parkinson's disease, deep brain stimulator implantation, Fontaine's palsy,decompression/laminectomy of T9 to T10, orthostatic hypotension. He follows in the office with Dr. Trujillo. We have been asked to see in consultation for chest pain and dizziness. Patient presents to the emergency department with complaints of possible syncopal episode. He states he went to the bathroom at home, while he was walking out of the bathroom he felt as if he may pass out. He had increased dizziness, lightheadedness, he is not sure if he passed out or not but does not remember what happened after this. Per the ER note patient did lose consciousness and fell and hit his head. He underwent workup in the ER and CT head hypodensity in the left posterior temporal lobe that could be subacute or acute hemorrhage infarct traumatic hemorrhage with edema not excluded. Left temporal lobe abnormality appears new compared to old exam. 02/03/2022 Patient seen and examined at bedside, distress. No acute events overnight. Overall he is feeling well. He denies any chest pain or shortness of breath. No change in neurological symptoms overnight. His vital signs are stable.Echocardiogram revealed EF 55%, mild mitral regurgitation, mild tricuspid regurgitation. He is maintaining sinus mechanism. A few episodes of atrial fibrillation noted on telemetry. Also episodes of nonsustained SVT. Repeat CT of the head reported evolving acute hemorrhagic infarct left parietal occipital region posterior watershed level PHYSICAL EXAMINATION Vitals reviewed CONSTITUTIONAL: No apparent distress. HEENT: Head is normocephalic. Neck Supple. No JVD. No carotid bruit. CHEST EXAMINATION: Lungs are clear to auscultation. No chest wall tenderness is noted on palpation or with deep breathing. HEART EXAMINATION: Regular rate and rhythm. S1, S2 heard. No murmurs, gallops or rub. ABDOMEN: Soft, nontender. Positive bowel sounds. EXTREMITIES: 2+ peripheral pulses, no lower extremity edema and no calf tenderness. SKIN: warm, dry NEUROLOGIC EXAMINATION: Patient is awake, alert and oriented x2, somewhat confused about medical history ASSESSMENT Dizziness Syncopal episode CT brain reported left posterior temporal lobe subacute or acute hemorrhagic infarct, traumatic hemorrhage with edema not excluded, Neurology following Orthostatic hypotension Chest pain, acute coronary syndrome has ruled out Coronary artery disease status post PCI to the mid PLB in 2007, proximal LAD in 1996, mid PDA in 2012 NSVT Dyslipidemia Hypertension Type 2 diabetes Paroxysmal atrial fibrillation not on anticoagulation secondary to increased falls Coumadin was discontinued in the past Obstructive sleep apnea Sick sinus syndrome status post dual-chamber pacemaker implantation in 2017 Parkinson's disease, deep brain stimulator implantation History of Fontaine's palsy History of decompression/laminectomy of T9 to T10 PLAN An acute coronary event has been ruled out with no EKG evidence of ischemia and negative cardiac enzymes. Neurology following Dizziness likely related to CVA Antiplatelets on hold Hold antihypertensive medications Patient can be considered for a watchman device as an outpatient Further recommendations based on clinical course Nurse practitioner note has been reviewed by physician. Signing provider agrees with the documented findings, assessment, and plan of care. Objective - Vital Signs Vital signs: Vital Signs Temp 98.3 F 02/02/22 20:00 Pulse 51 L 02/03/22 08:00 Resp 16 02/03/22 08:00 BP 109/69 02/03/22 08:00 Pulse Ox 95 02/03/22 08:00 FiO2 Intake & Output 02/02/22 02/03/22 02/03/22 18:59 06:59 18:59 Intake Total 354 180 Output Total 575 350 200 Balance -221 -350 -20 Intake: Oral 354 180 Output: Urine 575 350 200 Other: Voiding Method Urinal Urinal Urinal - Labs CBC & Chem 7: 02/02/22 08:25 02/02/22 08:25 Labs: Abnormal Lab Results - Last 24 Hours (Table) 02/02/22 02/02/22 02/02/22 Range/Units 11:51 16:53 20:25 POC Glucose (mg/dL) 125 H 178 H 133 H (70-110) mg/dL 02/03/22 Range/Units 06:01 POC Glucose (mg/dL) 132 H (70-110) mg/dL
[2022-02-03 11:35] LABS: Glucose,Whole Blood 154 mg/dL (70-110)
--- NOTE | 2022-02-03 15:19 | P.PN ---
Subjective Progress Note Date: 02/03/22 The patient is seen at bedside and states headache is improving and continues to be intermittent. Denies any new neurological issues. Objective - Vital Signs Vital signs: Vital Signs Temp 98.3 F 02/02/22 20:00 Pulse 50 L 02/03/22 13:47 Resp 16 02/03/22 11:43 BP 142/77 02/03/22 11:43 Pulse Ox 95 02/03/22 08:00 FiO2 Intake & Output 02/02/22 02/03/22 02/03/22 18:59 06:59 18:59 Intake Total 354 180 Output Total 575 350 350 Balance -221 -350 -170 Intake: Oral 354 180 Output: Urine 575 350 350 Other: Voiding Method Urinal Urinal Urinal - Exam GENERAL: The patient is lying in bed and is not in acute distress. HENT: Has bruise over the left frontal region from fall. NEUROLOGICAL: Higher mental function: The patient is awake, alert, oriented to self, place and time. Somewhat slow to respond but responding appropriately. Patient is following simple commands. No aphasia and no neglect. Cranial nerves: The pupils are round, equal and reactive to light and accommodation. Visual rey are full to confrontation throughout. Extraocular movement is intact no nystagmus is noted. Facial sensation is normal to touch throughout. The facial strength is normal throughout. Hearing is normal bilaterally to hand rub. Tongue is midline and moved [id number] without any difficulty. No dysarthria is noted. Shoulder shrug is normal bilaterally. Motor: The strength is 5 over 5 throughout. Normal tone and bulk. No resting tremor. Cerebellum: Normal finger to nose bilaterally. Sensation: Sensation is normal to touch throughout. Reflexes (right/left): 1+ throughout. Plantars are mute bilaterally. Some of the workup during his hospital visit consisted of: Patient orthostatic vitals were positive going from sitting to standing. Supine his blood pressure of 111/69 with a heart rate of 65, sitting is 100/64 with a heart rate is 65 and standing is a 85/50 with a heart rate of 65. Lipid panel: Triglyceride is 158, cholesterol is 125, LDL 56 and HDL is 36. Serum alcohol level was less than 10. CT of the head is reported as there is hypodensity in the left posterior temporal lobe that could be subacute or acute hemorrhage infarct traumatic hemorrhage with edema not excluded. Left temporal lobe abnormality appears new compared to old exam. I personally reviewed the CT of the head I didn't appreciate the hypodensity over the left temporal region which is suspicious for acute ischemic infarct I did find it difficult to state this was a hemorrhage but cannot be excluded in the left occipital region which is questionable. CT cervical spine was reported as multilevel cervical spondylitic changes. No fracture. Repeat CT head: Similar-appearing left occipital lobe with hyperdense gyriform attenuation in the region. Findings could represent cortical laminar necrosis in the setting of stroke with hemorrhagic also remaining in the differential. CTA head: It is reported as hypodensity involving the left posterior parietal and her parietal occipital junction shows some gyriform enhancement. This may reflect changes of acute infarct. Otherwise no enhancing intracranial lesion or discrete vascular malformation identified Routine EEG: This study is obscured by artifact from the deep brain stimulation. Unable to comment on the patient's background because of the artifact. Otherwise no clear discharges or seizure during the study. Clinical correlation is recommended. Carotid duplex is reported as less than 50% stenosis in bilateral carotid bifurcation. 2-D echo was reported as normal left ventricular size and systolic function with mild left ventricular hypertrophy. Normal left atrial size. - Labs CBC & Chem 7: 02/02/22 08:25 02/02/22 08:25 Labs: Abnormal Lab Results - Last 24 Hours (Table) 02/02/22 02/02/22 02/03/22 Range/Units 16:53 20:25 06:01 POC Glucose (mg/dL) 178 H 133 H 132 H (70-110) mg/dL 02/03/22 Range/Units 11:33 POC Glucose (mg/dL) 154 H (70-110) mg/dL Assessment and Plan Assessment: Acute ischemic stroke over left parietl/parietal-occipital region: Appears embolic in etiology (has paroxysmal atrial fibrillation) Left occipital lobe with hyperdense gyriform attenuation in the region. Findings could represent cortical laminar necrosis in the setting of stroke with hemorrhagic on CT head. I feel possible acute to subacute stroke with ?possible hemorrhage conversion--seems resolved. Syncopal episode seems due to multifactorial: seems due to Positive orthostatic and stroke. Paroxysmal atrial fibrillation not on anticoagulation secondary due to fall and result Coumadin was discontinued. Parkinson's disease status post deep brain stimulator History of coronary artery disease status post stent Pacemaker History of decompression/laminectomy of T9 to T10 DM Hypertension but on presentation was hypotensive Plan: I will get repeat CT head: I personally reviewed and no bleed. I will start on ASA 325mg daily. Increased Lipitor to 40mg qhs for secondary stroke prophylaxis. Paroxysmal atrial fibrillation not on anticoagulation secondary due to fall and result Coumadin was discontinued. Cardiology is considering watchman device as outpatient. Consider [facility] as inpatient for stroke. Unable to obtain MRI since has DBS and pacemaker. Recommend MRI as outpatient. Regarding his positive orthostatic: Recommend compression stocking and if ineffective consider salt tab or Midodrine. will defer management to Primary team. Q4 hour neuro checks Cardiac monitoring Consulted PT and OT Will defer the rest of medical management to primary team. For DVT prophylaxis: On subq heparin 5000U every 12 hours. The plan is discussed with the patient and primary team. Time with Patient: Less than 30
[2022-02-03] MEDS: ASPIRIN 325 MG TAB PO SCH (16:43)
[2022-02-03 16:48] LABS: Glucose,Whole Blood 107 mg/dL (70-110)
[2022-02-03 20:34] LABS: Glucose,Whole Blood 147 mg/dL (70-110)
[2022-02-03 20:35] VITALS: TEMP 97.9
[2022-02-03] MEDS: Mirabegron [Myrbetriq] 50 MG Tab.Er.24h PO SCH (20:36)
[2022-02-03] MEDS ORDERED: ATORVASTATIN 40 MG TAB PO SCH (21:00)
--- NOTE | 2022-02-03 23:24 | P.PN ---
Subjective Progress Note Date: 02/02/22 Patient is a 76-year-old male with a known history of hypertension, hyperlipidemia, diabetes type 2 diet controlled, obstructive sleep apnea not on CPAP at home coronary artery disease with history of stent placement, history of pulm and pacemaker placement, status post decompression laminectomy T9-T10 and neurostimulator implantation, Parkinson's tremors, left sided Fontaine's palsy, BPH, nephrolithiasis and other multiple medical problems was brought to the hospital by his family status post fall. Apparently he was on the toilet and had a fall hitting his head. Patient could not recollect when he fell and by the time his arrived home his walker was thrown to the side and patient was sitting on the couch. She notices that he had a bump on his left side forehead. No focal weakness was noted. No blurry vision or slurred speech. No weakness or seizures. No bladder or bowel incontinence. Patient states that he has been feeling dizzy when he was getting out of bed for the past few days. He was also complaining of chest tightness mainly in the left retrosternal. Denied any radiation of the pain. No nausea vomiting abdominal pain or diarrhea. Denied any recent illnesses. On admission patient was hypotensive with blood pressure 95/71 pulse 65 respiration 18 pulse ox 97% on room air. Chest x-ray showed there is some minimal infiltrate and atelectasis left lung base that appears new compared to oral exam. CT head and cervical spine showed there is hypodensity left posterior temporal lobe that could be subacute acute hemorrhagic infarct. Traumatic hemorrhage with the edema not excluded. Multilevel cervical spondylitic changes. No fracture. Left temporal lobe abnormality appears new compared to old exam. Laboratory data showed WBC 11.3 hemoglobin 15.8 and platelets 173 Sodium 138 potassium 4.8 chloride 108 bicarb is 22 BUN 22 and creatinine 1.1 and blood sugar is 150 Calcium 8.7 troponin x1 negative Urinalysis negative for infection EKG showed electronic ventricular paced rhythm. Patient states that he was seen by his space and missile operations spacelift about 3 weeks ago. 02/02/2022 Patient is currently lying in bed. Awake alert and oriented. No complaints of chest pain or shortness of breath. No nausea vomiting abdominal pain or diarrhea. Patient is tolerating oral diet. Otherwise CTA head showed hypodensity involving the left posterior parietal lobe and parieto-occipital leann ction show some gyriform enhancement. This may reflect changes of a subacute infarct. 2D echocardiogram showed normal LV size and systolic function and mild LVH. EKG showed electronic atrial pacer rhythm. Patient was seen by cardiology. Unlikely acute coronary syndrome and thought dizziness is likely due to CVA. Patient to be started on antiplatelets tomorrow as per neurology Laboratory data showed WBC 8.4 hemoglobin 15.8 and platelets 163 D-dimer is 0.52 Sodium 137 potassium 4.3 chloride 110 bicarb is 19 BUN 18 and creatinine 0.91 blood sugar 174 and procalcitonin level is 0.03. Current medications reviewed. Objective - Vital Signs Vital signs: Vital Signs Temp 98.3 F 02/02/22 20:00 Pulse 62 02/02/22 20:00 Resp 18 02/02/22 20:00 BP 148/89 02/02/22 20:00 Pulse Ox 96 02/02/22 20:00 FiO2 Intake & Output 02/02/22 02/02/22 02/03/22 06:59 18:59 06:59 Intake Total 1350 354 Output Total 575 Balance 1350 -221 Intake: Intake, IV Titration 750 Amount Sodium Chloride 0.9% 1, 750 000 ml @ 75 mls/hr IV . [id number] NEDRA Rx#:[id number] Oral 600 354 Output: Urine 575 Other: Voiding Method Urinal Urinal # Voids 2 - Exam PHYSICAL EXAMINATION: Patient is lying in the bed comfortably, no acute distress, awake alert and oriented.. HEENT: Normocephalic. Bruise on the left forehead. Neck is supple. Pupils reactive. Nostrils clear. Oral cavity is moist. Neck reveals no JVD, carotid bruits, or thyromegaly. CHEST EXAMINATION: Trachea is central. Symmetrical expansion. Lung rey clear to auscultation and percussion. CARDIAC: Normal S1, S2 with no gallops. No murmurs ABDOMEN: Soft. Bowel sounds normal. No organomegaly. No abdominal bruits. Extremities: reveal no edema. No clubbing or cyanosis Neurologically awake, alert, oriented x3 with well-coordinated movements. Left facial droop., tremors. Skin: No rash or skin lesions. Psychiatric: Cooperative. Nonsuicidal Musculoskeletal: No joint swelling or deformity. Normal range of motion. - Labs CBC & Chem 7: 02/02/22 08:25 02/02/22 08:25 Labs: Abnormal Lab Results - Last 24 Hours (Table) 02/02/22 02/02/22 02/02/22 Range/Units 06:03 08:25 11:51 Chloride 110 H (98-107) mmol/L Carbon Dioxide 19 L (22-30) mmol/L Glucose 174 H (74-99) mg/dL POC Glucose (mg/dL) 131 H 125 H (70-110) mg/dL 02/02/22 02/02/22 Range/Units 16:53 20:25 Chloride (98-107) mmol/L Carbon Dioxide (22-30) mmol/L Glucose (74-99) mg/dL POC Glucose (mg/dL) 178 H 133 H (70-110) mg/dL Assessment and Plan Assessment: Acute syncopal episode with complaints of dizziness and fall, hitting his left Forehead.CT head showed left occipital lobe with hyperdense gyriform attenuation in the region could represent cortical laminar necrosis in the setting of CVA.. Acute hypodensity in the left posterior temporal lobe. Suspected hemorrhagic stroke. MRI of the brain could not be done due to neurostimulator in place. Atypical chest pain. Ruled out ACS. History of coronary disease status post stent placement History of permanent pacemaker placement History of decompression laminectomy T9-T10 with Neurostimulator in place Diabetes type 2 diet controlled Hypertension Hyperlipidemia History of [place] Obstructive sleep apnea not using CPAP at home History of nephrolithiasis and BPH Depression DVT prophylaxis. On hold due to suspected hemorrhagic CVA. Plan: Patient will be continued on telemetry monitoring. Patient had stroke work-up including repeat CT head, CTA head and carotid duplex, 2D echocardiogram and EEG was done. MRI of the brain could not be done due to deep brain stimulator.. Anticoagulation is on hold. Continue with neurochecks every 4 hourly and neurology is on board. Cardiology and neurology is on board.. PT OT and possible rehab. and follow-up closely. Time with Patient: Greater than 30
--- NOTE | 2022-02-03 23:28 | P.PN ---
Subjective Progress Note Date: 02/03/22 Patient is a 76-year-old male with a known history of hypertension, hyperlipidemia, diabetes type 2 diet controlled, obstructive sleep apnea not on CPAP at home coronary artery disease with history of stent placement, history of pulm and pacemaker placement, status post decompression laminectomy T9-T10 and neurostimulator implantation, Parkinson's tremors, left sided Fontaine's palsy, BPH, nephrolithiasis and other multiple medical problems was brought to the hospital by his family status post fall. Apparently he was on the toilet and had a fall hitting his head. Patient could not recollect when he fell and by the time his arrived home his walker was thrown to the side and patient was sitting on the couch. She notices that he had a bump on his left side forehead. No focal weakness was noted. No blurry vision or slurred speech. No weakness or seizures. No bladder or bowel incontinence. Patient states that he has been feeling dizzy when he was getting out of bed for the past few days. He was also complaining of chest tightness mainly in the left retrosternal. Denied any radiation of the pain. No nausea vomiting abdominal pain or diarrhea. Denied any recent illnesses. On admission patient was hypotensive with blood pressure 95/71 pulse 65 respiration 18 pulse ox 97% on room air. Chest x-ray showed there is some minimal infiltrate and atelectasis left lung base that appears new compared to oral exam. CT head and cervical spine showed there is hypodensity left posterior temporal lobe that could be subacute acute hemorrhagic infarct. Traumatic hemorrhage with the edema not excluded. Multilevel cervical spondylitic changes. No fracture. Left temporal lobe abnormality appears new compared to old exam. Laboratory data showed WBC 11.3 hemoglobin 15.8 and platelets 173 Sodium 138 potassium 4.8 chloride 108 bicarb is 22 BUN 22 and creatinine 1.1 and blood sugar is 150 Calcium 8.7 troponin x1 negative Urinalysis negative for infection EKG showed electronic ventricular paced rhythm. Patient states that he was seen by his artificial breeding technician about 3 weeks ago. 02/02/2022 Patient is currently lying in bed. Awake alert and oriented. No complaints of chest pain or shortness of breath. No nausea vomiting abdominal pain or diarrhea. Patient is tolerating oral diet. Otherwise CTA head showed hypodensity involving the left posterior parietal lobe and parieto-occipital leann ction show some gyriform enhancement. This may reflect changes of a subacute infarct. 2D echocardiogram showed normal LV size and systolic function and mild LVH. EKG showed electronic atrial pacer rhythm. Patient was seen by cardiology. Unlikely acute coronary syndrome and thought dizziness is likely due to CVA. Patient to be started on antiplatelets tomorrow as per neurology Laboratory data showed WBC 8.4 hemoglobin 15.8 and platelets 163 D-dimer is 0.52 Sodium 137 potassium 4.3 chloride 110 bicarb is 19 BUN 18 and creatinine 0.91 blood sugar 174 and procalcitonin level is 0.03. 02/03/2022 Patient is currently sitting in the chair. Awake and oriented x3. No complaints of chest pain. Symptomatically is improving. No other acute overnight issues. No complaints of chest pain or shortness of breath. 2D echocardiogram showed ejection fraction 55%, mild mitral regurgitation, mild TR. Patient is also having paroxysmal atrial fibrillation and also episodes of nonsustained SVT. Repeat CT head showed evolving acute hemorrhagic infarct left parietal occipital region posterior watershed level. Cardiology considering watchman device as an outpatient. Current medications reviewed. Objective - Vital Signs Vital signs: Vital Signs Temp 97.9 F 02/03/22 20:00 Pulse 51 L 02/03/22 20:00 Resp 16 02/03/22 20:00 BP 161/86 02/03/22 20:00 Pulse Ox 97 02/03/22 20:00 FiO2 Intake & Output 02/03/22 02/03/22 02/04/22 06:59 18:59 06:59 Intake Total 1260 Output Total 350 350 Balance -350 910 Intake: Oral 1260 Output: Urine 350 350 Other: Voiding Method Urinal Urinal Urinal - Exam PHYSICAL EXAMINATION: Patient is lying in the bed comfortably, no acute distress, awake alert and oriented.. HEENT: Normocephalic. Bruise on the left forehead. Neck is supple. Pupils reactive. Nostrils clear. Oral cavity is moist. Neck reveals no JVD, carotid bruits, or thyromegaly. CHEST EXAMINATION: Trachea is central. Symmetrical expansion. Lung rey clear to auscultation and percussion. CARDIAC: Normal S1, S2 with no gallops. No murmurs ABDOMEN: Soft. Bowel sounds normal. No organomegaly. No abdominal bruits. Extremities: reveal no edema. No clubbing or cyanosis Neurologically awake, alert, oriented x3 with well-coordinated movements. Left facial droop., tremors. Skin: No rash or skin lesions. Psychiatric: Cooperative. Nonsuicidal Musculoskeletal: No joint swelling or deformity. Normal range of motion. - Labs CBC & Chem 7: 02/02/22 08:25 02/02/22 08:25 Labs: Abnormal Lab Results - Last 24 Hours (Table) 02/03/22 02/03/22 02/03/22 Range/Units 06:01 11:33 20:32 POC Glucose (mg/dL) 132 H 154 H 147 H (70-110) mg/dL Assessment and Plan Assessment: Acute CVA involving left parietal occipital region. CT head showed left occipital lobe with hyperdense gyriform attenuation in the region could represent cortical laminar necrosis in the setting of CVA.. Acute syncopal episode with complaints of dizziness and fall, hitting his left Forehead. Likely due to CVA and orthostatic hypotension. Acute hypodensity in the left posterior temporal lobe. Suspected hemorrhagic stroke. MRI of the brain could not be done due to neurostimulator in place. Atypical chest pain. Ruled out ACS. History of coronary disease status post stent placement History of permanent pacemaker placement Paroxysmal atrial fibrillation History of decompression laminectomy T9-T10 with Neurostimulator in place Diabetes type 2 diet controlled Hypertension Hyperlipidemia History of [place] Obstructive sleep apnea not using CPAP at home History of nephrolithiasis and BPH Depression DVT prophylaxis. On hold due to suspected hemorrhagic CVA. Plan: Patient will be continued on telemetry monitoring. Patient had stroke work-up including repeat CT head, CTA head and carotid duplex, 2D echocardiogram and EEG was done. MRI of the brain could not be done due to deep brain stimulator.. Patient was started on aspirin for anticoagulation. Continue with neurochecks every 4 hourly Cardiology is considering watchman device as an outpatient. PT OT and possible rehab. and follow-up closely. Time with Patient: Greater than 30
[2022-02-04 03:35] LABS: Calcium 8.7 mg/dL (8.4-10.2); Potassium 3.8 mmol/L (3.5-5.1)
[2022-02-04 04:13] VITALS: RESP 16
[2022-02-04] MEDS: PANTOPRAZOLE 40 MG TABLET PO SCH (05:27)
--- NOTE | 2022-02-04 05:34 | P.CONS ---
History of Present Illness - Chief Complaint Gait disturbance, syncope - History of Present Illness I had the opportunity to see patient for inpatient rehab consultation. Patient admitted to Dr. key January 31 history of fall and syncope. Patient reports it had. Seen by neurology, Dr. Mil Aparicio for syncope and notes multifactorial. Seen by cardiology. Diagnostic tests left shoulder x-ray neg ative for fracture. Chest x-ray with atelectasis left base. CT of C-spine demonstrates multilevel spondylolytic change. Head CT demonstrates left posterior temporal acute hemorrhage and old left infarct. Follow-up CT demonstrates left occipital and white matter change. Carotid Doppler done. He ad CT 8 with left parietal occipital change and foraminal stimulators. Head CT with left parietal occipital change. Has started therapy. PT is yet to see patient. OT reports independent with feeding, supervision for grooming, minimal assistance for upper dressing and maximal assistance for lower dressing and bathing. Moderate assistance for toileting. Patient has history of Parkinson and brain stimulator. Also cardiac disease with pacemaker and stents. Previous functional history as elicited from patient: 76-year-old right-handed white male who is lives in one form with . does cooking, laundry, driving. Both are retired. Patient describes independent with sitdown shower and gait with [address] Hernandez. Denies tobacco has occasional drink. Review of Systems Review of systems: ENT: Denies sneezes or discharge. Eyes: Denies discharge or photophobia. Cardiac: Denies chest pain or palpitation. Pulmonary: Denies cough or shortness of breath. Gastrointestinal: Denies nausea, emesis, constipation, diarrhea. Genitourinary: Denies discharge or frequency. Musculoskeletal: Denies muscle or bone aches. Neurologic: Gen. weakness with history of falls. Endocrine: Denies shakes or sweats. Oncology: Denies cancers. Dermatologic: Denies rash, itching, pruritus. ALLERGY/immunology: Denies sneezes, rashes. Past Medical History Past Medical History: Coronary Artery Disease (CAD), Chest Pain / Angina, Diabetes Mellitus, GERD/Reflux, Hyperlipidemia, Hypertension, Myocardial Infarction (AR), Neurologic Disorder, Osteoarthritis (OA), Prostate Disorder, Sleep Apnea/CPAP/BIPAP, Syncope Additional Past Medical History / Comment(s): PARKINSON'S -HAND TREMORS & JOI FFLING GAIT;BILLS'S PALSY WITH LEFT FACIAL DROOP.SLEEP APNEA (NO MACHINE), ENLARGED PROSTATE., DDD- HAS PAIN STIMULATOR., HX OF ABDOMINAL PAIN & NAUSEA WHICH HAS IMPROVED SINCE HE STOPPED PARKNINSONS MEDICATIONS., HX Kidney Stone Last Myocardial Infarction Date:: 1996 History of Any Multi-Drug Resistant Organisms: None Reported Past Surgical History: Appendectomy, Back Surgery, Cholecystectomy, Heart Catheterization With Stent, Joint Replacement, Pacemaker Additional Past Surgical History / Comment(s): TOTAL LEFT KNEE, TOTAL LEFT SHOULDER , CARDIAC STENTS X3, BACK SURGERY X 3 WITH CRISTEL AND PLATES, DECOMPRESSION/LAMINECTOMY T9-T10 AND NEURO STIMULATOR IMPLANTED., CYSTOSCOPY., PACEMAKER (11/2016); Lithotripsy, neuro transmitter implanted at [facility] to help with his parkinsons Past Anesthesia/Blood Transfusion Reactions: No Reported Reaction Additional Past Anesthesia/Blood Transfusion Reaction / Comm: SLIGHT CLAUSTROHOBIA Date of Last Stent Placement:: 2007 Type of Cardiac Device: Permanent Pacemaker Device Placement Date:: 11/2016 Smoking Status: Never smoker - Past Family History Sister(s) Family Medical History: Cancer Additional Family Medical History / Comment(s): [place] Father Sister(s) Additional Family Medical History / Comment(s): FATHER, 2 SISTERS AND 1 BROTHER, LUIS ALBERTO'S DX Mother Family Medical History: Deep Vein Thrombosis (DVT) Brother(s) Family Medical History: Cancer Additional Family Medical History / Comment(s): leukemia Medications and Allergies Home Medications Medication Instructions Recorded Confirmed Type Aspirin 81 mg PO DAILY 05/21/14 01/31/22 History Atorvastatin [Lipitor] 40 mg PO HS 05/21/14 01/31/22 History Esomeprazole Magnesium [NexIUM] 40 mg PO DAILY 05/21/14 01/31/22 History Cyanocobalamin [Vitamin B-12] 500 mcg PO DAILY 09/15/15 01/31/22 History Folic Acid 0.4 mg PO DAILY 11/16/16 01/31/22 History Citalopram Hydrobromide 40 mg PO HS 11/13/20 01/31/22 History [Citalopram HBr] Carbidopa/Levodopa [Rytary ER 1 cap PO BID@0900,1600 12/13/21 01/31/22 History 36.25 mg-145 mg Cap] Donepezil [Aricept] 10 mg PO HS 12/13/21 01/31/22 History Mirabegron [Myrbetriq] 50 mg PO HS 12/13/21 01/31/22 History Tamsulosin [Flomax] 0.4 mg PO BID 12/13/21 01/31/22 History Allergies Allergy/AdvReac Type Severity Reaction Status Date / Time adhesive AdvReac Itching Verified 01/31/22 19:06 morphine AdvReac Excessive Verified 01/31/22 19:06 Sweating Physical Exam Vitals: Vital Signs Temp Pulse Resp BP BP Pulse Ox 02/04/22 04:00 50 L 16 159/80 97 02/04/22 02:00 18 02/04/22 00:00 50 L 18 158/86 97 02/03/22 20:00 97.9 F 51 L 16 161/86 97 02/03/22 16:50 64 16 185/81 02/03/22 16:00 52 L 16 173/86 02/03/22 13:47 50 L 02/03/22 11:43 50 L 16 142/77 02/03/22 08:00 51 L 16 109/69 95 Intake and Output 02/03/22 02/03/22 02/04/22 14:59 22:59 06:59 Intake Total 720 540 Output Total 350 500 Balance 370 540 -500 Intake: Oral 720 540 Output: Urine 350 500 Other: Voiding Method Urinal Urinal Urinal Skin: Atrophic, intact. General: Medium to overweight build and comfortable appearance. Head: Normocephalic, atraumatic. Eyes: Symmetric. Pupils equal round. Ears: Symmetric. Hearing within normal limits. Mouth: Clear. Neck: Supple. Carotid without bruit. Cardiac: Regular rate and rhythm. Lungs: Clear anteriorly and posteriorly. Abdomen: Soft active nontender, protuberant. Extremities: Normal tone. Neurological: Mental status: Alert, cooperative, pleasant. Cranial nerves: Symmetric facial tone and trapezius. Motor: Active movement all 4 limbs. Arms at least antigravity in legs at best antigravity Sensation: Intact throughout. DTRs: Symmetric and equal throughout. Mobility: Did not attempt to sit or stand this early a.m. Results CBC & Chem 7: 02/02/22 08:25 02/04/22 01:31 Labs: Abnormal Lab Results - Last 24 Hours (Table) 02/03/22 02/03/22 02/03/22 Range/Units 06:01 11:33 20:32 Glucose (74-99) mg/dL POC Glucose (mg/dL) 132 H 154 H 147 H (70-110) mg/dL 02/04/22 Range/Units 01:31 Glucose 121 H (74-99) mg/dL POC Glucose (mg/dL) (70-110) mg/dL Assessment and Plan (1) Cerebral brain hemorrhage Current Visit: Yes Status: Acute Code(s): I61.9 - NONTRAUMATIC INTRACEREBRAL HEMORRHAGE, UNSPECIFIED SNOMED Code(s): 934344242 (2) Syncope Current Visit: Yes Status: Acute Code(s): R55 - SYNCOPE AND COLLAPSE SNOMED Code(s): 789379686 (3) Chronic low back pain Current Visit: No Status: Acute Code(s): M54.5 - LOW BACK PAIN * DO NOT USE * SNOMED Code(s): 022252602 (4) Diabetes Current Visit: No Status: Acute Code(s): E11.9 - TYPE 2 DIABETES MELLITUS WITHOUT COMPLICATIONS SNOMED Code(s): 96566646 Plan: Comments and plan: Diagnoses should also include Parkinson with need for brain stimulators. At this time patient does have history of gait disturbance with fall and syncope and would agree with Dr. Mejia that this appears to be multifactorial. This would include Parkinson, brain hemorrhage and edema. At this time will require PT notes for consideration of inpatient rehab. Would also need to know what goals are for patient to return home.
[2022-02-04 06:01] LABS: Glucose,Whole Blood 129 mg/dL (70-110)
[2022-02-04 08:35] LABS: Basophils % (A) 0 %; Eosinophils # (A) 0.4 k/uL (0-0.7); Eosinophils % (A) 5 %; HCT 44.3 % (39.0-53.0); HGB 14.8 gm/dL (13.0-17.5); Lymphocytes # (A) 1.9 k/uL (1.0-4.8); Lymphocytes % (A) 27 %; MCH 30.3 pg (25.0-35.0); MCHC 33.3 g/dL (31.0-37.0); MCV 90.8 fL (80.0-100.0); Mean Platelet Volume 7.6; Monocytes # (A) 0.4 k/uL (0-1.0); Monocytes % (A) 5 %; Neutrophils % (A) 59 %; Platelet Count 178 k/uL (150-450); RBC 4.88 m/uL (4.30-5.90); RDW 13.1 % (11.5-15.5); WBC 6.9 k/uL (3.8-10.6)
[2022-02-04] MEDS: CYANOCOBALAMIN 500 MCG TAB PO SCH (08:38)
[2022-02-04] MEDS: FOLIC ACID 1 MG TAB PO SCH (08:38)
[2022-02-04] MEDS: HEPARIN SODIUM,PORCINE/PF 5,000 UNIT/0.5 ML SYRINGE SQ SCH (08:39)
[2022-02-04] MEDS: ASPIRIN 325 MG TAB PO SCH (08:39)
[2022-02-04 08:57] LABS: African American GFR (CKD) >90 (>60 ml/min/1.73 sqM); Anion Gap 9 mmol/L; Blood Urea Nitrogen 18 mg/dL (9-20); Calcium 8.8 mg/dL (8.4-10.2); Carbon Dioxide 23 mmol/L (22-30); Chloride 107 mmol/L (98-107); Glucose 153 mg/dL (74-99); Non-African American GFR(CKD) 81 (>60 ml/min/1.73 sqM); Potassium 4.2 mmol/L (3.5-5.1); Sodium 139 mmol/L (137-145)
--- NOTE | 2022-02-04 11:33 | P.PN ---
Subjective This is a pleasant 76-year-old male past medical history significant for coronary artery disease status post PCI to the mid PLB in 2007, proximal LAD in 1996, mid PDA in 2012, dyslipidemia, hypertension, type 2 diabetes, paroxysmal atrial fibrillation not on anticoagulation secondary to increased falls Coumadin was discontinued in the past, obstructive sleep apnea, sick sinus syndrome status post dual-chamber pacemaker implantation in 2017, Parkinson's disease, deep brain stimulator implantation, Fontaine's palsy,decompression/laminectomy of T9 to T10, orthostatic hypotension. He follows in the office with Dr. Trujillo. We have been asked to see in consultation for chest pain and dizziness. Patient presents to the emergency department with complaints of possible syncopal episode. He states he went to the bathroom at home, while he was walking out of the bathroom he felt as if he may pass out. He had increased dizziness, lightheadedness, he is not sure if he passed out or not but does not remember what happened after this. Per the ER note patient did lose consciousness and fell and hit his head. He underwent workup in the ER and CT head hypodensity in the left posterior temporal lobe that could be subacute or acute hemorrhage infarct traumatic hemorrhage with edema not excluded. Left temporal lobe abnormality appears new compared to old exam. 02/04/2022 Patient seen and examined at bedside, distress. No acute events overnight. Overall he is feeling well. He denies any chest pain or shortness of breath. His vital signs are stable.Echocardiogram revealed EF 55%, mild mitral regurgitation, mild tricuspid regurgitation. He is maintaining sinus mechanism. A few episodes of atrial fibrillation noted on telemetry have been reviewed and Also episodes of nonsustained SVT. Repeat CT of the head reported evolving acute hemorrhagic infarct left parietal occipital region posterior watershed level PHYSICAL EXAMINATION Vitals reviewed CONSTITUTIONAL: No apparent distress. HEENT: Head is normocephalic. Neck Supple. No JVD. No carotid bruit. CHEST EXAMINATION: Lungs are clear to auscultation. No chest wall tenderness is noted on palpation or with deep breathing. HEART EXAMINATION: Regular rate and rhythm. S1, S2 heard. No murmurs, gallops or rub. ABDOMEN: Soft, nontender. Positive bowel sounds. EXTREMITIES: 2+ peripheral pulses, no lower extremity edema and no calf tenderness. SKIN: warm, dry NEUROLOGIC EXAMINATION: Patient is awake, alert and oriented x2, somewhat confused about medical history ASSESSMENT Dizziness Syncopal episode CT brain reported left posterior temporal lobe subacute or acute hemorrhagic i nfarct, traumatic hemorrhage with edema not excluded, Neurology following Orthostatic hypotension Chest pain, acute coronary syndrome has ruled out Coronary artery disease status post PCI to the mid PLB in 2007, proximal LAD in 1996, mid PDA in 2012 NSVT Dyslipidemia Hypertension Type 2 diabetes Paroxysmal atrial fibrillation not on anticoagulation secondary to increased falls Coumadin was discontinued in the past Obstructive sleep apnea Sick sinus syndrome status post dual-chamber pacemaker implantation in 2017 Parkinson's disease, deep brain stimulator implantation History of Fontaine's palsy History of decompression/laminectomy of T9 to T10 PLAN An acute coronary event has been ruled out with no EKG evidence of ischemia and negative cardiac enzymes. Neurology following Dizziness likely related to CVA Antiplatelets on hold Hold antihypertensive medications Patient can be considered for a watchman device as an outpatient Do not recommend or see an added benefit of performing a AUSTEN at this time No further changes from cardiology perspective. Follow up outpatient with Dr. Trujillo Please re-consult if needed Nurse practitioner note has been reviewed by physician. Signing provider agrees with the documented findings, assessment, and plan of care. Objective - Vital Signs Vital signs: Vital Signs Temp 97.9 F 02/03/22 20:00 Pulse 53 L 02/04/22 08:00 Resp 16 02/04/22 08:00 BP 129/77 02/04/22 08:00 Pulse Ox 97 02/04/22 04:00 FiO2 Intake & Output 02/03/22 02/04/22 02/04/22 18:59 06:59 18:59 Intake Total 1260 180 Output Total 350 700 300 Balance 910 -700 -120 Intake: Oral 1260 180 Output: Urine 350 700 300 Other: Voiding Method Urinal Urinal Urinal - Labs CBC & Chem 7: 02/04/22 07:53 02/04/22 07:53 Labs: Abnormal Lab Results - Last 24 Hours (Table) 02/03/22 02/03/22 02/04/22 Range/Units 11:33 20:32 01:31 Glucose 121 H (74-99) mg/dL POC Glucose (mg/dL) 154 H 147 H (70-110) mg/dL 02/04/22 02/04/22 Range/Units 06:00 07:53 Glucose 153 H (74-99) mg/dL POC Glucose (mg/dL) 129 H (70-110) mg/dL
[2022-02-04 11:50] LABS: Glucose,Whole Blood 109 mg/dL (70-110)
[2022-02-04 13:17] VITALS: BP 159/75; PULSE 50
--- NOTE | 2022-02-07 15:45 | P.DS ---
Providers Date of admission: 01/31/22 22:24 Expected date of discharge: 02/04/22 Attending physician: Candice Whitlock Consults: 01/31/22 22:24 Consult Physician Routine Consulting Provider: Otilio John Consult Reason/Comments: Brain edema, possible hemorrhage Do you want consulting provider notified?: Yes, Notify in am 02/01/22 23:46 Consult Physician Routine Consulting Provider: Ashwin Scott Consult Reason/Comments: Dizziness and chest pain Do you want consulting provider notified?: Yes, Notify in am 02/03/22 14:12 Consult Physician Routine Consulting Provider: Alvarez Villalpando Consult Reason/Comments: Eval for IPR Do you want consulting provider notified?: Yes Primary care physician: João Hernandez MD Hospital Course: Final diagnosis Acute CVA involving left parietal occipital region. CT head showed left occipital lobe with hyperdense gyriform attenuation in the region could represent cortical laminar necrosis in the setting of CVA.. Acute syncopal episode with complaints of dizziness and fall, hitting his left Forehead. Likely due to CVA and orthostatic hypotension. Acute hypodensity in the left posterior temporal lobe. Suspected hemorrhagic stroke. MRI of the brain could not be done due to neurostimulator in place. Atypical chest pain. Ruled out ACS. History of coronary disease status post stent placement History of permanent pacemaker placement Paroxysmal atrial fibrillation History of decompression laminectomy T9-T10 with Neurostimulator in place Diabetes type 2 diet controlled Hypertension Hyperlipidemia History of PR Obstructive sleep apnea not using CPAP at home History of nephrolithiasis and BPH Depression DVT prophylaxis. Discharge disposition Patient is being discharged in a stable condition with guarded prognosis to home. Patient will follow-up with Dr. Hernandez in the outpatient setting upon discharge. Patient is to also follow up with cardiology and neurology as scheduled. Total time taken is greater than 35 minutes. Hospital course This is a 76-year-old male who was recently admitted with an acute cva with increased right side weakness and deficits. Recommending inpatient rehab although feels he would be better at home with his continued care and rehab outpatient. Patient has been cleared for discharge with close outpatient follow up. Cardiology recommending outpatient follow up and continue on current med ications. Will discuss possible watchmen device outpatient. Currently no reports of chest pain, shortness of breath, or palpitations. Patient is afebrile. No reports of nausea or vomiting and patient is tolerating diet. Patient will be discharged home today with guarded prognosis. Physical exam: Gen: This is a 76 year old male who is awake,alert,and oriented x2-3 with some delay, Parkinsons HEENT: Head is atraumatic, normocephalic. Pupils equal, round. Sclerae is anicteric. NECK: Supple. No JVD. No lymphadenopathy. No thyromegaly. LUNGS: Clear to auscultation. No wheezes or rhonchi. No intercostal retractions. HEART: Regular rate and rhythm. No murmur. ABDOMEN: Soft. Bowel sounds are present. No masses. No tenderness. EXTREMITIES: No pedal edema. No calf tenderness. NEUROLOGICAL: Patient is awake, alert and oriented x2-3. Cranial nerves 2 through 12 are grossly intact. diffusely weak with some right side weakness Please refer to medication reconciliation sheet for a list of medications. The impression and plan of care has been dictated by Ольга Henderson, Nurse Practitioner as directed. Dr. Winston MD I have performed a history and examination and MDM of this patient, discussed the same with the dictator, and agree with the dictator's assessment and plan as written ,documented as a scribe. Based on total visit time, I have performed more than 50% of the visit. Patient Condition at Discharge: Fair Plan - Discharge Summary Discharge Rx Participant: No New Discharge Prescriptions: New Aspirin 325 mg PO DAILY 30 Days #30 tab Acetaminophen Tab [Tylenol] 650 mg PO Q4HR PRN tab PRN Reason: Fever And/ Or Pain Continue Esomeprazole Magnesium [NexIUM] 40 mg PO DAILY Atorvastatin [Lipitor] 40 mg PO HS Cyanocobalamin [Vitamin B-12] 500 mcg PO DAILY Folic Acid 0.4 mg PO DAILY Citalopram Hydrobromide [Citalopram HBr] 40 mg PO HS Donepezil [Aricept] 10 mg PO HS Carbidopa/Levodopa [Rytary ER 36.25 mg-145 mg Cap] 1 cap PO BID@0900,1600 Tamsulosin [Flomax] 0.4 mg PO BID Mirabegron [Myrbetriq] 50 mg PO HS Discontinued Aspirin 81 mg PO DAILY Discharge Medication List Atorvastatin [Lipitor] 40 mg PO HS 05/21/14 [History] Esomeprazole Magnesium [NexIUM] 40 mg PO DAILY 05/21/14 [History] Cyanocobalamin [Vitamin B-12] 500 mcg PO DAILY 09/15/15 [History] Folic Acid 0.4 mg PO DAILY 11/16/16 [History] Citalopram Hydrobromide [Citalopram HBr] 40 mg PO HS 11/13/20 [History] Carbidopa/Levodopa [Rytary ER 36.25 mg-145 mg Cap] 1 cap PO BID@0900,1600 12/13/21 [History] Donepezil [Aricept] 10 mg PO HS 12/13/21 [History] Mirabegron [Myrbetriq] 50 mg PO HS 12/13/21 [History] Tamsulosin [Flomax] 0.4 mg PO BID 12/13/21 [History] Acetaminophen Tab [Tylenol] 650 mg PO Q4HR PRN tab 02/04/22 [Rx] Aspirin 325 mg PO DAILY 30 Days #30 tab 02/04/22 [Rx] Follow up Appointment(s)/Referral(s): Ham Trujillo MD [STAFF PHYSICIAN] - 1 Week (office will call with an appt.) João Hernandez MD [Primary Care Provider] - 1-2 days [facility], [NON-STAFF] - 1-2 Days (Home care will call to set up appointment any uestions please call agency. ) Lennie Pathak MD [Medical Doctor] - 1 Week Patient Instructions/Handouts: Ischemic Stroke (DC) Activity/Diet/Wound Care/Special Instructions: Activity Limited until follow-up Follow-up with primary care provider on discharge Follow-up with neurology outpatient Follow-up with cardiology outpatient to discuss possible watchman device Continue taking medications as prescribed Discharge Disposition: HOME WITH HOME HEALTH SERVICES
--- NOTE | 2022-02-09 05:34 | CDI ---
Documentation Clarification Form Date: 02/09/2022 05:18:00 AM From: Jennifer Pavon Admit Date: 01/31/2022 10:24:00 PM Patient Name: Jordy Duran Visit Number: [id number] Discharge Date: 02/04/2022 02:13:00 PM ATTENTION: The Clinical Documentation Specialists (CDI) and [facility] Coding Staff appreciate your assistance in clarifying documentation. Please respond to the clarification below the line at the bottom and electronically sign. The CDI & [facility] Coding staff will review the response and follow-up if needed. Please note: Queries are made part of the Legal Health Record. If you have any questions, please contact the author of this message via ITS. Dr. Candice Whitlock Suspected Hemorrhagic CVA is documented in DCS. Also, Acute syncopal episode with complaints of dizziness and fall, hitting his left forehead, likely due to CVA and orthostatic hypotension. Please clarify if patient's CVA caused his fall then causing a traumatic hemorrhagic stroke? Or was patient's stroke prior to fall and causing fall? Additional clarification regarding the etiology of the hemorrhagic CVA is requested. Patient history/risk factors: CAD with stent, pacemaker, Paroxysmal atrial fib, DM type II, HTN, hyperlipdidemia, history of RI Clinical Indicators: CT: suspect evolving acute hemorrhagic infarct MRI/MRA: Could not be done because of neurostimulator Treatment: Telemetry monitoring, gentle IV hydration, stroke PRADHAN including head CT, 2D echocardiogram and EEG, anticougulation on hold. FU orthostatic vitals, continue neurochecks every 4 hours and neurology on board. PT OT follow closely Please clarify the etiology of the hemorrhagic CVA, if known: [ ] Nontraumatic subarachnoid hemorrhage [ ] Nontraumatic intracerebral hemorrhage [ ] Traumatic intracranial injury with loss of consciousness [ ] Traumatic intracranial injury without loss of consciousness [ ] Other please specify [ ] Unable to Determine Unable to Determine MTDD
== END 2022-02-04 14:13 | disposition home health service (06) | DRG 64 ==
LOC: EC 16:58 → 3SCARD 22:24
PROVIDERS: ADMIT Hospitalist; ATTEND Hospitalist
DX: I61.9 Nontraumatic intracerebral hemorrhage, unspecified (principal); G93.6 Cerebral edema; J98.11 Atelectasis; I47.1 Supraventricular tachycardia; I95.1 Orthostatic hypotension; M47.812 Spondylosis without myelopathy or radiculopathy, cervical region; N40.0 Benign prostatic hyperplasia without lower urinary tract symptoms; E11.9 Type 2 diabetes mellitus without complications; E78.5 Hyperlipidemia, unspecified; F32.A Depression, unspecified; G20 Parkinson's disease; G47.33 Obstructive sleep apnea (adult) (pediatric); G89.29 Other chronic pain; I07.1 Rheumatic tricuspid insufficiency; E66.9 Obesity, unspecified; M54.50 Low back pain, unspecified; I10 Essential (primary) hypertension; R29.6 Repeated falls; I25.10 Atherosclerotic heart disease of native coronary artery without angina pectoris; F40.240 Claustrophobia; R26.9 Unspecified abnormalities of gait and mobility; I25.2 Old myocardial infarction; I48.0 Paroxysmal atrial fibrillation; I49.5 Sick sinus syndrome; Z68.31 Body mass index [BMI] 31.0-31.9, adult; Z91.81 History of falling; Z96.82 Presence of neurostimulator; Z79.82 Long term (current) use of aspirin; Z79.899 Other long term (current) drug therapy; Z87.442 Personal history of urinary calculi; Z95.0 Presence of cardiac pacemaker; Z95.5 Presence of coronary angioplasty implant and graft; Z82.0 Family history of epilepsy and other diseases of the nervous system; Z88.5 Allergy status to narcotic agent; Z96.659 Presence of unspecified artificial knee joint; Z96.619 Presence of unspecified artificial shoulder joint
CPT/HCPCS: 36415; 70450; 70496; 71045; 72125; 80048; 80053; 80061; 80320; 81003; 83735; 84145; 84484; 85025; 85379; 93005; 93306; 93880; 95816; 99291

== ENCOUNTER → 2022-04-02 | Outpatient (CLI) | payer MEDICARE ==
[2022-04-02 22:50] LABS: Prothrombin Time 11.3 sec (9.9-11.9)
[2022-04-02 23:09] LABS: Basophils # (A) 0.03 X 10*3/uL (0.00-0.10); Basophils % (A) 0.4 %; Eosinophils # (A) 0.25 X 10*3/uL (0.04-0.35); Eosinophils % (A) 3.1 %; HCT 45.5 % (39.6-50.0); HGB 14.3 g/dL (13.0-17.0); Immature Grans, Automated 0.2 %; Lymphocytes # (A) 2.54 X 10*3/uL (0.90-5.00); Lymphocytes % (A) 31.1 %; MCHC 31.4 g/dL (32.0-37.0); MCV 92.3 fL (80.0-97.0); Mean Platelet Volume 10.5 fL (9.5-12.2); Monocytes # (A) 0.64 X 10*3/uL (0.20-1.00); Monocytes % (A) 7.8 %; NRBC Per 100 WBC 0 /100 WBCS (0.0-0.0); Neutrophils # (A) 4.68 X 10*3/uL (1.80-7.70); Neutrophils % (A) 57.4 %; Platelet Count 166 X 10*3/uL (140-440); RBC 4.93 X 10*6/uL (4.40-5.60); RDW 13.2 % (11.5-14.5); WBC 8.16 X 10*3/uL (4.50-10.00)
[2022-04-02 23:27] LABS: African American GFR (CKD) 55.8 (60.0-200.0); Anion Gap 12.2 mmol/L (10.00-18.00); BUN/Creat Ratio 17.5 Ratio (12.00-20.00); Blood Urea Nitrogen 24.5 mg/dL (9.0-27.0); Calcium 9.5 mg/dL (8.7-10.3); Carbon Dioxide 24.8 mmol/L (20.0-27.5); Non-African American GFR(CKD) 48.1 (60.0-200.0); Potassium 5.1 mmol/L (3.5-5.5)
== END | disposition home or self-care (01) ==
LOC: LABWHC1 13:40
DX: I48.0 Paroxysmal atrial fibrillation (principal)
CPT/HCPCS: 36415; 80048; 85025; 85610

== ENCOUNTER → 2022-07-09 | Outpatient (CLI) | payer MEDICARE ==
[2022-07-09 12:54] LABS: HCT 46.2 % (39.0-53.0); HGB 14.9 gm/dL (13.0-17.5); MCH 29.1 pg (25.0-35.0); MCHC 32.2 g/dL (31.0-37.0); MCV 90.4 fL (80.0-100.0); Mean Platelet Volume 7.5; Platelet Count 191 k/uL (150-450); RBC 5.11 m/uL (4.30-5.90); RDW 14.6 % (11.5-15.5); WBC 8.7 k/uL (3.8-10.6)
[2022-07-09 13:16] LABS: INR 1.1 (<1.2); Prothrombin Time 11.1 sec (9.0-12.0)
[2022-07-09 13:35] LABS: ALT 9 U/L (4-49); AST 25 U/L (17-59); African American GFR (CKD) 85 (>60 ml/min/1.73 sqM); Albumin 4.2 g/dL (3.5-5.0); Albumin/Globulin Ratio 1.6; Alkaline Phosphatase 95 U/L (38-126); Anion Gap 8 mmol/L; Blood Urea Nitrogen 17 mg/dL (9-20); Calcium 9.3 mg/dL (8.4-10.2); Carbon Dioxide 29 mmol/L (22-30); Chloride 102 mmol/L (98-107); Globulin 2.6 g/dL; Glucose 161 mg/dL (74-99); Non-African American GFR(CKD) 73 (>60 ml/min/1.73 sqM); Potassium 4.7 mmol/L (3.5-5.1); Sodium 139 mmol/L (137-145); Total Bilirubin 0.6 mg/dL (0.2-1.3); Total Protein 6.8 g/dL (6.3-8.2)
== END | disposition home or self-care (01) ==
LOC: LABWHC1 11:34
PROVIDERS: ATTEND Internal Medicine Cardiovascular Disease
DX: I25.10 Atherosclerotic heart disease of native coronary artery without angina pectoris (principal)
CPT/HCPCS: 36415; 80053; 85027; 85610

== ENCOUNTER → 2022-07-20 | Outpatient (CLI) | payer MEDICARE ==
--- NOTE | 2022-07-20 12:48 | FL ---
Exam Date: 07/20/2022 11:34 AM. Modified barium swallow for dysphagia. Consistencies administered: Various consistency of barium. Fluoro time: 1 minute 41 seconds No images were sent to PACS. Please see speech pathology report. DAP: Not reported by machine.
== END | disposition home or self-care (01) ==
LOC: RADFLMAIN 11:07
PROVIDERS: ATTEND Psychiatry & Neurology Neurology
DX: R13.10 Dysphagia, unspecified (principal); G20 Parkinson's disease; I95.1 Orthostatic hypotension; F02.80 Dementia in other diseases classified elsewhere, unspecified severity, without behavioral disturbance, psychotic disturbance, mood disturbance, and anxiety; T42.8X5A Adverse effect of antiparkinsonism drugs and other central muscle-tone depressants, initial encounter
CPT/HCPCS: 74230

== ENCOUNTER → 2023-02-08 | Outpatient (CLI) | payer MEDICARE ==
--- NOTE | 2023-02-08 13:51 | US ---
EXAMINATION TYPE: US arterial LE single level DATE OF EXAM: 02/08/2023 1:25 PM CLINICAL INDICATION: Male, 77 years old with history of I73.9 PERIPHERAL VASCULAR DISEASE, UNSPECIFIE D; Cold feet. Discoloration/purple feet. Pacemaker History of: Smoker: no Hypertension: yes Diabetic: yes Hyperlipidemia: yes TIA/CVA: yes Previous Vascular Surgery: no DE: yes Vascular Ulcers: no Claudication: no Gangrene: no Doppler Waveforms: Right: Left: Pulse Volume Recording: Pressure Gradients: Right Brachial Pressure: 169 Left Brachial Pressure: 161 Ankle-Brachial Indices: Right: 1.03 Left: 1.01 Toe Brachial Indices: Right: 0.59 Left: 0.36 Monophasic waveforms within the distal digital vessels. The lower extremity vessels otherwise normal triphasic waveforms. IMPRESSION: 1. Severe stenosis digital arteries the bilateral feet
== END | disposition home or self-care (01) ==
LOC: RADUSWWP 12:58
PROVIDERS: ATTEND Family Medicine
DX: I73.9 Peripheral vascular disease, unspecified (principal); I10 Essential (primary) hypertension; E11.51 Type 2 diabetes mellitus with diabetic peripheral angiopathy without gangrene; E78.5 Hyperlipidemia, unspecified; Z95.0 Presence of cardiac pacemaker
CPT/HCPCS: 93922

== ENCOUNTER 2023-03-10 09:33 | Emergency (ER) | payer MEDICARE ==
[2023-03-10 09:42] VITALS: RESP 18; TEMP 98
--- NOTE | 2023-03-10 09:43 | ED ---
Abdominal Pain HPI - General Chief Complaint: Abdominal Pain Stated Complaint: Constipation Time Seen by Provider: 03/10/23 09:38 Source: patient, RN notes reviewed Mode of arrival: ambulatory Limitations: no limitations - History of Present Illness Initial Comments: 77-year-old male presents emergency Department with for chief complaint constipation. Patient states that he recently had some dental extractions states that they changes medication is not been eating same in which she's now has constipation took one Senokot last night. Patient states he does have Parkinson's disease also. He states he has no difficulty urinating he denies any prior instructions. - Related Data Home Medications Medication Instructions Recorded Confirmed Atorvastatin [Lipitor] 40 mg PO DAILY 05/21/14 04/28/22 Esomeprazole Magnesium [NexIUM] 40 mg PO DAILY 05/21/14 04/28/22 Cyanocobalamin [Vitamin B-12] 250 mcg PO DAILY 09/15/15 04/28/22 Folic Acid 0.4 mg PO DAILY 11/16/16 04/28/22 Citalopram Hydrobromide 40 mg PO HS 11/13/20 04/28/22 [Citalopram HBr] Carbidopa/Levodopa [Rytary ER 1 cap PO BID@0900,1600 12/13/21 04/28/22 36.25 mg-145 mg Cap] Mirabegron [Myrbetriq] 50 mg PO HS 12/13/21 04/28/22 Aspirin EC [Ecotrin Low Dose] 81 mg PO DAILY 04/28/22 04/28/22 Previous Rx's Medication Instructions Recorded Finasteride [Proscar] 5 mg PO DAILY #30 tab 04/30/22 Midodrine HCl [ProAmatine] 10 mg PO TID #90 tablet 04/30/22 Docusate [Colace] 100 mg PO DAILY #30 capsule 03/10/23 Allergies Allergy/AdvReac Type Severity Reaction Status Date / Time adhesive AdvReac Itching Verified 03/10/23 09:41 morphine AdvReac Excessive Verified 03/10/23 09:41 Sweating Review of Systems ROS Statement: Those systems with pertinent positive or pertinent negative responses have been documented in the HPI. ROS Other: All systems not noted in ROS Statement are negative. Past Medical History Past Medical History: Coronary Artery Disease (CAD), Chest Pain / Angina, Diabetes Mellitus, GERD/Reflux, Hyperlipidemia, Hypertension, Myocardial Infarction (IA), Neurologic Disorder, Osteoarthritis (OA), Prostate Disorder, Sleep Apnea/CPAP/BIPAP, Syncope Additional Past Medical History / Comment(s): PARKINSON'S -HAND TREMORS & SHUFFLING GAIT;BILLS'S PALSY WITH LEFT FACIAL DROOP.SLEEP APNEA (NO MACHINE), ENLARGED PROSTATE., DDD- HAS PAIN STIMULATOR., HX OF ABDOMINAL PAIN & NAUSEA WHICH HAS IMPROVED SINCE HE STOPPED PARKNINSONS MEDICATIONS., HX Kidney Stone Last Myocardial Infarction Date:: 1996 History of Any Multi-Drug Resistant Organisms: None Reported Past Surgical History: Appendectomy, Back Surgery, Cholecystectomy, Heart Catheterization With Stent, Joint Replacement, Pacemaker Additional Past Surgical History / Comment(s): TOTAL LEFT KNEE, TOTAL LEFT SHOULDER , CARDIAC STENTS X3, BACK SURGERY X 3 WITH CRISTEL AND PLATES, DECOMPRESSION/LAMINECTOMY T9-T10 AND NEURO STIMULATOR IMPLANTED., CYSTOSCOPY., PACEMAKER (11/2016); Lithotripsy, neuro transmitter implanted at [place] to help with his parkinsons Past Anesthesia/Blood Transfusion Reactions: No Reported Reaction Additional Past Anesthesia/Blood Transfusion Reaction / Comment(s): SLIGHT CLAUSTROHOBIA Date of Last Stent Placement:: 2007 Type of Cardiac Device: Permanent Pacemaker Device Placement Date:: 11/2016 Past Psychological History: Depression Smoking Status: Never smoker Past Alcohol Use History: None Reported Past Drug Use History: None Reported - Past Family History Sister(s) Family Medical History: Cancer Additional Family Medical History / Comment(s): Luis Alberto Father Sister(s) Additional Family Medical History / Comment(s): FATHER, 2 SISTERS AND 1 BROTHER, LUIS ALBERTO'S DX Mother Family Medical History: Deep Vein Thrombosis (DVT) Brother(s) Family Medical History: Cancer Additional Family Medical History / Comment(s): leukemia General Exam Limitations: no limitations General appearance: alert, in no apparent distress Head exam: Present: atraumatic, normocephalic, normal inspection Respiratory exam: Present: normal lung sounds bilaterally. Absent: respiratory distress, wheezes, rales, rhonchi, stridor Cardiovascular Exam: Present: regular rate, normal rhythm, normal heart sounds. Absent: systolic murmur, diastolic murmur, rubs, gallop, clicks GI/Abdominal exam: Present: soft, normal bowel sounds. Absent: distended, tenderness, guarding, rebound, rigid Course Vital Signs 03/10/23 03/10/23 09:39 12:59 Temperature 98 F 98 F Pulse Rate 50 L 59 L Respiratory 18 18 Rate Blood Pressure 134/81 130/76 O2 Sat by Pulse 99 99 Oximetry Medical Decision Making - Medical Decision Making Was pt. sent in by a medical professional or institution (MARGO Collins, FLOOR PRESS OPERATOR, urgent care, hospital, or custodial...) When possible be specific @ -No Did you speak to anyone other than the patient for history (EMS, parent, family, police, friend...)? What history was obtained from this source @ -No Did you review nursing and triage notes (agree or disagree)? Why? @ -I reviewed and agree with nursing and triage notes Were old charts reviewed (outside hosp., previous admission, EMS record, old EKG, old radiological studies, urgent care reports/EKG's, custodial records)? Report findings @ -No old charts were reviewed Differential Diagnosis (chest pain, altered mental status, abdominal pain women, abdominal pain men, vaginal bleeding, weakness, fever, dyspnea, syncope, headache, dizziness, GI bleed, back pain, seizure, CVA, palpatations, mental health, musculoskeletal)? @ -Constipation, bowel obstruction EKG interpreted by me (3pts min.). @ -None X-rays interpreted by me (1pt min.). @ -X-ray shows nausea per pattern, moderate constipation CT interpreted by me (1pt min.). @ -None done U/S interpreted by me (1pt. min.). @ -None done What testing was considered but not performed or refused? (CT, X-rays, U/S, labs)? Why? @ -None What meds were considered but not given or refused? Why? @ -None Did you discuss the management of the patient with other professionals (professionals i.e. MARGO Collins, FLOOR PRESS OPERATOR, lab, RT, psych nurse, addiction social worker, grinder operator tool, teacher, special weapons and tactics officer, case management manager)? Give summary @ -No Was smoking cessation discussed for >3mins.? @ -No Was critical care preformed (if so, how long)? @ -No Were there social determinants of health that impacted care today? How? (Homelessness, low income, unemployed, alcoholism, drug addiction, transport ation, low edu. Level, literacy, decrease access to med. care, usp, rehab)? @ -No Was there de-escalation of care discussed even if they declined (Discuss DNR or withdrawal of care, Hospice)? DNR status @ -No What co-morbidities impacted this encounter? (DM, HTN, Smoking, COPD, CAD, Cancer, CVA, ARF, Chemo, Hep., AIDS, mental health diagnosis, sleep apnea, morbid obesity)? @ -None Was patient admitted / discharged? Hospital course, mention meds given and route, prescriptions, significant lab abnormalities, going to OR and other pertinent info. @ -Discharge patient had enema, had large bowel movement feels greatly improved of a discharge in stable condition Undiagnosed new problem with uncertain prognosis? @ -No Drug Therapy requiring intensive monitoring for toxicity (Heparin, Nitro, Insulin, Cardizem)? @ -No Were any procedures done? @ -No Diagnosis/symptom? @ -Constipation Acute, or Chronic, or Acute on Chronic? @ -[Acute Uncomplicated (without systemic symptoms) or Complicated (systemic symptoms)? @ -Uncomplicated Side effects of treatment? @ -No Exacerbation, Progression, or Severe Exacerbation? @ -No Poses a threat to life or bodily function? How? (Chest pain, USA, IA, pneumonia, PE, COPD, DKA, ARF, appy, cholecystitis, CVA, Diverticulitis, Homicidal, Suicidal, threat to staff... and all critical care pts) @ -No Disposition Clinical Impression: Constipation Disposition: HOME SELF-CARE Condition: Stable Instructions (If sedation given, give patient instructions): Constipation (ED) Additional Instructions: Please return to the Emergency Department if symptoms worsen or any other concerns. Prescriptions: Docusate [Colace] 100 mg PO DAILY #30 capsule Is patient prescribed a controlled substance at d/c from ED?: No Referrals: João Hernandez MD [Primary Care Provider] - 1-2 days Time of Disposition: 12:37
[2023-03-10] MEDS ORDERED: MAG HYDROX/AL HYDROX/SIMETH 30 ML CUP PO STA (09:50)
[2023-03-10] MEDS ORDERED: MAGNESIUM HYDROXIDE 2,400 MG/30 ML CUP PO STA (11:30)
--- NOTE | 2023-03-10 12:00 | XR ---
EXAMINATION TYPE: XR KUB DATE OF EXAM: 03/10/2023 Comparison: 07/08/2019 Clinical History: 77-year-old male constipation Findings: Right ventricular pacer lead. L1-L4 posterior and interbody fusion hardware. There appears to be righ t lateral bridging endplate spondylosis at L4-L5. Scattered [id number] stool throughout the col on. No dilated small bowel loops. No evidence for free intraperitoneal air. No air-fluid levels. Left-sided pelvic phleboliths. Impression: Mild to moderate stool burden. Nonobstructive bowel gas pattern. No free air.
[2023-03-10 13:27] VITALS: BP 130/76; PULSE 59
== END 2023-03-10 12:59 | disposition home or self-care (01) ==
LOC: EC 09:33
DX: K59.00 Constipation, unspecified (principal); I25.10 Atherosclerotic heart disease of native coronary artery without angina pectoris; E11.9 Type 2 diabetes mellitus without complications; K21.9 Gastro-esophageal reflux disease without esophagitis; E78.5 Hyperlipidemia, unspecified; I10 Essential (primary) hypertension; I25.2 Old myocardial infarction; G47.30 Sleep apnea, unspecified; F32.A Depression, unspecified; Z79.899 Other long term (current) drug therapy; Z79.82 Long term (current) use of aspirin; Z91.09 Other allergy status, other than to drugs and biological substances; Z88.5 Allergy status to narcotic agent
CPT/HCPCS: 74018; 99284

== ENCOUNTER 2023-04-07 12:28 | Emergency (ER) | payer MEDICARE ==
[2023-04-07 13:03] VITALS: RESP 18; TEMP 97.9
--- NOTE | 2023-04-07 13:46 | XR ---
EXAMINATION TYPE: XR KUB DATE OF EXAM: 04/07/2023 1:41 PM CLINICAL INDICATION:Male, 77 years old with history of Constipation; [facility] COMPARISON: 03/10/2023. TECHNIQUE: One radiographic view of the abdomen was obtained. FINDINGS/IMPRESSION: 1. Mild stool throughout the colon. 2. No significant change from 03/10/2023. 3. Fixation hardware in the spine appears intact. 4. Stimulator device with leads terminating in the super aspect of the film. 5. Nonspecific bowel gas pattern.
--- NOTE | 2023-04-07 14:26 | ED ---
Abdominal Pain HPI - General Chief Complaint: Abdominal Pain Stated Complaint: Constipation Time Seen by Provider: 04/07/23 13:06 Source: patient, RN notes reviewed Mode of arrival: ambulatory Limitations: no limitations - History of Present Illness Initial Comments: This is a 77-year-old male who presents to the emergency department for constipation. States that he has not had a bowel movement in 4 days. Patient has Parkinson's disease and struggles with having bowel movements. He was in the emergency department for this on 03/10 and discharged with a prescription for Colace. He has been using this since. Reports increasing abdominal pain. He is still passing gas. Denies any nausea or vomiting. He has had enemas before, but he and his are unable to do these on their own. MD Complaint: abdominal pain - Related Data Home Medications Medication Instructions Recorded Confirmed Atorvastatin [Lipitor] 40 mg PO DAILY 05/21/14 04/28/22 Esomeprazole Magnesium [NexIUM] 40 mg PO DAILY 05/21/14 04/28/22 Cyanocobalamin [Vitamin B-12] 250 mcg PO DAILY 09/15/15 04/28/22 Folic Acid 0.4 mg PO DAILY 11/16/16 04/28/22 Citalopram Hydrobromide 40 mg PO HS 11/13/20 04/28/22 [Citalopram HBr] Carbidopa/Levodopa [Rytary ER 1 cap PO BID@0900,1600 12/13/21 04/28/22 36.25 mg-145 mg Cap] Mirabegron [Myrbetriq] 50 mg PO HS 12/13/21 04/28/22 Aspirin EC [Ecotrin Low Dose] 81 mg PO DAILY 04/28/22 04/28/22 Previous Rx's Medication Instructions Recorded Finasteride [Proscar] 5 mg PO DAILY #30 tab 04/30/22 Midodrine HCl [ProAmatine] 10 mg PO TID #90 tablet 04/30/22 Docusate [Colace] 100 mg PO DAILY #30 capsule 03/10/23 Allergies Allergy/AdvReac Type Severity Reaction Status Date / Time adhesive AdvReac Itching Verified 04/07/23 12:45 morphine AdvReac Excessive Verified 04/07/23 12:45 Sweating Review of Systems ROS Statement: Those systems with pertinent positive or pertinent negative responses have been documented in the HPI. ROS Other: All systems not noted in ROS Statement are negative. Past Medical History Past Medical History: Coronary Artery Disease (CAD), Chest Pain / Angina, Diabetes Mellitus, GERD/Reflux, Hyperlipidemia, Hypertension, Myocardial Infarction (IN), Neurologic Disorder, Osteoarthritis (OA), Prostate Disorder, Sleep Apnea/CPAP/BIPAP, Syncope Additional Past Medical History / Comment(s): PARKINSON'S -HAND TREMORS & SHUFFLING GAIT;BILLS'S PALSY WITH LEFT FACIAL DROOP.SLEEP APNEA (NO MACHINE), ENLARGED PROSTATE., DDD- HAS PAIN STIMULATOR., HX OF ABDOMINAL PAIN & NAUSEA WHICH HAS IMPROVED SINCE HE STOPPED PARKNINSONS MEDICATIONS., HX Kidney Stone Last Myocardial Infarction Date:: 1996 History of Any Multi-Drug Resistant Organisms: None Reported Past Surgical History: Appendectomy, Back Surgery, Cholecystectomy, Heart Catheterization With Stent, Joint Replacement, Pacemaker Additional Past Surgical History / Comment(s): TOTAL LEFT KNEE, TOTAL LEFT SHOULDER , CARDIAC STENTS X3, BACK SURGERY X 3 WITH CRISTEL AND PLATES, DECOMPRESSION/LAMINECTOMY T9-T10 AND NEURO STIMULATOR IMPLANTED., CYSTOSCOPY., PACEMAKER (11/2016); Lithotripsy, neuro transmitter implanted at [facility] to help with his parkinsons Past Anesthesia/Blood Transfusion Reactions: No Reported Reaction Additional Past Anesthesia/Blood Transfusion Reaction / Comment(s): SLIGHT CLAUSTROHOBIA Date of Last Stent Placement:: 2007 Type of Cardiac Device: Permanent Pacemaker Device Placement Date:: 11/2016 Past Psychological History: Depression Smoking Status: Never smoker Past Alcohol Use History: None Reported Past Drug Use History: None Reported - Past Family History Sister(s) Family Medical History: Cancer Additional Family Medical History / Comment(s): [place] Father Sister(s) Additional Family Medical History / Comment(s): FATHER, 2 SISTERS AND 1 BROTHER, LUIS ALBERTO'S DX Mother Family Medical History: Deep Vein Thrombosis (DVT) Brother(s) Family Medical History: Cancer Additional Family Medical History / Comment(s): leukemia General Exam Limitations: no limitations General appearance: alert, in no apparent distress Head exam: Present: atraumatic, normocephalic, normal inspection Respiratory exam: Present: normal lung sounds bilaterally. Absent: respiratory distress, wheezes, rales, rhonchi, stridor Cardiovascular Exam: Present: regular rate, normal rhythm, normal heart sounds. Absent: systolic murmur, diastolic murmur, rubs, gallop, clicks GI/Abdominal exam: Present: soft, normal bowel sounds. Absent: distended, tenderness, guarding, rebound, rigid Neurological exam: Present: alert, oriented X3, CN II-XII intact Psychiatric exam: Present: normal affect, normal mood Skin exam: Present: warm, dry, intact, normal color. Absent: rash Course Vital Signs 04/07/23 04/07/23 12:42 17:15 Temperature 97.9 F Pulse Rate 50 L 78 Respiratory 18 18 Rate Blood Pressure 137/84 128/70 O2 Sat by Pulse 98 98 Oximetry Medical Decision Making - Medical Decision Making This is a 77-year-old male who presents to the emergency department for constip ation. Was pt. sent in by a medical professional or institution? @ -No Did you speak to anyone other than the patient for history? @ -His provided the majority of the history. Did you review nursing and triage notes? @ -Yes, and I agree, it is accurate with regards to the patient's symptoms. Were old charts reviewed? @ -No Differential Diagnosis? @ -Differential Abdominal Pain Men: Appendicitis, cholecystitis, diverticulosis, ischemic bowel, pancreatitis, hepatitis, UTI, gastroenteritis, AAA, incarcerated hernia, bowel obstruction, constipation, inflammatory bowel, hepatitis, peptic ulcer disease, splenic infarction, perforated viscus, testicular torsion, this is not meant to be an all-inclusive list EKG interpreted by me (3pts min.)? @ -Not obtained X-rays interpreted by me (1pt min.)? @ -KUB x-ray obtained. My interpretation identifies no dilation of the small bowel loops. CT interpreted by me (1pt min.)? @ -Not obtained U/S interpreted by me (1pt. min.)? @ -Not obtained What testing was considered but not performed? (CT, X-rays, U/S, labs)? Why? @ -None What meds were considered but not given? Why? @ -None Did you discuss the management of the patient with other professionals? @ -No Did you reconcile home meds? @ -No Was smoking cessation discussed for >3mins.? @ -No Was critical care preformed (if so, how long)? @ -No Were there social determinants of health that impacted care today? How? (Homelessness, low income, unemployed, alcoholism, drug addiction, transportation, low edu. Level, literacy, decrease access to med. care, alf, rehab)? @ -No Was there de-escalation of care discussed even if they declined? (Discuss DNR or withdrawal of care, Hospice)? @ -No What co-morbidities impacted this encounter? (DM, HTN, Smoking, COPD, CAD, Cancer, CVA, Hep., AIDS, mental health diagnosis, sleep apnea, morbid obesity)? @ -Parkinson's disease Was patient admitted / discharged? @ -Discharged. KUB x-ray obtained demonstrating mild stool throughout the colon. Fleet enema administered and the patient produced a large bowel movement with improvement in symptoms. Patient discharged home in stable condition. Advised continuing with the Colace and also using MiraLAX if needed. He is also advised to remain well-hydrated and follow-up with his primary care provider. Undiagnosed new problem with uncertain prognosis? @ -None Drug Therapy requiring intensive monitoring for toxicity (Heparin, Nitro, Insulin, Cardizem)? @ -None Were any procedures done? @ -None Diagnosis/symptom? @ -Constipation Acute, or Chronic, or Acute on Chronic? @ -Acute Uncomplicated (without systemic symptoms) or Complicated (systemic symptoms)? @ -Uncomplicated Side effects of treatment? @ -None Exacerbation, Progression, or Severe Exacerbation] @ -Not applicable Poses a threat to life or bodily function? @ -No Return precautions reviewed in depth, the patient is instructed to return to the emergency department with any new, worsening, or concerning symptoms. Patient verbalized understanding. This case was discussed in detail with the attending ED physician, Dr. Aj. Presentation, findings, and treatment plan discussed in detail as well. - Radiology Data Radiology results: report reviewed, image reviewed Disposition Clinical Impression: Constipation Disposition: HOME SELF-CARE Instructions (If sedation given, give patient instructions): Constipation (ED) Additional Instructions: Return to the emergency department with any new, worsening, or concerning symptoms. Continue taking the Colace. You can also use [id number] MiraLAX with the colace if needed. Make sure you drink plenty of fluids. Follow up with your primary care provider in 1-2 days. Is patient prescribed a controlled substance at d/c from ED?: No Referrals: João Hernandez MD [Primary Care Provider] - 1-2 days Time of Disposition: 16:56
[2023-04-07] MEDS: NA PHOS,M-B/NA PHOS,DI-BA 133 ML ENEMA RECTAL STA (15:26)
[2023-04-07 17:32] VITALS: BP 128/70; PULSE 78
== END 2023-04-07 17:15 | disposition home or self-care (01) ==
LOC: EC 12:28
DX: K59.00 Constipation, unspecified (principal); I25.10 Atherosclerotic heart disease of native coronary artery without angina pectoris; E11.9 Type 2 diabetes mellitus without complications; K21.9 Gastro-esophageal reflux disease without esophagitis; I10 Essential (primary) hypertension; E78.5 Hyperlipidemia, unspecified; I25.2 Old myocardial infarction; M19.90 Unspecified osteoarthritis, unspecified site; G47.30 Sleep apnea, unspecified; F32.A Depression, unspecified; Z79.82 Long term (current) use of aspirin; Z79.899 Other long term (current) drug therapy; Z88.5 Allergy status to narcotic agent; Z91.048 Other nonmedicinal substance allergy status
CPT/HCPCS: 74018; 99284

== ENCOUNTER 2023-10-20 16:18 | Emergency (ER) | payer MEDICARE ==
[2023-10-20] MEDS ORDERED: SODIUM CHLORIDE 0.9% 500 ML BAG ONE (16:55)
--- NOTE | 2023-11-15 13:04 | XR ---
Patient: Jordy Duran T Ordering Physician: Unknown, Unknown ID: [id number] Phone, Pager: Phone: N /A Pager: N/A : [phone] Age/Gender: 77Y, M Primary Location: N/A Procedure: CHEST 2 VIEW Study D ate: 10/20/2023 7:15:00 PM EXAMINATION TYPE: XR chest 2V DATE OF EXAM: 10/20/2023 COMPARISON: NONE HISTORY: Shortness of breath TECHNIQUE: Frontal and lateral views of the chest are obtained. FINDINGS: Scattered senescent parenchymal changes noted. Hyperinflation compatible with COPD. No evidence for infiltrate. No evidence for atelectasis. Heart size is stable. Mediastinal structures are stable and grossly unremarkable. No evidence for hilar prominence. Degenerative changes dorsal spine. IMPRESSION: 1. No evidence for acute pulmonary disease.
== END 2023-10-21 03:37 | disposition home or self-care (01) ==
LOC: EC 16:18
CPT/HCPCS: 71046; 99285